=== PATIENT | female | born 1975 | race Caucasian/White ===

== ENCOUNTER 2017-08-18 16:42 | Inpatient (IN) | payer MEDICARE, MEDICAID, SELFPAY ==
[2017-08-18] VITALS (11 sets, daily range): BP systolic 177–178; BP diastolic 95–109; PULSE 40–86; RESP 16–26; TEMP 36.2–36.6; O2SAT 95–100; BMI 29.1; BMI 29.2; BMI 29.3
--- NOTE | 2017-08-18 17:01 | EKG12_ITS ---
Test Reason : DYSRHYTHMIA Blood Pressure : / mmHG Vent. Rate : 076 BPM Atrial Rate : 076 BPM P-R Int : 106 ms QRS Dur : 106 ms QT Int : 390 ms P-R-T Axes : -04 168 085 degrees QTc Int : 438 ms Sinus rhythm with short GA with frequent Premature ventricular complexes Anterolateral infarct , age undetermined Abnormal ECG Confirmed by SHWETA FISHER, HAYDEE ([id number]), book editor SHARON WORTHY ([id number]) on 08/20/2017 2:38:07 PM Referred By: ASHLEY Confirmed By:HAYDEE ROCK MD
--- NOTE | 2017-08-18 17:45 | RAD_ITS ---
STUDY: X-RAY CHEST REASON FOR EXAM: Female, 42 years old. Elevated blood pressure TECHNIQUE: Frontal and lateral views of the chest. COMPARISON: 09.30.16 FINDINGS: Mild right lower lobe pneumonia. There is no demonstrated pleural abnormality. There is borderline cardiomegaly. Normal mediastinum and solange. Normal visualized pulmonary arteries. Normal visualized aortic arch and descending thoracic aorta. Normal visualized thoracic spine. Normal visualized ribs, clavicles, and shoulders. There is no demonstrated abnormality of the visualized soft tissue structures of the upper abdomen. RAD/Chest PA and Lateral IMPRESSION: Mild right lower lobe pneumonia. Electronically Signed: Sherwin David MD at 18:14 EDT , Service support ,
[2017-08-18 18:05] LABS: Absolute Lymphocyte Count 1.65 X10^3/ul (0.83-4.51); Absolute Neutrophil Count 6.8 X10^3/uL (2.0-7.7); Basophil# 0.02 X10^3/uL; Basophil% 0.2 % (0-1); Eosinophil# 0.13 X10^3/uL; Eosinophils% 1.4 % (0-5); Hematocrit 37.8 % (37-47); Hemoglobin 11.9 g/dl (12.0-15.0); Lymphocyte # 1.65 X10^3/ul (4.0); Lymphocyte % 18.4 % (19-41); Mean Corp Hgb Conc 31.5 g/gl (32-36); Mean Corpuscular Hgb 33.1 pg (27.0-32.0); Mean Corpuscular Volume 105.3 fL (81-99); Mean Platelet Vol. 11.6 fl (6.2-12.0); Monocyte# 0.38 X10^3/uL; Monocyte% 4.2 % (0-10); Neutrophil # 6.79 X10^3/uL (2.7-7.7); Neutrophil % 75.7 % (47-70); Platelet Count 150 K/mm3 (150-450); RBC Distribution Width CV 19.5 % (11.6-14.6); RBC Distribution Width SD 74.5 fl (35.1-43.9); Red Blood Count 3.59 M/mm3 (4.2-5.4)
[2017-08-18 18:06] LABS: Differential Indicated SCAN CRITERIA MET; POSITIVE COUNT NO; POSITIVE DIFFERENTIAL NO; POSITIVE MORPHOLOGY YES
[2017-08-18 18:33] LABS: Anisocytosis 2+; Differential Comment SCANNED; Macrocytosis 1+; Platelet Estimate ADEQUATE (ADEQ)
[2017-08-18 18:41] LABS: Anion Gap 11 (5-15); BUN 84 mg/dL (7-18); BUN/Creat Ratio 8.8 RATIO (10-20); Chloride 106 mmol/L (98-107); Creatinine, Serum 9.59 mg/dL (0.55-1.02); EST Glomerular Filtration Rate 5 mL/min (>60); Est Glom Filt Rate - Afr Amer 6 mL/min (>60); Estimated Creatinine Clearance 6.39 ml/min; Glucose 90 mg/dL (74-106); Potassium 7.2 mmol/L (3.5-5.1); Sodium Level 139 mmol/L (136-145)
--- NOTE | 2017-08-18 20:29 | ED.DCSUM_ITS ---
- ER Visit Summary Date of Service: 08/18/17 Chief Complaint: Palpitations History of Present Illness: The patient is a 42 F 3 of end-stage renal disease for last 14 years in which he is dialyzed Saturday. Also treated for hypertension and recently started on Cozaar. Patient states that she had a full run of dialysis on Saturday. States she has been having palpitations since that time. Physical Examination: Middle-aged female vital signs stable afebrile. Pulse ox 100 percent on room air no signs of hypoxia. HEENT exam unremarkable. Neck nontender no JVD. Lungs clear to auscultation bilaterally. Heart frequent PVCs on monitor. Abdomen soft nontender. Normal bowel sounds no peritoneal signs. Having all 4 extremities. Left arm fistula with thrill. Neurologically awake and alert with no focal motor deficits. Test Results: CBC shows a white count of 9. H&H 11.9 and 37. Electrolytes show potassium of 7.2 with a BUN of 84 and creatinine of 9.5. Troponin is elevated 0.26. Chest x-ray shows no acute process. Radiologist read it as possible right lower lobe infiltrate I disagree. EKG is a sinus rhythm with frequent PVCs. Emergency Department Course and Treatment: Patient be treated with IV calcium gluconate, IV D 25. And IV insulin. I very spoken to the hospitalist about admission. Depending on how she responds to therapy she may or may not need acute dialysis. Treatment Plan: [] Disposition: Admission Impression: Palpitations secondary to PVCs and bigeminy Acute hyperkalemia History of end-stage renal disease and dialysis This note was generated with [employer] dictation software. It may contain incorrect words, spelling, and punctuation that were not noted in review of the chart prior to signing ED Disposition - Plan for ED Patient: Chief Complaint: General Illness Referrals: Zofia Devries [Primary Care Provider] -
[2017-08-18] MEDS: Albuterol 2.5 MG/3 ML VIAL.NEB. INHALATION (20:36)
--- NOTE | 2017-08-18 20:57 | PCM.HP.STD ---
Problem List (1) Hyperkalemia Status: Acute (2) Bigeminal pulse Status: Acute (3) COPD (chronic obstructive pulmonary disease) Status: Chronic (4) Hypertension Status: Chronic (5) Alport syndrome Status: Chronic History of Present Illness Date of Admission: 08/18/17 Chief Complaint: Palpitation, generalized fatigue and weakness The patient is a 42 year old F with history of congenital disease, Alport syndrome on complaint to hemodialysis on Saturday and Saturday came to ER with generalized weakness, palpitation with no energy. Patient stated she completed for dialysis on Saturday and had normal electrolytes. She was recently started on losartan 25 mg and she took for 2 days. 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 She is not a smoker. She denies fever, chills, excessive shortness of breath more than her normal. She has mild cough for about 1 week. Chest x-ray report is mild right lower lobe infiltrate but I do not appreciate significant consolidation and does not have clinical symptoms of pneumonia; although with history of COPD started on Zithromax for COPD with possible acute bronchitis [] Past Medical History Past Medical History (Chronic Problems): Chronic Problems COPD (chronic obstructive pulmonary disease) (Chronic) Hypertension (Chronic) Alport syndrome (Chronic) Allergies amoxicillin [From Augmentin] Allergy (Verified 08/18/17 16:47) Hives cephalexin [From Keflex] Allergy (Verified 08/18/17 16:47) Hives clavulanic acid [From Augmentin] Allergy (Verified 08/18/17 16:47) Hives oxycodone Allergy (Verified 08/18/17 16:47) Hives vancomycin Allergy (Verified 08/18/17 16:47) Hives Home Medications: Ambulatory Orders Medication Instructions Recorded Albuterol Inhaler [Ventolin Hfa] 1 - 2 puff INHALATION Q4H PRN PRN 09/30/16 #1 inhaler Calcium Acetate [Phoslo Gel Cap] 667 mg PO TIDCM 09/30/16 Doxycycline [Vibramycin] 100 mg PO BID #19 capsule 09/30/16 Folic Acid/Vit Bcomp,C [Renal 0.8 mg PO DAILY 09/30/16 Vitamin Tablet] Esomeprazole Mag Trihydrate 40 mg PO DAILY 08/18/17 [Nexium] Smoking Status: Never smoker Review of Systems Constitutional: Denies: Chills, Fever, Weight Change HEENT: Denies: Head Aches, Sinus Congestion, Sinus Drainage Cardiovascular: Denies: Chest Pain, Palpitations Respiratory: Reports: Cough, Shortness of breath upon exertion - Chronic. Denies: Shortness of breath at rest, Sputum production Gastrointestinal: Denies: Abdominal Pain, Nausea, Vomiting Genitourinary: Denies: Dysuria Musculoskeletal: Denies: Joint Pain, Joint Tenderness Skin: Denies: Rash, Wounds Neurological: Denies: Numbness, Tingling, Focal weakness Psychiatric: Denies: Anxiety, Depression, Homicidal Ideations, Suicidal Ideations Hematologic/ Lymphatic: Denies: Easy Bruising, Easy Bleeding VTE Information - Inpt Only VTE Present on Admission: No VTE Mechan Device Prophylaxis: None VTE Pharm Prophylaxis ordered?: Yes Reason prophylaxis not ordered:: Procedure Not Indicated Patient Problems: Active and Suspected Problems Hyperkalemia (Acute) Bigeminal pulse (Acute) - Physical Exam General: Alert, Oriented x3, Cooperative HEENT: Atraumatic, PERRLA, EOMI, Normocephalic Neck: Supple, No JVD, Negative Carotid Bruits Lungs: Clear to auscultation, Normal air movement, No rhonchi, No wheeze, No rales Cardiovascular: Regular rate, Normal S1, Normal S2, No murmurs, Irregular Rate - Pulses bigeminy Abdomen: Bowel Sounds Present, Soft, Non Tender, Non-Distended Extremities: No edema, Capillary Refill Less than 3 Seconds Skin: No rashes, No breakdown Musculoskeletal: No Tenderness to Palpation of Joints or Extremities Neurological: Cranial nerves II-XII grossly intact Psych/Mental Status: Normal Affect, Appropriate Vital Signs Temp Pulse Resp BP Pulse Ox 97.2 F L 82 20 H 178/95 H 99 08/18/17 16:43 08/18/17 20:37 08/18/17 20:37 08/18/17 16:43 08/18/17 20:26 Oxygen Delivery Method Room Air Weight: 164 lb 7.437 oz Body Mass Index (BMI) 29.1 Laboratory Tests Past 24 Hrs 08/18/17 08/18/17 17:50 17:50 WBC 9.0 RBC 3.59 L Hgb 11.9 L Hct 37.8 MCV 105.3 H MCH 33.1 H MCHC 31.5 L RDW 19.5 H RDW Differential 74.5 H Plt Count 150 MPV 11.6 Immature Gran % (Auto) 0.100 Neut % (Auto) 75.7 H Lymph % (Auto) 18.4 L Stanly % (Auto) 4.2 Eos % (Auto) 1.4 Baso % (Auto) 0.2 Absolute Neuts (auto) 6.8 Absolute Lymphs (auto) 1.65 Total Counted Not Reportable Differential Comment SCANNED Platelet Estimate ADEQUATE Anisocytosis 2+ Macrocytosis 1+ Sodium 139 Potassium 7.2 H* Chloride 106 Carbon Dioxide 22.0 Anion Gap 11 BUN 84 H Creatinine 9.59 H* Estim Creat Clear Calc 6.39 Est GFR (MDRD) Af Amer 6 L Est GFR (MDRD) Non-Af 5 L BUN/Creatinine Ratio 8.8 L Glucose 90 Calcium 9.0 Troponin I 0.26 H Assessment/Plan Active and Suspected Problems Hyperkalemia (Acute) Bigeminal pulse (Acute) The patient is a 42 year old F with history of congenital disease, Alport syndrome on complaint to hemodialysis on Saturday and Saturday came to ER with generalized weakness, palpitation with no energy. Patient stated she completed for dialysis on Saturday and had normal electrolytes. She was recently started on losartan 25 mg and she took for 2 days. She follows [employer] equipment operator, Dr. 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 She is not a smoker. She denies fever, chills, excessive shortness of breath more than her normal. She has mild cough for about 1 week. In ED, she was found to have K7.2, creatinine 9.59 and EKG showed pulses bigeminy. 1. Generalized weakness and fatigue possibly due to hyperkalemia precipitated by recent start of losartan: Patient is being admitted in PCU. Patient had cocktail and Kayexalate in ER. Discussed with the [employer] equipment operator on-call, Dr. Campo and put the order for urgent hemodialysis. Repeat BMP after hemodialysis. Repeat EKG ordered. 2. Severe hyperkalemia with EKG changes: Treatment as mentioned above. 3. COPD with possibility of viral bronchitis: Patient does not seem to be an exacerbation. Chest x-ray report as mild right lower lobe infiltrate but I do not appreciate significant consolidation and does not have clinical symptoms of pneumonia; although with history of COPD, started on Zithromax for COPD with possible acute bronchitis On bronchodilator as needed. She was already on doxycycline at home. 4. 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: DVT prophylaxis: With history of ESRD on hemodialysis, started on heparin 500 units subcutaneous twice daily Laboratory Results 08/18/17 17:50: WBC 9.0, RBC 3.59 L, Hgb 11.9 L, Hct 37.8, MCV 105.3 H, MCH 33.1 H, MCHC 31.5 L, RDW 19.5 H, RDW Differential 74.5 H, Plt Count 150, MPV 11.6, Immature Gran % (Auto) 0.100, Neut % (Auto) 75.7 H, Lymph % (Auto) 18.4 L, Stanly % (Auto) 4.2, Eos % (Auto) 1.4, Baso % (Auto) 0.2, Absolute Neuts (auto) 6.8, Absolute Lymphs (auto) 1.65, Total Counted Not Reportable, Differential Comment SCANNED, Platelet Estimate ADEQUATE, Anisocytosis 2+, Macrocytosis 1+ 08/18/17 17:50: Sodium 139, Potassium 7.2 H*, Chloride 106, Carbon Dioxide 22.0, Anion Gap 11, BUN 84 H, Creatinine 9.59 H*, Estim Creat Clear Calc 6.39, Est GFR (MDRD) Af Amer 6 L, Est GFR (MDRD) Non-Af 5 L, BUN/Creatinine Ratio 8.8 L, Glucose 90, Calcium 9.0, Troponin I 0.26 H Code Visit Inpatient E&M: 00240 Init Hosp L3
[2017-08-18] MEDS: Dextrose 50%-Water 25 GM/50 ML DISP.SYRIN IV (21:05)
[2017-08-18] MEDS: Sodium Polystyrene Sulfonate 15 GM/60 ML UDC 30 GM PO (21:06)
--- NOTE | 2017-08-18 21:28 | ED.RN ---
called to see if p[facility] was ready for pt, smelter charger states that she is calling dr. reis to confirm if pt is to still come to them because she is bigeminy.
--- NOTE | 2017-08-18 23:00 | EKG12_ITS ---
Test Reason : POST DIALYSIS EKG Blood Pressure : / mmHG Vent. Rate : 078 BPM Atrial Rate : 078 BPM P-R Int : 126 ms QRS Dur : 106 ms QT Int : 408 ms P-R-T Axes : 065 -39 123 degrees QTc Int : 465 ms Normal sinus rhythm Left axis deviation Anterior infarct , age undetermined T wave abnormality, consider lateral ischemia Abnormal ECG When compared with ECG of 30-SEP-2016 16:04, T wave inversion no longer evident in Inferior leads Confirmed by SHWETA FISHER, HAYDEE ([id number]), editor continuity and script SHARON WORTHY ([id number]) on 08/23/2017 3:47:23 PM Referred By: GEO Confirmed By:HAYDEE ROCK MD
[2017-08-18] MEDS: Lidocaine/Prilocaine HCl 5 GM Tube TOPICAL (23:02)
[2017-08-19] VITALS (13 sets, daily range): BP systolic 106–143; BP diastolic 83–88; PULSE 71–91; RESP 16–22; TEMP 36.4–37; O2SAT 95–99
--- NOTE | 2017-08-19 02:10 | DIALYSIS ---
HD on 1 k bath uf -1800ml tolerated well post weight 72.8kg. No meds given. Stasis at AF dsg at sites
[2017-08-19] MEDS: guaiFENesin 1,200 MG Tablet 1200 MG PO ×3 (02:42→22:10)
[2017-08-19] MEDS: Azithromycin 250 MG Tablet 500 MG PO (02:43)
[2017-08-19 06:44] LABS: Anion Gap 11 (5-15); BUN 48 mg/dL (7-18); BUN/Creat Ratio 7.2 RATIO (10-20); Calcium,Total 8.4 mg/dL (8.5-10.1); Chloride 99 mmol/L (98-107); Creatinine, Serum 6.63 mg/dL (0.55-1.02); EST Glomerular Filtration Rate 7 mL/min (>60); Est Glom Filt Rate - Afr Amer 9 mL/min (>60); Estimated Creatinine Clearance 9.24 ml/min; Glucose 85 mg/dL (74-106); Potassium 3.8 mmol/L (3.5-5.1); Sodium Level 138 mmol/L (136-145)
[2017-08-19 06:58] LABS: Hematocrit 32.8 % (37-47); Hemoglobin 10.6 g/dl (12.0-15.0); Mean Corp Hgb Conc 32.3 g/gl (32-36); Mean Corpuscular Hgb 33.1 pg (27.0-32.0); Mean Corpuscular Volume 102.5 fL (81-99); Mean Platelet Vol. 11.3 fl (6.2-12.0); Platelet Count 116 K/mm3 (150-450); RBC Distribution Width CV 19.5 % (11.6-14.6); RBC Distribution Width SD 72.5 fl (35.1-43.9)
[2017-08-19 07:02] LABS: Scan Indicated on CBC? Y/N YES- FLAGS NOTED
[2017-08-19 07:18] LABS: Differential Comment SCANNED
[2017-08-19] MEDS: Calcium Acetate 667 MG Capsule PO ×3 (08:25→16:34)
[2017-08-19] MEDS: Folic Acid/Vitamin B Comp W-C 1 Capsule 1 CAP PO (08:26)
[2017-08-19] MEDS: Pantoprazole Sodium 40 MG Tablet PO (08:26)
--- NOTE | 2017-08-19 11:10 | CASEMGMT ---
Face to Face with patient for initial transition planning/care coordination assessment. PERRY CLOUD introduced self and role at [facility], pt voices understanding and consents to assessment at this time. Pt is sitting up in chair in no distress at this time. Pt is A/O x4 at this time and answers all questions appropriately at this time. Care providers, pharmacy, and demographics verified. See attached link. Pt voices no further concerns/needs at this time. Advised pt to ask for CM if any further questions/concerns/needs arise, voices understanding. PLAN: [place] PERRY CLOUD
--- NOTE | 2017-08-19 11:16 | PCM.CONS.R ---
Problem List (1) ESRD (end stage renal disease) on dialysis Status: Chronic (2) Hyperkalemia Status: Acute Consultation - Renal PCP/ Referring MD: Requesting physician: [] Primary care physician: Zofia Devries - History of Present Illness History of Present Illness: The patient is a 42 year old F past medical history of Alport syndrome, end-stage renal disease on Saturday. [facility] [place] . Presented presented with generalized weakness . Patient was found to have hyperkalemia with potassium more than 7 along with the EKG changes renal team was consulted last night for urgent dialysis . Patient tolerated session yesterday well with 1.3 L ultrafiltration . Patient also has been complaining of cough for a week . Patient has chronic shortness of breath . She is not on oxygen at home . Patient now is being treated with bronchitis . Says she feels much better this morning . Patient has been on dialysis for 14 years . Hemodialysis access is left forearm AV fistula . Review of system : 12 systems review is negative this morning [] - Allergies Allergies: Allergies amoxicillin [From Augmentin] Allergy (Verified 08/18/17 16:47) Hives cephalexin [From Keflex] Allergy (Verified 08/18/17 16:47) Hives clavulanic acid [From Augmentin] Allergy (Verified 08/18/17 16:47) Hives oxycodone Allergy (Verified 08/18/17 16:47) Hives vancomycin Allergy (Verified 08/18/17 16:47) Hives - Current Medications Current Medications: Current Medications Acetaminophen (Tylenol) 650 mg PO Q4H PRN PRN PRN Reason: Fever/pain Albuterol Sulfate (Ventolin Aerosols) 2.5 mg INHALATION Q4H PRN PRN PRN Reason: WHEEZING Albuterol/Ipratropium (Duoneb) 3 ml INHALATION Q4H PRN PRN Reason: sob Azithromycin (Zithromax) 500 mg PO DAILY [facility] Stop: 08/21/17 22:32 Last Admin: 08/19/17 08:30 Dose: Not Given Calcium Acetate (Phoslo Gel Cap) 667 mg PO TIDCM [facility] Last Admin: 08/19/17 08:25 Dose: 667 mg Guaifenesin (Mucinex) 1,200 mg PO BID [facility] Last Admin: 08/19/17 08:30 Dose: 1,200 mg Heparin Sodium (Porcine) (Heparin Na) 5,000 unit SC BID [facility] Last Admin: 08/19/17 08:25 Dose: Not Given Magnesium Hydroxide (Milk Of Magnesia) 30 ml PO DAILY PRN PRN Reason: Constipation Multivit/Ca Carb/B Cmplx/FA/Prenat (Nephrocaps, Renaphro) [facility] Last Admin: 08/19/17 08:26 Dose: 1 capsule Ondansetron HCl (Zofran) 4 mg IV Q8H PRN PRN PRN Reason: NAUSEA Pantoprazole Sodium (Protonix) 40 mg PO DAILY [facility] Last Admin: 08/19/17 08:26 Dose: 40 mg Sodium Chloride () 5 - 30 ml IV UD PRN PRN Reason: SALINE FLUSH Zolpidem Tartrate (Ambien (Generic)) 5 mg PO QHS PRN PRN PRN Reason: SLEEP - Past Medical History Past Medical History (Chronic Problems): Chronic Problems COPD (chronic obstructive pulmonary disease) (Chronic) Hypertension (Chronic) Alport syndrome (Chronic) ESRD (end stage renal disease) on dialysis (Chronic) - Social History Smoking Status: Never smoker Patient Problems: Active and Suspected Problems Hyperkalemia (Acute) Bigeminal pulse (Acute) - Physical Exam General: Alert, Oriented x3 HEENT: Atraumatic Oral: Moist Mucosa Neck: Supple, No JVD Lungs: Clear to auscultation, Normal air movement, No rhonchi, No wheeze Cardiovascular: Regular rate, Normal S2 Abdomen: Bowel Sounds Present, Soft, Non Tender Extremities: No clubbing, No cyanosis, No edema Skin: No rashes Musculoskeletal: No Tenderness to Palpation of Joints or Extremities Lymphatic: No Cervical, Supraclavicular, or Inguinal Adenopathy Neurological: Cranial nerves II-XII grossly intact, Neuro grossly intact Psych/Mental Status: Normal Affect Comment: hemodialysis access: Left forearm AV fistula. 2 pseudoaneurys. Vital Signs Temp Pulse Resp BP Pulse Ox 98.4 F 76 18 135/87 H 95 08/19/17 08:21 08/19/17 08:21 08/19/17 08:21 08/19/17 08:21 08/19/17 08:21 Oxygen Delivery Method Room Air Weight: 73.4 kg Body Mass Index (BMI) 29.2 Intake and Output for Last 24 Hours 08/17/17 08/18/17 08/19/17 23:59 23:59 23:59 Intake Total 300 / 300 Output Total 2099 / 2100 Balance -1800 / -1800 Laboratory Tests Past 24 Hrs 08/19/17 08/19/17 08/19/17 05:32 05:32 09:40 WBC 8.0 RBC 3.20 L Hgb 10.6 L Hct 32.8 L MCV 102.5 H MCH 33.1 H MCHC 32.3 RDW 19.5 H RDW Differential 72.5 H Plt Count 116 L MPV 11.3 Differential Comment SCANNED Sodium 138 Potassium 3.8 Chloride 99 Carbon Dioxide 28.0 Anion Gap 11 BUN 48 H Creatinine 6.63 H Estim Creat Clear Calc 9.24 Est GFR (MDRD) Af Amer 9 L Est GFR (MDRD) Non-Af 7 L BUN/Creatinine Ratio 7.2 L Glucose 85 Calcium 8.4 L Troponin I 0.73 H* Assessment/Plan Active and Suspected Problems Hyperkalemia (Acute) Bigeminal pulse (Acute) 1-end-stage renal disease patient. On Saturday schedule for hemodialysis. 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 HD access left forearm AV fistula. Patient was dialyzed last night for hyperkalemia. Patient tolerated the session well. Ultrafiltration 1.8 L. No need for dialysis today. Next hemodialysis will be on August 21. URR goal is 70% and more with each session. 2-hyperkalemia with EKG changes. Resolved with hemodialysis. Potassium today 3.8. Continue renal diet. No need for dialysis today 3-hyperphosphatemia: Please continue calcium acetate. Check phosphorus level as outpatient along with a PTH. 4-hypertension: Blood pressure is well controlled. Please avoid NILDA inhibitor or ARB at discharge. 5 bronchitis-: Management as per the primary team. It is okay to discharge the patient home from nephrology standpoint to follow with the chronic hemodialysis unit for hemodialysis sessions. Thank you for the consult. We will continue to follow. Manoj Lester MD [phone]
--- NOTE | 2017-08-19 11:24 | CON.PCM_ITS ---
Problem List (1) ESRD (end stage renal disease) on dialysis Status: Chronic (2) Hyperkalemia Status: Acute Consultation - Renal PCP/ Referring MD: Requesting physician: [] Primary care physician: Zofia Devries - History of Present Illness History of Present Illness: The patient is a 42 year old F past medical history of Alport syndrome, end- stage renal disease on Saturday. [facility] at [place] . Presented presented with generalized weakness . Patient was found to have hyperkalemia with potassium more than 7 along with the EKG changes renal team was consulted last night for urgent dialysis . Patient tolerated session yesterday well with 1.3 L ultrafiltration . Patient also has been complaining of cough for a week . Patient has chronic shortness of breath . She is not on oxygen at home . Patient now is being treated with bronchitis . Says she feels much better this morning . Patient has been on dialysis for 14 years . Hemodialysis access is left forearm AV fistula . Review of system : 12 systems review is negative this morning [] - Allergies Allergies: Allergies amoxicillin [From Augmentin] Allergy (Verified 08/18/17 16:47) Hives cephalexin [From Keflex] Allergy (Verified 08/18/17 16:47) Hives clavulanic acid [From Augmentin] Allergy (Verified 08/18/17 16:47) Hives oxycodone Allergy (Verified 08/18/17 16:47) Hives vancomycin Allergy (Verified 08/18/17 16:47) Hives - Current Medications Current Medications: Current Medications Acetaminophen (Tylenol) 650 mg PO Q4H PRN PRN PRN Reason: Fever/pain Albuterol Sulfate (Ventolin Aerosols) 2.5 mg INHALATION Q4H PRN PRN PRN Reason: WHEEZING Albuterol/Ipratropium (Duoneb) 3 ml INHALATION Q4H PRN PRN Reason: sob Azithromycin (Zithromax) 500 mg PO DAILY [facility] Stop: 08/21/17 22:32 Last Admin: 08/19/17 08:30 Dose: Not Given Calcium Acetate (Phoslo Gel Cap) 667 mg PO TIDCM [facility] Last Admin: 08/19/17 08:25 Dose: 667 mg Guaifenesin (Mucinex) 1,200 mg PO BID [facility] Last Admin: 08/19/17 08:30 Dose: 1,200 mg Heparin Sodium (Porcine) (Heparin Na) 5,000 unit SC BID [facility] Last Admin: 08/19/17 08:25 Dose: Not Given Magnesium Hydroxide (Milk Of Magnesia) 30 ml PO DAILY PRN PRN Reason: Constipation Multivit/Ca Carb/B Cmplx/FA/Prenat (Nephrocaps, [facility]) [facility] Last Admin: 08/19/17 08:26 Dose: 1 capsule Ondansetron HCl (Zofran) 4 mg IV Q8H PRN PRN PRN Reason: NAUSEA Pantoprazole Sodium (Protonix) 40 mg PO DAILY [facility] Last Admin: 08/19/17 08:26 Dose: 40 mg Sodium Chloride () 5 - 30 ml IV UD PRN PRN Reason: SALINE FLUSH Zolpidem Tartrate (Ambien (Generic)) 5 mg PO QHS PRN PRN PRN Reason: SLEEP - Past Medical History Past Medical History (Chronic Problems): Chronic Problems COPD (chronic obstructive pulmonary disease) (Chronic) Hypertension (Chronic) Alport syndrome (Chronic) ESRD (end stage renal disease) on dialysis (Chronic) - Social History Smoking Status: Never smoker Patient Problems: Active and Suspected Problems Hyperkalemia (Acute) Bigeminal pulse (Acute) - Physical Exam General: Alert, Oriented x3 HEENT: Atraumatic Oral: Moist Mucosa Neck: Supple, No JVD Lungs: Clear to auscultation, Normal air movement, No rhonchi, No wheeze Cardiovascular: Regular rate, Normal S2 Abdomen: Bowel Sounds Present, Soft, Non Tender Extremities: No clubbing, No cyanosis, No edema Skin: No rashes Musculoskeletal: No Tenderness to Palpation of Joints or Extremities Lymphatic: No Cervical, Supraclavicular, or Inguinal Adenopathy Neurological: Cranial nerves II-XII grossly intact, Neuro grossly intact Psych/Mental Status: Normal Affect Comment: hemodialysis access: Left forearm AV fistula. 2 pseudoaneurys. Vital Signs Temp Pulse Resp BP Pulse Ox 98.4 F 76 18 135/87 H 95 08/19/17 08:21 08/19/17 08:21 08/19/17 08:21 08/19/17 08:21 08/19/17 08:21 Oxygen Delivery Method Room Air Weight: 73.4 kg Body Mass Index (BMI) 29.2 Intake and Output for Last 24 Hours 08/17/17 08/18/17 08/19/17 23:59 23:59 23:59 Intake Total 300 / 300 Output Total 2099 / 2100 Balance -1800 / -1800 Laboratory Tests Past 24 Hrs 08/19/17 08/19/17 08/19/17 05:32 05:32 09:40 WBC 8.0 RBC 3.20 L Hgb 10.6 L Hct 32.8 L MCV 102.5 H MCH 33.1 H MCHC 32.3 RDW 19.5 H RDW Differential 72.5 H Plt Count 116 L MPV 11.3 Differential Comment SCANNED Sodium 138 Potassium 3.8 Chloride 99 Carbon Dioxide 28.0 Anion Gap 11 BUN 48 H Creatinine 6.63 H Estim Creat Clear Calc 9.24 Est GFR (MDRD) Af Amer 9 L Est GFR (MDRD) Non-Af 7 L BUN/Creatinine Ratio 7.2 L Glucose 85 Calcium 8.4 L Troponin I 0.73 H* Assessment/Plan Active and Suspected Problems Hyperkalemia (Acute) Bigeminal pulse (Acute) 1-end-stage renal disease patient. On Saturday schedule for hemodialysis. 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 HD access left forearm AV fistula. Patient was dialyzed last night for hyperkalemia. Patient tolerated the session well. Ultrafiltration 1.8 L. No need for dialysis today. Next hemodialysis will be on August 21. URR goal is 70% and more with each session. 2-hyperkalemia with EKG changes. Resolved with hemodialysis. Potassium today 3.8. Continue renal diet. No need for dialysis today 3-hyperphosphatemia: Please continue calcium acetate. Check phosphorus level as outpatient along with a PTH. 4-hypertension: Blood pressure is well controlled. Please avoid NILDA inhibitor or ARB at discharge. 5 bronchitis-: Management as per the primary team. It is okay to discharge the patient home from nephrology standpoint to follow with the chronic hemodialysis unit for hemodialysis sessions. Thank you for the consult. We will continue to follow. Manoj Lester MD [phone]
--- NOTE | 2017-08-19 12:25 | DIALYSIS ---
Pt has dialysis on MWF. Upon arrival to the pt room, I found out that the pt was not going to need tx today per Dr. Lester. Next tx will be 08/21/17. PERRY Brandt was notified.
--- NOTE | 2017-08-19 14:31 | PCM.PN.HOSP ---
Patient Problems: Active and Suspected Problems Hyperkalemia (Acute) Bigeminal pulse (Acute) Subjective: Feeling much better. When felt ill, fatigue, palpitations. Vitals/I&O's: Vital Signs Temp Pulse Resp BP Pulse Ox 36.9 C 73 18 135/87 H 97 08/19/17 08:21 08/19/17 11:39 08/19/17 08:21 08/19/17 08:21 08/19/17 11:20 Oxygen Delivery Method Room Air Weight: 73.4 kg Body Mass Index (BMI) 29.2 Intake and Output for Last 24 Hours 08/17/17 08/18/17 08/19/17 23:59 23:59 23:59 Intake Total 300 / 300 Output Total 2099 / 2099 Balance -1800 / -1800 General: Alert, Cooperative, No apparent distress HEENT: Atraumatic, Normocephalic Neck: No Nodes, Thyroid Normal Size and Texture Lungs: Clear to auscultation, Normal air movement, No rhonchi, No wheeze Cardiovascular: Regular rate, Regular Rhythm, - - 2/6 HSM at apex Laboratory Results 08/19/17 05:32: WBC 8.0, RBC 3.20 L, Hgb 10.6 L, Hct 32.8 L, MCV 102.5 H, MCH 33.1 H, MCHC 32.3, RDW 19.5 H, RDW Differential 72.5 H, Plt Count 116 L, MPV 11.3, Differential Comment SCANNED 08/19/17 05:32: Sodium 138, Potassium 3.8, Chloride 99, Carbon Dioxide 28.0, Anion Gap 11, BUN 48 H, Creatinine 6.63 H, Estim Creat Clear Calc 9.24, Est GFR (MDRD) Af Amer 9 L, Est GFR (MDRD) Non-Af 7 L, BUN/Creatinine Ratio 7.2 L, Glucose 85, Calcium 8.4 L 08/19/17 09:40: Troponin I 0.73 H* Current Medications Acetaminophen (Tylenol) 650 mg PO Q4H PRN PRN PRN Reason: Fever/pain Albuterol Sulfate (Ventolin Aerosols) 2.5 mg INHALATION Q4H PRN PRN PRN Reason: WHEEZING Albuterol/Ipratropium (Duoneb) 3 ml INHALATION Q4H PRN PRN Reason: sob Azithromycin (Zithromax) 500 mg PO DAILY [facility] Stop: 08/21/17 22:32 Last Admin: 08/19/17 08:30 Dose: Not Given Calcium Acetate (Phoslo Gel Cap) 667 mg PO TIDCM [facility] Last Admin: 08/19/17 12:00 Dose: 667 mg Guaifenesin (Mucinex) 1,200 mg PO BID [facility] Last Admin: 08/19/17 08:30 Dose: 1,200 mg Heparin Sodium (Porcine) (Heparin Na) 5,000 unit SC BID [facility] Last Admin: 08/19/17 08:25 Dose: Not Given Magnesium Hydroxide (Milk Of Magnesia) 30 ml PO DAILY PRN PRN Reason: Constipation Multivit/Ca Carb/B Cmplx/FA/Prenat (Nephrocaps, [facility]aphro) [facility] Last Admin: 08/19/17 08:26 Dose: 1 capsule Ondansetron HCl (Zofran) 4 mg IV Q8H PRN PRN PRN Reason: NAUSEA Pantoprazole Sodium (Protonix) 40 mg PO DAILY [facility] Last Admin: 08/19/17 08:26 Dose: 40 mg Sodium Chloride () 5 - 30 ml IV UD PRN PRN Reason: SALINE FLUSH Zolpidem Tartrate (Ambien (Generic)) 5 mg PO QHS PRN PRN PRN Reason: SLEEP Medical Necessity - Tobacco Use Smoking Status: Never smoker Tobacco Use: Secondhand Assessment/Plan Active and Suspected Problems Hyperkalemia (Acute) Bigeminal pulse (Acute) 1. Hyperkalemia: resolved secondary to losartan and ESRD resolved after HD, Ca Gluconate, Kayexalate 2. Vetricular bigeminy secondary to above resolved periodic PVCs, but improved after correction of hyperkalemia 3. ESRD HD QMWF 4. 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
--- NOTE | 2017-08-19 14:37 | PN_ITS ---
Patient Problems: Active and Suspected Problems Hyperkalemia (Acute) Bigeminal pulse (Acute) Subjective: Feeling much better. When felt ill, fatigue, palpitations. Vitals/I&O's: Vital Signs Temp Pulse Resp BP Pulse Ox 36.9 C 73 18 135/87 H 97 08/19/17 08:21 08/19/17 11:39 08/19/17 08:21 08/19/17 08:21 08/19/17 11:20 Oxygen Delivery Method Room Air Weight: 73.4 kg Body Mass Index (BMI) 29.2 Intake and Output for Last 24 Hours 08/17/17 08/18/17 08/19/17 23:59 23:59 23:59 Intake Total 300 / 300 Output Total 2099 / 2099 Balance -1800 / -1800 General: Alert, Cooperative, No apparent distress HEENT: Atraumatic, Normocephalic Neck: No Nodes, Thyroid Normal Size and Texture Lungs: Clear to auscultation, Normal air movement, No rhonchi, No wheeze Cardiovascular: Regular rate, Regular Rhythm, - - 2/6 HSM at apex Laboratory Results 08/19/17 05:32: WBC 8.0, RBC 3.20 L, Hgb 10.6 L, Hct 32.8 L, MCV 102.5 H, MCH 33.1 H, MCHC 32.3, RDW 19.5 H, RDW Differential 72.5 H, Plt Count 116 L, MPV 11.3, Differential Comment SCANNED 08/19/17 05:32: Sodium 138, Potassium 3.8, Chloride 99, Carbon Dioxide 28.0, Anion Gap 11, BUN 48 H, Creatinine 6.63 H, Estim Creat Clear Calc 9.24, Est GFR (MDRD) Af Amer 9 L, Est GFR (MDRD) Non-Af 7 L, BUN/Creatinine Ratio 7.2 L, Glucose 85, Calcium 8.4 L 08/19/17 09:40: Troponin I 0.73 H* Current Medications Acetaminophen (Tylenol) 650 mg PO Q4H PRN PRN PRN Reason: Fever/pain Albuterol Sulfate (Ventolin Aerosols) 2.5 mg INHALATION Q4H PRN PRN PRN Reason: WHEEZING Albuterol/Ipratropium (Duoneb) 3 ml INHALATION Q4H PRN PRN Reason: sob Azithromycin (Zithromax) 500 mg PO DAILY [facility] Stop: 08/21/17 22:32 Last Admin: 08/19/17 08:30 Dose: Not Given Calcium Acetate (Phoslo Gel Cap) 667 mg PO TIDCM [facility] Last Admin: 08/19/17 12:00 Dose: 667 mg Guaifenesin (Mucinex) 1,200 mg PO BID [facility] Last Admin: 08/19/17 08:30 Dose: 1,200 mg Heparin Sodium (Porcine) (Heparin Na) 5,000 unit SC BID [facility] Last Admin: 08/19/17 08:25 Dose: Not Given Magnesium Hydroxide (Milk Of Magnesia) 30 ml PO DAILY PRN PRN Reason: Constipation Multivit/Ca Carb/B Cmplx/FA/Prenat (Nephrocaps, Renaphro) [facility] Last Admin: 08/19/17 08:26 Dose: 1 capsule Ondansetron HCl (Zofran) 4 mg IV Q8H PRN PRN PRN Reason: NAUSEA Pantoprazole Sodium (Protonix) 40 mg PO DAILY [facility] Last Admin: 08/19/17 08:26 Dose: 40 mg Sodium Chloride () 5 - 30 ml IV UD PRN PRN Reason: SALINE FLUSH Zolpidem Tartrate (Ambien (Generic)) 5 mg PO QHS PRN PRN PRN Reason: SLEEP Medical Necessity - Tobacco Use Smoking Status: Never smoker Tobacco Use: Secondhand Assessment/Plan Active and Suspected Problems Hyperkalemia (Acute) Bigeminal pulse (Acute) 1. Hyperkalemia: resolved * secondary to losartan and ESRD * resolved after HD, Ca Gluconate, Kayexalate 2. Vetricular bigeminy * secondary to above * resolved * periodic PVCs, but improved after correction of hyperkalemia 3. ESRD * HD QMWF 4. 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
--- NOTE | 2017-08-19 14:38 | PCM.DC ---
- Discharge Diagnoses Current Active Problems: Current Active and Chronic Problems Hyperkalemia (Acute) Bigeminal pulse (Acute) COPD (chronic obstructive pulmonary disease) (Chronic) Hypertension (Chronic) Alport syndrome (Chronic) ESRD (end stage renal disease) on dialysis (Chronic) You will use the following diet at home:: Renal (restricted protein/sodium) Your food should be the consistency of: Regular Your liquids should be the consistency of: Regular/Thin Discharge Activity: Return to Normal Activity Call your doctor if you observe: Fever of 101 or Higher, Shortness of breath, Chest pain, - - palpitations Allergies/Adverse Reactions: Allergies amoxicillin [From Augmentin] Allergy (Verified 08/18/17 16:47) Hives cephalexin [From Keflex] Allergy (Verified 08/18/17 16:47) Hives clavulanic acid [From Augmentin] Allergy (Verified 08/18/17 16:47) Hives oxycodone Allergy (Verified 08/18/17 16:47) Hives vancomycin Allergy (Verified 08/18/17 16:47) Hives Medications to take at Discharge Albuterol Inhaler [Ventolin Hfa] 1 - 2 puff INHALATION Q4H PRN PRN #1 inhaler 09/30/16 Calcium Acetate [Phoslo Gel Cap] 667 mg PO TIDCM 09/30/16 Folic Acid/Vit Bcomp,C [Renal Vitamin Tablet] 0.8 mg PO DAILY 09/30/16 Esomeprazole Mag Trihydrate [Nexium] 40 mg PO DAILY 08/18/17 Acetaminophen [Tylenol Tablet] 650 mg PO Q4H PRN PRN tablet 08/19/17 Primary Care Physician: Zofia Devries [Primary Care Provider] - Within 2 Weeks Proposed Discharge Date: 08/19/17
--- NOTE | 2017-08-19 14:42 | DS.PCM_ITS ---
Discharge Date and Diagnosis - Problem List Patient Problems: Active and Suspected Problems Hyperkalemia (Acute) Hyperkalemia (Acute) Bigeminal pulse (Acute) Date of Admission: 08/18/17 Date of Discharge: 08/19/17 - Primary Discharge Diagnosis Active and Suspected Problems Hyperkalemia (Acute) Hyperkalemia (Acute) Bigeminal pulse (Acute) - Secondary Discharge Diagnosis Chronic Problems COPD (chronic obstructive pulmonary disease) (Chronic) Hypertension (Chronic) Alport syndrome (Chronic) ESRD (end stage renal disease) on dialysis (Chronic) Hospital Course and Treatment Imaging Results: Clinical Impression(s) from Imaging Studies Chest X-Ray 08/18/17 17:45 IMPRESSION: Mild right lower lobe pneumonia. Electronically Signed: Sherwin David MD at 18:14 EDT , Service support , Operations: None Procedures: Dialysis Summary of Care Provided: The patient is a 42 year old F presents with fatigue, EASLEY and palpitations. Found to be hyperkalemic with a K of 7.2. She received several meds in ED and had urgent HD. Symptoms have resolved. 1. Hyperkalemia: resolved * secondary to losartan and ESRD * resolved after HD, Ca Gluconate, Kayexalate 2. Vetricular bigeminy * secondary to above * resolved * periodic PVCs, but improved after correction of hyperkalemia 3. ESRD * HD QMWF 4. 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 * no ARB/ACEi[] Discharge Diet: Renal Diet Discharge Activity: Return to Normal Activity Call your doctor if you observe: Fever of 101 or Higher, Shortness of breath, Chest pain, - - palpitations Home Medications: Medications to take at Discharge Albuterol Inhaler [Ventolin Hfa] 1 - 2 puff INHALATION Q4H PRN PRN #1 inhaler Calcium Acetate [Phoslo Gel Cap] 667 mg PO TIDCM 09/30/16 Folic Acid/Vit Bcomp,C [Renal Vitamin Tablet] 0.8 mg PO DAILY 09/30/16 Esomeprazole Mag Trihydrate [Nexium] 40 mg PO DAILY 08/18/17 Acetaminophen [Tylenol Tablet] 650 mg PO Q4H PRN PRN tablet 08/19/17 Primary Care Physician: Zofia Devries [Primary Care Provider] - Within 2 Weeks Disposition: Home Minutes spent on discharge:: 28 Patient Condition:: Good Medical Necessity - Tobacco Use Smoking Status: Never smoker Tobacco Use: Secondhand Meaningful Use Info Meaningful Use Diagnoses (Choose all that apply): None applicable Code Visit OBSV E&M: 60062 Observation care discharge
--- NOTE | 2017-08-19 14:49 | ECHOD_ITS ---
Reason For Study: PVCs, ARRHYTHMIA Procedure This was a 2D Doppler, Color Flow transthoracic echocardiogram. The exam was of fair technical quality due to body habitus. The study was technically difficult. Exam performed portable in patient room. Left Ventricle Mildly dilated left ventricle. Apical false tendon noted. Moderate segmental systolic dysfunction (see wall motion). The estimated ejection fraction is 30 %. Unable to assess diastolic dysfunction. Infero-Basal: Hypokinetic. Basal inferoseptal: Hypokinetic. Mid-Anterior : Hypokinetic. Mid- Lateral : Hypokinetic. Mid-Posterior: Hypokinetic. Mid-Inferior: Hypokinetic. Mid-inferoseptal : Hypokinetic. Mid-anteroseptal : Hypokinetic. [place] : Hypokinetic. Right Ventricle Normal RV size. Normal systolic function. Atria The left atrium is mildly enlarged. Normal right atrium. No doppler evidence for ASD. Mitral Valve There is mild mitral annular calcification. Mild diffuse mitral valve thickening. Moderate (2+) eccentric mitral valve insufficiency. Tricuspid Valve Normal tricuspid valve. Moderately severe (3+) eccentric tricuspid valve insufficiency. Right ventricular systolic pressure estimated to be 54 mmHg. Aortic Valve Trisinus/trileaflet aortic valve. Normal aortic valve. Pulmonic Valve The pulmonic valve is not well visualized. Mild (1+) pulmonic valve insufficiency. Great Vessels Normal sized aortic root. Pericardium/Pleural No pericardial effusion. MMode/2D Measurements & Calculations LVIDd: 5.9 cm IVSd: 1.1 cm Ao root diam: 2.4 cm LVIDs: 4.7 cm LVPWd: 1.1 cm LA dimension: 4.2 cm RVDd: 3.5 cm FS: 19.9 % LAV(MOD-bp): 78.3 ml LA A4 area: 22.8 cm2 MR PISA radius: 0.72 cm LAV(MOD-bp) Indexed: 44.4 ml/m2 LAV(MOD-sp2): 74.3 ml LAV(MOD-sp4): 74.3 ml RA A4 area: 14.4 cm2 Doppler Measurements & Calculations Lat Peak E' [place]: 6.6 cm/sec Med Peak E' [place]: 5.3 cm/sec Ao V2 max: 181.7 cm/sec Ao max P.2 mmHg Ao V2 mean: 121.0 cm/sec Ao mean P.6 mmHg Ao V2 VTI: 30.6 cm LV V1 max: 112.4 cm/sec MR max sidney: 569.4 cm/sec MR PISA: 3.2 cm2 LV V1 max P.1 mmHg MR max P.7 mmHg LV V1 mean P.3 mmHg MR mean sidney: 437.5 cm/sec LV V1 mean: 69.8 cm/sec MR mean P.5 mmHg LV V1 VTI: 17.1 cm MR VTI: 185.3 cm PA V2 max: 107.3 cm/sec PI end-d sidney: 158.9 cm/sec TR max sidney: 355.7 cm/sec TR max P.7 mmHg Interpretation Summary The study was technically difficult. Mildly dilated left ventricle. Moderate segmental systolic dysfunction (see wall motion). The estimated ejection fraction is 30 %. Apical false tendon noted. The left atrium is mildly enlarged. There is mild mitral annular calcification. Mild diffuse mitral valve thickening. Moderate (2+) eccentric mitral valve insufficiency. Moderately severe (3+) eccentric tricuspid valve insufficiency. Mild (1+) pulmonic valve insufficiency. Right ventricular systolic pressure estimated to be 54 mmHg. Ordering Physician: Tristin Shane Referring Physician: Zofia Devries Performed By: Jeannette Campos, RDCS, RVT
[2017-08-19] MEDS: Aspirin 325 MG Tablet PO (16:34)
[2017-08-19 19:41] LABS: Color, Urine Straw (Yellow); Glucose, Dipstick 50 mg/dl (Normal); Ketone-Dipstick Negative (Negative); Leukocyte Esterase-Dipstick 100 /ul (Negative); Nitrite-Dipstick Negative (Negative); Occult Blood-Urine 10 /ul (Negative); Protein-Dipstick 100 mg/dl (Negative); Urine Bilirubin Dipstick Negative (Negative); Urine Clarity Cloudy (Clear); Urine Urobilinogen Normal (Normal)
[2017-08-20] VITALS (13 sets, daily range): BP systolic 112–144; BP diastolic 79–98; PULSE 68–79; RESP 16–24; TEMP 36.6–36.9; O2SAT 93–100
--- NOTE | 2017-08-20 05:55 | EKG12_ITS ---
Test Reason : MORNING EKG Blood Pressure : / mmHG Vent. Rate : 078 BPM Atrial Rate : 078 BPM P-R Int : 110 ms QRS Dur : 104 ms QT Int : 414 ms P-R-T Axes : -08 -55 097 degrees QTc Int : 471 ms Sinus rhythm with short DE with occasional Premature ventricular complexes Left anterior fascicular block Anteroseptal infarct , age undetermined Abnormal ECG When compared with ECG of 19-AUG-2017 04:07, MANUAL COMPARISON REQUIRED, DATA IS UNCONFIRMED Confirmed by SHWETA FISHER, HAYDEE ([id number]), food expeditor SHARON WORTHY ([id number]) on 08/23/2017 3:44:54 PM Referred By: GEO Confirmed By:HAYDEE ROCK MD
[2017-08-20] MEDS: Aspirin 81 MG TAB.CHEW PO (06:09)
[2017-08-20 06:29] LABS: International Normalized Ratio 1.1; Prothrombin Time (Protime)PT. 14.4 SECONDS (11.7-14.9)
[2017-08-20 06:30] LABS: Partial Thromboplast Time 30.8 Seconds (24.1-36.2)
[2017-08-20 06:37] LABS: Absolute Lymphocyte Count 1.46 X10^3/ul (0.83-4.51); Absolute Neutrophil Count 5.2 X10^3/uL (2.0-7.7); Basophil# 0.01 X10^3/uL; Basophil% 0.1 % (0-1); Eosinophil# 0.12 X10^3/uL; Eosinophils% 1.7 % (0-5); Hematocrit 32.1 % (37-47); Hemoglobin 10.3 g/dl (12.0-15.0); Lymphocyte # 1.46 X10^3/ul (4.0); Lymphocyte % 20.5 % (19-41); Mean Corp Hgb Conc 32.1 g/gl (32-36); Mean Corpuscular Hgb 33.3 pg (27.0-32.0); Mean Corpuscular Volume 103.9 fL (81-99); Monocyte# 0.38 X10^3/uL; Monocyte% 5.3 % (0-10); Neutrophil # 5.15 X10^3/uL (2.7-7.7); Neutrophil % 72.3 % (47-70); Platelet Count 115 K/mm3 (150-450); RBC Distribution Width CV 18.9 % (11.6-14.6); Red Blood Count 3.09 M/mm3 (4.2-5.4); White Blood Count 7.1 K/mm3 (4.4-11.0)
[2017-08-20 06:49] LABS: Differential Indicated SCAN CRITERIA MET; POSITIVE COUNT NO; POSITIVE DIFFERENTIAL NO; POSITIVE MORPHOLOGY YES
[2017-08-20 06:57] LABS: Anion Gap 12 (5-15); BUN 74 mg/dL (7-18); BUN/Creat Ratio 7.9 RATIO (10-20); Calcium,Total 7.7 mg/dL (8.5-10.1); Chloride 102 mmol/L (98-107); Creatinine, Serum 9.34 mg/dL (0.55-1.02); EST Glomerular Filtration Rate 5 mL/min (>60); Est Glom Filt Rate - Afr Amer 6 mL/min (>60); Estimated Creatinine Clearance 6.56 ml/min; Glucose 84 mg/dL (74-106); Potassium 5.4 mmol/L (3.5-5.1); Sodium Level 139 mmol/L (136-145)
[2017-08-20 07:10] LABS: Anisocytosis 3+; Differential Comment SCANNED; Macrocytosis 2+
--- NOTE | 2017-08-20 09:00 | PCM.PN.REN ---
Patient Problems: Active and Suspected Problems Hyperkalemia (Acute) Hyperkalemia (Acute) Bigeminal pulse (Acute) Subjective: No complaints today. No nausea No vomiting No SOB Going for cardiac stress test this morning - Physical Exam General: Alert, Oriented x3 HEENT: Atraumatic Oral: Moist Mucosa Neck: Supple, No JVD Lungs: Clear to auscultation, Normal air movement, No rhonchi, No wheeze Cardiovascular: Regular rate, Regular Rhythm, Normal S1, Normal S2 Abdomen: Bowel Sounds Present, Soft, Non Tender, Non-Distended Extremities: No clubbing, No cyanosis, No edema Skin: No rashes Musculoskeletal: No Tenderness to Palpation of Joints or Extremities Lymphatic: No Cervical, Supraclavicular, or Inguinal Adenopathy Neurological: Cranial nerves II-XII grossly intact, Neuro grossly intact Psych/Mental Status: Normal Affect Vital Signs Temp Pulse Resp BP Pulse Ox 98.4 F 68 20 H 130/89 H 98 08/20/17 06:02 08/20/17 06:59 08/20/17 06:02 08/20/17 06:02 08/20/17 08:05 Oxygen Delivery Method Room Air Weight: 73.7 kg Body Mass Index (BMI) 29.2 Intake and Output for Last 24 Hours 08/18/17 08/19/17 08/20/17 23:59 23:59 23:59 Intake Total 902 / 902 Output Total 2100 / 2100 0 / 0 Balance -1198 / -1198 Microbiology Past 72 Hours 08/19/17 18:40 Streptococcus pneumoniae Antigen (M - Final Urine, Clean Catch 08/19/17 18:40 Legionella Antigen - Final Urine, Clean Catch Laboratory Tests Past 24 Hrs 08/19/17 08/19/17 08/20/17 09:40 18:40 05:35 WBC 7.1 RBC 3.09 L Hgb 10.3 L Hct 32.1 L MCV 103.9 H MCH 33.3 H MCHC 32.1 RDW 18.9 H RDW Differential 70.0 H Plt Count 115 L MPV 12.0 Immature Gran % (Auto) 0.100 Neut % (Auto) 72.3 H Lymph % (Auto) 20.5 [place] % (Auto) 5.3 Eos % (Auto) 1.7 Baso % (Auto) 0.1 Absolute Neuts (auto) 5.2 Absolute Lymphs (auto) 1.46 Total Counted Not Reportable Differential Comment SCANNED Anisocytosis 3+ Macrocytosis 2+ PT INR APTT Sodium Potassium Chloride Carbon Dioxide Anion Gap BUN Creatinine Estim Creat Clear Calc Est GFR (MDRD) Af Amer Est GFR (MDRD) Non-Af BUN/Creatinine Ratio Glucose Calcium Troponin I 0.73 H* Urine Color Straw Urine Clarity Cloudy Urine pH 8.0 Ur Specific [place] 1.010 Urine Protein 100 H Urine Glucose (UA) 50 H Urine Ketones Negative Urine Occult Blood 10 H Urine Nitrite Negative Urine Bilirubin Negative Urine Urobilinogen Normal Ur Leukocyte Esterase 100 H 08/20/17 08/20/17 05:35 05:35 WBC RBC Hgb Hct MCV MCH MCHC RDW RDW Differential Plt Count MPV Immature Gran % (Auto) Neut % (Auto) Lymph % (Auto) [place] % (Auto) Eos % (Auto) Baso % (Auto) Absolute Neuts (auto) Absolute Lymphs (auto) Total Counted Differential Comment Anisocytosis Macrocytosis PT 14.4 INR 1.1 APTT 30.8 Sodium 139 Potassium 5.4 H Chloride 102 Carbon Dioxide 25.0 Anion Gap 12 BUN 74 H Creatinine 9.34 H* Estim Creat Clear Calc 6.56 Est GFR (MDRD) Af Amer 6 L Est GFR (MDRD) Non-Af 5 L BUN/Creatinine Ratio 7.9 L Glucose 84 Calcium 7.7 L Troponin I Urine Color Urine Clarity Urine pH Ur Specific [place] Urine Protein Urine Glucose (UA) Urine Ketones Urine Occult Blood Urine Nitrite Urine Bilirubin Urine Urobilinogen Ur Leukocyte Esterase Medical Necessity - Tobacco Use Smoking Status: Never smoker Tobacco Use: Secondhand Assessment/Plan Active and Suspected Problems Hyperkalemia (Acute) Hyperkalemia (Acute) Bigeminal pulse (Acute) 1-End-stage renal disease patient. On Saturday schedule for hemodialysis. 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 HD access left forearm AV fistula. Patient was dialyzed urgently on 08/18 for hyperkalemia. Patient tolerated the session well. Ultrafiltration 1.8 L. K is 5.4. Will dialyze the patient again today for 2 hour with 2 K bath and 1.5 L UF Next hemodialysis will be on May 2. URR goal is 70% and more with each session. 2-hyperkalemia with EKG changes. Resolved with hemodialysis. K is slightly elevated today at 5.4. HD session again today for 2 hours as above Continue renal diet. 3-hyperphosphatemia: Please continue calcium acetate. Check phosphorus level as outpatient along with a PTH. 4-hypertension: Blood pressure is well controlled. Please avoid NILDA inhibitor or ARB at discharge. 5 bronchitis-: Management as per the primary team. 6- troponin elevation.going for stress test this morning It is okay to discharge the patient home from nephrology standpoint to follow with the chronic hemodialysis unit for hemodialysis sessions. Will continue to follow. Manoj Lester MD [phone]
--- NOTE | 2017-08-20 12:17 | STRESSREP ---
Stress Test Report Date: 08/20/2017 Procedure: Pharmacologic stress nuclear imaging study Indications: Shortness of breath/dyspnea; abnormal cardiac enzymes Consent: Per the patient Procedure: The patient underwent pharmacologic (Regadenoson) evaluation with a peak heart rate of 91 beats per minute (50 predicted maximal heart rate) and a peak blood pressure of 150/90 mmHg. The baseline ECG demonstrated sinus versus ectopic atrial rhythm; poor R-wave progression; anterior AL of indeterminate age cannot be excluded; PVCs. The peak pharmacologic ECG demonstrated no obvious ECG changes. There were occasional PVCs pretest and in recovery. There was no complaint of chest discomfort during pharmacologic infusion or recovery. The examination was discontinued secondary to completion of protocol. Impression: 1. Pharmacologic (Regadenoson) evaluation 2. Peak pharmacologic ECG with no obvious ECG changes. 3. There were occasional PVCs pretest and in recovery 4. Nuclear images pending Myocardial perfusion imaging study: Technique: The patient was injected with 11.6 millicuries of technetium 99m Cardiolite and subsequently rest SPECT Cardiolite nuclear imaging was obtained in the horizontal long, vertical long, and short axis views. The patient underwent pharmacologic (Regadenoson) evaluation with a peak heart rate of 91 beats per minute (50 % percent predicted maximal heart rate) and a peak blood pressure of 150/90 mmHg. The patient was injected with 34 millicuries of technetium 99m Cardiolite and subsequently stress SPECT Cardiolite nuclear imaging was obtained in the horizontal long, vertical long, and short axis views. A gated Cardiolite study at peak stress was obtained. Interpretation: Rest and stress SPECT Cardiolite nuclear imaging status post realignment, normalization, and attenuation correction demonstrate diminished myocardial perfusion/tracer uptake in portions of the distal anterior, distal anteroseptal, and apical segments without significant change between rest and stress. There is diminished end systolic thickening and brightening in the aforementioned areas. The gated Cardiolite study demonstrates diminished myocardial thickening and inward wall motion in the aforementioned areas. The reported LVEF is 39 %. Impression: 1. Rest and stress SPECT Cardiolite nuclear imaging demonstrate myocardial perfusion changes appearing compatible with an area of previous myocardial injury/infarction, although, contribution from soft tissue attenuation/artifact cannot necessarily be excluded, with no myocardial perfusion changes consider diagnostic for associated stress-induced myocardial ischemia. 2. The gated Cardiolite study reports an LVEF of 39 %. This note was generated with Dragon dictation software. It may contain incorrect words, spelling, and punctuation that were not noted in checking the note before signing.
--- NOTE | 2017-08-20 12:22 | STRESSREP_ITS ---
Stress Test Report Date: 08/20/2017 Procedure: Pharmacologic stress nuclear imaging study Indications: Shortness of breath/dyspnea; abnormal cardiac enzymes Consent: Per the patient Procedure: The patient underwent pharmacologic (Regadenoson) evaluation with a peak heart rate of 91 beats per minute (50 predicted maximal heart rate) and a peak blood pressure of 150/90 mmHg. The baseline ECG demonstrated sinus versus ectopic atrial rhythm; poor R-wave progression; anterior CT of indeterminate age cannot be excluded; PVCs. The peak pharmacologic ECG demonstrated no obvious ECG changes. There were occasional PVCs pretest and in recovery. There was no complaint of chest discomfort during pharmacologic infusion or recovery. The examination was discontinued secondary to completion of protocol. Impression: 1. Pharmacologic (Regadenoson) evaluation 2. Peak pharmacologic ECG with no obvious ECG changes. 3. There were occasional PVCs pretest and in recovery 4. Nuclear images pending Myocardial perfusion imaging study: Technique: The patient was injected with 11.6 millicuries of technetium 99m Cardiolite and subsequently rest SPECT Cardiolite nuclear imaging was obtained in the horizontal long, vertical long, and short axis views. The patient underwent pharmacologic (Regadenoson) evaluation with a peak heart rate of 91 beats per minute (50 % percent predicted maximal heart rate) and a peak blood pressure of 150/90 mmHg. The patient was injected with 34 millicuries of technetium 99m Cardiolite and subsequently stress SPECT Cardiolite nuclear imaging was obtained in the horizontal long, vertical long, and short axis views. A gated Cardiolite study at peak stress was obtained. Interpretation: Rest and stress SPECT Cardiolite nuclear imaging status post realignment, normalization, and attenuation correction demonstrate diminished myocardial perfusion/tracer uptake in portions of the distal anterior, distal anteroseptal , and apical segments without significant change between rest and stress. There is diminished end systolic thickening and brightening in the aforementioned areas. The gated Cardiolite study demonstrates diminished myocardial thickening and inward wall motion in the aforementioned areas. The reported LVEF is 39 %. Impression: 1. Rest and stress SPECT Cardiolite nuclear imaging demonstrate myocardial perfusion changes appearing compatible with an area of previous myocardial injury/infarction, although, contribution from soft tissue attenuation/artifact cannot necessarily be excluded, with no myocardial perfusion changes consider diagnostic for associated stress-induced myocardial ischemia. 2. The gated Cardiolite study reports an LVEF of 39 %. This note was generated with Dragon dictation software. It may contain incorrect words, spelling, and punctuation that were not noted in checking the note before signing.
[2017-08-20] MEDS: Pantoprazole Sodium 40 MG Tablet PO (15:22)
[2017-08-20] MEDS: Azithromycin 250 MG Tablet 500 MG PO (15:22)
[2017-08-20] MEDS: guaiFENesin 1,200 MG Tablet 1200 MG PO ×2 (15:22→22:01)
--- NOTE | 2017-08-20 17:04 | PCM.CONS.C ---
Problem List (1) Abnormal cardiac enzyme level Status: Acute (2) Abnormal nuclear stress test Status: Acute (3) Cardiomyopathy Status: Acute Qualifiers: Cardiomyopathy type: unspecified Qualified Code(s): I42.9 - Cardiomyopathy, unspecified (4) Valvular heart disease Status: Chronic (5) Hypertension Status: Chronic Qualifiers: Hypertension type: essential hypertension Qualified Code(s): I10 - Essential (primary) hypertension (6) Alport syndrome Status: Chronic (7) COPD (chronic obstructive pulmonary disease) Status: Chronic Qualifiers: COPD type: unspecified COPD Qualified Code(s): J44.9 - Chronic obstructive pulmonary disease, unspecified Reason for Consult Date of Consultation: 08/20/17 History of Present Illness: The patient is a 42 year old white female with a past medical history of hypertension, valvular heart disease, 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 She states to the best of her knowledge, other than being diagnosed with leaky valves in the past she has not been aware of any other cardiovascular condition. She has been evaluated by cardiology in [place], [place] who recommended continued observational follow-up at that time. In the meantime she states she was started on a new antihypertensive therapy agent (an ARB) recently. She notes at the end of last week she felt tired, fatigued, and sluggish. She states she felt as if she was hit by a truck. She does not seem to sense chest discomfort. She may have been more short of breath and dyspneic. There was no orthopnea or PND or worsening peripheral pitting edema. She did note palpitations. There was no loss of consciousness. She subsequently presented to the hospital for further evaluation. She was found to have evidence of hyperkalemia. She subsequently has undergone further evaluation which is demonstrated abnormal troponin I levels. Her ECG demonstrated the appearance of sinus rhythm/ectopic atrial rhythm with poor R-wave progression with an anterolateral GA pattern of indeterminate age cannot be excluded and PVCs in the form of ventricular bigeminy. She subsequently underwent further evaluation with a combination of a transthoracic echocardiogram and a pharmacologic stress nuclear imaging study. The transthoracic echocardiogram demonstrated the appearance of segmental left ventricular regional wall motion abnormalities with an estimated LVEF of approximately 30%. There was mild left atrial enlargement, moderate MR, moderately severe TR, mild MT, and an estimated RV systolic pressure 54 mmHg. The pharmacologic stress nuclear imaging study suggestive findings potentially compatible with an area of previous myocardial injury/infarction involving portions of the anterior and anteroseptal and apical segments although soft tissue attenuation/artifact could not be excluded. The gated LVEF was 39%. Chest x-ray was previously reported as suggesting a possible right sided infiltrate/pneumonia. The patient has been on antibiotic therapy. [] Past Medical History Allergies/Adverse Reactions: Allergies amoxicillin [From Augmentin] Allergy (Verified 08/18/17 16:47) Hives cephalexin [From Keflex] Allergy (Verified 08/18/17 16:47) Hives clavulanic acid [From Augmentin] Allergy (Verified 08/18/17 16:47) Hives oxycodone Allergy (Verified 08/18/17 16:47) Hives vancomycin Allergy (Verified 08/18/17 16:47) Hives Home Medications: Ambulatory Orders Medication Instructions Recorded Albuterol Inhaler [Ventolin Hfa] 1 - 2 puff INHALATION Q4H PRN PRN 09/30/16 #1 inhaler Calcium Acetate [Phoslo Gel Cap] 667 mg PO TIDCM 09/30/16 Folic Acid/Vit Bcomp,C [Renal 0.8 mg PO DAILY 09/30/16 Vitamin Tablet] Esomeprazole Mag Trihydrate 40 mg PO DAILY 08/18/17 [Nexium] Acetaminophen [Tylenol Tablet] 650 mg PO Q4H PRN PRN tablet 08/19/17 Past Medical History (Chronic Problems): Chronic Problems Valvular heart disease (Chronic) COPD (chronic obstructive pulmonary disease) (Chronic) Hypertension (Chronic) Alport syndrome (Chronic) ESRD (end stage renal disease) on dialysis (Chronic) Lives: Spouse/ Significant Other Smoking Status: Never smoker Tobacco Use: Secondhand Alcohol: None Drugs: None Review of Systems - Review of Systems General: Reports: Fatigue. Denies: Fever, Night Sweats Cardiovascular: Reports: Shortness of Breath, Palpitations. Denies: Chest Discomfort, Orthopnea, PND, Peripheral Edema, Lightheadedness, Dizziness, Near Syncope, Syncope Respiratory: Reports: Shortness of Breath. Denies: Cough, Sputum Production, Hemoptysis Gastrointestinal: Denies: Hematemesis, Hematochezia, Melena Genitourinary: Denies: Dysuria, Hematuria Skin: Denies: Rash Subjectve: This is a 42-year-old white female who appears to be resting comfortably at the moment in no acute distress. Objective: Vital Signs Temp Pulse Resp BP Pulse Ox 98.0 F 71 16 144/98 H 100 08/20/17 12:00 08/20/17 15:15 08/20/17 12:00 08/20/17 12:00 08/20/17 12:00 Oxygen Delivery Method Room Air Weight: 162 lb 7.691 oz Body Mass Index (BMI) 29.2 Intake and Output for Last 24 Hours 08/18/17 08/19/17 08/20/17 23:59 23:59 23:59 Intake Total 902 / 902 Output Total 2099 / 2099 0 / 0 Balance -1198 / -1198 General: Awake, Alert, Oriented x 3, Cooperative, No Acute Distress Neck: No JVD Lungs: Clear to auscultation Cardiovascular: Regular Rhythm, Premature Ectopic Beats, Normal S1, Normal S2 Murmur Murmur: Grade 3/6, Mid Systolic, LLSB, [place], Axilla, LVOT, Sternal Notch Vascular: No Carotid Bruits Abdomen: Bowel Sounds Present, Soft, Non Tender Extremities: No Cyanosis, No Clubbing, No edema Psych/Mental Status: Appropriate 08/19/17 18:40: Urine Color Straw, Urine Clarity Cloudy, Urine pH 8.0, Ur Specific [place] 1.010, Urine Protein 100 H, Urine Glucose (UA) 50 H, Urine Ketones Negative, Urine Occult Blood 10 H, Urine Nitrite Negative, Urine Bilirubin Negative, Urine Urobilinogen Normal, Ur Leukocyte Esterase 100 H 08/20/17 05:35: WBC 7.1, RBC 3.09 L, Hgb 10.3 L, Hct 32.1 L, MCV 103.9 H, MCH 33.3 H, MCHC 32.1, RDW 18.9 H, RDW Differential 70.0 H, Plt Count 115 L, MPV 12.0, Immature Gran % (Auto) 0.100, Neut % (Auto) 72.3 H, Lymph % (Auto) 20.5, [place] % (Auto) 5.3, Eos % (Auto) 1.7, Baso % (Auto) 0.1, Absolute Neuts (auto) 5.2, Total Counted Not Reportable 08/20/17 05:35: PT 14.4, INR 1.1, APTT 30.8 08/20/17 05:35: Sodium 139, Potassium 5.4 H, Chloride 102, Carbon Dioxide 25.0, Anion Gap 12, BUN 74 H, Creatinine 9.34 H*, Est GFR (MDRD) Af Amer 6 L, Est GFR (MDRD) Non-Af 5 L, BUN/Creatinine Ratio 7.9 L, Glucose 84, Calcium 7.7 L Rhythm: Sinus rhythm; PVCs EKG: As noted above ECHO: As noted above Stress Test: As noted above CXR: As noted above; please see official report Assessment/Plan 1. Abnormal cardiac enzymes The patient does have abnormal cardiac enzymes. The concerning etiology is underlying cardiovascular disease especially based upon her other noninvasive findings. However the same time false-positive elevation secondary to her underlying renal disease cannot necessarily be excluded. From the cardiac standpoint she appears to be without acute symptoms at the moment. She will continue medical management for the possibility of underlying CAD. This will include aspirin and antiplatelet therapy, nitrates as needed, beta-blockers, etc. It was felt the patient should be considered, based upon her symptoms, her objective findings with respect to her ventricular ectopy, her objective findings with respect to her noninvasive findings, etc. to undergo further definitive evaluation with diagnostic cardiac catheterization. The procedure and risks were discussed with the patient. She was agreeable to this approach. 2. Abnormal pharmacologic stress nuclear imaging study The patient does have an abnormal pharmacologic stress nuclear imaging study as noted above. This does raise concerns of the possibility of underlying CAD contributing to her symptoms and objective findings. Based upon her entire clinical presentation it was felt prudent that she continue medical management and undergo further evaluation as noted above. She was agreeable to this approach. 3. Cardiomyopathy The patient's LV systolic function appears to be diminished based upon both her noninvasive studies. It is unclear whether this is related to CAD, her valvular heart disease, or a separate underlying cardiomyopathy. At the present time she appears without symptoms of acute volume overload/CHF. She will continue medical management which can include agents such as nitrates, beta-blockers, and afterload reducing agent such as hydralazine. She will also need to continue her volume control with her hemodialysis. She will undergo further evaluation and care as noted above. 4. Valvular heart disease She is aware of underlying leaky valves the details are unknown. She has not had any follow-up since her previous outpatient cardiovascular visit approximately 1 year or so ago in [place], [place]. Her transthoracic echocardiogram suggests a combination of MR and TR. It is unclear as to whether or not this is contributing to her other objective findings or secondary to her other objective findings. She will continue medical management and be evaluated as noted above. 5. Hypertension Her blood pressures will be monitored. She will continue antihypertensive therapy. 6. End-stage renal disease on chronic hemodialysis secondary to Alport syndrome She will continue evaluation care per nephrology. Comment: The above was discussed with the patient, her significant other, and Dr. Shane. This note was generated with [employer] dictation software. It may contain incorrect words, spelling, and punctuation that were not noted in checking the note before signing.
[2017-08-20] MEDS: Folic Acid/Vitamin B Comp W-C 1 Capsule 1 CAP PO (18:03)
[2017-08-20] MEDS: TICAGRELOR 90 MG TABLET 180 MG PO (18:04)
[2017-08-20] MEDS: Calcium Acetate 667 MG Capsule PO (18:04)
[2017-08-20] MEDS: Carvedilol 3.125 MG TABLET PO (22:01)
[2017-08-20] MEDS: hydrALAZINE 10 MG Tablet PO (22:01)
[2017-08-21] VITALS (18 sets, daily range): BP systolic 123–139; BP diastolic 65–99; PULSE 67–81; RESP 16–24; TEMP 36.4–36.9; O2SAT 94–100
--- NOTE | 2017-08-21 01:06 | NURSING ---
Urine screening cancelled as pt states she had a partial hysterectomy 8 years ago at [facility].
--- NOTE | 2017-08-21 05:55 | EKG12_ITS ---
Test Reason : AM EKG Blood Pressure : / mmHG Vent. Rate : 073 BPM Atrial Rate : 073 BPM P-R Int : 110 ms QRS Dur : 102 ms QT Int : 450 ms P-R-T Axes : -05 -54 005 degrees QTc Int : 495 ms Sinus rhythm with short WI Left anterior fascicular block Anteroseptal infarct , age undetermined Abnormal ECG When compared with ECG of 20-AUG-2017 07:53, MANUAL COMPARISON REQUIRED, DATA IS UNCONFIRMED Confirmed by SHWETA FISHER, HAYDEE ([id number]), general expeditor SHARON WORTHY ([id number]) on 08/23/2017 3:59:05 PM Referred By: CHARANJIT Confirmed By:HAYDEE ROCK MD
[2017-08-21] MEDS: 0.9% Normal Saline 1,000 ML 15 ML IV (06:21)
[2017-08-21] MEDS: 0.9% NaCl Peripheral Flush Adult/Peds IV (06:22)
[2017-08-21] MEDS: Aspirin 81 MG TAB.CHEW PO (06:23)
[2017-08-21] MEDS: hydrALAZINE 10 MG Tablet PO (06:23)
[2017-08-21] MEDS: TICAGRELOR 90 MG TABLET PO (06:24)
[2017-08-21] MEDS: Carvedilol 3.125 MG TABLET PO (06:24)
[2017-08-21 06:35] LABS: Absolute Lymphocyte Count 1.09 X10^3/ul (0.83-4.51); Absolute Neutrophil Count 6.1 X10^3/uL (2.0-7.7); Basophil# 0.02 X10^3/uL; Basophil% 0.3 % (0-1); Eosinophil# 0.12 X10^3/uL; Eosinophils% 1.6 % (0-5); Hematocrit 34.1 % (37-47); Lymphocyte # 1.09 X10^3/ul (4.0); Lymphocyte % 14.1 % (19-41); Mean Corp Hgb Conc 32.3 g/gl (32-36); Mean Corpuscular Hgb 32.7 pg (27.0-32.0); Mean Corpuscular Volume 101.5 fL (81-99); Mean Platelet Vol. 11.4 fl (6.2-12.0); Monocyte# 0.39 X10^3/uL; Neutrophil % 78.9 % (47-70); Platelet Count 138 K/mm3 (150-450); RBC Distribution Width CV 19.2 % (11.6-14.6); RBC Distribution Width SD 71.5 fl (35.1-43.9); Red Blood Count 3.36 M/mm3 (4.2-5.4); White Blood Count 7.7 K/mm3 (4.4-11.0)
[2017-08-21 06:39] LABS: Differential Indicated SCAN CRITERIA MET; POSITIVE COUNT NO; POSITIVE DIFFERENTIAL NO; POSITIVE MORPHOLOGY YES
[2017-08-21 06:40] LABS: International Normalized Ratio 1.1; Prothrombin Time (Protime)PT. 14.1 SECONDS (11.7-14.9)
[2017-08-21 06:41] LABS: Partial Thromboplast Time 31.8 Seconds (24.1-36.2)
[2017-08-21 06:54] LABS: AST(SGOT) 31 U/L (15-37); Alanine Aminotransfer ALT/SGPT 56 U/L (13-56); Albumin, Serum 3.1 g/dL (3.2-5.0); Alkaline Phosphatase 91 U/L (45-117); Anion Gap 11 (5-15); BUN 55 mg/dL (7-18); BUN/Creat Ratio 6.6 RATIO (10-20); Bilirubin, Direct 0.18 mg/dL (0.00-0.30); Calcium,Total 6.9 mg/dL (8.5-10.1); Chloride 100 mmol/L (98-107); Cholesterol 102 mg/dL (200); Creatinine, Serum 8.35 mg/dL (0.55-1.02); EST Glomerular Filtration Rate 6 mL/min (>60); Est Glom Filt Rate - Afr Amer 7 mL/min (>60); Estimated Creatinine Clearance 7.33 ml/min; Glucose 85 mg/dL (74-106); High Density Lipoprotein 31 mg/dL; Potassium 5.8 mmol/L (3.5-5.1); Protein, Total 6.1 g/dL (6.4-8.2); Sodium Level 137 mmol/L (136-145); Triglycerides 83 mg/dL; Very Low Density Lipoprotein 17 mg/dL (5-40)
[2017-08-21 07:02] LABS: Anisocytosis 2+; Differential Comment SCANNED; Hypochromasia 2+; Macrocytosis 3+
--- NOTE | 2017-08-21 09:56 | CL.D_ITS ---
Patient Name: LIDIA MUNSON Study Date: 08/21/2017 Performing: Bunny Woodward MD Ht: 62.99 inches 160 cm : 1975 Wt: 163.14 lbs 74 kg Age: 42 Gender: female BSA: 1.77 PROCEDURE(S) PERFORMED [id number]/LHC/COR/LV CLINICAL PROFILE AND INDICATIONS Indications: Suspected CAD, Valvular Disease, Other, LV Dysfunction, Cardiomyopathy Heart Failure: None Stress/Imaging Stress Test w/SPECT MPI: Yes Result: PositiveStress Test with SPECT MPI: Positive CAD Presentations: No Sxs, no angina. CONCLUSIONS Right heart pressures - severely elevated The patient has pulmonary hypertension which is severe. Intracardiac shunting: None Calculated Qp/Qs Ratio: 0.8: considered nonhemodynamically significant Elevated Left Ventricular End Diastolic Pressure Global LV systolic dysfunction- Moderate LVEF: by LV gram 35 % Normal coronary arteries Mitral Valve Insufficiency Moderate RECOMMENDATIONS Medical therapy Risk factor modification DESCRIPTION OF PROCEDURE The patient arrived to the procedure lab. The risks and benefits of the procedure as well as a full d escription of our services here and current unavailability of surgical backup were fully explained to the patient and/or their significant other prior to the catheterization. The Timeout was completed, verifying the correct patient and procedure. The patient's procedural site was prepped and draped in the usual fashion. Local anesthetic was given subcutaneously to right groin region with Lidocaine 2%. Using a modified Seldinger technique, arterial access was obtained via the right femoral artery, a 4 Fr sheath was inserted Venous access was obtained via the right femoral vein, a 7Fr sheath was insert ed. A 7Fr thermal dilution catheter was inserted and right heart pressures were recorded, it was then advanced to PA position for cardiac outputs. Thermal dilution cardiac outputs were then recorded. O2 saturations were then obtained. Left Ventriculography was performed in SOSA projection using a 4 Fr. Pigtail catheter. LV to AO pullback pressures were then recorded. Simultaneous pressures were then re corded. Left Coronary Artery selective angiography was performed in multiple views using a 4 Fr. JL5 catheter. Right Coronary Artery selective angiography was then performed in multiple views using a 4 Fr. 3DRC catheter. The Thermal dilution catheter was then removed.The arterial sheath was pulled and manual compression applied until hemostasis is achieved.. The venous sheath was then pulled and manua l compression applied until hemostasis achieved CORONARY ANGIOGRAPHY DOMINANCE: Left Dominant LEFT HEART ASSESSMENT Left Ventricular Ejection Fraction: by LV Gram 35 % Global Hypokinesis - Moderate Elevated Left Ventricular End Diastolic Pressure LVEDP: 21 mmHg RIGHT HEART ASSESSMENT Thermal CO: 3.51 Thermal CI: 1.98 Violet CO: 3.84 Violet CI: 2.17 PW: 20/34 22 PA: 58/22 38 RV: 55/2 14 RA: 11 PVR: 365 Right Heart pressures - elevated Pulmonary Hypertension Severe Intracardiac shunting: None Calculated Qp/Qs Ratio: 0.8 considered nonhemodynamically significant LEFT MAIN: Angiographically normal LEFT ANTERIOR DECENDING ARTERY: Angiographically normal CIRCUMFLEX ARTERY: Angiographically normal RIGHT CORONARY ARTERY: Angiographically normal VALVE FINDINGS: Normal Aortic Valve function Mitral Valve Insufficiency - Grade 2 AORTIC ROOT: Angiographically normal COMPLICATIONS No Complications PROCEDURE MEDICATIONS Versed 1 mg IV SUMMARY OF HEMODYNAMIC DATA Time AIR REST ECG 08:09:58 RA (11) SV 08:29:53 RV 55/2, 14 08:30:10 PW 20/34 (22) PV 08:30:26 PA 58/22 (38) PA 08:30:43 LV 126/0, 21 08:35:34 PW 21/32 (21) 08:35:34 LV 128/-1, 14 08:35:41 PW 23/31 (20) 08:35:41 LV 127/11, 25 08:37:51 PW 22/43 (26) 08:37:51 LV 126/10, 20 08:37:57 PW 22/42 (24) 08:37:57 LVp 124/9, 20 08:38:11 AOp 127/77 (100) 08:38:16 PA 57/24 (39) 08:38:54 RV 59/5, 15 08:39:29 RA 18/ (15) 08:39:41 RM AIR REST 09:37:43 Type SV CO (l/m) CI (l/m/ HR Time AIR REST Thermal 51.60 3.51 1.98 68 08:09:58 Violet 56.50 3.84 2.17 68 08:09:58 Label % O2 Pres/Loc Time AIR REST IVC 56 09:10:16 SVC 77 09:10:25 RA 55 SV 09:10:31 RV 57 09:10:36 PA 64 PA 09:10:58 AO 96 PV 09:29:20 Signed By Bunny Woodward MD On 08/21/2017 09:56:07 Bunny Woodward MD
[2017-08-21 10:01] LABS: Blood Gas Specimen Type VEN; VBG BASE EXCESS 2 mmol/L (-1.0-3.5); VBG Bicarbonate 26 mmol/L (22-26); VBG Oxygen Content 27 mmol/L (23-33); VBG PO2 28 mmHg (25-40); VBG SO2 57 % (50-70); VBG pCO2 36.8 mmHg (41-51); VBG pH 7.46 (7.32-7.42)
[2017-08-21 10:01] LABS: Blood Gas Specimen Type VEN; VBG BASE EXCESS 1 mmol/L (-1.0-3.5); VBG Bicarbonate 25 mmol/L (22-26); VBG Oxygen Content 26 mmol/L (23-33); VBG PO2 28 mmHg (25-40); VBG SO2 55 % (50-70); VBG pCO2 36.6 mmHg (41-51); VBG pH 7.44 (7.32-7.42)
[2017-08-21 10:01] LABS: Base Excess 4 mmol/L (-2 to +2); Bicarbonate 26.4 mmol/L (22-26); Blood Gas Specimen Type ART; PO2 71 mmHG (75-100); SO2 96 % (95-99); Total Carbon Dioxide 27 mmol/L; pCO2 31.8 mmHg (35-45); pH 7.53 (7.35-7.45)
[2017-08-21 10:01] LABS: Blood Gas Specimen Type VEN; VBG BASE EXCESS 1 mmol/L (-1.0-3.5); VBG Bicarbonate 25 mmol/L (22-26); VBG Oxygen Content 26 mmol/L (23-33); VBG PO2 37 mmHg (25-40); VBG SO2 74 % (50-70); VBG pCO2 35.9 mmHg (41-51); VBG pH 7.45 (7.32-7.42)
[2017-08-21 10:01] LABS: Blood Gas Specimen Type VEN; VBG BASE EXCESS 2 mmol/L (-1.0-3.5); VBG Bicarbonate 26 mmol/L (22-26); VBG Oxygen Content 27 mmol/L (23-33); VBG PO2 27 mmHg (25-40); VBG SO2 55 % (50-70); VBG pCO2 37.2 mmHg (41-51); VBG pH 7.46 (7.32-7.42)
[2017-08-21 10:01] LABS: Blood Gas Specimen Type VEN; VBG BASE EXCESS 0 mmol/L (-1.0-3.5); VBG Bicarbonate 23 mmol/L (22-26); VBG Oxygen Content 24 mmol/L (23-33); VBG PO2 39 mmHg (25-40); VBG SO2 79 % (50-70); VBG pCO2 30.6 mmHg (41-51); VBG pH 7.48 (7.32-7.42)
[2017-08-21 10:01] LABS: Blood Gas Specimen Type VEN; VBG BASE EXCESS 2 mmol/L (-1.0-3.5); VBG Bicarbonate 26 mmol/L (22-26); VBG Oxygen Content 27 mmol/L (23-33); VBG PO2 32 mmHg (25-40); VBG SO2 65 % (50-70); VBG pCO2 35.9 mmHg (41-51); VBG pH 7.47 (7.32-7.42)
[2017-08-21 10:06] LABS: Blood Gas Specimen Type VEN; VBG BASE EXCESS 0 mmol/L (-1.0-3.5); VBG Bicarbonate 24 mmol/L (22-26); VBG Oxygen Content 25 mmol/L (23-33); VBG PO2 29 mmHg (25-40); VBG SO2 57 % (50-70); VBG pH 7.44 (7.32-7.42)
[2017-08-21 10:06] LABS: Blood Gas Specimen Type VEN; VBG BASE EXCESS 1 mmol/L (-1.0-3.5); VBG Bicarbonate 25 mmol/L (22-26); VBG Oxygen Content 26 mmol/L (23-33); VBG PO2 31 mmHg (25-40); VBG SO2 63 % (50-70); VBG pH 7.45 (7.32-7.42)
[2017-08-21] MEDS: guaiFENesin 1,200 MG Tablet 1200 MG PO (11:06)
[2017-08-21] MEDS: Azithromycin 250 MG Tablet 500 MG PO (11:06)
[2017-08-21] MEDS: Folic Acid/Vitamin B Comp W-C 1 Capsule 1 CAP PO (11:06)
[2017-08-21] MEDS: Pantoprazole Sodium 40 MG Tablet PO (11:06)
[2017-08-21] MEDS: Calcium Acetate 667 MG Capsule PO (11:07)
--- NOTE | 2017-08-21 11:20 | PCM.PN.CARD ---
Subjectve: The patient is status post diagnostic cardiac catheterization. She has no new acute complaints. Objective: Vital Signs Temp Pulse Resp BP Pulse Ox 97.8 F 75 16 136/97 H 98 08/21/17 11:05 08/21/17 11:05 08/21/17 11:05 08/21/17 11:05 08/21/17 11:05 Oxygen Delivery Method Room Air Weight: 161 lb 13.109 oz Body Mass Index (BMI) 29.2 Intake and Output for Last 24 Hours 08/19/17 08/20/17 08/21/17 23:59 23:59 23:59 Intake Total 902 / 902 955 / 955 Output Total 2099 / 2099 200 / 200 Balance -1198 / -1198 755 / 755 General: Awake, Alert, Oriented x 3, Cooperative, No Acute Distress Neck: No JVD Lungs: Clear to auscultation Cardiovascular: Regular Rhythm, Normal S1, Normal S2 Murmur Murmur: Grade 3/6, Mid Systolic, LLSB, [place], Axilla, LVOT, Sternal Notch Vascular: No Carotid Bruits, Normal Femoral Pulses Abdomen: Bowel Sounds Present, Soft, Non Tender Extremities: No Cyanosis, No Clubbing, No edema 08/21/17 05:55: Sodium 137, Potassium 5.8 H, Chloride 100, Carbon Dioxide 26.0, Anion Gap 11, BUN 55 H, Creatinine 8.35 H*, Est GFR (MDRD) Af Amer 7 L, Est GFR (MDRD) Non-Af 6 L, BUN/Creatinine Ratio 6.6 L, Glucose 85, Calcium 6.9 L, Total Bilirubin 1.50 H, Direct Bilirubin 0.18, Triglycerides 83, Cholesterol 102, LDL Cholesterol 54, VLDL Cholesterol 17, HDL Cholesterol 31 L 08/21/17 05:55: WBC 7.7, RBC 3.36 L, Hgb 11.0 L, Hct 34.1 L, MCV 101.5 H, MCH 32.7 H, MCHC 32.3, RDW 19.2 H, RDW Differential 71.5 H, Plt Count 138 L, MPV 11.4, Immature Gran % (Auto) 0.100, Neut % (Auto) 78.9 H, Lymph % (Auto) 14.1 L, [place] % (Auto) 5.0, Eos % (Auto) 1.6, Baso % (Auto) 0.3, Absolute Neuts (auto) 6.1, Total Counted Not Reportable 08/21/17 05:55: PT 14.1, INR 1.1, APTT 31.8 08/21/17 08:27: pH 7.53 H, Bicarbonate Actual 26.4 H, POC Total CO2 27, Base Excess 4 H, O2 Saturation 96, ABG pCO2 31.8 L, ABG pO2 71 L 08/21/17 08:31: VBG pH 7.46 H, VBG pO2 28, VBG O2 Sat (Calc) 57, VBG O2 Content 27, VBG Base Excess 2 08/21/17 08:34: VBG pH 7.48 H, VBG pO2 39, VBG O2 Sat (Calc) 79 H, VBG O2 Content 24, VBG Base Excess 0 08/21/17 08:38: VBG pH 7.47 H, VBG pO2 32, VBG O2 Sat (Calc) 65, VBG O2 Content 27, VBG Base Excess 2 08/21/17 08:43: VBG pH 7.46 H, VBG pO2 27, VBG O2 Sat (Calc) 55, VBG O2 Content 27, VBG Base Excess 2 08/21/17 08:55: VBG pH 7.45 H, VBG pO2 37, VBG O2 Sat (Calc) 74 H, VBG O2 Content 26, VBG Base Excess 1 08/21/17 09:00: VBG pH 7.44 H, VBG pO2 28, VBG O2 Sat (Calc) 55, VBG O2 Content 26, VBG Base Excess 1 08/21/17 09:03: VBG pH 7.44 H, VBG pO2 29, VBG O2 Sat (Calc) 57, VBG O2 Content 25, VBG Base Excess 0 08/21/17 09:09: VBG pH 7.45 H, VBG pO2 31, VBG O2 Sat (Calc) 63, VBG O2 Content 26, VBG Base Excess 1 Rhythm: Sinus rhythm Cardiac Cath: Please see official report Medical Necessity - Tobacco Use Smoking Status: Never smoker Tobacco Use: Secondhand Assessment/Plan 1. Abnormal cardiac enzymes The patient does have abnormal cardiac enzymes. At the present time, based on the results of her cardiac catheterization demonstrating angiographically normal-appearing coronary arteries, it does not appear that her abnormal cardiac enzymes are related to underlying CAD. They may be related to a combination of findings compatible with her underlying cardiomyopathy and her underlying chronic renal insufficiency on chronic hemodialysis. 2. Abnormal pharmacologic stress nuclear imaging study The patient did have an abnormal pharmacologic stress nuclear imaging study. Based upon her cardiac catheterization it does not appear that her findings are related to underlying CAD. It does appear she has an underlying non-CAD related cardiomyopathy with diminished LV systolic function. 3. Cardiomyopathy The patient's LV systolic function appears to be diminished based upon both her noninvasive studies. Her cardiac catheterization also demonstrated evidence of diminished LV systolic function. This appears to be non-CAD related. It is unclear as to whether or not her valvular heart disease is participating in this. The present time would be recommended that she continue medical management. This would include agents such as nitrates, beta-blockers, afterload reducing agents such as hydralazine, and potentially calcium channel antagonist such as amlodipine. She is not an ideal candidate for NILDA inhibitors or ARB's based upon her response in the past with her underlying renal insufficiency and hyperkalemia. 4. Valvular heart disease She does have underlying valvular heart disease with both MR and TR. Again it is somewhat unclear as to whether this, being a presumed long-standing event, as an etiology for or is secondary to her underlying cardiomyopathy. The present time she will continue medical management. She may be considered for future further evaluation of her valvular heart disease with transesophageal echocardiogram if clinically indicated. She may also be considered for future outpatient CT surgery consultation for comment on her valvular heart disease as well. 5. Pulmonary hypertension She does have elevated right sided/pulmonary pressures based upon her noninvasive and/or invasive studies. This may be secondary to a combination of both cardiovascular and noncardiovascular disease. She will continue medical management. May include agents as noted above. She will also need to continue her dialysis therapy. 6. Hypertension Her blood pressures will be monitored. She will continue antihypertensive therapy. 7. End-stage renal disease on chronic hemodialysis secondary to Alport syndrome She will continue evaluation care per nephrology. Comment: The above was discussed with the patient. This note was generated with [employer] software. It may contain incorrect words, spelling, and punctuation that were not noted in checking the note before signing.
--- NOTE | 2017-08-21 13:21 | PN.RENAL_ITS ---
Patient Problems: Active and Suspected Problems Abnormal cardiac enzyme level (Acute) Abnormal nuclear stress test (Acute) Cardiomyopathy (Acute) Hyperkalemia (Acute) Hyperkalemia (Acute) Bigeminal pulse (Acute) Subjective: Patient was seen today during HD session Patient had cardiac cath earlier today No SOB. No chest pain - Physical Exam General: Alert, Oriented x3 HEENT: Atraumatic Oral: Moist Mucosa Neck: Supple, No JVD Lungs: Clear to auscultation, Normal air movement, No rhonchi, No wheeze, No rales Cardiovascular: Regular rate, Regular Rhythm, Normal S1, Normal S2 Abdomen: Bowel Sounds Present, Soft, Non Tender Extremities: No clubbing, No cyanosis, No edema Skin: No rashes Musculoskeletal: No Tenderness to Palpation of Joints or Extremities Lymphatic: No Cervical, Supraclavicular, or Inguinal Adenopathy Neurological: Cranial nerves II-XII grossly intact, Neuro grossly intact Psych/Mental Status: Normal Affect Vital Signs Temp Pulse Resp BP Pulse Ox 97.8 F 72 16 124/91 H 97 08/21/17 11:35 08/21/17 12:39 08/21/17 12:39 08/21/17 12:39 08/21/17 12:39 Oxygen Delivery Method Room Air Weight: 73.4 kg Body Mass Index (BMI) 29.2 Intake and Output for Last 24 Hours 08/19/17 08/20/17 08/21/17 23:59 23:59 23:59 Intake Total 902 / 902 955 / 955 610 / 610 Output Total 2100 / 2100 200 / 200 Balance -1198 / -1198 755 / 755 610 / 610 Microbiology Past 72 Hours 08/19/17 18:40 Streptococcus pneumoniae Antigen (M - Final Urine, Clean Catch 08/19/17 18:40 Legionella Antigen - Final Urine, Clean Catch Laboratory Tests Past 24 Hrs 08/21/17 08/21/17 08/21/17 05:55 05:55 05:55 WBC 7.7 RBC 3.36 L Hgb 11.0 L Hct 34.1 L MCV 101.5 H MCH 32.7 H MCHC 32.3 RDW 19.2 H RDW Differential 71.5 H Plt Count 138 L MPV 11.4 Immature Gran % (Auto) 0.100 Neut % (Auto) 78.9 H Lymph % (Auto) 14.1 L [place] % (Auto) 5.0 Eos % (Auto) 1.6 Baso % (Auto) 0.3 Absolute Neuts (auto) 6.1 Absolute Lymphs (auto) 1.09 Total Counted Not Reportable Differential Comment SCANNED Hypochromasia 2+ Anisocytosis 2+ Macrocytosis 3+ PT 14.1 INR 1.1 APTT 31.8 Specimen Type pH Bicarbonate Actual POC Total CO2 Base Excess O2 Saturation ABG pCO2 ABG pO2 VBG pH VBG pO2 VBG O2 Sat (Calc) VBG O2 Content VBG Base Excess POC Mix VBG pCO2 Pt Tmp Sodium 137 Potassium 5.8 H Chloride 100 Carbon Dioxide 26.0 Anion Gap 11 BUN 55 H Creatinine 8.35 H* Estim Creat Clear Calc 7.33 Est GFR (MDRD) Af Amer 7 L Est GFR (MDRD) Non-Af 6 L BUN/Creatinine Ratio 6.6 L Glucose 85 Calcium 6.9 L Total Bilirubin 1.50 H Direct Bilirubin 0.18 AST 31 ALT 56 Alkaline Phosphatase 91 Total Protein 6.1 L Albumin 3.1 L Globulin 3.0 Triglycerides 83 Cholesterol 102 LDL Cholesterol 54 VLDL Cholesterol 17 HDL Cholesterol 31 L 08/21/17 08/21/17 08/21/17 08:27 08:31 08:34 WBC RBC Hgb Hct MCV MCH MCHC RDW RDW Differential Plt Count MPV Immature Gran % (Auto) Neut % (Auto) Lymph % (Auto) [place] % (Auto) Eos % (Auto) Baso % (Auto) Absolute Neuts (auto) Absolute Lymphs (auto) Total Counted Differential Comment Hypochromasia Anisocytosis Macrocytosis PT INR APTT Specimen Type ART AYUSH AYUSH pH 7.53 H Bicarbonate Actual 26.4 H POC Total CO2 27 Base Excess 4 H O2 Saturation 96 ABG pCO2 31.8 L ABG pO2 71 L VBG pH 7.46 H 7.48 H VBG pO2 28 39 VBG O2 Sat (Calc) 57 79 H VBG O2 Content 27 24 VBG Base Excess 2 0 POC Mix VBG pCO2 Pt Tmp 36.8 L 30.6 L Sodium Potassium Chloride Carbon Dioxide Anion Gap BUN Creatinine Estim Creat Clear Calc Est GFR (MDRD) Af Amer Est GFR (MDRD) Non-Af BUN/Creatinine Ratio Glucose Calcium Total Bilirubin Direct Bilirubin AST ALT Alkaline Phosphatase Total Protein Albumin Globulin Triglycerides Cholesterol LDL Cholesterol VLDL Cholesterol HDL Cholesterol 08/21/17 08/21/17 08/21/17 08:38 08:43 08:55 WBC RBC Hgb Hct MCV MCH MCHC RDW RDW Differential Plt Count MPV Immature Gran % (Auto) Neut % (Auto) Lymph % (Auto) [place] % (Auto) Eos % (Auto) Baso % (Auto) Absolute Neuts (auto) Absolute Lymphs (auto) Total Counted Differential Comment Hypochromasia Anisocytosis Macrocytosis PT INR APTT Specimen Type AYUSH AYUSH AYUSH pH Bicarbonate Actual POC Total CO2 Base Excess O2 Saturation ABG pCO2 ABG pO2 VBG pH 7.47 H 7.46 H 7.45 H VBG pO2 32 27 37 VBG O2 Sat (Calc) 65 55 74 H VBG O2 Content 27 27 26 VBG Base Excess 2 2 1 POC Mix VBG pCO2 Pt Tmp 35.9 L 37.2 L 35.9 L Sodium Potassium Chloride Carbon Dioxide Anion Gap BUN Creatinine Estim Creat Clear Calc Est GFR (MDRD) Af Amer Est GFR (MDRD) Non-Af BUN/Creatinine Ratio Glucose Calcium Total Bilirubin Direct Bilirubin AST ALT Alkaline Phosphatase Total Protein Albumin Globulin Triglycerides Cholesterol LDL Cholesterol VLDL Cholesterol HDL Cholesterol 08/21/17 08/21/17 08/21/17 09:00 09:03 09:09 WBC RBC Hgb Hct MCV MCH MCHC RDW RDW Differential Plt Count MPV Immature Gran % (Auto) Neut % (Auto) Lymph % (Auto) [place] % (Auto) Eos % (Auto) Baso % (Auto) Absolute Neuts (auto) Absolute Lymphs (auto) Total Counted Differential Comment Hypochromasia Anisocytosis Macrocytosis PT INR APTT Specimen Type AYUSH AYUSH AYUSH pH Bicarbonate Actual POC Total CO2 Base Excess O2 Saturation ABG pCO2 ABG pO2 VBG pH 7.44 H 7.44 H 7.45 H VBG pO2 28 29 31 VBG O2 Sat (Calc) 55 57 63 VBG O2 Content 26 25 26 VBG Base Excess 1 0 1 POC Mix VBG pCO2 Pt Tmp 36.6 L 36.0 L 36.0 L Sodium Potassium Chloride Carbon Dioxide Anion Gap BUN Creatinine Estim Creat Clear Calc Est GFR (MDRD) Af Amer Est GFR (MDRD) Non-Af BUN/Creatinine Ratio Glucose Calcium Total Bilirubin Direct Bilirubin AST ALT Alkaline Phosphatase Total Protein Albumin Globulin Triglycerides Cholesterol LDL Cholesterol VLDL Cholesterol HDL Cholesterol Medical Necessity - Tobacco Use Smoking Status: Never smoker Tobacco Use: Secondhand Assessment/Plan Active and Suspected Problems Abnormal cardiac enzyme level (Acute) Abnormal nuclear stress test (Acute) Cardiomyopathy (Acute) Hyperkalemia (Acute) Hyperkalemia (Acute) Bigeminal pulse (Acute) 1-End-stage renal disease patient. On Saturday schedule for hemodialysis. 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 HD access left forearm AV fistula. Patient was dialyzed urgently on 08/18 for hyperkalemia. HD session today: BQ 400 DQ 600 . 1 K for 1st hour then 2 K. UF 1.5 L Next hemodialysis will be on August 23. URR goal is 70% and more with each session. 2-hyperkalemia with EKG changes. Resolved with hemodialysis. K is slightly elevated today at 5.8. HD session again today as above Continue renal diet. 3-hyperphosphatemia: Please continue calcium acetate. Check phosphorus level as outpatient along with a PTH. 4-hypertension: Blood pressure is well controlled. Please avoid NILDA inhibitor or ARB at discharge. 5 bronchitis-: Management as per the primary team. 6- troponin elevation.s/p cardiac cath today. management is as per the cardiology team It is okay to discharge the patient home from nephrology standpoint to follow with the chronic hemodialysis unit for hemodialysis sessions. Will continue to follow. Manoj Lester MD [phone]
--- NOTE | 2017-08-21 13:28 | PCM.PN.HOSP ---
Patient Problems: Active and Suspected Problems Abnormal cardiac enzyme level (Acute) Abnormal nuclear stress test (Acute) Cardiomyopathy (Acute) Pulmonary hypertension (Acute) Mitral insufficiency (Acute) Hyperkalemia (Acute) Hyperkalemia (Acute) Bigeminal pulse (Acute) Subjective: No new complaints. Vitals/I&O's: Vital Signs Temp Pulse Resp BP Pulse Ox 36.6 C 72 16 124/91 H 97 08/21/17 11:35 08/21/17 12:39 08/21/17 12:39 08/21/17 12:39 08/21/17 12:39 Oxygen Delivery Method Room Air Weight: 73.4 kg Body Mass Index (BMI) 29.2 Intake and Output for Last 24 Hours 08/19/17 08/20/17 08/21/17 23:59 23:59 23:59 Intake Total 902 / 902 955 / 955 610 / 610 Output Total 2100 / 2100 200 / 200 Balance -1198 / -1198 755 / 755 610 / 610 General: Alert, Cooperative, No apparent distress HEENT: Atraumatic, Normocephalic Psych/Mental Status: Normal Affect, Appropriate Microbiology Past 72 Hours 08/19/17 18:40 Urine, Clean Catch Streptococcus pneumoniae Antigen (M - Final 08/19/17 18:40 Urine, Clean Catch Legionella Antigen - Final Laboratory Results 08/21/17 05:55: Sodium 137, Potassium 5.8 H, Chloride 100, Carbon Dioxide 26.0, Anion Gap 11, BUN 55 H, Creatinine 8.35 H*, Estim Creat Clear Calc 7.33, Est GFR (MDRD) Af Amer 7 L, Est GFR (MDRD) Non-Af 6 L, BUN/Creatinine Ratio 6.6 L, Glucose 85, Calcium 6.9 L, Total Bilirubin 1.50 H, Direct Bilirubin 0.18, AST 31, ALT 56, Alkaline Phosphatase 91, Total Protein 6.1 L, Albumin 3.1 L, Globulin 3.0, Triglycerides 83, Cholesterol 102, LDL Cholesterol 54, VLDL Cholesterol 17, HDL Cholesterol 31 L 08/21/17 05:55: WBC 7.7, RBC 3.36 L, Hgb 11.0 L, Hct 34.1 L, MCV 101.5 H, MCH 32.7 H, MCHC 32.3, RDW 19.2 H, RDW Differential 71.5 H, Plt Count 138 L, MPV 11.4, Immature Gran % (Auto) 0.100, Neut % (Auto) 78.9 H, Lymph % (Auto) 14.1 L, [place] % (Auto) 5.0, Eos % (Auto) 1.6, Baso % (Auto) 0.3, Absolute Neuts (auto) 6.1, Absolute Lymphs (auto) 1.09, Total Counted Not Reportable, Differential Comment SCANNED, Hypochromasia 2+, Anisocytosis 2+, Macrocytosis 3+ 08/21/17 05:55: PT 14.1, INR 1.1, APTT 31.8 08/21/17 08:27: Specimen Type ART, pH 7.53 H, Bicarbonate Actual 26.4 H, POC Total CO2 27, Base Excess 4 H, O2 Saturation 96, ABG pCO2 31.8 L, ABG pO2 71 L 08/21/17 08:31: Specimen Type AYUSH, VBG pH 7.46 H, VBG pO2 28, VBG O2 Sat (Calc) 57, VBG O2 Content 27, VBG Base Excess 2, POC Mix VBG pCO2 Pt Tmp 36.8 L 08/21/17 08:34: Specimen Type AYUSH, VBG pH 7.48 H, VBG pO2 39, VBG O2 Sat (Calc) 79 H, VBG O2 Content 24, VBG Base Excess 0, POC Mix VBG pCO2 Pt Tmp 30.6 L 08/21/17 08:38: Specimen Type AYUSH, VBG pH 7.47 H, VBG pO2 32, VBG O2 Sat (Calc) 65, VBG O2 Content 27, VBG Base Excess 2, POC Mix VBG pCO2 Pt Tmp 35.9 L 08/21/17 08:43: Specimen Type AYUSH, VBG pH 7.46 H, VBG pO2 27, VBG O2 Sat (Calc) 55, VBG O2 Content 27, VBG Base Excess 2, POC Mix VBG pCO2 Pt Tmp 37.2 L 08/21/17 08:55: Specimen Type AYUSH, VBG pH 7.45 H, VBG pO2 37, VBG O2 Sat (Calc) 74 H, VBG O2 Content 26, VBG Base Excess 1, POC Mix VBG pCO2 Pt Tmp 35.9 L 08/21/17 09:00: Specimen Type AYUSH, VBG pH 7.44 H, VBG pO2 28, VBG O2 Sat (Calc) 55, VBG O2 Content 26, VBG Base Excess 1, POC Mix VBG pCO2 Pt Tmp 36.6 L 08/21/17 09:03: Specimen Type AYUSH, VBG pH 7.44 H, VBG pO2 29, VBG O2 Sat (Calc) 57, VBG O2 Content 25, VBG Base Excess 0, POC Mix VBG pCO2 Pt Tmp 36.0 L 08/21/17 09:09: Specimen Type AYUSH, VBG pH 7.45 H, VBG pO2 31, VBG O2 Sat (Calc) 63, VBG O2 Content 26, VBG Base Excess 1, POC Mix VBG pCO2 Pt Tmp 36.0 L Current Medications Acetaminophen (Tylenol) 650 mg PO Q4H PRN PRN PRN Reason: Fever/pain Albuterol Sulfate (Ventolin Aerosols) 2.5 mg INHALATION Q4H PRN PRN PRN Reason: WHEEZING Albuterol/Ipratropium (Duoneb) 3 ml INHALATION Q4H PRN PRN Reason: sob Aspirin (Aspirin, Baby) 81 mg PO DAILY@0800 [facility] Last Admin: 08/21/17 06:23 Dose: 81 mg Azithromycin (Zithromax) 500 mg PO DAILY [facility] Stop: 08/21/17 22:32 Last Admin: 08/21/17 11:06 Dose: 500 mg Calcium Acetate (Phoslo Gel Cap) 667 mg PO TIDCM [facility] Last Admin: 08/21/17 11:09 Dose: Not Given Carvedilol (Coreg) 6.25 mg PO BID [facility] Guaifenesin (Mucinex) 1,200 mg PO BID [facility] Last Admin: 08/21/17 11:06 Dose: 1,200 mg Heparin Sodium (Porcine) (Heparin Na) 5,000 unit SC BID [facility] Last Admin: 08/21/17 11:07 Dose: Not Given Hydralazine HCl (Apresoline) 10 mg PO TID [facility] Last Admin: 08/21/17 06:23 Dose: 10 mg Sodium Chloride () 1,000 mls @ 15 mls/hr IV .Q48H [facility] PRN Reason: KVO Last Admin: 08/21/17 06:21 Dose: 15 mls/hr Isosorbide Dinitrate (Isordil) 10 mg PO TID [facility] Lidocaine/Prilocaine (Emla Cream W/Tegaderm) 5 gm TOPICAL UD PRN Magnesium Hydroxide (Milk Of Magnesia) 30 ml PO DAILY PRN PRN Reason: Constipation Multivit/Ca Carb/B Cmplx/FA/Prenat ([facility]rocaps, [facility]ro) [facility] Admin: 08/21/17 11:06 Dose: 1 capsule Ondansetron HCl (Zofran) 4 mg IV Q8H PRN PRN PRN Reason: NAUSEA Pantoprazole Sodium (Protonix) 40 mg PO DAILY [facility] Last Admin: 08/21/17 11:06 Dose: 40 mg Sodium Chloride () 5 - 30 ml IV UD PRN PRN Reason: SALINE FLUSH Last Admin: 08/21/17 06:22 Dose: 10 ml Zolpidem Tartrate (Ambien (Generic)) 5 mg PO QHS PRN PRN PRN Reason: SLEEP Medical Necessity - Tobacco Use Smoking Status: Never smoker Tobacco Use: Secondhand Assessment/Plan Active and Suspected Problems Abnormal cardiac enzyme level (Acute) Abnormal nuclear stress test (Acute) Cardiomyopathy (Acute) Pulmonary hypertension (Acute) Mitral insufficiency (Acute) Hyperkalemia (Acute) Hyperkalemia (Acute) Bigeminal pulse (Acute) 1. Hyperkalemia: resolved secondary to losartan and ESRD resolved after HD, Ca Gluconate, Kayexalate 2. Vetricular bigeminy secondary to above resolved periodic PVCs, but improved after correction of hyperkalemia 3. ESRD HD QMWF 4. Hypertension: fair control here follow up with her cat scan technologist as outpt no ARB/ACEi 5. Non-ischemic cardiomyopathy EF 35%. started on Coreg and Hydralazine and isordil follow up with cardiology as outpt no ACEi/ARB d/t ESRD status 6. Severe pulmonary hypertension group 2, from #7 7. Mitral insufficiency f/u cards about further discussion for valve replacement.
--- NOTE | 2017-08-21 13:32 | PN_ITS ---
Patient Problems: Active and Suspected Problems Abnormal cardiac enzyme level (Acute) Abnormal nuclear stress test (Acute) Cardiomyopathy (Acute) Pulmonary hypertension (Acute) Mitral insufficiency (Acute) Hyperkalemia (Acute) Hyperkalemia (Acute) Bigeminal pulse (Acute) Subjective: No new complaints. Vitals/I&O's: Vital Signs Temp Pulse Resp BP Pulse Ox 36.6 C 72 16 124/91 H 97 08/21/17 11:35 08/21/17 12:39 08/21/17 12:39 08/21/17 12:39 08/21/17 12:39 Oxygen Delivery Method Room Air Weight: 73.4 kg Body Mass Index (BMI) 29.2 Intake and Output for Last 24 Hours 08/19/17 08/20/17 08/21/17 23:59 23:59 23:59 Intake Total 902 / 902 955 / 955 610 / 610 Output Total 2100 / 2100 200 / 200 Balance -1198 / -1198 755 / 755 610 / 610 General: Alert, Cooperative, No apparent distress HEENT: Atraumatic, Normocephalic Psych/Mental Status: Normal Affect, Appropriate Microbiology Past 72 Hours 08/19/17 18:40 Urine, Clean Catch Streptococcus pneumoniae Antigen (M - Final 08/19/17 18:40 Urine, Clean Catch Legionella Antigen - Final Laboratory Results 08/21/17 05:55: Sodium 137, Potassium 5.8 H, Chloride 100, Carbon Dioxide 26.0, Anion Gap 11, BUN 55 H, Creatinine 8.35 H*, Estim Creat Clear Calc 7.33, Est GFR (MDRD) Af Amer 7 L, Est GFR (MDRD) Non-Af 6 L, BUN/Creatinine Ratio 6.6 L, Glucose 85, Calcium 6.9 L, Total Bilirubin 1.50 H, Direct Bilirubin 0.18, AST 31 , ALT 56, Alkaline Phosphatase 91, Total Protein 6.1 L, Albumin 3.1 L, Globulin 3.0, Triglycerides 83, Cholesterol 102, LDL Cholesterol 54, VLDL Cholesterol 17 , HDL Cholesterol 31 L 08/21/17 05:55: WBC 7.7, RBC 3.36 L, Hgb 11.0 L, Hct 34.1 L, MCV 101.5 H, MCH 32.7 H, MCHC 32.3, RDW 19.2 H, RDW Differential 71.5 H, Plt Count 138 L, MPV 11.4, Immature Gran % (Auto) 0.100, Neut % (Auto) 78.9 H, Lymph % (Auto) 14.1 L , [place] % (Auto) 5.0, Eos % (Auto) 1.6, Baso % (Auto) 0.3, Absolute Neuts (auto) 6.1, Absolute Lymphs (auto) 1.09, Total Counted Not Reportable, Differential Comment SCANNED, Hypochromasia 2+, Anisocytosis 2+, Macrocytosis 3+ 08/21/17 05:55: PT 14.1, INR 1.1, APTT 31.8 08/21/17 08:27: Specimen Type ART, pH 7.53 H, Bicarbonate Actual 26.4 H, POC Total CO2 27, Base Excess 4 H, O2 Saturation 96, ABG pCO2 31.8 L, ABG pO2 71 L 08/21/17 08:31: Specimen Type AYUSH, VBG pH 7.46 H, VBG pO2 28, VBG O2 Sat (Calc) 57, VBG O2 Content 27, VBG Base Excess 2, POC Mix VBG pCO2 Pt Tmp 36.8 L 08/21/17 08:34: Specimen Type AYUSH, VBG pH 7.48 H, VBG pO2 39, VBG O2 Sat (Calc) 79 H, VBG O2 Content 24, VBG Base Excess 0, POC Mix VBG pCO2 Pt Tmp 30.6 L 08/21/17 08:38: Specimen Type AYUSH, VBG pH 7.47 H, VBG pO2 32, VBG O2 Sat (Calc) 65, VBG O2 Content 27, VBG Base Excess 2, POC Mix VBG pCO2 Pt Tmp 35.9 L 08/21/17 08:43: Specimen Type AYUSH, VBG pH 7.46 H, VBG pO2 27, VBG O2 Sat (Calc) 55, VBG O2 Content 27, VBG Base Excess 2, POC Mix VBG pCO2 Pt Tmp 37.2 L 08/21/17 08:55: Specimen Type AYUSH, VBG pH 7.45 H, VBG pO2 37, VBG O2 Sat (Calc) 74 H, VBG O2 Content 26, VBG Base Excess 1, POC Mix VBG pCO2 Pt Tmp 35.9 L 08/21/17 09:00: Specimen Type AYUSH, VBG pH 7.44 H, VBG pO2 28, VBG O2 Sat (Calc) 55, VBG O2 Content 26, VBG Base Excess 1, POC Mix VBG pCO2 Pt Tmp 36.6 L 08/21/17 09:03: Specimen Type AYUSH, VBG pH 7.44 H, VBG pO2 29, VBG O2 Sat (Calc) 57, VBG O2 Content 25, VBG Base Excess 0, POC Mix VBG pCO2 Pt Tmp 36.0 L 08/21/17 09:09: Specimen Type AYUSH, VBG pH 7.45 H, VBG pO2 31, VBG O2 Sat (Calc) 63, VBG O2 Content 26, VBG Base Excess 1, POC Mix VBG pCO2 Pt Tmp 36.0 L Current Medications Acetaminophen (Tylenol) 650 mg PO Q4H PRN PRN PRN Reason: Fever/pain Albuterol Sulfate (Ventolin Aerosols) 2.5 mg INHALATION Q4H PRN PRN PRN Reason: WHEEZING Albuterol/Ipratropium (Duoneb) 3 ml INHALATION Q4H PRN PRN Reason: sob Aspirin (Aspirin, Baby) 81 mg PO DAILY@0800 [facility] Last Admin: 08/21/17 06:23 Dose: 81 mg Azithromycin (Zithromax) 500 mg PO DAILY [facility] Stop: 08/21/17 22:32 Last Admin: 08/21/17 11:06 Dose: 500 mg Calcium Acetate (Phoslo Gel Cap) 667 mg PO TIDCM [facility] Last Admin: 08/21/17 11:09 Dose: Not Given Carvedilol (Coreg) 6.25 mg PO BID [facility] Guaifenesin (Mucinex) 1,200 mg PO BID [facility] Last Admin: 08/21/17 11:06 Dose: 1,200 mg Heparin Sodium (Porcine) (Heparin Na) 5,000 unit SC BID [facility] Last Admin: 08/21/17 11:07 Dose: Not Given Hydralazine HCl (Apresoline) 10 mg PO TID [facility] Last Admin: 08/21/17 06:23 Dose: 10 mg Sodium Chloride () 1,000 mls @ 15 mls/hr IV .Q48H [facility] PRN Reason: KVO Last Admin: 08/21/17 06:21 Dose: 15 mls/hr Isosorbide Dinitrate (Isordil) 10 mg PO TID [facility] Lidocaine/Prilocaine ([place]mla Cream W/Tegaderm) 5 gm TOPICAL UD PRN Magnesium Hydroxide (Milk Of Magnesia) 30 ml PO DAILY PRN PRN Reason: Constipation Multivit/Ca Carb/B Cmplx/FA/Prenat (Nephrocaps, [facility]aphro) [facility] Last Admin: 08/21/17 11:06 Dose: 1 capsule Ondansetron HCl (Zofran) 4 mg IV Q8H PRN PRN PRN Reason: NAUSEA Pantoprazole Sodium (Protonix) 40 mg PO DAILY [facility] Last Admin: 08/21/17 11:06 Dose: 40 mg Sodium Chloride () 5 - 30 ml IV UD PRN PRN Reason: SALINE FLUSH Last Admin: 08/21/17 06:22 Dose: 10 ml Zolpidem Tartrate (Ambien (Generic)) 5 mg PO QHS PRN PRN PRN Reason: SLEEP Medical Necessity - Tobacco Use Smoking Status: Never smoker Tobacco Use: Secondhand Assessment/Plan Active and Suspected Problems Abnormal cardiac enzyme level (Acute) Abnormal nuclear stress test (Acute) Cardiomyopathy (Acute) Pulmonary hypertension (Acute) Mitral insufficiency (Acute) Hyperkalemia (Acute) Hyperkalemia (Acute) Bigeminal pulse (Acute) 1. Hyperkalemia: resolved * secondary to losartan and ESRD * resolved after HD, Ca Gluconate, Kayexalate 2. Vetricular bigeminy * secondary to above * resolved * periodic PVCs, but improved after correction of hyperkalemia 3. ESRD * HD QMWF 4. Hypertension: * fair control here * follow up with her automatic cigar wrapper tender as outpt * no ARB/ACEi 5. Non-ischemic cardiomyopathy * EF 35%. * started on Coreg and Hydralazine and isordil * follow up with cardiology as outpt * no ACEi/ARB d/t ESRD status 6. Severe pulmonary hypertension * group 2, from #7 7. Mitral insufficiency * f/u cards about further discussion for valve replacement.
--- NOTE | 2017-08-21 13:34 | PCM.DC ---
- Discharge Diagnoses Current Active Problems: Current Active and Chronic Problems Abnormal cardiac enzyme level (Acute) Abnormal nuclear stress test (Acute) Cardiomyopathy (Acute) Valvular heart disease (Chronic) Pulmonary hypertension (Acute) Mitral insufficiency (Acute) Hyperkalemia (Acute) Hyperkalemia (Acute) Bigeminal pulse (Acute) COPD (chronic obstructive pulmonary disease) (Chronic) Hypertension (Chronic) Alport syndrome (Chronic) ESRD (end stage renal disease) on dialysis (Chronic) You will use the following diet at home:: Cardiac, Renal (restricted protein/sodium) Your food should be the consistency of: Regular Your liquids should be the consistency of: Regular/Thin Discharge Activity: Return to Normal Activity Call your doctor if you observe: Fever of 101 or Higher, Shortness of breath, Chest pain, - - palpitations Allergies/Adverse Reactions: Allergies amoxicillin [From Augmentin] Allergy (Verified 08/18/17 16:47) Hives cephalexin [From Keflex] Allergy (Verified 08/18/17 16:47) Hives clavulanic acid [From Augmentin] Allergy (Verified 08/18/17 16:47) Hives oxycodone Allergy (Verified 08/18/17 16:47) Hives vancomycin Allergy (Verified 08/18/17 16:47) Hives Medications to take at Discharge Albuterol Inhaler [Ventolin Hfa] 1 - 2 puff INHALATION Q4H PRN PRN #1 inhaler 09/30/16 Calcium Acetate [Phoslo Gel Cap] 667 mg PO TIDCM 09/30/16 Folic Acid/Vit Bcomp,C [Renal Vitamin Tablet] 0.8 mg PO DAILY 09/30/16 Esomeprazole Mag Trihydrate [Nexium] 40 mg PO DAILY 08/18/17 Acetaminophen [Tylenol Tablet] 650 mg PO Q4H PRN PRN tablet 08/19/17 Aspirin [Aspirin, Baby] 81 mg PO DAILY@0800 tab.chew 08/21/17 Carvedilol [Coreg (Beta Najma)] 6.25 mg PO BID #60 tab 08/21/17 Isosorbide DN [Isordil] 10 mg PO TID #90 tab 08/21/17 hydrALAZINE [Apresoline] 10 mg PO TID #90 tab 08/21/17 The following prescriptions were given: Carvedilol [Coreg (Beta Najma)] 6.25 mg PO BID #60 tab hydrALAZINE [Apresoline] 10 mg PO TID #90 tab Isosorbide DN [Isordil] 10 mg PO TID #90 tab Primary Care Physician: Zofia Devries [Primary Care Provider] - Within 2 Weeks Please Follow Up With: Bunny Woodward MD When: 3-4 weeks Please Follow Up With: hemodialysis When: [facility] Proposed Discharge Date: 08/21/17
--- NOTE | 2017-08-21 13:36 | PCM.DC.SUM ---
Discharge Date and Diagnosis - Problem List Patient Problems: Active and Suspected Problems Mitral insufficiency (Acute) Pulmonary hypertension (Acute) Abnormal cardiac enzyme level (Acute) Abnormal nuclear stress test (Acute) Cardiomyopathy (Acute) Hyperkalemia (Acute) Hyperkalemia (Acute) Bigeminal pulse (Acute) Date of Admission: 08/18/17 Date of Discharge: 08/21/17 - Primary Discharge Diagnosis Active and Suspected Problems Mitral insufficiency (Acute) Pulmonary hypertension (Acute) Abnormal cardiac enzyme level (Acute) Abnormal nuclear stress test (Acute) Cardiomyopathy (Acute) Hyperkalemia (Acute) Hyperkalemia (Acute) Bigeminal pulse (Acute) - Secondary Discharge Diagnosis Chronic Problems Valvular heart disease (Chronic) COPD (chronic obstructive pulmonary disease) (Chronic) Hypertension (Chronic) Alport syndrome (Chronic) ESRD (end stage renal disease) on dialysis (Chronic) Hospital Course and Treatment Imaging Results: Clinical Impression(s) from Imaging Studies Chest X-Ray 08/18/17 17:45 IMPRESSION: Mild right lower lobe pneumonia. Electronically Signed: Sherwin David MD at 18:14 EDT , Service support , Operations: None Procedures: 2-D Echocardiogram, Cardiac catheterization Summary of Care Provided: The patient is a 42 year old F presents with weakness and palpitations. Have a potassium of 7.2. Patient has end-stage renal disease on hemodialysis. Patient had recently started on losartan. Patient had urgent dialysis and potassium to improve to 3.8. It was noted that the patient's troponins were slightly elevated. Part of that could be explained by decreased clearance due to her end-stage renal disease but previously they had been normal. Patient did undergo a stress test that was normal except for what appear to be an old myocardial infarction or soft tissue attenuation. Patient also had an echocardiogram that showed severe pulmonary hypertension but also had an ejection fraction of 30%. Cardiology was consulted and patient underwent a left heart catheterization today. Patient was noted to have severe pulmonary hypertension ejection fraction of 35%. Patient has mitral insufficiency. Patient has been started on Coreg plus hydralazine and Isordil. Patient given her hyperkalemia is not a candidate for angiotensin receptor blockers or NILDA inhibitors. Patient will follow up with cardiology as outpatient for definitive management of her mitral valve insufficiency and possible valve replacement at a later time. Patient had been seeing a Dr. Yovany del toro and caty but she is wishing to transfer her service to Dr. Woodward here in [place]. For the patient's bigeminy, which was the main concern when patient came in, was likely due to her hyperkalemia but also her cardiomyopathy, which is nonischemic. [] Discharge Diet: Low fat/ Low Cholesterol, Renal Diet Discharge Activity: Return to Normal Activity Call your doctor if you observe: Fever of 101 or Higher, Shortness of breath, Chest pain, - - palpitations Home Medications: Medications to take at Discharge Albuterol Inhaler [Ventolin Hfa] 1 - 2 puff INHALATION Q4H PRN PRN #1 inhaler 09/30/16 Calcium Acetate [Phoslo Gel Cap] 667 mg PO TIDCM 09/30/16 Folic Acid/Vit Bcomp,C [Renal Vitamin Tablet] 0.8 mg PO DAILY 09/30/16 Esomeprazole Mag Trihydrate [Nexium] 40 mg PO DAILY 08/18/17 Acetaminophen [Tylenol Tablet] 650 mg PO Q4H PRN PRN tablet 08/19/17 Aspirin [Aspirin, Baby] 81 mg PO DAILY@0800 tab.chew 08/21/17 Carvedilol [Coreg (Beta Najma)] 6.25 mg PO BID #60 tab 08/21/17 Isosorbide DN [Isordil] 10 mg PO TID #90 tab 08/21/17 hydrALAZINE [Apresoline] 10 mg PO TID #90 tab 08/21/17 Following Prescrptions Were Given to Patient: Carvedilol [Coreg (Beta Najma)] 6.25 mg PO BID #60 tab hydrALAZINE [Apresoline] 10 mg PO TID #90 tab Isosorbide DN [Isordil] 10 mg PO TID #90 tab Primary Care Physician: Zofia Devries [Primary Care Provider] - Within 2 Weeks Please Follow Up With: Bunny Woodward MD When: 3-4 weeks Please Follow Up With: hemodialysis When: MWF Disposition: Home Medical Necessity - Tobacco Use Smoking Status: Never smoker Tobacco Use: Secondhand Meaningful Use Info Meaningful Use Diagnoses (Choose all that apply): None applicable Code Visit Inpatient E&M: 90672 Disch Hosp
--- NOTE | 2017-08-21 18:45 | DIALYSIS ---
HD x 3 hours complete. Tolerated tx well. Ran on 1k bath for 1 hour and 2k bath for 2 hours. UF of 2000ml. Used left forearm fistula. Webster removed post tx and pressure applied to sites. Hemostasis achieved. See tx sheet for more details. Report was given to PERRY Banks.
== END 2017-08-21 18:54 | disposition home or self-care (01) | DRG 640 ==
LOC: ED 17:24 → PCU 21:02
PROVIDERS: Internal Medicine Cardiovascular Disease; Admitting Provider Internal Medicine; Emergency Provider Emergency Medicine; Family Provider Internal Medicine; PCP Internal Medicine
DX: E87.5 Hyperkalemia (principal); N18.6 End stage renal disease; I12.0 Hypertensive chronic kidney disease with stage 5 chronic kidney disease or end stage renal disease; Q87.81 Alport syndrome; I42.9 Cardiomyopathy, unspecified; Z99.2 Dependence on renal dialysis; J44.9 Chronic obstructive pulmonary disease, unspecified; R00.8 Other abnormalities of heart beat; R00.2 Palpitations; I49.3 Ventricular premature depolarization; Z79.899 Other long term (current) drug therapy; I27.20 Pulmonary hypertension, unspecified; I34.0 Nonrheumatic mitral (valve) insufficiency; R94.39 Abnormal result of other cardiovascular function study; E83.39 Other disorders of phosphorus metabolism
CPT/HCPCS: 36415; 71046; 78452; 80048; 80061; 80076; 81002; 82803; 84484; 85025; 85027; 85610; 85730; 87449; 90937; 93005; 93017; 93306; 93460; 94640; 99152; 99153; 99285; A9500; J7030; J7050; A4216; C1751; C1769; C1894; G0257; J0610; J2785; Q9967

== ENCOUNTER → 2017-09-20 13:34 | Outpatient (CLI) | payer MEDICARE, MEDICAID, SELFPAY ==
--- NOTE | 2017-09-20 13:47 | AVDS_ITS ---
Reason For Study: Aneursym of AV fistula graft LEFT Proximal cher-ae heights vessel 151.0 cm/s. Proximal anastomosis 546.0 cm/s. Proximal graft 274.0 ml/min. Mid graft 115.0 ml/min. Distal graft 72.7 ml/min. Outflow - 47.1 cm/sec Volume flow [place] artery - 262 cc/min Prox graft - 2112 cc/min Mid graft - 1072 cc/min Dist graft -2934 cc/min. Interpretation Summary Patent, high flow left forearm arteriovenous fistula with volume flow at maximum distally at 2934cm/sec Aneurysmal change with maximal diameters: Proximal fistula: 0.86cm Mid fistula: 1.54cm Distal fistula: 1.85cm Ordering Physician: Poli Posada Referring Physician: Poli Posada Performed By: Lana Cook RVT
== END ==
PROVIDERS: Family Provider Internal Medicine; PCP Internal Medicine; Visit Provider Surgery
DX: I77.0 Arteriovenous fistula, acquired (principal)
CPT/HCPCS: 93990

== ENCOUNTER → 2017-10-04 14:10 | Outpatient (CLI) | payer MEDICARE, MEDICAID, SELFPAY ==
--- NOTE | 2017-10-04 14:20 | PCM.CR.HP2 ---
CR - History & Physical - General Arrival date:: 10/04/17 Arrival time:: 14:20 Date of Referral:: 09/18/17 Date of CR Evaluation:: 10/04/17 Referring Physician: Dr. Bunny Woodward Primary Diagnosis: I42.9, I34.0 09/18/17 Cardiomyopathy, Nonrheumatic mitral valve insuff - History of Present Cardiac Event Onset Date: Enter Onset Date of cardiac illnesses in Comment field below Interventions with present event:: cardiomyopathy, nonrheumatic aniya valve insuff - Medications Home Medications: Ambulatory Orders Medication Instructions Recorded Albuterol Inhaler [Ventolin Hfa] 1 - 2 puff INHALATION Q4H PRN PRN 09/30/16 #1 inhaler Calcium Acetate [Phoslo Gel Cap] 667 mg PO TIDCM 09/30/16 Esomeprazole Mag Trihydrate 40 mg PO DAILY 08/18/17 [Nexium] Acetaminophen [Tylenol Tablet] 650 mg PO Q4H PRN PRN tab 08/19/17 Aspirin [Aspirin, Baby] 81 mg PO DAILY@0800 tab.chew 08/21/17 carvedilol 6.25 mg tablet 12.5 mg PO BID #60 tab 09/18/17 lidocaine-prilocaine 2.5 %-2.5 % 1 applic TOPICAL .COMPLEX 09/18/17 topical cream sodium bicarbonate 650 mg tablet 650 mg PO BID tab 09/18/17 hydralazine 10 mg tablet 10 mg PO TID #90 tab 09/20/17 isosorbide dinitrate 10 mg tablet 10 mg PO TID #90 tab 09/20/17 - Allergies Allergies/Adverse Reactions: Allergies amoxicillin [From Augmentin] Allergy (Verified 09/18/17 11:46) Hives cephalexin [From Keflex] Allergy (Verified 09/18/17 11:46) Hives clavulanic acid [From Augmentin] Allergy (Verified 09/18/17 11:46) Hives oxycodone Allergy (Verified 09/18/17 11:46) Hives vancomycin Allergy (Verified 09/18/17 11:46) Hives - Sleep Disorder Evaluation Hx of Sleep Apnea: No Do you snore loudly (louder than talking or can be heard through closed doors)?: No Do you often feel tired/ fatigued/ sleepy during daytime?: No Has anyone observed you stop breathing during sleep?: No History of Hypertension (for STOP score): Yes STOP Results: Negative Advanced Directives - Advanced Directives Power of Financial Services Assistant: No Living Will: No Advance Directives Information Provided: No Advance Directives on File: No DNR Order?:: No Past Medical History - Past Medical Illness Medical History: Past Medical History (Last Reviewed 09/18/17 @ 11:52 by Miya Vargas) Nonrheumatic tricuspid valve regurgitation (Acute) I36.1 Nonrheumatic mitral valve regurgitation (Acute) I34.0 Pulmonary hypertension (Acute) I27.20 Abnormal cardiac enzyme level (Acute) R74.8 Abnormal nuclear stress test (Acute) R94.39 Cardiomyopathy (Acute) I42.9 Valvular heart disease (Chronic) I38 Hyperkalemia (Acute) E87.5 Bigeminal pulse (Acute) R00.8 COPD (chronic obstructive pulmonary disease) (Chronic) J44.9 Hypertension (Chronic) I10 Alport syndrome (Chronic) Q87.81 ESRD (end stage renal disease) on dialysis (Chronic) N18.6, Z99.2 - Past Surgical History Surgical History: Past Surgical History (Last Updated 10/04/17 @ 14:35 by MANUELITO Frazier, RVT) Surgically constructed arteriovenous fistula (Acute) Z98.890 H/O foot surgery Z98.890 left Hernia K46.9 History of left heart catheterization Z98.890 x 3 PD cath S/P laparoscopic cholecystectomy Z90.49 Status post colonoscopy Z98.890 H/O section Z98.891 S/P cardiac catheterization Z98.890 Normal coronary arteries per cath 08/21/17 - Family History Summary Family History: Family History (Last Reviewed 09/18/17 @ 11:52 by Miya Vargas) Mother Heart disease Social History - Smoking History Smoking Status: Never smoker Hx Smoking Exposure: No - Alcohol Use Alcohol Usage: No - Substance Abuse Hx Substance Use: No - Occupation Occupation (List type of work in comments):: Employed Hours worked per day:: 6 - Hobbies, Recreation, Social Activities Hobbies: Other - kids Recreational Activities: I am able to engage in all my recreational activities Social Environment - Status Marital Status: - Current Living Arrangements Living Environment:: Family - Children How many children do you have?: 2 Do any of your children live nearby?: Yes - Safety Do you feel safe in your surroundings?: Yes - Assistance Do you need any assistance at home?: none Review of Systems - Review of Systems Hints: Right click = Denies (Slash). Left click = Reports ([place]) Review of Present Symptoms: Reports: Shortness of Breath with Exertion, Appetite - Normal, Sleep - Normal. Denies: Shortness of Breath at Rest, PVD, Operative Discomfort, Angina, Wound Healing, Dizziness/Lightheadedness, Fatigue, Heart Arrhythmia/Irregularities, Appetite - Special Diet, Sexual Changes - Pain Is Patient Pain Free?: Yes Risk Factor Assessment - Vital Signs Pulse Ox: 98 - Pulse Pulse Rate: 63 Pulse Rhythm: Regular - Hypertension How long have you been treated?: 1 month Blood Pressure Sitting - Right Arm: 122/82 - Stress Stress: Long-standing - divorce - Diabetes Nutrition Referral for Diabetes: No - Obesity Height: 1.61 m Weight:: 72.575 kg Weight in Pounds: 160.0 lbs Weight Source: Standing Scale Body Mass Index (BMI): 27.8 Nutritional Referral for Obesity: No - Physical Inactivity Physical Inactivity: Reg Exercise 30 min/day, Physically demanding job, Recreational activity, None - Risk Stratification Risk Guidelines: Moderate Risk: Risk Factor for Smoking, Risk Factor for Dyslipidemia, Risk Factor for Diabetes, Risk Factor for Obesity, Risk Factor for Hypertension, Risk Factor for Sedentary Lifestyle, Risk Factor for Depression - For Smoking Smoking Risk Guidelines: Smoking Low Risk: None or quit greater than 6 months ago. Smoking Moderate Risk: Smoker or quit 6 months or less ago. Smoking High Risk: Smoker - For Dyslipidemia Dyslipidemia Risk Guidelines: Low Risk: Moderate Risk: High Risk: 15-25% fat 25.1-29% fat >/= 30% fat. <7% sat fat 7-9% sat fat >9% sat fat. <150 mg chol 150-299 mg chol >/= 300 mg chol. LDL <100 LDL 100-129 LDL >/= 130. Chol/HDL ratio <5.0 Chol/HDL ratio 5.0-6.0 Chol/HDL ratio >6.0. Triglycerides <100 Triglycerides 100-149 Triglycerides >/= 150 - For Diabetes Mellitus Diabetes Risk Guidelines: Diabetes Low Risk: HgA1c <6.5% and/or FBG <120. Diabetes Moderate Risk: HgA1c 6.6-7.9% and/or FBG 120-180. Diabetes High Risk: HgA1c >/= 8% and/or FBG >180 - For Obesity/Overweight Obesity/Overweight Risk Guidelines: Obesity Low Risk: BMI <25.0. Obesity Moderate Risk: BMI 25-29.9. Obesity High Risk: BMI >/= 30.0 - For Hypertension Hypertension Risk Guidelines: Hypertension Low Risk: Systolic <120 and Diastolic <80. Hypertension Moderate Risk: Systolic 120-139 and Diastolic 80-89. Hypertension High Risk: Systolic >/= 140 and Diastolic >/= 90 - For Sedentary Lifestyle Sedentary Lifestyle Risk Guidelines: Sedentary Lifestyle Low Risk: >/= 1,500 kcal/week. Sedentary Lifestyle Moderate Risk: 700-1,499 kcal/week. Sedentary Lifestyle High Risk: < 700 kcal/week - For Depression Depression Risk Guidelines: Depression Low Risk: Not clinically depressed. Depression Moderate Risk: Mildly depressed. Depression High Risk: Clinically depressed - Family History Family History: Family History (Last Reviewed 09/18/17 @ 11:52 by Miya Vargas) Mother Heart disease Motivation - Motivation to Participate On a scale of 1 to 10, how prepared are you to commit to attending program?: 10 What do you see as barriers to successfully being able to complete the program?: none What do you see as the benefits of succesfully completing the program? In other words, what do you hope to get out of participating in the program?: more energy, improved health Are there issues you are dealing with that will interfere with completing the program?: none Do you have a spouse or signficant other, family or friends who will help support you to complete the program?: yes
--- NOTE | 2017-10-04 14:31 | CR.HP_ITS ---
CR - History & Physical - General Arrival date:: 10/04/17 Arrival time:: 14:20 Date of Referral:: 09/18/17 Date of CR Evaluation:: 10/04/17 Referring Physician: Dr. Bunny Woodward Primary Diagnosis: I42.9, I34.0 09/18/17 Cardiomyopathy, Nonrheumatic mitral valve insuff - History of Present Cardiac Event Onset Date: Enter Onset Date of cardiac illnesses in Comment field below Interventions with present event:: cardiomyopathy, nonrheumatic aniya valve insuff - Medications Home Medications: Ambulatory Orders Medication Instructions Recorded Albuterol Inhaler [Ventolin Hfa] 1 - 2 puff INHALATION Q4H PRN PRN 09/30/16 #1 inhaler Calcium Acetate [Phoslo Gel Cap] 667 mg PO TIDCM 09/30/16 Esomeprazole Mag Trihydrate 40 mg PO DAILY 08/18/17 [Nexium] Acetaminophen [Tylenol Tablet] 650 mg PO Q4H PRN PRN tab 08/19/17 Aspirin [Aspirin, Baby] 81 mg PO DAILY@0800 tab.chew 08/21/17 carvedilol 6.25 mg tablet 12.5 mg PO BID #60 tab 09/18/17 lidocaine-prilocaine 2.5 %-2.5 % 1 applic TOPICAL .COMPLEX 09/18/17 topical cream sodium bicarbonate 650 mg tablet 650 mg PO BID tab 09/18/17 hydralazine 10 mg tablet 10 mg PO TID #90 tab 09/20/17 isosorbide dinitrate 10 mg tablet 10 mg PO TID #90 tab 09/20/17 - Allergies Allergies/Adverse Reactions: Allergies amoxicillin [From Augmentin] Allergy (Verified 09/18/17 11:46) Hives cephalexin [From Keflex] Allergy (Verified 09/18/17 11:46) Hives clavulanic acid [From Augmentin] Allergy (Verified 09/18/17 11:46) Hives oxycodone Allergy (Verified 09/18/17 11:46) Hives vancomycin Allergy (Verified 09/18/17 11:46) Hives - Sleep Disorder Evaluation Hx of Sleep Apnea: No Do you snore loudly (louder than talking or can be heard through closed doors)? : No Do you often feel tired/ fatigued/ sleepy during daytime?: No Has anyone observed you stop breathing during sleep?: No History of Hypertension (for STOP score): Yes STOP Results: Negative Advanced Directives - Advanced Directives Power of Credentialing Coordinator: No Living Will: No Advance Directives Information Provided: No Advance Directives on File: No DNR Order?:: No Past Medical History - Past Medical Illness Medical History: Past Medical History (Last Reviewed 09/18/17 @ 11:52 by Miya Vargas) Nonrheumatic tricuspid valve regurgitation (Acute) I36.1 Nonrheumatic mitral valve regurgitation (Acute) I34.0 Pulmonary hypertension (Acute) I27.20 Abnormal cardiac enzyme level (Acute) R74.8 Abnormal nuclear stress test (Acute) R94.39 Cardiomyopathy (Acute) I42.9 Valvular heart disease (Chronic) I38 Hyperkalemia (Acute) E87.5 Bigeminal pulse (Acute) R00.8 COPD (chronic obstructive pulmonary disease) (Chronic) J44.9 Hypertension (Chronic) I10 [place] syndrome (Chronic) Q87.81 ESRD (end stage renal disease) on dialysis (Chronic) N18.6, Z99.2 - Past Surgical History Surgical History: Past Surgical History (Last Updated 10/04/17 @ 14:35 by MANUELITO Frazier, RVT ) Surgically constructed arteriovenous fistula (Acute) Z98.890 H/O foot surgery Z98.890 left Hernia K46.9 History of left heart catheterization Z98.890 x 3 PD cath S/P laparoscopic cholecystectomy Z90.49 Status post colonoscopy Z98.890 H/O section Z98.891 S/P cardiac catheterization Z98.890 Normal coronary arteries per cath 08/21/17 - Family History Summary Family History: Family History (Last Reviewed 09/18/17 @ 11:52 by Miya Vargas) Mother Heart disease Social History - Smoking History Smoking Status: Never smoker Hx Smoking Exposure: No - Alcohol Use Alcohol Usage: No - Substance Abuse Hx Substance Use: No - Occupation Occupation (List type of work in comments):: Employed Hours worked per day:: 6 - Hobbies, Recreation, Social Activities Hobbies: Other - kids Recreational Activities: I am able to engage in all my recreational activities Social Environment - Status Marital Status: - Current Living Arrangements Living Environment:: Family - Children How many children do you have?: 2 Do any of your children live nearby?: Yes - Safety Do you feel safe in your surroundings?: Yes - Assistance Do you need any assistance at home?: none Review of Systems - Review of Systems Hints: Right click = Denies ([place]). Left click = Reports ([place]) Review of Present Symptoms: Reports: Shortness of Breath with Exertion, Appetite - Normal, Sleep - Normal. Denies: Shortness of Breath at Rest, PVD, Operative Discomfort, Angina, Wound Healing, Dizziness/Lightheadedness, Fatigue , Heart Arrhythmia/Irregularities, Appetite - Special Diet, Sexual Changes - Pain Is Patient Pain Free?: Yes Risk Factor Assessment - Vital Signs Pulse Ox: 98 - Pulse Pulse Rate: 63 Pulse Rhythm: Regular - Hypertension How long have you been treated?: 1 month Blood Pressure Sitting - Right Arm: 122/82 - Stress Stress: Long-standing - divorce - Diabetes Nutrition Referral for Diabetes: No - Obesity Height: 1.61 m Weight:: 72.575 kg Weight in Pounds: 160.0 lbs Weight Source: Standing Scale Body Mass Index (BMI): 27.8 Nutritional Referral for Obesity: No - Physical Inactivity Physical Inactivity: Reg Exercise 30 min/day, Physically demanding job, Recreational activity, None - Risk Stratification Risk Guidelines: Moderate Risk: Risk Factor for Smoking, Risk Factor for Dyslipidemia, Risk Factor for Diabetes, Risk Factor for Obesity, Risk Factor for Hypertension, Risk Factor for Sedentary Lifestyle, Risk Factor for Depression - For Smoking Smoking Risk Guidelines: Smoking Low Risk: None or quit greater than 6 months ago. Smoking Moderate Risk: Smoker or quit 6 months or less ago. Smoking High Risk: Smoker - For Dyslipidemia Dyslipidemia Risk Guidelines: Low Risk: Moderate Risk: High Risk: 15-25% fat 25.1-29% fat >/= 30% fat. <7% sat fat 7-9% sat fat >9% sat fat. <150 mg chol 150-299 mg chol >/= 300 mg chol. LDL <100 LDL 100-129 LDL >/= 130. Chol/HDL ratio <5.0 Chol/HDL ratio 5.0-6.0 Chol/HDL ratio >6.0. Triglycerides <100 Triglycerides 100-149 Triglycerides >/= 150 - For Diabetes Mellitus Diabetes Risk Guidelines: Diabetes Low Risk: HgA1c <6.5% and/or FBG <120. Diabetes Moderate Risk: HgA1c 6.6-7.9% and/or FBG 120-180. Diabetes High Risk: HgA1c >/= 8% and/or FBG >180 - For Obesity/Overweight Obesity/Overweight Risk Guidelines: Obesity Low Risk: BMI <25.0. Obesity Moderate Risk: BMI 25-29.9. Obesity High Risk: BMI >/= 30.0 - For Hypertension Hypertension Risk Guidelines: Hypertension Low Risk: Systolic <120 and Diastolic <80. Hypertension Moderate Risk: Systolic 120-139 and Diastolic 80-89. Hypertension High Risk: Systolic >/= 140 and Diastolic >/= 90 - For Sedentary Lifestyle Sedentary Lifestyle Risk Guidelines: Sedentary Lifestyle Low Risk: >/= 1 ,500 kcal/week. Sedentary Lifestyle Moderate Risk: 700-1,499 kcal/week. Sedentary Lifestyle High Risk: < 700 kcal/week - For Depression Depression Risk Guidelines: Depression Low Risk: Not clinically depressed. Depression Moderate Risk: Mildly depressed. Depression High Risk: Clinically depressed - Family History Family History: Family History (Last Reviewed 09/18/17 @ 11:52 by Miya Vargas) Mother Heart disease Motivation - Motivation to Participate On a scale of 1 to 10, how prepared are you to commit to attending program?: 10 What do you see as barriers to successfully being able to complete the program? : none What do you see as the benefits of succesfully completing the program? In other words, what do you hope to get out of participating in the program?: more energy , improved health Are there issues you are dealing with that will interfere with completing the program?: none Do you have a spouse or signficant other, family or friends who will help support you to complete the program?: yes
--- NOTE | 2017-10-04 14:35 | CR.ITP_ITS ---
General Information - General Information Admitting Diagnosis: I42.9, I34.0 Cardiomyopathy, nonrheumatic aniya valve 2017 - Education/Goals Barriers to Learning: None - ... Cardiac Rehabilitation Goals: 1. Maintain the individual as the primary focus of care. 2. To improve the patient's quality of life. 3. Identification of cardiac risk factors and provide cardiac risk factor management. 4. Enhance the psychosocial status of the patient. 5. Reconditioning enough to allow the patient to resume customary activities. 6. Control symptoms of cardiac disease Scale for measuring improvement of personal goals: Enter appropriate number in Comments. 2 = Unchanged. 3 = Slightly Better. 4 = Moderate Improvement. 5 = Met my Goal Personal Goals: Initial Assessment: Improve management of stress and emotions, Improve energy level, Participate in home exercise program, Get back to work, or to resume activities faster, Improve knowledge of cardiac disease, Improve muscle strength and endurance, Improve diet and eating habits (eat healthier), Control risk factors (learn risk factor modification) Exercise - Initial Assessment - Visit Date of Eval: 10/04/17 - initial eval - Stages of Change Stages of Change:: Contemplate - Exercise Prescription Mode:: Treadmill, Biodyne, Rower, Airdyne, NuStep, Arm Ergometer Angina with exercise?: No Target Heart Rate:: 110-118 - Hypertension Do any of the following apply?: Yes Resting Blood Pressure:: 122/82 - Education Goals:: Warm-up, RPE SOLITARIO Scale, S/S, Safe Exercise, Self-Monitoring - Exercise Program Goals Exercise Program Goals: Aerobic Activity >30 min, B/P <130/80 Nutrition - Initial Assessment - Program Goals Nutrition Program Goals: LDL <70. Total Cholesterol <200. HDL >45. Triglycerides <150. HgbA1C <7%. BMI <25 - Visit Date of Assessment:: 10/04/17 - initial eval - Stages of Change Stages of Change:: Contemplate - Diabetes Diabetes:: No - Weight Management Height: 1.61 m Weight:: 72.575 kg Total Score:: 3 - Intervention Referral to dietitian:: No Referral to Diabetic Clinic:: No Will attend diet classes:: Yes - Education Gave educational materials for:: Signs & symptoms of hypoglycemia, Signs & symptoms of hyperglycemia, Relate diabetes to coronary artery disease, Healthy eating Tobacco - Initial Assessment - Program Goals Tobacco Program Goals: Complete smoking cessation. Attend education classes. Improve Knowledge Test score - Stage of Change Stages of Change:: Contemplate - Learning Barriers Total Score:: 16 - Family Support Do you have family support?: Yes - Tobacco Use Tobacco Use: Non-smoker Do you use smokeless tobacco?: No - Intervention Smoking Cessation Referral:: No Individual Education/Counseling:: No Education Schedule Given:: Yes - Education Gave educational material for:: Tobacco triggers, Coronary artery disease, Risk factors, Medical compliance, Cardiac A&P, Angina signs & symptoms Psychosocial - Initial Assess - Target Goals Target Goals: Assess presence or absence of depression. Using a valid screening tool, maximizes coping skills. Positive support system - Stages of Change Stages of Change:: Contemplate - Psychosocial Test Tool Used:: HANDS Depression Questionnaire Total Mood Screening Score:: 13 Self-Efficacy Score:: 6 - Intervention PS - Interventions: Yes Attend Stress Management Classes, Yes Uses Stress Management Skills, No Referral to Mental Health, No Referral to [facility] Case Management, No Referral to Physician - Education Gave educational materials for:: Coping techniques, Signs & symptoms of depression, Stress management, Relaxation techniques - Assistive Devices Assistive Devices:: None Fall Risk Assessed:: Yes Patient Health Questionnaire Initial Assessment 1. Little interest or pleasure in doing things: Nearly every day 2. Feeling down, depressed, or hopeless: Several days 3. Trouble falling or staying asleep, or sleeping too much: Nearly every day 4. Feeling tired or having little energy: Nearly every day 5. Poor appetite or overeating: Several days 6. Feeling bad about yourself -- or that you are a failure or have let yourself or your family down: More than half the days 7. Trouble concentrating on things, such as reading the newspaper or watching television: Not at all 8. Moving or speaking so slowly that other people could have noticed. Or the opposite - being so fidgety or restless that you have been moving around a lot more than usual: Not at all 9. Thoughts that you would be better off , or of hurting yourself in some way: Not at all How difficult have these problems made it for you to do your work, take care of things at home, or get along with other people?: Not difficult at all Total Score: 13 DANITZA-Q SV Test - Statements CAD is a disease of the arteries in the heart: False Examples of risk factors for heart disease: True Angina is chest pain or discomfort: I Don't Know The benefits of resistance training include: True Eating more meat and dairy products: False Anti-platelet medications such as aspirin are important: True The only effective way to manage stress: True An exercise warm-up slowly increases heart rate: True Prepared, processed foods usually have high sodium: True Depression is common after a heart attack: True The statin medications lower cholesterol: I Don't Know To control blood pressure, lower the amount of sodium: True If someone gets chest discomfort during walking: False Transfats are partially hydrogenated vegetable oils: True Sleep apnea that is not treated increases the risk: I Don't Know To control cholesterol, one should become a vegetarian: False Someone knows if he/she is exercising at the right level: True Diabetes cannot be prevented with exercise & health eating: False Stress is a large risk for heart attack: True A diet that can help lower blood pressure is rich in: True - Total Score Total Correct Responses: 16 Self-Efficacy Initial Assessment We would like to know how confident you are in doing certain activities. Please select your confidence level for:: Select your confidence level for the following using the scale 1-10 where 1 is not at all confident and 10 is totally confident. Your score is the average of all 6 responses. Fatigue: How confident are you that you can keep the fatigue caused by your disease from interfering with the things you want to do? Select Number: 4 Physical Discomfort or Pain: How confident are you that you can keep the physical discomfort or pain of your disease from interfering with the things you want to do? Select Number: 4 Emotional Distress: How confident are you that you can keep the emotional distress caused by your disease from interfering with the things you want to do? Select Number: 7 Other Symptoms or Health Problems: How confident are you that you can keep other symptoms or health problems from interfering with the things you want to do? Select Number: 7 Different Tasks and Activities: How confident are you that you can do the different tasks and activities needed to manage your health condition so as to reduce your need to see a doctor? Select Number: 9 Medication: How confident are you that you can do things other than just taking medication to reduce how much your illness affects your everyday life? Select Number: 7 Total Score:: 6 Nutrition Survey - Nutrition Survey Instructions Scoring Instructions: Scoring is as follows: Yes = 1 points. No = 0 point. Patient score that is >/=12 is considered to be at potential nutritional risk and could benefit from a referral to a registered dietitian. - Nutrition Survey Initial Have you lost >10 lbs over the past 2 months without trying?: No Are you following a special diet at home for diabetes, low fat, or low salt?: No Are you interested in meeting with a dietitian for help understanding your diet? : No Do you eat less than 3 meals a day?: Yes Do you eat fatty meats (ponce, sausage, ribs, etc), fried foods, desserts, large amounts of salad dressings, margarine, butter, or cheese most days?: No Do you have food allergies? [Enter types in comment field]: No Do you eat in restaurants more than 3 times a week?: No Do you season food with salt, seasoning salt, or garlic salt?: Yes Do you used canned, boxed, frozen meals, or soups, seasoning packets?: Yes Total Score:: 3
[2017-10-04 15:07] VITALS: BP 122/82
[2017-10-04 15:09] VITALS: BP 122/82; PULSE 63; O2SAT 98; BMI 27.8
== END ==
PROVIDERS: Family Provider Internal Medicine; PCP Internal Medicine; Visit Provider Internal Medicine Cardiovascular Disease
DX: I42.9 Cardiomyopathy, unspecified (principal); I34.0 Nonrheumatic mitral (valve) insufficiency; I27.20 Pulmonary hypertension, unspecified; I36.1 Nonrheumatic tricuspid (valve) insufficiency; I38 Endocarditis, valve unspecified; J44.9 Chronic obstructive pulmonary disease, unspecified; Q87.81 Alport syndrome; I12.0 Hypertensive chronic kidney disease with stage 5 chronic kidney disease or end stage renal disease; N18.6 End stage renal disease; Z99.2 Dependence on renal dialysis; Z79.82 Long term (current) use of aspirin; Z79.899 Other long term (current) drug therapy; Z90.49 Acquired absence of other specified parts of digestive tract

== ENCOUNTER 2017-10-14 14:15 | Outpatient (RCR) | payer MEDICARE, MEDICAID, SELFPAY ==
[2017-10-11 10:34] VITALS: BP 102/64; BP 110/80
--- NOTE | 2017-10-11 10:34 | CR.ITP_ITS ---
General Information - General Information Admitting Diagnosis: cardiomyopathy, nonrheumatic mitral valve - Education/Goals Cardiac Rehabilitation Goals: 1. Maintain the individual as the primary focus of care. 2. To improve the patient's quality of life. 3. Identification of cardiac risk factors and provide cardiac risk factor management. 4. Enhance the psychosocial status of the patient. 5. Reconditioning enough to allow the patient to resume customary activities. 6. Control symptoms of cardiac disease Scale for measuring improvement of personal goals: Enter appropriate number in Comments. 2 = Unchanged. 3 = Slightly Better. 4 = Moderate Improvement. 5 = Met my Goal Personal Goals: 30-day Re-assessment: Improve management of stress and emotions , Improve energy level, Participate in home exercise program, Get back to work, or to resume activities faster, Improve knowledge of cardiac disease, Improve muscle strength and endurance, Improve diet and eating habits (eat healthier), Control risk factors (learn risk factor modification) Exercise - 30-day Assessment - Visit Date of Eval: 10/11/17 - 66.67 % compliance Session #:: 2 - Stages of Change Stages of Change:: Action - Exercise Prescription Mode:: Treadmill, Biodyne, Rower, NuStep Frequency (x/week): 3 Duration:: 30 METs - Progression: 0.5-1 MET as tolerated: 2.6 Target Heart Rate:: 110-118 max 84 - Hypertension Resting Blood Pressure:: 102/64 Peak Exercise Blood Pressure:: 110/80 Medication Changes:: No - Intervention Home Exercise/Activity Goal:: Sitting Time <3 hrs/day - Education Goals:: Warm-up, RPE SOLITARIO Scale, S/S, Safe Exercise, Self-Monitoring - Exercise Program Goals Exercise Program Goals: Aerobic Activity >30 min, B/P <130/80 Nutrition - 30-Day Assessment - Program Goals Nutrition Program Goals: LDL <70. Total Cholesterol <200. HDL >45. Triglycerides <150. HgbA1C <7%. BMI <25 - Visit Date of Eval: 10/11/17 - Stages of Change Stages of Change:: Action - Lipids Has the patient seen the dietitian?: No - Diabetes Diabetes:: No - Weight Management Weight:: 72.575 kg - Intervention Referral to dietitian:: No Referral to Diabetic Clinic:: No Will attend diet classes:: Yes - Education Attended class for:: Signs & symptoms of hypoglycemia, Signs & symptoms of hyperglycemia, Relate diabetes to coronary artery disease, Healthy eating Tobacco - 30-Day Assessment - Program Goals Tobacco Program Goals: Complete smoking cessation. Attend education classes. Improve Knowledge Test score - Stage of Change Stages of Change:: Action - Learning Barriers Learning Barriers: Participates in education - Family Support Do you have family support?: Yes - Tobacco Use Tobacco Use: Non-smoker Do you use smokeless tobacco?: No - Intervention Smoking Cessation Referral:: No Individual Education/Counseling:: No Education Schedule Given:: Yes - Education Attended class for:: Tobacco triggers, Coronary artery disease, Risk factors, Sexuality, Medical compliance, Cardiac A&P, Angina signs & symptoms Psychosocial - Initial Assess - Target Goals Target Goals: Assess presence or absence of depression. Using a valid screening tool, maximizes coping skills. Positive support system - Psychosocial Test Tool Used:: HANDS Depression Questionnaire - Assistive Devices Fall Risk Assessed:: Yes Psychosocial - 30-Day Assess - Target Goals Target Goals: Assess presence or absence of depression. Using a valid screening tool, maximizes coping skills. Positive support system - Stages of Change Stages of Change:: Action - Psychosocial Test Tool Used:: HANDS Depression Questionnaire - Intervention PS - Interventions: Yes Attend Stress Management Classes, Yes Uses Stress Management Skills, No Referral to Mental Health, No Referral to [facility] Case Management, No Referral to Physician Patient Health Questionnaire 30-Day Re-eval Assessment 1. Little interest or pleasure in doing things: Nearly every day 2. Feeling down, depressed, or hopeless: Nearly every day 3. Trouble falling or staying asleep, or sleeping too much: More than half the days 4. Feeling tired or having little energy: More than half the days 5. Poor appetite or overeating: Several days 6. Feeling bad about yourself -- or that you are a failure or have let yourself or your family down: More than half the days 7. Trouble concentrating on things, such as reading the newspaper or watching television: Not at all 8. Moving or speaking so slowly that other people could have noticed. Or the opposite - being so fidgety or restless that you have been moving around a lot more than usual: Not at all 9. Thoughts that you would be better off , or of hurting yourself in some way: Not at all How difficult have these problems made it for you to do your work, take care of things at home, or get along with other people?: Not difficult at all Total Score: 13 Self-Efficacy 30-Day Re-eval Assessment We would like to know how confident you are in doing certain activities. Please select your confidence level for:: Select your confidence level for the following using the scale 1-10 where 1 is not at all confident and 10 is totally confident. Your score is the average of all 6 responses. Fatigue: How confident are you that you can keep the fatigue caused by your disease from interfering with the things you want to do? Select Number: 5 Physical Discomfort or Pain: How confident are you that you can keep the physical discomfort or pain of your disease from interfering with the things you want to do? Select Number: 5 Emotional Distress: How confident are you that you can keep the emotional distress caused by your disease from interfering with the things you want to do? Select Number: 7 Other Symptoms or Health Problems: How confident are you that you can keep other symptoms or health problems from interfering with the things you want to do? Select Number: 7 Different Tasks and Activities: How confident are you that you can do the different tasks and activities needed to manage your health condition so as to reduce your need to see a doctor? Select Number: 9 Medication: How confident are you that you can do things other than just taking medication to reduce how much your illness affects your everyday life? Select Number: 8 Total Score:: 6
== END 2017-10-19 23:59 ==
LOC: CR 14:15
PROVIDERS: Family Provider Internal Medicine; PCP Internal Medicine; Visit Provider Internal Medicine Cardiovascular Disease
DX: I42.9 Cardiomyopathy, unspecified (principal); I34.0 Nonrheumatic mitral (valve) insufficiency; I27.20 Pulmonary hypertension, unspecified; Q87.81 Alport syndrome; I12.0 Hypertensive chronic kidney disease with stage 5 chronic kidney disease or end stage renal disease; N18.6 End stage renal disease; Z99.2 Dependence on renal dialysis
CPT/HCPCS: 93798

== ENCOUNTER 2017-11-13 14:15 | Outpatient (RCR) | payer MEDICARE, MEDICAID, SELFPAY ==
[2017-10-20 01:12] VITALS: BP 102/64; BP 110/80
[2017-11-13 09:03] VITALS: BP 110/60; BP 112/80
--- NOTE | 2017-11-13 09:04 | CR.ITP_ITS ---
General Information - General Information Admitting Diagnosis: cardiomyopathy, nonrheumatic mitral valve - Education/Goals Barriers to Learning: None Cardiac Rehabilitation Goals: 1. Maintain the individual as the primary focus of care. 2. To improve the patient's quality of life. 3. Identification of cardiac risk factors and provide cardiac risk factor management. 4. Enhance the psychosocial status of the patient. 5. Reconditioning enough to allow the patient to resume customary activities. 6. Control symptoms of cardiac disease Scale for measuring improvement of personal goals: Enter appropriate number in Comments. 2 = Unchanged. 3 = Slightly Better. 4 = Moderate Improvement. 5 = Met my Goal Personal Goals: 60-day Re-assessment: Improve management of stress and emotions , Participate in home exercise program, Get back to work, or to resume activities faster, Improve knowledge of cardiac disease, Improve muscle strength and endurance, Improve diet and eating habits (eat healthier) Exercise - 60-Day Assessment - Visit Date of Eval: 11/13/17 Session #:: 10 - Stages of Change Stages of Change:: Action - Exercise Prescription Mode:: Treadmill, Biodyne, NuStep Frequency (x/week): 3 Duration:: 30 METs: 3.5 Target Heart Rate:: 110-118 Max HR 79 - Hypertension Resting Blood Pressure:: 110/60 Peak Exercise Blood Pressure:: 112/80 Medication Changes:: No - Intervention Home Exercise/Activity Goal:: Sitting Time <3 hrs/day - Education Goals:: Warm-up, RPE SOLITARIO Scale, S/S, Safe Exercise, Self-Monitoring - Exercise Program Goals Exercise Program Goals: Aerobic Activity >30 min, B/P <130/80 Nutrition - 60-Day Assessment - Program Goals Nutrition Program Goals: LDL <70. Total Cholesterol <200. HDL >45. Triglycerides <150. HgbA1C <7%. BMI <25 - Visit Date of Eval: 11/13/17 - Stages of Change Stages of Change:: Action - Lipids Has the patient seen the dietitian?: No - Weight Management Weight:: 72.121 kg - Intervention Referral to dietitian:: No Referral to Diabetic Clinic:: No Will attend diet classes:: Yes - Education Attended class for:: Signs & symptoms of hypoglycemia, Signs & symptoms of hyperglycemia, Relate diabetes to coronary artery disease, Healthy eating Tobacco - 60-Day Assessment - Program Goals Tobacco Program Goals: Complete smoking cessation. Attend education classes. Improve Knowledge Test score - Stage of Change Stages of Change:: Action - Learning Barriers Learning Barriers: Participates in education - Family Support Do you have family support?: Yes - Tobacco Use Tobacco Use: Non-smoker Do you use smokeless tobacco?: No - Intervention Smoking Cessation Referral:: No Individual Education/Counseling:: No Education Schedule Given:: Yes - Education Attended class for:: Tobacco triggers, Coronary artery disease, Risk factors, Sexuality, Medical compliance, Cardiac A&P, Angina signs & symptoms Psychosocial - 60-Day Assess - Target Goals Target Goals: Assess presence or absence of depression. Using a valid screening tool, maximizes coping skills. Positive support system - Stages of Change Stages of Change:: Action - Psychosocial Test Tool Used:: HANDS Depression Questionnaire - Intervention PS - Interventions: Yes Attend Stress Management Classes, Yes Uses Stress Management Skills, No Referral to Mental Health, No Referral to [facility] Case Management, No Referral to Physician - Education Attended classes for:: Coping techniques, Signs & symptoms of depression, Stress management, Relaxation techniques - Assistive Devices Assistive Devices:: None Fall Risk Assessed:: Yes Patient Health Questionnaire 60-Day Re-eval Assessment 1. Little interest or pleasure in doing things: More than half the days 2. Feeling down, depressed, or hopeless: More than half the days 3. Trouble falling or staying asleep, or sleeping too much: More than half the days 4. Feeling tired or having little energy: More than half the days 5. Poor appetite or overeating: Several days 6. Feeling bad about yourself -- or that you are a failure or have let yourself or your family down: Several days 7. Trouble concentrating on things, such as reading the newspaper or watching television: Not at all 8. Moving or speaking so slowly that other people could have noticed. Or the opposite - being so fidgety or restless that you have been moving around a lot more than usual: Not at all 9. Thoughts that you would be better off , or of hurting yourself in some way: Not at all Total Score: 10 Self-Efficacy 60-Day Re-eval Assessment We would like to know how confident you are in doing certain activities. Please select your confidence level for:: Select your confidence level for the following using the scale 1-10 where 1 is not at all confident and 10 is totally confident. Your score is the average of all 6 responses. Fatigue: How confident are you that you can keep the fatigue caused by your disease from interfering with the things you want to do? Select Number: 6 Physical Discomfort or Pain: How confident are you that you can keep the physical discomfort or pain of your disease from interfering with the things you want to do? Select Number: 6 Emotional Distress: How confident are you that you can keep the emotional distress caused by your disease from interfering with the things you want to do? Select Number: 7 Other Symptoms or Health Problems: How confident are you that you can keep other symptoms or health problems from interfering with the things you want to do? Select Number: 7 Different Tasks and Activities: How confident are you that you can do the different tasks and activities needed to manage your health condition so as to reduce your need to see a doctor? Select Number: 9 Medication: How confident are you that you can do things other than just taking medication to reduce how much your illness affects your everyday life? Select Number: 9 Total Score:: 7
== END 2017-11-19 23:59 ==
LOC: CR 14:15
PROVIDERS: Family Provider Internal Medicine; PCP Internal Medicine; Visit Provider Internal Medicine Cardiovascular Disease
DX: I42.9 Cardiomyopathy, unspecified (principal); I34.0 Nonrheumatic mitral (valve) insufficiency; I27.20 Pulmonary hypertension, unspecified; Q87.81 Alport syndrome; I12.0 Hypertensive chronic kidney disease with stage 5 chronic kidney disease or end stage renal disease; N18.6 End stage renal disease; Z99.2 Dependence on renal dialysis
CPT/HCPCS: 93798

== ENCOUNTER 2017-11-20 07:54 | Outpatient (RCR) | payer MEDICARE, MEDICAID, SELFPAY ==
[2017-11-20 01:07] VITALS: BP 110/60; BP 112/80
--- NOTE | 2017-12-13 09:38 | PCM.CR.ITP ---
Exercise - 90-Day Assessment - Visit Date of Eval: 12/13/17 - Pt on medical hold Psychosocial - Initial Assess - Target Goals Target Goals: Assess presence or absence of depression. Using a valid screening tool, maximizes coping skills. Positive support system - Psychosocial Test Tool Used:: HANDS Depression Questionnaire - Assistive Devices Fall Risk Assessed:: Yes
== END 2017-12-20 23:59 ==
LOC: CR 07:54
PROVIDERS: Family Provider Internal Medicine; PCP Internal Medicine; Visit Provider Internal Medicine Cardiovascular Disease
DX: I42.9 Cardiomyopathy, unspecified (principal); I34.0 Nonrheumatic mitral (valve) insufficiency; I27.20 Pulmonary hypertension, unspecified; Q87.81 Alport syndrome; I12.0 Hypertensive chronic kidney disease with stage 5 chronic kidney disease or end stage renal disease; N18.6 End stage renal disease; Z99.2 Dependence on renal dialysis
CPT/HCPCS: 93798

== ENCOUNTER → 2017-11-27 13:05 | Outpatient (CLI) | payer MEDICARE, MEDICAID, SELFPAY ==
[2017-11-27 14:17] LABS: International Normalized Ratio 1.2
== END ==
PROVIDERS: Family Provider Internal Medicine; PCP Internal Medicine; Visit Provider Internal Medicine Cardiovascular Disease
DX: I48.0 Paroxysmal atrial fibrillation (principal); Z79.01 Long term (current) use of anticoagulants
CPT/HCPCS: 36415; 85610

== ENCOUNTER → 2017-12-02 15:51 | Outpatient (CLI) | payer MEDICARE, MEDICAID, SELFPAY ==
[2017-12-02 17:37] LABS: Absolute Lymphocyte Count 1.08 X10^3/ul (0.83-4.51); Absolute Neutrophil Count 4.6 X10^3/uL (2.0-7.7); Basophil# 0.01 X10^3/uL; Basophil% 0.2 % (0-1); Eosinophil# 0.07 X10^3/uL; Eosinophils% 1.1 % (0-5); Hematocrit 31.4 % (37-47); Hemoglobin 9.9 g/dl (12.0-15.0); Lymphocyte # 1.08 X10^3/ul (4.0); Lymphocyte % 17.4 % (19-41); Mean Corp Hgb Conc 31.5 g/gl (32-36); Mean Corpuscular Hgb 35.5 pg (27.0-32.0); Mean Corpuscular Volume 112.5 fL (81-99); Mean Platelet Vol. 11.3 fl (6.2-12.0); Monocyte# 0.49 X10^3/uL; Monocyte% 7.9 % (0-10); Neutrophil # 4.55 X10^3/uL (2.7-7.7); Neutrophil % 73.2 % (47-70); Platelet Count 151 K/mm3 (150-450); RBC Distribution Width CV 15.8 % (11.6-14.6); RBC Distribution Width SD 63.1 fl (35.1-43.9); Red Blood Count 2.79 M/mm3 (4.2-5.4); White Blood Count 6.2 K/mm3 (4.4-11.0)
[2017-12-02 17:38] LABS: POSITIVE COUNT NO; POSITIVE DIFFERENTIAL NO; POSITIVE MORPHOLOGY NO
== END ==
PROVIDERS: Family Provider Internal Medicine; PCP Internal Medicine; Visit Provider Nurse Practitioner Family
DX: Z79.01 Long term (current) use of anticoagulants (principal)
CPT/HCPCS: 36415; 85025

== ENCOUNTER 2017-12-25 09:35 | Outpatient (RCR) | payer MEDICARE, MEDICAID, SELFPAY ==
[2017-12-21 01:13] VITALS: BP 110/60; BP 112/80
== END 2018-01-19 23:59 ==
LOC: CR 09:35
PROVIDERS: Family Provider Internal Medicine; PCP Internal Medicine; Visit Provider Internal Medicine Cardiovascular Disease
DX: I42.9 Cardiomyopathy, unspecified (principal); I34.0 Nonrheumatic mitral (valve) insufficiency; I27.20 Pulmonary hypertension, unspecified; Q87.81 Alport syndrome; I12.0 Hypertensive chronic kidney disease with stage 5 chronic kidney disease or end stage renal disease; N18.6 End stage renal disease; Z99.2 Dependence on renal dialysis
CPT/HCPCS: 93798

== ENCOUNTER → 2018-04-08 07:56 | Outpatient (CLI) | payer MEDICARE, MEDICAID, SELFPAY ==
--- NOTE | 2018-04-08 07:59 | AVDS_ITS ---
Reason For Study: other specified complication of vascular prosthetic device LEFT Inflow 107/62.1 cm/s Inflow 163 cc/min Prox Anast 621/357 cm/s Prox Anast 761 cc/min Prox Graft 327/141 cm/s Prox Graft 2190 cc/min Mid Graft 108/48.1 cm/s Mid Graft 1904 cc/min Distal Graft 101/44.2 cm/s Distal Graft 2994 cc/min Outflow 90.4/55.0 cm/s Outflow 1079 cc/min Prox Fistula diameter .708 cm. Mid Fistula diameter 2.05 x 2.39 cm. Distal Fistula diameter 2.15 x 2.49 cm. 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
--- OUTSIDE RECORDS SUMMARY | 2018-07-10 12:46 | XMS RPT_ITS ---
:1975 Author Organization OHIP Support Name Relationship Address Phone [place], [place] Unavailable [address] + [place] [address] MOISE SKY Unavailable [address] + [place] [address] [place], [place] Unavailable [address] + [place] [address] MOISE SKY Unavailable [address] + [place] [address] [place], [place] Unavailable [address] + [place] [address] STACEY SKYEW Unavailable [address] + [place] [address] STACEY SKYEW Unavailable [address] + [place] [address] D Unavailable Unavailable Unavailable STACEY SKYEW Unavailable [address] + [place] [address] D Unavailable Unavailable Unavailable STACEY SKYEW Unavailable [address] + [place] [address] D Unavailable Unavailable Unavailable BARRETT SKYEW Unavailable Unavailable + STACEY SKYEW Unavailable [address] + [place] [address] D Unavailable Unavailable Unavailable JOSE DANIEL, MONTEZ Unavailable Unavailable + JOSE DANIEL MOISE Unavailable [address] + [place] [address] D Unavailable Unavailable Unavailable JOSE DANIEL, MOISE Unavailable [address] + [place] [address] D Unavailable Unavailable Unavailable JOSE DANIEL, MOISE Unavailable [address] + [place] [address] D Unavailable Unavailable Unavailable JOSE DANIEL, MOISE Unavailable [address] + [place] [address] D Unavailable Unavailable Unavailable JOSE DANIEL, MOISE Unavailable [address] + [place] [address] D Unavailable Unavailable Unavailable JOSE DANIEL, MOISE Unavailable [address] + [place] [address] D Unavailable Unavailable Unavailable JOSE DANIEL, MOISE Unavailable [address] + [place] [address] D Unavailable Unavailable Unavailable JOSE DANIEL, MOISE Unavailable [address] + [place] [address] D Unavailable Unavailable Unavailable JOSE DANIEL, MOISE Unavailable [address] + [place] [address] D Unavailable Unavailable Unavailable JOSE DANIEL, MOISE Unavailable [address] + [place] [address] D Unavailable Unavailable Unavailable JOSE DANIEL, MOISE Unavailable [address] + [place] [address] D Unavailable Unavailable Unavailable JOSE DANIEL, MOISE Unavailable [address] + [place] [address] D Unavailable Unavailable Unavailable JOSE DANIEL, MOISE Unavailable [address] + [place] [address] D Unavailable Unavailable Unavailable JOSE DANIEL, MOISE Unavailable [address] + [place] [address] D Unavailable Unavailable Unavailable JOSE DANIEL, MOISE Unavailable [address] + [place] [address] D Unavailable Unavailable Unavailable JOSE DANIEL, MOISE Unavailable [address] + [place] [address] D Unavailable Unavailable Unavailable JOSE DANIEL, MOISE Unavailable [address] + [place] [address] D Unavailable Unavailable Unavailable JOSE DANIEL, MOISE Unavailable [address] + [place] [address] D Unavailable Unavailable Unavailable JOSE DANIEL, MOISE Unavailable [address] + [place] [address] D Unavailable Unavailable Unavailable JOS EDANIEL, MOISE Unavailable [address] + [place] [address] D Unavailable Unavailable Unavailable JOSE DANIEL, MOISE Unavailable [address] + [place] [address] D Unavailable Unavailable Unavailable JOSE DANIEL, MOISE Unavailable [address] + [place] [address] D Unavailable Unavailable Unavailable JOSE DANIELMONTEZ ESPINOSA Unavailable [address] + [place] [address] NOT GIVEN Unavailable [address] + [place] [address] Care Team Providers Name Role Phone TATIANA KIM Attending Unavailable [facility] Referring Unavailable [facility] Primary Care Unavailable TATIANA KIM Attending Unavailable [facility] Referring Unavailable [facility] Primary Care Unavailable TATIANA KIM Attending Unavailable [facility] Referring Unavailable [facility] Primary Care Unavailable CeTatiana bourgeois Attending Unavailable Cebul, Tatinaa Referring Unavailable [facility] Primary Care Unavailable Ese Vargas Attending Unavailable LisabuTatiana bull Attending Unavailable Cebul, Tatiana Referring Unavailable [facility] Primary Care Unavailable Cebul Tatiana Consulting Unavailable [facility] Primary Care Unavailable Marcial, Tc Admitting Unavailable Jahaira, Edgardo Consulting Unavailable Tristin Shane Attending Unavailable Bunny Woodward Consulting Unavailable Marcial, Tc Admitting Unavailable Marcial, Tc Attending Unavailable [facility] Primary [facility] Unavailable Marcial, Tc Consulting Unavailable Marcial, Tc Admitting Unavailable Tristin Shane Attending Unavailable [facility] Primary Care Unavailable Jahaira, Edgardo Consulting Unavailable Tristin Shane Consulting Unavailable Marcial, Tc Admitting Unavailable Bunny Woodward Attending Unavailable [facility] Primary Care Unavailable Jahaira, Edgardo Consulting Unavailable [place], Bunny Consulting Unavailable Jopperi, Tristin Consulting Unavailable Marcial, Tc Admitting Unavailable [place], Bunny Attending Unavailable [facility] Primary Care Unavailable Jahaira, Edgardo Consulting Unavailable [place], Bunny Consulting Unavailable Jopperi, Tristin Consulting Unavailable Marcial, Tc Admitting Unavailable JopperiJuanic Attending Unavailable [facility] Primary Care Unavailable Jahaira, Edgardo Consulting Unavailable [place], Bunny Consulting Unavailable Jopperi, Tristin Consulting Unavailable Ese Vargas Attending Unavailable CebulTatiana Attending Unavailable [facility] Referring Unavailable [facility] Primary Care Unavailable MoodisBunny dominguez Attending Unavailable [facility] Referring Unavailable [facility] Primary Care Unavailable CebuTatiana bull Attending Unavailable [facility] Primary Care Unavailable CebuTatiana bull Referring Unavailable Georges Lopez Attending Unavailable [facility] Referring Unavailable MoodispaBunny leon Attending Unavailable MoodispaBunny leon Referring Unavailable [facility] Primary Care Unavailable MoodBunny werner Attending Unavailable MoodispaBunny leon Referring Unavailable [facility] Primary Care Unavailable Georges Lopez Attending Unavailable [facility] Referring Unavailable RoofWilliams Attending Unavailable [facility] Referring Unavailable [facility] Primary Care Unavailable RoofWilliams Attending Unavailable RoofWilliams Referring Unavailable [facility] Primary Care Unavailable Bunny Woodward Attending Unavailable MoodispaBunny leon Referring Unavailable [facility] Primary Care Unavailable CebuTatiana bull Attending Unavailable MoodispaBunny leon Attending Unavailable MoodispaBunny leon Referring Unavailable [facility] Primary Care Unavailable Bunny Woodward Attending Unavailable MoodBunny werner Referring Unavailable [facility] Primary Care Unavailable RoofWilliams Attending Unavailable [facility] Referring Unavailable [facility] Primary Care Unavailable Williams Ansari Attending Unavailable Williams Ansari Referring Unavailable [facility] Primary Care Unavailable Bunny Woodward Attending Unavailable MoodispaBunny leon Referring Unavailable [facility] Primary Care Unavailable Bunny Woodward Attending Unavailable Bunny Woodward Referring Unavailable [facility] Primary Care Unavailable [facility] Attending Unavailable [facility] Attending Unavailable TCHOU, MELODY Heredia Attending Unavailable TCHOU, MELODY Heredia Referring Unavailable TCYAEL, MELODY Heredia Referring Unavailable Tavallaee, Ab M Attending Unavailable Tavallaee, Ab M Referring Unavailable [facility] Primary Care Unavailable Tavallaee, Ab M Admitting Unavailable [facility] Primary Care Unavailable [place], Clarence W Admitting Unavailable [place], Clarence W Attending Unavailable Charli He Attending Unavailable [facility] Primary Care Unavailable Sundar, Chava Admitting Unavailable Quinton Kwokindra Attending Unavailable [facility] Primary Care Unavailable Charli He Admitting Unavailable Charli He Attending Unavailable [facility] Primary Care Unavailable Charli He Attending Unavailable [facility] Primary Care Unavailable [facility] Attending Unavailable [facility] Primary Care Unavailable [facility] Attending Unavailable [facility] Primary Care Unavailable Tavallaee, Ab M Attending Unavailable [facility] Primary Care Unavailable Tavallaee, Ab M Attending Unavailable Tavallaee, Ab M Referring Unavailable [facility] Primary Care Unavailable Tavallaee, Ab M Admitting Unavailable Tavallaee, Ab M Attending Unavailable [facility] Primary Care Unavailable Tavallaee, Ab M Attending Unavailable [facility] Primary Care Unavailable [facility] Attending Unavailable [facility] Primary Care Unavailable [facility] Primary Care Unavailable Tavallaee, Ab M Admitting Unavailable Tavallaee, Ab M Attending Unavailable Bunny Woodward Admitting Unavailable Bunny Woodward Attending Unavailable [facility] Primary Care Unavailable Sindi Chavez Attending Unavailable [facility] Primary Care Unavailable Sindi Chavez Admitting Unavailable Zarrabi, Zofia Attending Unavailable Zarrabi, Zofia Primary Care Unavailable Zarrabi, Zofia Attending Unavailable Zarrabi, Zofia Primary Care Unavailable Zarrabi, Zofia Admitting Unavailable Zarrabi, Zofia Attending Unavailable Zarrabi, Zofia Primary Care Unavailable Zarrabi, Zofia Attending Unavailable Zarrabi, Zofia Primary Care Unavailable Zarrabi, Zofia Attending Unavailable Zarrabi, Zofia Primary Care Unavailable Xena, Dr. Christy Jacobo Admitting Unavailable Xena, Dr. Christy Jacobo Attending Unavailable PROBLEMS PROBLEMS DATE TYPE CONDITION / CODE ATTENDING STATUS SOURCE 04/16/2018 Unknown I77.0 - Arteriovenous Tatiana Posada Active [facility] fistula, acquired / Community I77.0(ICD-10) Hospital Repository 04/16/2018 Unknown T82.898A - Other Tatiana Posada Active [facility] specified complication Community of vascular prosthetic Hospital devices, implants and Repository grafts, initial encounter / T82.898A(ICD-10) 02/26/2018 Active Other cardiomyopathies NA Active [place] / I42.8(ICD-10) Clinic Main [place] Repository 02/26/2018 Active Unknown / UNK(Unknown) MELODY LYNN Active [facility] Main [place] Repository 02/26/2018 Active Cardiomyopathy, NA Active [place] unspecified / Clinic Main I42.9(ICD-10) [place] Repository 01/20/2018 Unknown I42.9 - [place], Active [place] Cardiomyopathy, [facility] unspecified / Hospital I42.9(ICD-10) Repository 12/02/2017 Unknown Z79.01 - correction Williams Ansari Active [place] (current) use of Community anticoagulants / Hospital Z79.01(ICD-10) Repository 10/18/2017 Unknown I10 - Essential Elan Williams Alden Active [place] (primary) hypertension Community / I10(ICD-10) Hospital Repository 10/18/2017 Unknown R00.2 - Palpitations / Williams Ansari Active [facility] R00.2(ICD-10) Community Hospital Repository 10/18/2017 Unknown R00.1 - Bradycardia, Williams Ansari Active [facility] unspecified / Community R00.1(ICD-10) Hospital Repository 10/04/2017 Unknown I34.0 - Nonrheumatic [place], Active [place] mitral (valve) [facility] insufficiency / Hospital I34.0(ICD-10) Repository 10/04/2017 Unknown I27.20 - Pulmonary [place], Active [facility] hypertension, [facility] unspecified / Hospital I27.20(ICD-10) Repository 10/22/2017 Unknown T82.598A - Other Tatiana Posada Active [place] mechanical Community complication of other Hospital cardiac and vascular Repository devices and implants, initial encounter / T82.598A(ICD-10) 09/18/2017 Unknown I36.1 - Nonrheumatic [place], Active [facility] tricuspid (valve) [facility] insufficiency / Hospital I36.1(ICD-10) Repository 09/18/2017 Unknown Q87.81 - Alport [place], Active [facility] syndrome / [facility] Q87.81(ICD-10) Hospital Repository 09/18/2017 Unknown N18.6 - End stage [place], Active [place] renal disease / [facility] N18.6(ICD-10) Hospital Repository 09/18/2017 Unknown Z99.2 - Dependence on [place], Active [facility] renal dialysis / [facility] Z99.2(ICD-10) Hospital Repository 10/11/2017 Unknown R94.31 - Abnormal John, Georges Active [facility] electrocardiogram Community [ECG] [EKG] / Hospital R94.31(ICD-10) Repository 10/11/2017 Unknown R00.8 - Other John, [place] Active [facility] abnormalities of heart Community beat / R00.8(ICD-10) Hospital Repository PROCEDURES PROCEDURES No Procedure Records FoundRESULTS RESULTS [facility] Observed: 04/25/2018 Status: COMPLETED Source: [place] 12:00 AM [facility] REPOSITORY Letter Text Melody Lynn MD Cardiac Pacing and Electrophysiology Chayo Guzman Department of Cardiovascular Medicine [address] [place], [place] [id number] Office: [phone] April 25, 2018 Bunny Woodward MD [address] [place], [place] [address]., [address] [place] [id number] NAME: Faustina Perez [facility] NO.: [id number] DATE OF SERVICE: 04/25/[address] Woodward, Reviewed MRI. LVEF and RVEF are decent. Her 14 day monitor did not show any notable ventricular arrhythmias. No notable atrial fibrillation. NO ICD is indicated. Given the MR and TR on the MRI, would recommend reducing dry weight more are tolerated. At her last visit, I recommended reduction of 3 kg. Unclear if that has been achieved. Would suggest reducing further by another 3 kg, if possible to reduce the impact of her MR and TR. ? Will update patient and her referring physician and other physicians. Yours sincerely, Melody Lynn M.D. PJT:al attachment c: Zofia Devries MD - [place], [place] Chava Kwok MD - [place], [place] PROGRESS Observed: 04/24/2018 Status: COMPLETED Source: [place] 2:14 PM [facility] REPOSITORY HNO ID: [id number] Author: Melody Lynn MD Service: (none) Author Type: Physician Type: Progress Notes Filed: 04/24/2018 2:18 PM Note Text: Reviewed MRI. LVEF and RVEF are decent. Her 14 day monitor did not show any notable ventricular arrhythmias. No notable atrial fibrillation. NO ICD is indicated. Given the MR and TR on the MRI, would recommend reducing dry weight more are tolerated. At her last visit, I recommended reduction of 3 kg. Unclear if that has been achieved. Would suggest reducing further by another 3 kg, if possible to reduce the impact of her MR and TR. Will update patient and her referring physician and other physicians. Melody Lynn MD Note to: withMRI report attached. Dr. Bunny Woodward ? Renal Doctor:Chava Kwok MD. Phone Fax E-mail Address [phone] ? [facility] [address] ? Zofia Devries MD [address] [facility] [phone] (Ph) ? PROGRESS Observed: 04/18/2018 Status: COMPLETED Source: [place] 2:28 PM [facility] REPOSITORY HNO ID: [id number] Author: Seema [address] Service: (none) Author Type: (none) Type: Progress Notes Filed: 04/18/2018 2:29 PM Note Text: Radiology Service Progress Note PATIENT NAME: Faustina Hurtado DATE OF SERVICE: April 18, 2018 TIME: 2:28 PM PATIENT IDENTITY VERIFICATION COMPLETED USING TWO (2) METHODS: Patient confirmed name verbally and ID band matches. and Patient confirmed name verbally. PATIENT GENDER DATA: Female. status: : No status: NO. PATIENT RELEVANT IMPLANT DATA REVIEWED: Yes RADIOLOGY DEPARTMENT: MR; Exam(s) Completed: Cardiac: Cardiac PERIPHERAL IV DATA: Not applicable. No contrast given. SIGNED BY: Seema [address] April 18, 2018 2:28 PM MRI CARD MORPH [employer] Observed: 04/18/2018 Status: F Source: [place] WO IVCON 2:28 PM [facility] REPOSITORY * * *Final Report* * * DATE OF EXAM: Apr 18 2018 2:28PM [facility] [id number] - MRI CARD MORPH [employer] WO IVCON / PROCEDURE REASON: Cardiomyopathy, unspecified type (HCC) * * * * Physician Interpretation * * * * Cardiovascular MRI: 04/18/2018 2:28 PM Comparison: None Clinical History: 42 year old female with hypertension, chronic renal insufficieny on dialysis, Alport syndrome, cardiomyopathy and Atrial fibrillation. Indication: This study is performed to quantitate ventricular and valvular function. Technique: Josselyn Ingenia 3.0 Chela MRI scanner. * Turbo spin echo and gradient echo imaging for anatomic definition. * Dynamic cine imaging (SSFP) for cardiac chamber, wall-motion, and valvular analysis. * Flow quantification sequences for hemodynamics. Potential study limitations: None RESULT: The chest wall and mediastinum appear normal. No significant adenopathy is identified. This study was not optimized to assess the lungs however, limited imaging reveals no gross abnormalities. The pericardium is unremarkable. The pulmonary arteries appear normal. The thoracic aorta appears normal in course, caliber, and contour. There is no acute aortic pathology. The arch vessel branching pattern is normal. The left vertebral artery has a separate origin from the aortic arch. All of the arch branch vessels appear widely patent in their proximal portions. CARDIAC CHAMBERS: The cardiac chambers demonstrate normal atrioventricular and ventriculoarterial concordance, as well as normal systemic and pulmonary venous return. Moderate left and mild right atrial dilation. Left ventricle: The left ventricle is moderately dilated, and has mildly reduced systolic function. The mid and apical inferior segments and the apex are hypokinetic. Quantitative left ventricular functional values are as follows: EDV = 227 cc (normal 88-168 cc); EDVi = 129 cc/m2 (normal 57-92 cc/m2). ESV = 126 cc (normal 23-60 cc); ESVi = 72 cc/m2 (normal 15-34 cc/m2). Stroke volume = 101 cc (normal 58-114 cc); SVi = 58 cc/m2 (normal 38-63 cc/m2). LVEF = 45 % (normal 55-75%). Cardiac Output = 6.2 l/min.; Cardiac Index = 3.5 l/min/m2. LV mass = 143 gm (normal 72-144 cc); LVMi = 81 gm/m2 (normal 48-77 gm/m2). Right ventricle: The right ventricle is markedly dilated, and has mildly reduced systolic function. Quantitative right ventricular functional values are as follows: EDV = 291 cc (normal 84-168 cc); EDVi = 166 cc/m2 (normal 55-92 cc/m2). ESV = 160 cc (normal 17-69 cc); ESVi = 91 cc/m2 (normal 12-38 cc/m2). Stroke volume = 131 cc (normal 57-108 cc); SVi = 75 cc/m2 (normal 36-60 cc/m2). RVEF = 45 % (normal 54-78%). VALVES: The aortic valve morphology is not well visualized. There is no aortic regurgitation. Flow quantification through the ascending aorta: Forward volume: 78 cc/beat Reverse volume: 0 cc/beat Net forward volume: 78 cc/beat Aortic regurgitant fraction: 1% Flow quantification through the pulmonary artery: Forward volume: 95 cc/beat Reverse volume: 2 cc/beat Net forward volume: 93 cc/beat Pulmonic regurgitant fraction: 2% The mitral valve appears structurally normal. There is moderate mitral regurgitation with a central jet of insufficiency. Integrating LV volumetric and aortic flow quantification data reveals: Quantitative mitral regurgitant volume: 23 cc/beat Quantitative mitral regurgitant fraction: 23% The tricuspid valve appears structurally normal. There is moderate tricuspid regurgitation with an eccentric jet of insufficiency. Integrating RV volumetric and pulmonic flow quantification data reveals: Quantitative tricuspid regurgitant volume: 38 cc/beat Quantitative tricuspid regurgitant fraction: 29% Limited imaging through the upper abdomen reveals no abnormalities of the visualized organs. . IMPRESSION: 1. The left ventricle is moderately dilated, and has mildly reduced systolic function (LVEF = 45%). The right ventricle is markedly dilated, and has mildly reduced systolic function (RVEF = 45%). 2. Moderate mitral regurgitation (RF= 23%). Moderate tricuspid regurgitation (RF= 29%). No significant aortic or pulmonic regurgitation. 3. Moderate left and mild right atrial dilation. Amphibian Crewmember: PSCB Transcribe Date/Time: Apr 18 2018 3:33P Dictated by : MELANIE FLOOD MD This examination was interpreted and the report reviewed and electronically signed by: CASSIE RBOWN MD on Apr 18 2018 5:43PM EST [id number] MRI CARDIAC VELOCITY Observed: 04/18/2018 Status: F Source: [place] FLOW MAP 2:28 PM [facility] REPOSITORY * * *Final Report* * * DATE OF EXAM: Apr 18 2018 2:28PM [facility] [id number] - MRI CARDIAC VELOCITY FLOW MAP / PROCEDURE REASON: Cardiomyopathy, unspecified type (HCC) * * * * Physician Interpretation * * * * Cardiovascular MRI: 04/18/2018 2:28 PM Comparison: None Clinical History: 42 year old female with hypertension, chronic renal insufficieny on dialysis, Alport syndrome, cardiomyopathy and Atrial fibrillation. Indication: This study is performed to quantitate ventricular and valvular function. Technique: Josselyn Big Frameia 3.0 Chela MRI scanner. * Turbo spin echo and gradient echo imaging for anatomic definition. * Dynamic cine imaging (SSFP) for cardiac chamber, wall-motion, and valvular analysis. * Flow quantification sequences for hemodynamics. Potential study limitations: None RESULT: The chest wall and mediastinum appear normal. No significant adenopathy is identified. This study was not optimized to assess the lungs however, limited imaging reveals no gross abnormalities. The pericardium is unremarkable. The pulmonary arteries appear normal. The thoracic aorta appears normal in course, caliber, and contour. There is no acute aortic pathology. The arch vessel branching pattern is normal. The left vertebral artery has a separate origin from the aortic arch. All of the arch branch vessels appear widely patent in their proximal portions. CARDIAC CHAMBERS: The cardiac chambers demonstrate normal atrioventricular and ventriculoarterial concordance, as well as normal systemic and pulmonary venous return. Moderate left and mild right atrial dilation. Left ventricle: The left ventricle is moderately dilated, and has mildly reduced systolic function. The mid and apical inferior segments and the apex are hypokinetic. Quantitative left ventricular functional values are as follows: EDV = 227 cc (normal 88-168 cc); EDVi = 129 cc/m2 (normal 57-92 cc/m2). ESV = 126 cc (normal 23-60 cc); ESVi = 72 cc/m2 (normal 15-34 cc/m2). Stroke volume = 101 cc (normal 58-114 cc); SVi = 58 cc/m2 (normal 38-63 cc/m2). LVEF = 45 % (normal 55-75%). Cardiac Output = 6.2 l/min.; Cardiac Index = 3.5 l/min/m2. LV mass = 143 gm (normal 72-144 cc); LVMi = 81 gm/m2 (normal 48-77 gm/m2). Right ventricle: The right ventricle is markedly dilated, and has mildly reduced systolic function. Quantitative right ventricular functional values are as follows: EDV = 291 cc (normal 84-168 cc); EDVi = 166 cc/m2 (normal 55-92 cc/m2). ESV = 160 cc (normal 17-69 cc); ESVi = 91 cc/m2 (normal 12-38 cc/m2). Stroke volume = 131 cc (normal 57-108 cc); SVi = 75 cc/m2 (normal 36-60 cc/m2). RVEF = 45 % (normal 54-78%). VALVES: The aortic valve morphology is not well visualized. There is no aortic regurgitation. Flow quantification through the ascending aorta: Forward volume: 78 cc/beat Reverse volume: 0 cc/beat Net forward volume: 78 cc/beat Aortic regurgitant fraction: 1% Flow quantification through the pulmonary artery: Forward volume: 95 cc/beat Reverse volume: 2 cc/beat Net forward volume: 93 cc/beat Pulmonic regurgitant fraction: 2% The mitral valve appears structurally normal. There is moderate mitral regurgitation with a central jet of insufficiency. Integrating LV volumetric and aortic flow quantification data reveals: Quantitative mitral regurgitant volume: 23 cc/beat Quantitative mitral regurgitant fraction: 23% The tricuspid valve appears structurally normal. There is moderate tricuspid regurgitation with an eccentric jet of insufficiency. Integrating RV volumetric and pulmonic flow quantification data reveals: Quantitative tricuspid regurgitant volume: 38 cc/beat Quantitative tricuspid regurgitant fraction: 29% Limited imaging through the upper abdomen reveals no abnormalities of the visualized organs. . IMPRESSION: 1. The left ventricle is moderately dilated, and has mildly reduced systolic function (LVEF = 45%). The right ventricle is markedly dilated, and has mildly reduced systolic function (RVEF = 45%). 2. Moderate mitral regurgitation (RF= 23%). Moderate tricuspid regurgitation (RF= 29%). No significant aortic or pulmonic regurgitation. 3. Moderate left and mild right atrial dilation. Amphibian Crewmember: PSCB Transcribe Date/Time: Apr 18 2018 3:33P Dictated by : MELANIE FLOOD MD This examination was interpreted and the report reviewed and electronically signed by: CASSIE BROWN MD on Apr 18 2018 5:43PM EST [id number] AV FISTULA/DIALYSIS GRAFT Observed: 04/08/2018 Status: F Source: [place] SCAN 11:31 AM [facility] REPOSITORY [facility] Cardiovascular Services [address] [place] [id number] AV Fistula/Dialysis Graft Scan 04/08/18 0802 MR#: [id number] Acct: [id number] Name: FAUSTINA HURTADO Rep #: [id number] : 1975 42 From: Tatiana Posada MD Attending Dr: Tatiana Posada MD Status: REG CLI Ordering Dr: Tatiana Posada MD Date: 04/08/18 Location: [facility] Sex: F C Admitted: Reason For Study: other specified complication of vascular prosthetic device LEFT Inflow 107/62.1 cm/s Inflow 163 cc/min Prox Anast 621/357 cm/s Prox Anast 761 cc/min Prox Graft 327/141 cm/s Prox Graft 2190 cc/min Mid Graft 108/48.1 cm/s Mid Graft 1904 cc/min Distal Graft 101/44.2 cm/s Distal Graft 2994 cc/min Outflow 90.4/55.0 cm/s Outflow 1079 cc/min Prox Fistula diameter .708 cm. Mid Fistula diameter 2.05 x 2.39 cm. Distal Fistula diameter 2.15 x 2.49 cm. 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 Proximal graft volume flow 2190cc/min Mid graft volume flow 1904cc/min Distal graft volume flow 1079 cc/min Ordering Physician: Tatiana Posada Performed By: Christopher Flores, RVT 04/08/18 1131 Date Tatiana Posada MD CC: ZOFIA DEVRIES; Tatiana Posada MD Date Dictated: 04/08/18 0802 Date Transcribed: 04/08/18 113 Amphibian Crewmember: Signed PROGRESS Observed: 04/01/2018 Status: COMPLETED Source: [place] 8:26 AM [facility] REPOSITORY HNO ID: [id number] Author: Melody Lynn MD Service: (none) Author Type: Physician Type: Progress Notes Filed: 04/01/2018 8:27 AM Note Text: Review of the Zio showed mostly sinus rhythm. Rare PACs and PVCs. There were a few short runs of PACs. No true AF. Will see what her MRI shows. Needs to be scheduled. Requested toy mechanic to arrange. Melody Lynn MD HOSP Observed: 04/01/2018 Status: COMPLETED Source: [place] 12:00 AM [facility] REPOSITORY Patient Update (CARDMN) FAUSTINA HURTADO ([id number]) 1975 F Date Time Provider Department 04/01/18 MELODY LYNN During your visit today, we recorded the following information about you: Melody Lynn MD, MD 04/01/2018 8:27 AM Signed Review of the Zio showed mostly sinus rhythm. Rare PACs and PVCs. There were a few short runs of PACs. No true AF. Will see what her MRI shows. Needs to be scheduled. Requested toy mechanic to arrange. Melody Lynn MD Allergies As of Date: 04/01/2018 Noted Allergy Reaction KEFLEX (CEPHALEXIN) 09/04/2010 4 - Hives OXYCODONE 07/27/2014 4 - Hives VANCOMYCIN 09/04/2010 4 - Hives Date Reviewed: 02/26/2018 Reviewed by: Marija (Rn) PERRY Rivera - Fully Assessed Prescriptions as of 04/01/2018 Sig: ACETAMINOPHEN 325 MG CAPSULE Take 650 mg by mouth every 4 * ASPIRIN 81 MG CHEWABLE TABLET Take 81 mg by mouth once zeb* * VITAMIN B COMPLEX AND VITAMIN* Take 1 capsule by mouth once * * CALCIUM ACETATE 667 MG CAPSULE Take by mouth three times da* CARVEDILOL 6.25 MG TABLET Take 6.25 mg by mouth twice d* ESOMEPRAZOLE MAGNESIUM 40 MG * Take 40 mg by mouth DAILY (6 * HYDRALAZINE 10 MG TABLET Take 10 mg by mouth three christopher* ISOSORBIDE DINITRATE 10 MG TA* Take 10 mg by mouth three christopher* ACIDOPHILUS ORAL Take by mouth. LEVOFLOXACIN 500 MG TABLET Take 500 mg by mouth once luigi* LIDOCAINE 4 % TOPICAL CREAM Apply to affected area. to f* PERFLUTREN LIPID MICROSPHERES* Inject 1.3 mL intravenously a* ROPINIROLE 0.5 MG TABLET Take 0.5 mg by mouth daily at* SODIUM BICARBONATE ORAL Take by mouth. 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 Paroxysmal atrial fibrillation (HCC) [I48.0] INVALID FOR* Encounter Status:Closed by MELODY LYNN MD on 04/01/18 PROCEDURE Observed: 02/28/2018 Status: COMPLETED Source: [place] 12:00 AM [facility] REPOSITORY O ID: [id number] Author: Melody Lynn MD Service: (none) Author Type: Physician Type: Procedures Filed: 04/03/2018 5:42 PM Note Text: Patient had sinus rhythm with a min HR of 50 bpm, max HR of 89 bpm, and avg HR of 65 bpm. Predominant underlying rhythm was Sinus Rhythm. 13 Supraventricular Tachycardia runs occurred, the run with the fastest interval lasting 7 beats with a max rate of 144 bpm, the longest lasting 15 beats with an avg rate of 108 bpm. Idioventricular Rhythm was present. Isolated SVEs were rare (<1.0%), SVE Couplets were rare (<1.0%), and SVE Triplets were rare (<1.0%). Isolated VEs were rare (<1.0%, 2212), VE Couplets were rare (<1.0%, 22), and VE Triplets were rare (<1.0%, 1). Ventricular Bigeminy and Trigeminy were present. PT Collected: 02/26/2018 Status: F Source: [place] 3:20 PM [facility] REPOSITORY TYPE CODE TESTS RESULT OUT OF RANGE REFERENCE UNITS LAB [id number](LO 1.0-1.2 INC) High INR 1.9 Result Comment: INR Recommended Therapeuptic Ranges: Prophylaxis/treatment of DVT and PE?2.0-3.0 Prevention of systemic embolism?.2.0-3.0 Mechanical prosthetic values?2.5-3.5 CRITICAL VALUES?.>4.0 LAB [id number](LOINC) 11.6-14.6 second(s) High PT 20.5 Performed By: #### [id number] #### ANDREW [facility] [employer] [address] [place] [address] PROGRESS Observed: 02/26/2018 Status: COMPLETED Source: [place] 11:11 AM [facility] REPOSITORY HNO ID: [id number] Author: Melody Lynn MD Service: (none) Author Type: Physician Type: Progress Notes Filed: 04/03/2018 5:49 PM Note Text: [facility] Department of Cardiovascular Medicine SECTION OF CARDIAC PACING and ELECTROPHYSIOLOGY OUTPATIENT VISIT DATE February 26, 2018 OUTPATIENT VISIT TYPE NEW PRIMARY CARE PHYSICIAN: Zofia Devries MD [address] [place] [address] REFERRING PHYSICIAN: Bunny Woodward MD CHIEF COMPLAINT:Consult regarding possible need for ICD. HISTORY OF PRESENT ILLNESS: Ms. Hurtado is a 42 year old female who presents today possible ICD and treatment options. She has a past medical history of hypertension, chronic renal insufficieny on dialysis ( 3 days a week), Alport syndrome and cardiomyopathy. July 2017, she went to [facility] for shortness of breath. She states while admitted she was diagnosed with cardiomyopathy. Stress Test from 08/20/2017- Cardiolite nuclear imaging demonstrate myocardial perfusion changes appearing compatible with an area of previous myocardial injury/ infarction EF 39%. Echo from 08/20/17- EF 30%. She states was placed on coreg 6.25mg BID, hydralazine 10mg TID and isordil 10mg TID 07/2017. She states she went to [facility] 04/2017 for similar symptoms. She states at that time they treated her for respiratory. issues. Denies any cardiac testing at time. She reports significant improvement since starting medications. Denies any follow-up echo. She denies lightheadedness, syncope, nearsyncope, palpitations, chest pain, shortness of breath, orthopnea, PND, or edema. Tolerating medications without any adverse effects. PAST MEDICAL HISTORY Diagnosis Date - Alport syndrome - Bradycardia - Cardiomyopathy (HCC) non CAD related - Carotid artery stenosis right - COPD (chronic obstructive pulmonary disease) (HCC) - ESRD (end stage renal disease) (HCC) - GERD (gastroesophageal reflux disease) - Hypertension - Nonrheumatic mitral valve regurgitation - Nonrheumatic tricuspid valve regurgitation - Palpitations - Pulmonary hypertension (HCC) - Renal failure PAST SURGICAL HISTORY Procedure Laterality Date - APPENDECTOMY - ARTERY-VEIN ANASTOMOSIS 09-06-10 LEFT ARM - BALLN ANGIOPLASTY,PERC VENOUS 10-10-10 LEFT ARM - BALLN ANGIOPLASTY,PERC VENOUS 09-05-11 LUE - CERVIX UTERI CONIZA LP ELCTRO EXCI LEEP-Cervix - DELIVERY ONLY , low transverse - DELIVERY ONLY , low transverse - CHOLECYSTECTOMY HX - FOOT SURGERY HX - LAP CHOLECYSTECT/CHOLANGIOGRAPHY 11/24/12 normal IOC - PAST SURGICAL HISTORY OF RIGHT IJ DIALYSIS CATHS X3 - PAST SURGICAL HISTORY OF RIGHT AV FISTULA - REMOVAL ROSIE CVC W/O PUMP 01/08/11 Removal right IJ catheters - REPAIR ING HERNIA,5+Y/O,REDUCIBL Hernia repair, inguinal, BILAT - TOTAL ABDOM HYSTERECTOMY Hysterectomy, VANESA SOCIAL HISTORY Social History Substance Use Topics - Smoking status: Never Smoker - Smokeless tobacco: Never Used - Alcohol use No FAMILY HISTORY Problem Relation Age of Onset - Ischemic Heart Disease Mother - Breast Cancer Father BRAIN ALLERGIES: ALLERGIES Allergen Reactions - Keflex [Cephalexin] Hives - Oxycodone Hives - Vancomycin Hives MEDICATIONS: levoFLOXacin (LEVAQUIN) 500 mg tablet Take 500 mg by mouth once daily. For 7 days due to throat infection Lactobacillus acidophilus (ACIDOPHILUS ORAL) Take by mouth. rOPINIRole (REQUIP) 0.5 mg tablet Take 0.5 mg by mouth daily at bedtime. esomeprazole (NEXIUM) 40 mg capsule Take 40 mg by mouth DAILY (6 AM). acetaminophen 325 mg cap Take 650 mg by mouth every 4 hours as needed. aspirin 81 mg chewable tablet Take 81 mg by mouth once daily. SODIUM BICARBONATE ORAL Take by mouth. hydrALAZINE (APRESOLINE) 10 mg tablet Take 10 mg by mouth three times daily. isosorbide dinitrate (ISORDIL) 10 mg tablet Take 10 mg by mouth three times daily. carvedilol (COREG) 6.25 mg tablet Take 6.25 mg by mouth twice daily with meals. lidocaine 4 % cream Apply to affected area. to fistula area before dialysis b complex, c, folic acid 1 mg (RENAL CAPS) 1 mg ORAL capsule Take 1 capsule by mouth once daily. calcium acetate (PHOSLO) 667 mg ORAL capsule Take by mouth three times daily. REVIEW OF SYSTEMS: General, constitutional: Weight loss or gain- No, Fever or chills-No, Weakness-No, Trouble sleeping-No. Head, Eyes, Ears, Mouth: Headache, head injury-No, Glasses or contact lenses-yes, Pain-No, Impaired vision-No, Decreased hearing- yes, Ringing in ears-No, Nose bleeds-No, Dental difficulties-No, Bleeding gums-No, Dentures-No. Neck: Swelling-No, Pain-No, Stiffness-No. Respiratory: Cough-No, Spitting up blood-No, Shortness of breath-No, Wheezing or asthma-No. Musculoskeletal: Muscle or joint pain or stiffness-No, Joint swelling-No. Gastrointestinal: Difficulty swallowing-No, Heartburn-No, Change in bowel habits-yes, Blood in stool, Dark black stools-No. Neurological/Psychiatric: Weakness, paralysis-No, Numbness-No, Tingling-No, Tremor-No, Nervousness or anxiety-No, Depressed mood-No, Memory loss-No. Skin: Rash-No, Itching-No. Hematological: Easy bruising-No, Easy bleeding-No. Endocrine: Heat or cold intolerance-yes, Excessive sweating- No, Frequent urination-No, Frequent thirst-No. Marija Rivera RN Additional Comments, Assessment, Recommendations and Plan: The above note reflects my interview with the patient and my incorporation of the nurse obtained information as well as my own additions and modifications comprising the patient history. Additional findings and changes as listed below. Additional History: She was having PAF earlier this year. She also had symptoms of CHF. She could not walk hardly any without SOB. She was evaluated with echo, cath stress nuclear. This variously showed LVEF of 30% to 39%. BP 126/84 Pulse 63 Ht 160 cm (5' 3) Wt 69.4 kg (153 lb) BMI 27.10 kg/m? General appearance: comfortable, alert Neck: No JVD, no bruit Lungs: clear, good excursion Heart: RR, Nl s1, s2, 2/6 scott systolic high pitched mm consistent with MR, no gallops or rubs Extremities: 1+ edema, good skin color ECG today shows: SR. Poor R wave progressoin Other tests: Echo done in July 2017: Nuc stress done in August 2017: LVEF 39%. August 21 cath: normal cors. LVEDP 21. Echo today: CONCLUSIONS: - Exam indication: Initial evaluation of Heart Failure - The left ventricle is moderately dilated. Left ventricular systolic function is mildly decreased. EF = 49 ? 5% (2D biplane) Left ventricular diastolic function was not evaluated due to severe MR. Wall Motion: The entire anterior wall, entire lateral wall, entire septum, entire apex, and entire inferior wall are mildly hypokinetic. - The right ventricle is dilated. Right ventricular systolic function is moderately decreased. - The left atrial cavity is mildly dilated. - There is moderately severe (3+) holosystolic mitral valve regurgitation due to apical tethering of normal mitral leaflet caused by LV enlargement likely related to nonischemic cardiomyopathy. Regurgitant orifice area (PISA) is 0.24 cm?. - There is severe (3+ - 4+) tricuspid valve regurgitation caused by annular dilatation. - Estimated right ventricular systolic pressure is 54 mmHg consistent with moderate pulmonary hypertension. Estimated right atrial pressure is 5 mmHg. IMPRESSION, PLAN/RECOMMENDATIONS: The patient developed symptoms of CHF earlier this year and montoring showed paroxysm of AF. Her cath showed no CAD. But she had an elevated LVEDP. LVEF was in the mid 30s. She was treated with medications as listed and currently she is feeling much better with improved stamina and pretty much back to her baseline functional status. Her echo today showed LVEF probably in the 49% range (the above estimate may be optimistic and was obtained when she was having frequent PVCs). Likely her ventricular function has improved since starting medical treatment and attempts at reducing her dry weight with dialysis. Several specific recommendations: 1) I would recommend a cMRI to assess the myocardium. This will need to be without contrast as she is on dialysis. Will arrange that here at the Clinic in the near future. 2)She still has some edema, although no JVD. I would suggest trying to lower her dry weight by at least another 3 kg with her dialysis. 3) Would further try to lower systolic BP with adjustment of current meds, as much as she would tolerate. 4) her valve issues may require further investigation, follow up and perhaps intervention. 5) AF: I suspect the AF was related to CHF and with improved hemodynamics, this is not happening much as she is not aware of any irregularity of her heart rate lately. A monitor would be helpful to rule out shorter durations asymptomatic episodes. 6) A repeat monitor may be in order to assess for frequency of PVCs. Although she did not have any PVCs on EKG today, there were quite a few during her echo. I will arrange the monitor to be put on after the MRI. Currently, I would not recommend an ICD. Can reconsider this in the longer run if LV systolic function continues to deteriorate. Continue clinical monitoring for notable AF. I will plan on seeing the pt for a follow up visit or phone call after the MRI and the monitor results are received. Melody Lynn M.D. I reviewed any prior outside records with the patient, obtained relevant HPI and PMH from the pt, examined the patient and created the above report. I spent over 70% of my time counseling the patient regarding my assessment and recommendations. Time spent for the above: 60m Melody Lynn MD Addendum April 03, 2018 5:48 PM Her Zio monitor was reviewed. SHe had SR with rare PACs and PVCs. No atrial fibrillation. Given these findings and her echo findings, I would not consider her for ICD. Can see whether the MRI has any revealing information. Would recommend running her dry weight down a little more. Melody Lynn MD Note to: Dr. Bunny Woodward Renal Doctor:Chava Kwok MD. Phone Fax E-mail Address [phone] Not available. [address] [place] [address] [facility] [address] Zofia Devries MD [address] [facility] [id number] (Ph) CNOV Observed: 02/26/2018 Status: COMPLETED Source: [place] 11:00 AM [facility] REPOSITORY Office Visit (CARDMN) FAUSTINA HURTADO ([id number]) 1975 F Date Time Provider Department 02/26/18 11:00 AM MELODY LYNN During your visit today, we recorded the following information about you: Pulse Blood pressure Weight Height 63/minute 126/84 69.4 kg 1.6 m Melody Lynn MD, MD 04/03/2018 5:49 PM Addendum [facility] Department of Cardiovascular Medicine SECTION OF CARDIAC PACING and ELECTROPHYSIOLOGY OUTPATIENT VISIT DATE February 26, 2018 OUTPATIENT VISIT TYPE NEW PRIMARY CARE PHYSICIAN: Zofia Devries MD [address] [place] [address] REFERRING PHYSICIAN: Bunny Woodward MD CHIEF COMPLAINT:Consult regarding possible need for ICD. HISTORY OF PRESENT ILLNESS: Ms. Hurtado is a 42 year old female who presents today possible ICD and treatment options. She has a past medical history of hypertension, chronic renal insufficieny on dialysis ( 3 days a week), Alport syndrome and cardiomyopathy. July 2017, she went to [facility] for shortness of breath. She states while admitted she was diagnosed with cardiomyopathy. Stress Test from 08/20/2017- Cardiolite nuclear imaging demonstrate myocardial perfusion changes appearing compatible with an area of previous myocardial injury/ infarction EF 39%. Echo from 08/20/17- EF 30%. She states was placed on coreg 6.25mg BID, hydralazine 10mg TID and isordil 10mg TID 07/2017. She states she went to [facility] 04/2017 for similar symptoms. She states at that time they treated her for respiratory. issues. Denies any cardiac testing at time. She reports significant improvement since starting medications. Denies any follow-up echo. She denies lightheadedness, syncope, nearsyncope, palpitations, chest pain, shortness of breath, orthopnea, PND, or edema. Tolerating medications without any adverse effects. PAST MEDICAL HISTORY Diagnosis Date - Alport syndrome - Bradycardia - Cardiomyopathy (HCC) non CAD related - Carotid artery stenosis right - COPD (chronic obstructive pulmonary disease) (HCC) - ESRD (end stage renal disease) (HCC) - GERD (gastroesophageal reflux disease) - Hypertension - Nonrheumatic mitral valve regurgitation - Nonrheumatic tricuspid valve regurgitation - Palpitations - Pulmonary hypertension (HCC) - Renal failure PAST SURGICAL HISTORY Procedure Laterality Date - APPENDECTOMY - ARTERY-VEIN ANASTOMOSIS 09-06-10 LEFT ARM - BALLN ANGIOPLASTY,PERC VENOUS 10-10-10 LEFT ARM - BALLN ANGIOPLASTY,PERC VENOUS 09-05-11 LUE - CERVIX UTERI CONIZA LP ELCTRO EXCI LEEP-Cervix - DELIVERY ONLY , low transverse - DELIVERY ONLY , low transverse - CHOLECYSTECTOMY HX - FOOT SURGERY HX - LAP CHOLECYSTECT/CHOLANGIOGRAPHY 11/24/12 normal IOC - PAST SURGICAL HISTORY OF RIGHT IJ DIALYSIS CATHS X3 - PAST SURGICAL HISTORY OF RIGHT AV FISTULA - REMOVAL ROSIE CVC W/O PUMP 01/08/11 Removal right IJ catheters - REPAIR ING HERNIA,5+Y/O,REDUCIBL Hernia repair, inguinal, BILAT - TOTAL ABDOM HYSTERECTOMY Hysterectomy, VANESA SOCIAL HISTORY Social History Substance Use Topics - Smoking status: Never Smoker - Smokeless tobacco: Never Used - Alcohol use No FAMILY HISTORY Problem Relation Age of Onset - Ischemic Heart Disease Mother - Breast Cancer Father BRAIN ALLERGIES: ALLERGIES Allergen Reactions - Keflex [Cephalexin] Hives - Oxycodone Hives - Vancomycin Hives MEDICATIONS: levoFLOXacin (LEVAQUIN) 500 mg tablet Take 500 mg by mouth once daily. For 7 days due to throat infection Lactobacillus acidophilus (ACIDOPHILUS ORAL) Take by mouth. rOPINIRole (REQUIP) 0.5 mg tablet Take 0.5 mg by mouth daily at bedtime. esomeprazole (NEXIUM) 40 mg capsule Take 40 mg by mouth DAILY (6 AM). acetaminophen 325 mg cap Take 650 mg by mouth every 4 hours as needed. aspirin 81 mg chewable tablet Take 81 mg by mouth once daily. SODIUM BICARBONATE ORAL Take by mouth. hydrALAZINE (APRESOLINE) 10 mg tablet Take 10 mg by mouth three times daily. isosorbide dinitrate (ISORDIL) 10 mg tablet Take 10 mg by mouth three times daily. carvedilol (COREG) 6.25 mg tablet Take 6.25 mg by mouth twice daily with meals. lidocaine 4 % cream Apply to affected area. to fistula area before dialysis b complex, c, folic acid 1 mg (RENAL CAPS) 1 mg ORAL capsule Take 1 capsule by mouth once daily. calcium acetate (PHOSLO) 667 mg ORAL capsule Take by mouth three times daily. REVIEW OF SYSTEMS: General, constitutional: Weight loss or gain- No, Fever or chills-No, Weakness-No, Trouble sleeping-No. Head, Eyes, Ears, Mouth: Headache, head injury-No, Glasses or contact lenses-yes, Pain-No, Impaired vision-No, Decreased hearing- yes, Ringing in ears-No, Nose bleeds-No, Dental difficulties-No, Bleeding gums-No, Dentures-No. Neck: Swelling-No, Pain-No, Stiffness-No. Respiratory: Cough-No, Spitting up blood-No, Shortness of breath-No, Wheezing or asthma-No. Musculoskeletal: Muscle or joint pain or stiffness-No, Joint swelling-No. Gastrointestinal: Difficulty swallowing-No, Heartburn-No, Change in bowel habits-yes, Blood in stool, Dark black stools-No. Neurological/Psychiatric: Weakness, paralysis-No, Numbness- No, Tingling-No, Tremor-No, Nervousness or anxiety-No, Depressed mood-No, Memory loss-No. Skin: Rash-No, Itching-No. Hematological: Easy bruising-No, Easy bleeding-No. Endocrine: Heat or cold intolerance-yes, Excessive sweating- No, Frequent urination-No, Frequent thirst-No. Marija Rivera RN Additional Comments, Assessment, Recommendations and Plan: The above note reflects my interview with the patient and my incorporation of the nurse obtained information as well as my own additions and modifications comprising the patient history. Additional findings and changes as listed below. Additional History: She was having PAF earlier this year. She also had symptoms of CHF. She could not walk hardly any without SOB. She was evaluated with echo, cath stress nuclear. This variously showed LVEF of 30% to 39%. BP 126/84 Pulse 63 Ht 160 cm (5' 3) Wt 69.4 kg (153 lb) BMI 27.10 kg/m? General appearance: comfortable, alert Neck: No JVD, no bruit Lungs: clear, good excursion Heart: RR, Nl s1, s2, 2/6 scott systolic high pitched mm consistent with MR, no gallops or rubs Extremities: 1+ edema, good skin color ECG today shows: SR. Poor R wave progressoin Other tests: Echo done in July 2017: Nuc stress done in August 2017: LVEF 39%. August 21 cath: normal cors. LVEDP 21. Echo today: CONCLUSIONS: - Exam indication: Initial evaluation of Heart Failure - The left ventricle is moderately dilated. Left ventricular systolic function is mildly decreased. EF = 49 ? 5% (2D biplane) Left ventricular diastolic function was not evaluated due to severe MR. Wall Motion: The entire anterior wall, entire lateral wall, entire septum, entire apex, and entire inferior wall are mildly hypokinetic. - The right ventricle is dilated. Right ventricular systolic function is moderately decreased. - The left atrial cavity is mildly dilated. - There is moderately severe (3+) holosystolic mitral valve regurgitation due to apical tethering of normal mitral leaflet caused by LV enlargement likely related to nonischemic cardiomyopathy. Regurgitant orifice area (PISA) is 0.24 cm?. - There is severe (3+ - 4+) tricuspid valve regurgitation caused by annular dilatation. - Estimated right ventricular systolic pressure is 54 mmHg consistent with moderate pulmonary hypertension. Estimated right atrial pressure is 5 mmHg. IMPRESSION, PLAN/RECOMMENDATIONS: The patient developed symptoms of CHF earlier this year and montoring showed paroxysm of AF. Her cath showed no CAD. But she had an elevated LVEDP. LVEF was in the mid 30s. She was treated with medications as listed and currently she is feeling much better with improved stamina and pretty much back to her baseline functional status. Her echo today showed LVEF probably in the 49% range (the above estimate may be optimistic and was obtained when she was having frequent PVCs). Likely her ventricular function has improved since starting medical treatment and attempts at reducing her dry weight with dialysis. Several specific recommendations: 1) I would recommend a cMRI to assess the myocardium. This will need to be without contrast as she is on dialysis. Will arrange that here at the Clinic in the near future. 2)She still has some edema, although no JVD. I would suggest trying to lower her dry weight by at least another 3 kg with her dialysis. 3) Would further try to lower systolic BP with adjustment of current meds, as much as she would tolerate. 4) her valve issues may require further investigation, follow up and perhaps intervention. 5) AF: I suspect the AF was related to CHF and with improved hemodynamics, this is not happening much as she is not aware of any irregularity of her heart rate lately. A monitor would be helpful to rule out shorter durations asymptomatic episodes. 6) A repeat monitor may be in order to assess for frequency of PVCs. Although she did not have any PVCs on EKG today, there were quite a few during her echo. I will arrange the monitor to be put on after the MRI. Currently, I would not recommend an ICD. Can reconsider this in the longer run if LV systolic function continues to deteriorate. Continue clinical monitoring for notable AF. I will plan on seeing the pt for a follow up visit or phone call after the MRI and the monitor results are received. Melody Lynn M.D. I reviewed any prior outside records with the patient, obtained relevant HPI and PMH from the pt, examined the patient and created the above report. I spent over 70% of my time counseling the patient regarding my assessment and recommendations. Time spent for the above: 60m Melody Lynn MD Addendum April 03, 2018 5:48 PM Her Zio monitor was reviewed. SHe had SR with rare PACs and PVCs. No atrial fibrillation. Given these findings and her echo findings, I would not consider her for ICD. Can see whether the MRI has any revealing information. Would recommend running her dry weight down a little more. Melody Lynn MD Note to: Dr. Bunny Woodward Renal Doctor:Chava Kwok MD. Phone Fax E-mail Address [phone] Not available. [address] [facility] [address] Zofia Devries MD [address] [facility] [id number] () Melody Lynn MD, 04/03/2018 5:42 PM Signed Patient had sinus rhythm with a min HR of 50 bpm, max HR of 89 bpm, and avg HR of 65 bpm. Predominant underlying rhythm was Sinus Rhythm. 13 Supraventricular Tachycardia runs occurred, the run with the fastest interval lasting 7 beats with a max rate of 144 bpm, the longest lasting 15 beats with an avg rate of 108 bpm. Idioventricular Rhythm was present. Isolated SVEs were rare (<1.0%), SVE Couplets were rare (<1.0%), and SVE Triplets were rare (<1.0%). Isolated VEs were rare (<1.0%, 2212), VE Couplets were rare (<1.0%, 22), and VE Triplets were rare (<1.0%, 1). Ventricular Bigeminy and Trigeminy were present. 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 No IV access, insert saline lock prior to the beginning of sedation, infusion, injection of imaging exam. Discontinue saline lock post exam. If Pt has a central line or IVAD, may access for administration according to line specific nursing protocol. Once exam is complete flush line and de-access according to line specific nursing protocol in the MR contrast administration guidelines linkDisp: 1 EachRfl: 0 OUTSIDE VENDOR CARDIAC OUTPATIENT EXTENDED RHYTHM RECORDING (WITHOUT TELEMETRY) [[id number]] Order #: [id number]. #:[id number]: 1 Prescriptions as of 02/26/2018 Sig: ACETAMINOPHEN 325 MG CAPSULE Take 650 mg by mouth every 4 * ASPIRIN 81 MG CHEWABLE TABLET Take 81 mg by mouth once zeb* * VITAMIN B COMPLEX AND VITAMIN* Take 1 capsule by mouth once * * CALCIUM ACETATE 667 MG CAPSULE Take by mouth three times da* CARVEDILOL 6.25 MG TABLET Take 6.25 mg by mouth twice d* ESOMEPRAZOLE MAGNESIUM 40 MG * Take 40 mg by mouth DAILY (6 * HYDRALAZINE 10 MG TABLET Take 10 mg by mouth three christopher* ISOSORBIDE DINITRATE 10 MG TA* Take 10 mg by mouth three christopher* ACIDOPHILUS ORAL Take by mouth. LEVOFLOXACIN 500 MG TABLET Take 500 mg by mouth once luigi* LIDOCAINE 4 % TOPICAL CREAM Apply to affected area. to f* ROPINIROLE 0.5 MG TABLET Take 0.5 mg by mouth daily at* SODIUM BICARBONATE ORAL Take by mouth. 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 Paroxysmal atrial fibrillation (HCC) [I48.0] INVALID FOR* Prescriptions ordered this encounter Disp Refills Start End PERFLUTREN LIPID MICROSPHERES 1.1 MG* 1.3 * 0 02/26/2018 02/26/2019 Class: In Office Route: INTRAVENOUS Sig: Inject 1.3 mL intravenously as directed. IV CONTRAST (RADIOLOGY PROCEDURE) 1 Ea* 0 02/28/2018 03/01/2018 Class: In Office Sig: MRI Cardiac wo/w Inject, intravenously, once for 1 dose. No IV access, insert saline lock prior to the beginning of sedation, infusion, injection of imaging exam. Discontinue saline lock post exam. If Pt has a central line or IVAD, may access for administration according to line specific nursing protocol. Once exam is complete flush line and de-access according to line specific nursing protocol in the MR contrast administration guidelines link Medications Discontinued During This Encounter albuterol HFA (PROVENTIL HFA, VENTOL* 02/26/2018 Class: Historical Med Route: INHALATION Sig: Inhale 2 Puffs as instructed every 4 hours as needed. Disc: Reason for discontinue is not on file. calcium carbonate 500 mg ORAL Chew 0 09/04/2010 02/26/2018 Class: Med Update Route: ORAL Sig: Take by mouth twice daily. Disc: Reason for discontinue is not on file. Letter Text Melody Lynn MD Cardiac Pacing and Electrophysiology Tatiana yohan [facility] Department of Cardiovascular Medicine [address] [address] Office: [phone] April 05, 2018 Dr. Bunny Woodward [address] [place] [address] NAME: Faustina Hurtado CLINIC NO.: [id number] DATE OF SERVICE: 02/26/[address] Woodward, I had the pleasure of seeing Faustina Hurtado in the Cardiac Arrhythmia Clinic at the [facility] on 02/26/2018. Enclosed is a copy of my clinic note for your records. My impression and recommendations are noted at the end of the note. I appreciate the opportunity of contributing to the care of this very pleasant patient of yours. Please don't hesitate to contact me if you have any questions or if I can be of any other assistance. Yours sincerely, Melody Lynn M.D. PJT:al attachment c: Chava Kwok MD. [address] [place] [address] [place] [address] Zofia Devries MD [address] [place] [address] CHIEF COMPLAINT:Consult regarding possible need for ICD. HISTORY OF PRESENT ILLNESS: Ms. Hurtado is a 42 year old female who presents today possible ICD and treatment options. She has a past medical history of hypertension, chronic renal insufficieny on dialysis ( 3 days a week), Alport syndrome and cardiomyopathy. July 2017, she went to [facility] for shortness of breath. She states while admitted she was diagnosed with cardiomyopathy. Stress Test from 08/20/2017- Cardiolite nuclear imaging demonstrate myocardial perfusion changes appearing compatible with an area of previous myocardial injury/ infarction EF 39%. Echo from 08/20/17- EF 30%. She states was placed on coreg 6.25mg BID, hydralazine 10mg TID and isordil 10mg TID 07/2017. She states she went to [facility] 04/2017 for similar symptoms. She states at that time they treated her for respiratory. issues. Denies any cardiac testing at time. She reports significant improvement since starting medications. Denies any follow-up echo. She denies lightheadedness, syncope, nearsyncope, palpitations, chest pain, shortness of breath, orthopnea, PND, or edema. Tolerating medications without any adverse effects. PAST MEDICAL HISTORY Diagnosis Date - Alport syndrome - Bradycardia - Cardiomyopathy (HCC) non CAD related - Carotid artery stenosis right - COPD (chronic obstructive pulmonary disease) (HCC) - ESRD (end stage renal disease) (HCC) - GERD (gastroesophageal reflux disease) - Hypertension - Nonrheumatic mitral valve regurgitation - Nonrheumatic tricuspid valve regurgitation - Palpitations - Pulmonary hypertension (HCC) - Renal failure PAST SURGICAL HISTORY Procedure Laterality Date - APPENDECTOMY - ARTERY-VEIN ANASTOMOSIS 09-06-10 LEFT ARM - BALLN ANGIOPLASTY,PERC VENOUS 10-10-10 LEFT ARM - BALLN ANGIOPLASTY,PERC VENOUS 09-05-11 LUE - CERVIX UTERI CONIZA LP ELCTRO EXCI LEEP-Cervix - DELIVERY ONLY , low transverse - DELIVERY ONLY , low transverse - CHOLECYSTECTOMY HX - FOOT SURGERY HX - LAP CHOLECYSTECT/CHOLANGIOGRAPHY 11/24/12 normal IOC - PAST SURGICAL HISTORY OF RIGHT IJ DIALYSIS CATHS X3 - PAST SURGICAL HISTORY OF RIGHT AV FISTULA - REMOVAL ROSIE CVC W/O PUMP 01/08/11 Removal right IJ catheters - REPAIR ING HERNIA,5+Y/O,REDUCIBL Hernia repair, inguinal, BILAT - TOTAL ABDOM HYSTERECTOMY Hysterectomy, VANESA SOCIAL HISTORY Social History Substance Use Topics - Smoking status: Never Smoker - Smokeless tobacco: Never Used - Alcohol use No FAMILY HISTORY Problem Relation Age of Onset - Ischemic Heart Disease Mother - Breast Cancer Father BRAIN ALLERGIES: ALLERGIES Allergen Reactions - Keflex [Cephalexin] Hives - Oxycodone Hives - Vancomycin Hives MEDICATIONS: levoFLOXacin (LEVAQUIN) 500 mg tablet Take 500 mg by mouth once daily. For 7 days due to throat infection Lactobacillus acidophilus (ACIDOPHILUS ORAL) Take by mouth. rOPINIRole (REQUIP) 0.5 mg tablet Take 0.5 mg by mouth daily at bedtime. esomeprazole (NEXIUM) 40 mg capsule Take 40 mg by mouth DAILY (6 AM). acetaminophen 325 mg cap Take 650 mg by mouth every 4 hours as needed. aspirin 81 mg chewable tablet Take 81 mg by mouth once daily. SODIUM BICARBONATE ORAL Take by mouth. hydrALAZINE (APRESOLINE) 10 mg tablet Take 10 mg by mouth three times daily. isosorbide dinitrate (ISORDIL) 10 mg tablet Take 10 mg by mouth three times daily. carvedilol (COREG) 6.25 mg tablet Take 6.25 mg by mouth twice daily with meals. lidocaine 4 % cream Apply to affected area. to fistula area before dialysis b complex, c, folic acid 1 mg (RENAL CAPS) 1 mg ORAL capsule Take 1 capsule by mouth once daily. calcium acetate (PHOSLO) 667 mg ORAL capsule Take by mouth three times daily. REVIEW OF SYSTEMS: General, constitutional: Weight loss or gain- No, Fever or chills-No, Weakness-No, Trouble sleeping-No. Head, Eyes, Ears, Mouth: Headache, head injury-No, Glasses or contact lenses-yes, Pain-No, Impaired vision-No, Decreased hearing- yes, Ringing in ears-No, Nose bleeds-No, Dental difficulties-No, Bleeding gums-No, Dentures-No. Neck: Swelling-No, Pain-No, Stiffness-No. Respiratory: Cough-No, Spitting up blood-No, Shortness of breath-No, Wheezing or asthma-No. Musculoskeletal: Muscle or joint pain or stiffness-No, Joint swelling-No. Gastrointestinal: Difficulty swallowing-No, Heartburn-No, Change in bowel habits-yes, Blood in stool, Dark black stools-No. Neurological/Psychiatric: Weakness, paralysis-No, Numbness- No, Tingling-No, Tremor-No, Nervousness or anxiety-No, Depressed mood-No, Memory loss-No. Skin: Rash-No, Itching-No. Hematological: Easy bruising-No, Easy bleeding-No. Endocrine: Heat or cold intolerance-yes, Excessive sweating- No, Frequent urination-No, Frequent thirst-No. Marija Rivera RN Additional Comments, Assessment, Recommendations and Plan: The above note reflects my interview with the patient and my incorporation of the nurse obtained information as well as my own additions and modifications comprising the patient history. Additional findings and changes as listed below. Additional History: She was having PAF earlier this year. She also had symptoms of CHF. She could not walk hardly any without SOB. She was evaluated with echo, cath stress nuclear. This variously showed LVEF of 30% to 39%. BP 126/84 Pulse 63 Ht 160 cm (5' 3) Wt 69.4 kg (153 lb) BMI 27.10 kg/m? General appearance: comfortable, alert Neck: No JVD, no bruit Lungs: clear, good excursion Heart: RR, Nl s1, s2, 2/6 scott systolic high pitched mm consistent with MR, no gallops or rubs Extremities: 1+ edema, good skin color ECG today shows: SR. Poor R wave progression Other tests: Echo done in July 2017: Nuc stress done in August 2017: LVEF 39%. August 21 cath: normal cors. LVEDP 21. Echo today: CONCLUSIONS: - Exam indication: Initial evaluation of Heart Failure - The left ventricle is moderately dilated. Left ventricular systolic function is mildly decreased. EF = 49 ? 5% (2D biplane) Left ventricular diastolic function was not evaluated due to severe MR. Wall Motion: The entire anterior wall, entire lateral wall, entire septum, entire apex, and entire inferior wall are mildly hypokinetic. - The right ventricle is dilated. Right ventricular systolic function is moderately decreased. - The left atrial cavity is mildly dilated. - There is moderately severe (3+) holosystolic mitral valve regurgitation due to apical tethering of normal mitral leaflet caused by LV enlargement likely related to nonischemic cardiomyopathy. Regurgitant orifice area (PISA) is 0.24 cm?. - There is severe (3+ - 4+) tricuspid valve regurgitation caused by annular dilatation. - Estimated right ventricular systolic pressure is 54 mmHg consistent with moderate pulmonary hypertension. Estimated right atrial pressure is 5 mmHg. IMPRESSION, PLAN/RECOMMENDATIONS: The patient developed symptoms of CHF earlier this year and monitoring showed paroxysm of AF. Her cath showed no CAD. But she had an elevated LVEDP. LVEF was in the mid 30s. She was treated with medications as listed and currently she is feeling much better with improved stamina and pretty much back to her baseline functional status. Her echo today showed LVEF probably in the 49% range (the above estimate may be optimistic and was obtained when she was having frequent PVCs). Likely her ventricular function has improved since starting medical treatment and attempts at reducing her dry weight with dialysis. Several specific recommendations: 1) I would recommend a cMRI to assess the myocardium. This will need to be without contrast as she is on dialysis. Will arrange that here at the Clinic in the near future. 2)She still has some edema, although no JVD. I would suggest trying to lower her dry weight by at least another 3 kg with her dialysis. 3) Would further try to lower systolic BP with adjustment of current meds, as much as she would tolerate. 4) her valve issues may require further investigation, follow up and perhaps intervention. 5) AF: I suspect the AF was related to CHF and with improved hemodynamics, this is not happening much as she is not aware of any irregularity of her heart rate lately. A monitor would be helpful to rule out shorter durations asymptomatic episodes. 6) A repeat monitor may be in order to assess for frequency of PVCs. Although she did not have any PVCs on EKG today, there were quite a few during her echo. I will arrange the monitor to be put on after the MRI. Currently, I would not recommend an ICD. Can reconsider this in the longer run if LV systolic function continues to deteriorate. Continue clinical monitoring for notable AF. I will plan on seeing the pt for a follow up visit or phone call after the MRI and the monitor results are received. Melody Lynn M.D. Addendum April 03, 2018 5:48 PM Her Zio monitor was reviewed. She had SR with rare PACs and PVCs. No atrial fibrillation. Given these findings and her echo findings, I would not consider her for ICD. Can see whether the MRI has any revealing information. Would recommend running her dry weight down a little more. Melody Lynn MD Encounter Status:Closed by MELODY LYNN MD on 02/28/18 ECG COMPLETE W Observed: 02/26/2018 Status: F Source: CHASE INTERPRETATION 10:54 AM [facility] REPOSITORY NAME : FAUSTINA HURTADO PID : [id number] : 1975 Gender : Female Race : ORD : [id number] Procedure Date : Feb 26 2018 10:54:41 Edit Date : Feb 28 2018 16:04:27 Diagnosis:NORMAL SINUS RHYTHM LEFT AXIS DEVIATION LEFT VENTRICULAR HYPERTROPHY ANTERIOR MYOCARDIAL INFARCTION , AGE UNDETERMINED INFEROLATERAL T WAVE ABNORMALITY ABNORMAL ECG Confirmed by DHIRAJ THOMPSON M.D. ([id number]) on 02/28/2018 3:55:14 PM Ventricular Rate : 63 BPM Atrial Rate : 63 BPM P-R Interval : 132 ms QRS Duration : 104 ms Q-T Interval : 468 ms QTC Calculation(Bezet) : 478 ms P [place] : 31 degrees R [place] : -44 degrees T [place] : -58 degrees Test Reason : Location : 314 : J14 J1-4 Overread By : DHIRAJ THOMPSON M.D. Edited By : DHIRAJ THOMPSON M.D. Referred By : , Acquired by : RILEY LOWERY PT Collected: 02/06/2018 Status: F Source: JUDAISM 4:13 PM [facility] REPOSITORY TYPE CODE TESTS RESULT OUT OF RANGE REFERENCE UNITS LAB [id number](LO 1.0-1.2 INC) High INR 1.5 Result Comment: INR Recommended Therapeuptic Ranges: Prophylaxis/treatment of DVT and PE?2.0-3.0 Prevention of systemic embolism?.2.0-3.0 Mechanical prosthetic values?2.5-3.5 CRITICAL VALUES?.>4.0 LAB [id number](LOINC) 11.6-14.6 second(s) High PT 16.8 Performed By: #### [id number] #### ANDREW Hematology Automated Subsection [address] [place], [place] [id number] PT Collected: 01/29/2018 Status: F Source: JUDAISM 12:11 [facility] REPOSITORY TYPE CODE TESTS RESULT OUT OF RANGE REFERENCE UNITS LAB [id number](LO 1.0-1.2 INC) High INR 1.3 Result Comment: INR Recommended Therapeuptic Ranges: Prophylaxis/treatment of DVT and PE?2.0-3.0 Prevention of systemic embolism?.2.0-3.0 Mechanical prosthetic values?2.5-3.5 CRITICAL VALUES?.>4.0 LAB [id number](LOINC) 11.6-14.6 second(s) High PT 15.4 Performed By: #### [id number] #### ANDREW Hematology Automated Subsection [address] [place] [address] CNCO Observed: 01/27/2018 Status: COMPLETED Source: CHASE 12:00 AM [facility] REPOSITORY Letter Text Melody Lynn MD [address] [facility]/[address] [address] Office: Appts.: January 27, 2018 Dear : Ms. Hurtado Thank you for choosing the [facility] for your cardiac care. We are pleased to offer you an appointment with Melody Lynn MD on February 26, 2018. Appointment Preparation Please review the attached appointment schedule and follow all instructions that are given. Be sure to bring this appointment schedule with you as well. Your Medical History and Records Below is a checklist with information you must send to your doctor's office prior to your appointment. This information is required by the doctor prior to your visit to best evaluate and treat your medical condition. Records must be obtained from your physician or the hospital where you have received care previously. You may use this letter as a guide for what is required. You may need to sign a release of information to obtain these records. It is important that we receive your outside records to provide the best care to you. Please fax these results to your [facility] doctor at least one week prior to your appointment. Faxing is the preferred method to receive records. If records must be mailed rather than faxed, they should be sent via mail or express mail directly to the physician using the address and desk number provided in this letter. Items needed for your visit: Your most recent hospital discharge summary related to your current heart problem If you have had any of the following diagnostic tests or procedures listed below, please obtain the film (CD) if applicable and the report Operative notes from previous heart surgeries Most recent cardiac catheterization (CD in DICOM format and report) Most recent echocardiogram (CD in DICOM format and report) Most recent stress test Most recent cardiac CT and MRI (CD and report) Most recent EKG (report and actual tracing; include any abnormal EKGs or rhythm disturbances) Most recent electrophysiology testing (report and actual tracing) Most recent labwork Most recent emergency room visit information Your device identification card if you have an implanted device such as a pacemaker or defibrillator or stent Having this information will give us the best information about your illness and help prevent delays in evaluation and treatment on the day of your appointment. If you are having difficulty obtaining your records, please contact the physician?s office for assistance. Please bring all of your medications in their original bottles. Include all [id number] pills or remedies. This helps avoid confusion over the dosages and names of your current medications. You are encouraged to bring a family member or friend on the day of your appointment, though it is not absolutely necessary. Medication Guidelines Take all of your medications as prescribed, unless you have been given other instructions. You may need to fast or adjust diabetic medications depending on what test or procedures you may have scheduled. Appointment Time The time you are asked to report for your appointment or procedure includes the time necessary to provide you with additional instructions or preparations. There may be a delay in the time of your procedure or seeing your physician because of these preparations. It is our commitment to provide each patient with the best care. We will do our best to make sure that you and your family members are as comfortable as possible during your stay. Parking [employer] parking is available from 6:00 a.m. to 7:00 p.m. in front of the Main [facility] ([facility]). You can also park in the Parking Garage located on [facility] between [address]. Wheelchairs are available in the garage or at the [facility] Admitting and Registration Desk. Discount parking vouchers are available - please ask your parking batch attendant or visit the [facility] Diesel Engine Engineer's Office. Arrival Please report to the [facility] Registration Desk to start your appointment. The desk is located on the first floor of the [facility]. Please show the tubing mill operator the enclosed appointment schedule and your insurance information. During Your Appointment A nurse, physician phlebotomist lab assistant, nurse practitioner, clinical nurse specialist, or fellow (doctor) may see you prior to your appointment with your physician. He or she will review the information from your checklist and will ask you questions regarding your medical history. A physical examination may be performed at this time. You may be scheduled for additional tests that may include blood work, x-rays, EKG, or other diagnostic tests after you see your physician. Appointment Duration If this is your first visit, please plan on being at the [facility] for four hours. If You Have Questions or Need to Reschedule Your Appointment If for some reason you are unable to keep your appointment or you have any questions, please notify us as soon as possible by calling or ext. [phone]. We look forward to meeting you. Sincerely yours, Scheduling Office [facility] [place] CNPN Observed: 01/16/2018 Status: COMPLETED Source: [facility] 12:00 AM CLINIC OTHER CAMPUS REPOSITORY Telephone (AGCARDHWW) FAUSTINA HURTADO ([id number]) 1975 F Date Time Provider Department 01/16/18 TATIANA KIM AGCARDHWW During your visit today, we recorded the following information about you: Ese Aidan 01/16/2018 7:42 AM Signed Ms. Genesis Medina called and LM stating that she cannot make her 4:00pm appt today, and would like to reschedule. Thank you! 01/16/2018 07:40:09 Ese Bermudez 02/05/2018 2:58 PM Addendum LM informing patient her appointment has been rescheduled for 02/06/2018 @ 10:00am with Dr. Kim. Asked pt to call back to confirm. Ese Bermudez 02/05/2018 3:22 PM Signed DANITA informin patient, she will receive a call back to reschedule 02/06/[address] Kim. Ese Bermudez Allergies As of Date: 01/16/2018 Noted Allergy Reaction KEFLEX (CEPHALEXIN) 09/04/2010 4 - Hives OXYCODONE 07/27/2014 4 - Hives VANCOMYCIN 09/04/2010 4 - Hives Date Reviewed: 07/27/2014 Reviewed by: Vanessa (Romaine) Noemi - Fully Assessed Reason for Visit: Appointment Rescheduled [1024] Prescriptions as of 01/16/2018 Sig: ALBUTEROL SULFATE HFA 90 MCG/* Inhale 2 Puffs as instructed * ESOMEPRAZOLE MAGNESIUM 40 MG * Take 40 mg by mouth DAILY (6 * ACETAMINOPHEN 325 MG CAPSULE Take 650 mg by mouth every 4 * ASPIRIN 81 MG CHEWABLE TABLET Take 81 mg by mouth once zeb* SODIUM BICARBONATE ORAL Take by mouth. HYDRALAZINE 10 MG TABLET Take 10 mg by mouth three christopher* ISOSORBIDE DINITRATE 10 MG TA* Take 10 mg by mouth three christopher* CARVEDILOL 6.25 MG TABLET Take 6.25 mg by mouth twice d* LIDOCAINE 4 % TOPICAL CREAM Apply to affected area. to f* * VITAMIN B COMPLEX AND VITAMIN* Take 1 capsule by mouth once * * CALCIUM ACETATE 667 MG CAPSULE Take by mouth three times da* * CALCIUM CARBONATE 200 MG CALC* Take by mouth twice daily. 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 [place] [address] OFFICE VISIT Date of Service: 12/02/17 MR#: [id number] Acct: [id number] Name: FAUSTINA PELAYO Ana Rep #: [id number] : 1975 Provider: PAULINE Ansari Age/Sex: 42/F Location: [facility] [place] Status: Signed HPI HPI Details: FAUSTINA PELAYO, is a 42 F who presents to the office today for outpatient hospital follow-up of a recent diagnosis of underlying non-CAD related cardiomyopathy and valvular heart disease with MR/TR. After last office visit she underwent a 30 day event monitor that showed sinus rhythm; PVCs; irregular PSVT (7-10 beats) c/w PAF; irregular NSWCT (4-5 beats) c/w a combination of aberrancy and ventricular ectopy; symptoms of heart racing and shortness of breath with PVCs. She was started on coumadin and referred to EP for possible AICD. Pt denies chest, arm, jaw, or neck discomfort. Her exercise tolerance is stable. She states feeling SOB after dinner in the evening. She states feeling SOB when getting dressed at times. She notices SOB when going up steps as well. Pt denies symptoms of palpitations, dizziness, or syncopal episodes. Pt denies claudication issues. Pt. denies orthopnea, PND, fever, chills, blood in urine, or myalgia. She states noticing episodes of palpitations since last office visit associated with fatigue. 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 She states having diarrhea yesterday, but was slightly dark. She states dark stool today. She has an appointment with GI doctor on 12/04/17. 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 Tender Required: No Accompanied by: None Is patient in pain?: Yes (stomach) Pain scale (1-10): 6 Allergies amoxicillin [From Augmentin] Allergy (Verified 12/02/17 15:12) Hives cephalexin [From Keflex] Allergy (Verified 12/02/17 15:12) Hives clavulanic acid [From Augmentin] Allergy (Verified 12/02/17 15:12) Hives oxycodone Allergy (Verified 12/02/17 15:12) Hives vancomycin Allergy (Verified 12/02/17 15:12) Hives Medications Albuterol Inhaler [Ventolin Hfa] 1 - 2 puff INHALATION Q4H PRN PRN #1 inhaler 09/30/16 [Rx Confirmed 09/18/17] Calcium Acetate [Phoslo Gel Cap] 667 mg PO TIDCM 09/30/16 [History Confirmed 09/18/17] Esomeprazole Mag Trihydrate [Nexium] 40 mg PO DAILY 08/18/17 [History Confirmed 09/18/17] Acetaminophen [Tylenol Tablet] 650 mg PO Q4H PRN PRN tab 08/19/17 [Rx Confirmed 09/18/17] Aspirin [Aspirin, Baby] 81 mg PO DAILY@0800 tab.chew 08/21/17 [Rx Confirmed 09/18/17] lidocaine-prilocaine 2.5 %-2.5 % topical cream 1 applic TOPICAL .COMPLEX 09/18/17 [History Confirmed 09/18/17] sodium bicarbonate 650 mg tablet 650 mg PO BID tab 09/18/17 [History Confirmed 09/18/17] hydralazine 10 mg tablet 10 mg PO TID #90 tab 09/20/17 [Rx] isosorbide dinitrate 10 mg tablet 10 mg PO TID #90 tab 09/20/17 [Rx] carvedilol 12.5 mg tablet 12.5 mg PO BID #60 tab 11/21/17 [Rx] warfarin 2 mg tablet 2 mg PO QDAY #30 tab 11/21/17 [Rx] Ejection fraction %: 30 to 34 PFSH Medical History Nonrheumatic tricuspid valve regurgitation (Chronic) Nonrheumatic mitral valve regurgitation (Chronic) Pulmonary hypertension (Chronic) Abnormal cardiac enzyme level (Chronic) Abnormal nuclear stress test (Chronic) Cardiomyopathy (Chronic) Valvular heart disease (Chronic) Hyperkalemia (Acute) Bigeminal pulse (Acute) COPD (chronic obstructive pulmonary disease) (Chronic) Hypertension (Chronic) Alport syndrome (Chronic) ESRD (end stage renal disease) on dialysis (Chronic) Surgical History Peritoneal dialysis catheter in place (Chronic) S/P cardiac catheterization (Resolved) Surgically constructed arteriovenous fistula (Chronic) History of left heart catheterization (Chronic) H/O section (Resolved) H/O foot surgery (Resolved) Hernia (Resolved) S/P laparoscopic cholecystectomy (Resolved) Status post colonoscopy (Resolved) Family History Mother Heart disease Kidney disease Social History Smoking Status: Never smoker alcohol intake: never substance use type: does not use caffeine: No ROS Const Const: Positive for fatigue (continues all of the time); negative for weakness, weight gain, weight loss, frequent falls or excessive sweating Eyes Eyes: Negative for change in vision, blurry vision or transient loss of vision ENT ENT: Positive for dizziness (climbing stairs; becomes SOB and dizzy); negative for balance problems Cardio Chest Pain: No Palpitations: Yes (short bursts of palps 3-5 seconds) feels like its: pounding Edema: None, Right (+4), Left (+2) Muscle aches with walking: None Resp Respiratory: Positive for SOB with activity (increased at times; good/bad days) and SOB at rest GI GI: Negative vomiting or vomiting blood/hematemesis : Negative for hematuria Musc Musc: Negative for balance problems Skin Skin: Negative non-healing lesions or rash Neuro Neuro: Positive for dizziness (climbing stairs; becomes SOB and dizzy); negative for weakness, frequent falls or blurry vision Russ Hematologic/Lymphatic: Negative for easy bleeding Endo Endo: Positive for fatigue (continues all of the time); negative for excessive sweating Psych Psych: Negative for anxiety or depression Allergy Allergy/Immunology: Negative for rash Cardiology Exam Const Appearance: cooperative, healthy appearing, comfortable and no acute distress Orientation: alert, awake and oriented x3 Head Head: normal to inspection Ears: hearing grossly normal bilaterally Nose: external nose normal Face and Sinus: face symmetric Mouth: oral mucosae normal Eyes General: appearance normal, both eyes and all related structures Eyelids: eyelids normal Neck Neck: no JVD and normal visual inspection Carotids: normal carotid upstroke Chest Chest inspection: normal inspection of the chest and normal respiratory effort; negative cough Auscultation: Bilateral: Clear to Auscultation Cardio Rate: regular rate Rhythm: regular rhythm Heart sounds: S2 normal, murmur and S1 normal; negative rub or gallop Murmur: Grade 3/6 and LLSB GI GI: normal to inspection Neuro General: alert, awake, oriented x3 and CN's II-XI intact bilaterally Skin Skin: no rashes or lesions noted Extremities Pulses: Normal: Right Posterior Tibial Pulse, Left Posterior Tibial Pulse, Right Radial Pulse, Left Radial Pulse Lower Extremity Edema: None: Bilateral Left lower arm fistula with thrill and bruit Psych Psychological: normal affect Supplemental Info Transthoracic echocardiogram performed on 08/19/2017: Interpretation Summary The study was technically difficult. Mildly dilated left ventricle. Moderate segmental systolic dysfunction (see wall motion). The estimated ejection fraction is 30 %. Apical false tendon noted. The left atrium is mildly enlarged. There is mild mitral annular calcification. Mild diffuse mitral valve thickening. Moderate (2+) eccentric mitral valve insufficiency. Moderately severe (3+) eccentric tricuspid valve insufficiency. Mild (1+) pulmonic valve insufficiency. Right ventricular systolic pressure estimated to be 54 mmHg. Stress nuclear study performed on 08/20/2017: Impression: 1. Rest and stress SPECT Cardiolite nuclear imaging demonstrate myocardial perfusion changes appearing compatible with an area of previous myocardial injury/infarction, although, contribution from soft tissue attenuation/artifact cannot necessarily be excluded, with no myocardial perfusion changes consider diagnostic for associated stress-induced myocardial ischemia. 2. The gated Cardiolite study reports an LVEF of 39 %. Cardiac catheterization performed on 08/21/2017: CORONARY ANGIOGRAPHY DOMINANCE: Left Dominant LEFT HEART ASSESSMENT Left Ventricular Ejection Fraction: by LV Gram 35 % Global Hypokinesis - Moderate Elevated Left Ventricular End Diastolic Pressure LVEDP: 21 mmHg RIGHT HEART ASSESSMENT Thermal CO: 3.51 Thermal CI: 1.98 Violet CO: 3.84 Violet CI: 2.17 PW: 20/34 22 PA: 58/22 38 RV: 55/2 14 RA: 14/15 11 PVR: 365 Right Heart pressures - elevated Pulmonary Hypertension Severe Intracardiac shunting: None Calculated Qp/Qs Ratio: 0.8 considered nonhemodynamically significant LEFT MAIN: Angiographically normal LEFT ANTERIOR DECENDING ARTERY: Angiographically normal CIRCUMFLEX ARTERY: Angiographically normal RIGHT CORONARY ARTERY: Angiographically normal VALVE FINDINGS: Normal Aortic Valve function 2018 No Complications 30 day event monitor from September 2017 showed sinus rhythm; PVCs; irregular PSVT (7-10 beats) c/w PAF; irregular NSWCT (4-5 beats) c/w a combination of aberrancy and ventricular ectopy; symptoms of heart racing and shortness of breath with PVCs. She was started on coumadin and referred to EP for possible AICD. Assessment AND Plan 1. Paroxysmal atrial fibrillation I48.0 Plan Her 30 day event monitor from September 2017 showed possible paroxysmal atrial fibrillation. She was started on Coumadin therapy for this. This monitor was placed due to patient stating having bradycardia during dialysis. She states while wearing this monitor her heart rate was in the 30s during dialysis. 30 day event monitor does not reflect this. It is unclear why this is the case. She will continue with Coreg. We will continue to monitor. 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 She underwent a CBC which showed a hemoglobin of 9.9. Her hemoglobin in the past has ranged from 10.3-11.9. A copy of this report will be faxed to GI doctor who will be evaluating peptic ulcers. She was asked to hold Coumadin until she is evaluated in case an upper GI scope is desired. Orders Orders: 3. Cardiomyopathy, unspecified type I42.9 Plan Patient's echocardiogram from July 2017 showed an estimated ejection fraction of 30%. Patient does describe waxing and waning shortness of breath. She is not on any NILDA inhibitor or ARB medication due to chronic kidney disease. Her Coreg most recently has been increased. She will be evaluated by EP regarding AICD. We will continue to monitor. 4. Essential hypertension I10 Plan Patient states that during dialysis her blood pressure is often elevated into the systolics 200s. She states outside of dialysis before and after it is well-controlled. It is unclear exactly why her blood pressure is elevated only during dialysis. Because her blood pressure is well-controlled outside of dialysis, we will not make any medication regimen changes. When asked what nephrology recommends she states that she was told to discuss with cardiology group. We will not add blood pressure medication prior to dialysis to avoid potential hypotension during dialysis. Plan Detail Additional Comments Thank you for allowing us to participate in the patient's plan of care, if you have any questions please do not hesitate to call. This note was generated using a voice recognition system and there may be incorrect words, spelling, or punctuation that were not noted upon reviewing the office note prior to saving. 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 Z79.01 Cardiomyopathy, unspecified type I42.9 Cardiomyopathy type: unspecified Essential hypertension I10 Hypertension type: essential hypertension 12/03/17 0933 <Electronically signed by Williams Ansari PARK RECREATION MANAGER-C> Date Williams Ansari PARK RECREATION MANAGER-C Cosigner Signature: Date (if applicable) CC: ZOFIA DEVRIES CBC W/DIFF, AUTOMATED Collected: 12/02/2017 Status: F Source: ROSALIND 3:56 PM [facility] REPOSITORY TYPE CODE TESTS RESULT OUT OF RANGE REFERENCE UNITS LAB L100.1000 4.4-11.0 K/mm3 Normal WBC 6.2 LAB L100.1200 4.2-5.4 M/mm3 Low RBC 2.79 LAB L100.1300 12.0-15.0 g/dl Low HGB 9.9 LAB L100.1400 37-47 % Low HCT 31.4 LAB L100.1500 81-99 fL High MCV 112.5 LAB L100.1600 27.0-32.0 pg High MCH 35.5 LAB L100.1700 32-36 g/gl Low MCHC 31.5 LAB L100.1810 11.6-14.6 % High RDW CV 15.8 LAB L100.1820 35.1-43.9 fl High RDW SD 63.1 LAB L100.1900 150-450 K/mm3 Normal PLT 151 LAB L100.2000 6.2-12.0 fl Normal MPV 11.3 LAB L100.2100 47-70 % High NEUT% 73.2 LAB L100.2200 19-41 % Low LY% 17.4 LAB L100.2300 0-10 % Normal MONO% 7.9 LAB L100.2400 0-5 % Normal EO% 1.1 LAB L100.2500 0-1 % Normal BASO% 0.2 LAB L100.2550 0.0-0.9 % Normal IM GRAN % 0.200 Result Comment: IG% - Immature Granulocytes (promyelocytes, myelocytes and metamyelocytes) > 1% indicates that a LEFT SHIFT is Present. LAB L100.2620 2.0-7.7 X10 3/uL Normal Absolute Neut 4.6 LAB L100.2720 0.83-4.51 X10 3/ul Normal Absolute Lymph 1.08 Performed By: #### L100.0100 #### [facility] [address] [place], [address] PROTHROMBIN TIME W/INR Collected: 11/27/2017 Status: F Source: ROSALIND 1:20 PM [facility] REPOSITORY Order Comment: Comments: STANDING ORDER Comments: STANDING ORDER TYPE CODE TESTS RESULT OUT OF RANGE REFERENCE UNITS LAB L300.4150 11.7-14.9 SECONDS High PROTIME 15.0 LAB L300.4200 Normal INR 1.2 Performed By: #### L300.3900 #### [facility] [address] [place], [address] CARDIOLOGY VISIT Observed: 10/11/2017 Status: F Source: ROSALIND REPORT 4:00 PM [facility] REPOSITORY [facility] [address] [place] [address] OFFICE VISIT Date of Service: 10/11/17 MR#: [id number] Acct: [id number] Name: FAUSTINA PELAYO Rep #: [id number] : 1975 Provider: PAULINE Ansari Age/Sex: 42/F [place] [facility] [place] Status: Signed HPI HPI Details: FAUSTINA PELAYO, is a 42 F who presents to the office today for outpatient hospital follow-up of a recent diagnosis of underlying non-CAD related cardiomyopathy and valvular heart disease with MR/TR. She states while at dialysis today her heart rate dropped to 36 bpm. She felt lightheaded and presyncope symptoms. She denies chest pain, SOB, diaphoresis, or nausea with it. Pt denies chest, arm, jaw, or neck discomfort. Her exercise tolerance is stable. She states feeling SOB after dinner in the evening. She states feeling SOB when getting dressed. Pt denies symptoms of palpitations, dizziness, or syncopal episodes. Pt denies claudication issues. Pt. denies orthopnea, PND, fever, chills, blood in urine, blood in stool, or myalgia. She states noticing episodes of palpitations since last office visit associated with fatigue. 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 Intake Vital Signs10/11/17 Height 5 ft 3 in 10/11/17 Weight: 160 lb 10/11/17 Body Mass Index (BMI) 28.3 10/11/17 Blood Pressure 130/62 Intake Visit Reasons: 1 M FU Allergies amoxicillin [From Augmentin] Allergy (Verified 09/18/17 11:46) Hives cephalexin [From Keflex] Allergy (Verified 09/18/17 11:46) Hives clavulanic acid [From Augmentin] Allergy (Verified 09/18/17 11:46) Hives oxycodone Allergy (Verified 09/18/17 11:46) Hives vancomycin Allergy (Verified 09/18/17 11:46) Hives Medications Albuterol Inhaler [Ventolin Hfa] 1 - 2 puff INHALATION Q4H PRN PRN #1 inhaler 09/30/16 [Rx Confirmed 09/18/17] Calcium Acetate [Phoslo Gel Cap] 667 mg PO TIDCM 09/30/16 [History Confirmed 09/18/17] Esomeprazole Mag Trihydrate [Nexium] 40 mg PO DAILY 08/18/17 [History Confirmed 09/18/17] Acetaminophen [Tylenol Tablet] 650 mg PO Q4H PRN PRN tab 08/19/17 [Rx Confirmed 09/18/17] Aspirin [Aspirin, Baby] 81 mg PO DAILY@0800 tab.chew 08/21/17 [Rx Confirmed 09/18/17] lidocaine-prilocaine 2.5 %-2.5 % topical cream 1 applic TOPICAL .COMPLEX 09/18/17 [History Confirmed 09/18/17] sodium bicarbonate 650 mg tablet 650 mg PO BID tab 09/18/17 [History Confirmed 09/18/17] hydralazine 10 mg tablet 10 mg PO TID #90 tab 09/20/17 [Rx] isosorbide dinitrate 10 mg tablet 10 mg PO TID #90 tab 09/20/17 [Rx] carvedilol 6.25 mg tablet 6.25 mg PO BID tab 10/11/17 [History] PFSH Medical History Nonrheumatic tricuspid valve regurgitation (Acute) Nonrheumatic mitral valve regurgitation (Acute) Pulmonary hypertension (Acute) Abnormal cardiac enzyme level (Acute) Abnormal nuclear stress test (Acute) Cardiomyopathy (Acute) Valvular heart disease (Chronic) Hyperkalemia (Acute) Bigeminal pulse (Acute) COPD (chronic obstructive pulmonary disease) (Chronic) Hypertension (Chronic) Alport syndrome (Chronic) ESRD (end stage renal disease) on dialysis (Chronic) Surgical History Surgically constructed arteriovenous fistula (Acute) H/O foot surgery (Acute) Hernia (Acute) History of left heart catheterization (Acute) PD cath (Acute) S/P laparoscopic cholecystectomy (Acute) Status post colonoscopy (Acute) H/O section (Resolved) S/P cardiac catheterization (Resolved) Family History Mother Heart disease Social History Smoking Status: Never smoker alcohol intake: never substance use type: does not use Cardiology Exam Const Appearance: cooperative, healthy appearing, comfortable and no acute distress Orientation: alert, awake and oriented x3 Head Head: normal to inspection Ears: hearing grossly normal bilaterally Nose: external nose normal Face and Sinus: face symmetric Mouth: oral mucosae normal Eyes General: appearance normal, both eyes and all related structures Eyelids: eyelids normal Neck Neck: no JVD and normal visual inspection Carotids: normal carotid upstroke Chest Chest inspection: normal inspection of the chest and normal respiratory effort; negative cough Auscultation: Bilateral: Clear to Auscultation Cardio Rate: regular rate Rhythm: regular rhythm Heart sounds: S2 normal, murmur and S1 normal; negative rub or gallop Murmur: Grade 3/6 and LLSB GI GI: normal to inspection Neuro General: alert, awake, oriented x3 and CN's II-XI intact bilaterally Skin Skin: no rashes or lesions noted Extremities Pulses: Normal: Right Posterior Tibial Pulse, Left Posterior Tibial Pulse, Right Radial Pulse, Left Radial Pulse Lower Extremity Edema: None: Bilateral Left lower arm fistula with thrill and bruit Psych Psychological: normal affect Supplemental Info Transthoracic echocardiogram performed on 08/19/2017: Interpretation Summary The study was technically difficult. Mildly dilated left ventricle. Moderate segmental systolic dysfunction (see wall motion). The estimated ejection fraction is 30 %. Apical false tendon noted. The left atrium is mildly enlarged. There is mild mitral annular calcification. Mild diffuse mitral valve thickening. Moderate (2+) eccentric mitral valve insufficiency. Moderately severe (3+) eccentric tricuspid valve insufficiency. Mild (1+) pulmonic valve insufficiency. Right ventricular systolic pressure estimated to be 54 mmHg. Stress nuclear study performed on 08/20/2017: Impression: 1. Rest and stress SPECT Cardiolite nuclear imaging demonstrate myocardial perfusion changes appearing compatible with an area of previous myocardial injury/infarction, although, contribution from soft tissue attenuation/artifact cannot necessarily be excluded, with no myocardial perfusion changes consider diagnostic for associated stress-induced myocardial ischemia. 2. The gated Cardiolite study reports an LVEF of 39 %. Cardiac catheterization performed on 08/21/2017: CORONARY ANGIOGRAPHY DOMINANCE: Left Dominant LEFT HEART ASSESSMENT Left Ventricular Ejection Fraction: by LV Gram 35 % Global Hypokinesis - Moderate Elevated Left Ventricular End Diastolic Pressure LVEDP: 21 mmHg RIGHT HEART ASSESSMENT Thermal CO: 3.51 Thermal CI: 1.98 Violet CO: 3.84 Violet CI: 2.17 PW: 20/34 22 PA: 58/22 38 RV: 55/2 14 RA: 14/15 11 PVR: 365 Right Heart pressures - elevated Pulmonary Hypertension Severe Intracardiac shunting: None Calculated Qp/Qs Ratio: 0.8 considered nonhemodynamically significant LEFT MAIN: Angiographically normal LEFT ANTERIOR DECENDING ARTERY: Angiographically normal CIRCUMFLEX ARTERY: Angiographically normal RIGHT CORONARY ARTERY: Angiographically normal VALVE FINDINGS: Normal Aortic Valve function 2018 No Complications Assessment AND Plan 1. Bradycardia R00.1 Plan Patient states during dialysis her heart rate was 36 and she felt lightheadedness and pre-syncope sensation. She will undergo a 30 day event monitor to evaluate average heart rate and to discearn an pattern regarding dialysis and her heart rate. She states this has happened in the past, but not this low. Approximately 2 to weeks into the 30 day event monitor we will assess if there is any changes that can be made so that the we can monitor these changes. In the mean time, she will return her Coreg to 6.25mg. Ideally, the highest dose tolerated will be most beneficial. 2. Cardiomyopathy, unspecified type I42.9 Plan Patient's echocardiogram from July 2017 showed an estimated ejection fraction of 30%. Patient does describe waxing and waning shortness of breath. She is not on any NILDA inhibitor or ARB medication due to chronic kidney disease. Her beta-jinny is being adjusted as noted above. She is not on diuretics due to long-term dialysis treatment. 3. Essential hypertension I10 4. Nonrheumatic mitral valve regurgitation I34.0 Plan Patient's echocardiogram from July 2017 showed mild mitral annular calcification, mild diffuse mitral thickening, and moderate mitral valve insufficiency. At this time she will continue current medications. We will reassess this after cardiac rehab to evaluate for any changes/improvements. 5. Nonrheumatic tricuspid valve regurgitation I36.1 Plan Echocardiogram from July 2017 showed moderately severe tricuspid valve insufficiency. Patient undergo a repeat echocardiogram after cardiac rehab to assess ejection fraction. Depending on results of this test further medical consideration will have to be made regarding valvular disease in relation to her cardiomyopathy. If further evaluation is needed she may have to undergo a TIMOTHY for further evaluation and/or cardiothoracic consult. At this time she will continue current medications and we will continue to monitor. 6. 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 Plan Patient continue to follow-up with primary beading machine operator for this. 7. ESRD (end stage renal disease) on dialysis N18.6; Z99.2 Plan Patient receives dialysis Saturday, Saturday, and Saturday at approximately 5:30 AM to 9 AM. She will continue follow-up with beading machine operator. 8. Palpitations R00.2 Plan Patient states new onset of palpitations since last office visit. It is unclear the exact etiology of this. She will undergo a 30 day event monitor for further evaluation. Depending on results further recommendation will be made. Plan Detail Additional Comments Thank you for allowing us to participate in the patients plan of care, if you have any questions please do not hesitate to call. This note was generated using a voice recognition system and there may be incorrect words, spelling or punctuation that were not noted when reviewing the office note prior to saving. 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 ESRD (end stage renal disease) on dialysis N18.6; Z99.2 Palpitations R00.2 Coding Level of Care Code Off vis,est,level 3 Diagnoses Bradycardia R00.1 Cardiomyopathy, unspecified type I42.9 Cardiomyopathy type: unspecified Essential hypertension I10 Hypertension type: essential hypertension Nonrheumatic mitral valve regurgitation I34.0 Nonrheumatic tricuspid valve regurgitation 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 ESRD (end stage renal disease) on dialysis N18.6; Z99.2 Palpitations R00.2 10/11/17 1600 <Electronically signed by Williams CALZADA> Date Williams CALZADA Cosigner Signature: Date (if applicable) CC: CR - HISTORY AND Observed: 10/04/2017 Status: F Source: [place] PHYSICAL 5:12 PM [facility] Cardiac Rehab [address] [place] [address] CR - History AND Physical MR#: [id number] Acct: [id number] Name: FAUSTINA PELAYO Rep #: [id number] : 1975 42 From: Christopher Flores BS, RVT PCP: ZOFIA DEVRIES DOS: 10/04/17 CR - History AND Physical - General Arrival date:: 10/04/17 Arrival time:: 14:20 Date of Referral:: 09/18/17 Date of CR Evaluation:: 10/04/17 Referring Physician: Dr. Bunny Woodward Primary Diagnosis: I42.9, I34.0 09/18/17 Cardiomyopathy, Nonrheumatic mitral valve insuff - History of Present Cardiac Event Onset Date: Enter Onset Date of cardiac illnesses in Comment field below Interventions with present event:: cardiomyopathy, nonrheumatic aniya valve insuff - Medications Home Medications: Ambulatory Orders Medication Instructions Recorded Albuterol Inhaler [Ventolin Hfa] 1 - 2 puff INHALATION Q4H PRN PRN 09/30/16 - Allergies Allergies/Adverse Reactions: Allergies amoxicillin [From Augmentin] Allergy (Verified 09/18/17 11:46) Hives cephalexin [From Keflex] Allergy (Verified 09/18/17 11:46) Hives clavulanic acid [From Augmentin] Allergy (Verified 09/18/17 11:46) Hives oxycodone Allergy (Verified 09/18/17 11:46) Hives vancomycin Allergy (Verified 09/18/17 11:46) Hives - Sleep Disorder Evaluation Hx of Sleep Apnea: No Do you snore loudly (louder than talking or can be heard through closed doors)?: No Do you often feel tired/ fatigued/ sleepy during daytime?: No Has anyone observed you stop breathing during sleep?: No History of Hypertension (for STOP score): Yes STOP Results: Negative Advanced Directives - Advanced Directives Power of Aquatic Centre Manager: No Living Will: No Advance Directives Information Provided: No Advance Directives on File: No DNR Order?:: No Past Medical History - Past Medical Illness Medical History: Past Medical History (Last Reviewed 09/18/17 @ 11:52 by Ese Vargas) Nonrheumatic tricuspid valve regurgitation (Acute) I36.1 Nonrheumatic mitral valve regurgitation (Acute) I34.0 Pulmonary hypertension (Acute) I27.20 Abnormal cardiac enzyme level (Acute) R74.8 Abnormal nuclear stress test (Acute) R94.39 Cardiomyopathy (Acute) I42.9 Valvular heart disease (Chronic) I38 Hyperkalemia (Acute) E87.5 Bigeminal pulse (Acute) R00.8 COPD (chronic obstructive pulmonary disease) (Chronic) J44.9 Hypertension (Chronic) I10 Alport syndrome (Chronic) 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 ESRD (end stage renal disease) on dialysis (Chronic) N18.6, Z99.2 - Past Surgical History Surgical History: Past Surgical History (Last Updated 10/04/17 @ 14:35 by Christopher Flores, MANUELITO, RVT) Surgically constructed arteriovenous fistula (Acute) Z98.890 H/O foot surgery Z98.890 left Hernia K46.9 History of left heart catheterization Z98.890 x 3 PD cath S/P laparoscopic cholecystectomy Z90.49 Status post colonoscopy Z98.890 H/O section Z98.891 S/P cardiac catheterization Z98.890 Normal coronary arteries per cath 18 - Family History Summary Family History: Family History (Last Reviewed 09/18/17 @ 11:52 by Ese Vargas) Mother Heart disease Social History - Smoking History Smoking Status: Never smoker Hx Smoking Exposure: No - Alcohol Use Alcohol Usage: No - Substance Abuse Hx Substance Use: No - Occupation Occupation (List type of work in comments):: Employed Hours worked per day:: 6 - Hobbies, Recreation, Social Activities Hobbies: Other - kids Recreational Activities: I am able to engage in all my recreational activities Social Environment - Status Marital Status: - Current Living Arrangements Living Environment:: Family - Children How many children do you have?: 2 Do any of your children live nearby?: Yes - Safety Do you feel safe in your surroundings?: Yes - Assistance Do you need any assistance at home?: none Review of Systems - Review of Systems Hints: Right click = Denies (Slash). Left click = Reports ([place]) Review of Present Symptoms: Reports: Shortness of Breath with Exertion, Appetite - Normal, Sleep - Normal. Denies: Shortness of Breath at Rest, PVD, Operative Discomfort, Angina, Wound Healing, Dizziness/Lightheadedness, Fatigue, Heart Arrhythmia/Irregularities, Appetite - Special Diet, Sexual Changes - Pain Is Patient Pain Free?: Yes Risk Factor Assessment - Vital Signs Pulse Ox: 98 - Pulse Pulse Rate: 63 Pulse Rhythm: Regular - Hypertension How long have you been treated?: 1 month Blood Pressure Sitting - Right Arm: 122/82 - Stress Stress: Long-standing - divorce - Diabetes Nutrition Referral for Diabetes: No - Obesity Height: 1.61 m Weight:: 72.575 kg Weight in Pounds: 160.0 lbs Weight Source: Standing Scale Body Mass Index (BMI): 27.8 Nutritional Referral for Obesity: No - Physical Inactivity Physical Inactivity: Reg Exercise 30 min/day, Physically demanding job, Recreational activity, None - Risk Stratification Risk Guidelines: Moderate Risk: Risk Factor for Smoking, Risk Factor for Dyslipidemia, Risk Factor for Diabetes, Risk Factor for Obesity, Risk Factor for Hypertension, Risk Factor for Sedentary Lifestyle, Risk Factor for Depression - For Smoking Smoking Risk Guidelines: Smoking Low Risk: None or quit greater than 6 months ago. Smoking Moderate Risk: Smoker or quit 6 months or less ago. Smoking High Risk: Smoker - For Dyslipidemia Dyslipidemia Risk Guidelines: Low Risk: Moderate Risk: High Risk: 15-25% fat 25.1-29% fat >/= 30% fat. <7% sat fat 7-9% sat fat >9% sat fat. <150 mg chol 150-299 mg chol >/= 300 mg chol. LDL <100 LDL 100-129 LDL >/= 130. Chol/HDL ratio <5.0 Chol/HDL ratio 5.0-6.0 Chol/HDL ratio >6.0. Triglycerides <100 Triglycerides 100-149 Triglycerides >/= 150 - For Diabetes Mellitus Diabetes Risk Guidelines: Diabetes Low Risk: HgA1c <6.5% and/or FBG <120. Diabetes Moderate Risk: HgA1c 6.6-7.9% and/or FBG 120- 180. Diabetes High Risk: HgA1c >/= 8% and/or FBG >180 - For Obesity/Overweight Obesity/Overweight Risk Guidelines: Obesity Low Risk: BMI <25.0. Obesity Moderate Risk: BMI 25-29.9. Obesity High Risk: BMI >/= 30.0 - For Hypertension Hypertension Risk Guidelines: Hypertension Low Risk: Systolic <120 and Diastolic <80. Hypertension Moderate Risk: Systolic 120-139 and Diastolic 80-89. Hypertension High Risk: Systolic >/= 140 and Diastolic >/= 90 - For Sedentary Lifestyle Sedentary Lifestyle Risk Guidelines: Sedentary Lifestyle Low Risk: >/= 1,500 kcal/week. Sedentary Lifestyle Moderate Risk: 700-1,499 kcal/week. Sedentary Lifestyle High Risk: < 700 kcal/week - For Depression Depression Risk Guidelines: Depression Low Risk: Not clinically depressed. Depression Moderate Risk: Mildly depressed. Depression High Risk: Clinically depressed - Family History Family History: Family History (Last Reviewed 09/18/17 @ 11:52 by Ese Vargas) Mother Heart disease Motivation - Motivation to Participate On a scale of 1 to 10, how prepared are you to commit to attending program?: 10 What do you see as barriers to successfully being able to complete the program?: none What do you see as the benefits of succesfully completing the program? In other words, what do you hope to get out of participating in the program?: more energy, improved health Are there issues you are dealing with that will interfere with completing the program?: none Do you have a spouse or signficant other, family or friends who will help support you to complete the program?: yes 10/04/17 6350 <Electronically signed by Christopher BILLINGS, RVT> Date Christopher BILLINGS, RVT Outcome assessment reviewed. Exercise plan approved as documented. Treatment plan and goals support patient needs/abilities. Continue with current plan. I certify the patient demonstrates improvement and remains willing and capable of participation. the patient continues to benefit from cardiac rehab services/training. The patient may continue at current intensity, endurance and modality and progress per protocol. 10/04/17 1711 <Electronically signed by Bunny Woodward MD> Cosigner Signature: Date Bunny Woodward MD CC: Signed AV FISTULA/DIALYSIS GRAFT Observed: 09/20/2017 Status: F Source: [place] SCAN 3:01 PM [facility] Cardiovascular Services [address] [place] [address] AV Fistula/Dialysis Graft Scan 09/20/17 1348 MR#: [id number] Acct: [id number] Name: FAUSTINA PELAYO Rep #: [id number] : 1975 42 From: Tatiana Posada MD Attending Dr: Tatiana Posada MD Status: REG CLI Ordering Dr: Tatiana Posada MD Date: 09/20/17 Location: [facility] Sex: F C Admitted: Reason For Study: Aneursym of AV fistula graft LEFT Proximal curyung vessel 151.0 cm/s. Proximal anastomosis 546.0 cm/s. Proximal graft 274.0 ml/min. Mid graft 115.0 ml/min. Distal graft 72.7 ml/min. Outflow - 47.1 cm/sec Volume flow [place] artery - 262 cc/min Prox graft - 2112 cc/min Mid graft - 1072 cc/min Dist graft -2934 cc/min. Interpretation Summary Patent, high flow left forearm arteriovenous fistula with volume flow at maximum distally at 2934cm/sec Aneurysmal change with maximal diameters: Proximal fistula: 0.86cm Mid fistula: 1.54cm Distal fistula: 1.85cm Ordering Physician: Tatiana Posada Referring Physician: Tatiana Posada Performed By: Lana Cook RVT 09/20/17 1501 Date Tatiana Posada MD CC: ZOFIA DEVRIES; Tatiana Posada MD Date Dictated: 09/20/17 1348 Date Transcribed: 09/20/17 1501 Amphibian Crewmember: Signed CARDIOLOGY VISIT Observed: 09/18/2017 Status: F Source: [place] REPORT 12:53 PM [facility]POS[facility] [address] [place] [address] OFFICE VISIT Date of Service: 09/18/17 MR#: [id number] Acct: [id number] Name: FAUSTINA PELAYO Rep #: [id number] : 1975 Provider: Bunny Woodward MD Age/Sex: 42/F Location: [facility] Status: Signed HPI HPI Details: FAUSTINA PELAYO, is a 42 F who presents to the office today for for outpatient hospital follow-up of a recent diagnosis of underlying non- CAD related cardiomyopathy and valvular heart disease with MR/TR. During her hospitalization she underwent noninvasive and invasive evaluation. The results are as noted below. She was treated medically and released home. Since being home she states she has good and bad days. These sometimes correlate with her dialysis therapy and sometimes not. She has days where she feels more short of breath and dyspneic. Other days her breathing is improved. She has days where she has worsening peripheral pitting edema and other days when it has improved. She has not been complaining of ongoing chest discomfort. She has had no issues with acute orthopnea or PND. There is been no near syncope or syncope. She had an ECG in the office today. She was noted to be in sinus rhythm with a ventricular rate in the mid 60s with left axis deviation and voltage criteria for LVH and poor R-wave progression. She also had ST and T-wave changes potentially compatible with her LVH. Intake Vital Signs09/18/17 Height 5 ft 3.5 in 09/18/17 Weight: 160 lb 09/18/17 Body Mass Index (BMI) 27.8 09/18/17 Blood Pressure 132/84 Intake Visit Reasons: 6 wk FU Allergies amoxicillin [From Augmentin] Allergy (Verified 09/18/17 11:46) Hives cephalexin [From Keflex] Allergy (Verified 09/18/17 11:46) Hives clavulanic acid [From Augmentin] Allergy (Verified 09/18/17 11:46) Hives oxycodone Allergy (Verified 09/18/17 11:46) Hives vancomycin Allergy (Verified 09/18/17 11:46) Hives Medications Albuterol Inhaler [Ventolin Hfa] 1 - 2 puff INHALATION Q4H PRN PRN #1 inhaler 09/30/16 [Rx Confirmed 09/18/17] Calcium Acetate [Phoslo Gel Cap] 667 mg PO TIDCM 09/30/16 [History Confirmed 09/18/17] Esomeprazole Mag Trihydrate [Nexium] 40 mg PO DAILY 08/18/17 [History Confirmed 09/18/17] Acetaminophen [Tylenol Tablet] 650 mg PO Q4H PRN PRN tab 08/19/17 [Rx Confirmed 09/18/17] Aspirin [Aspirin, Baby] 81 mg PO DAILY@0800 tab.chew 08/21/17 [Rx Confirmed 09/18/17] Isosorbide DN [Isordil] 10 mg PO TID #90 tab 08/21/17 [Rx Confirmed 09/18/17] hydrALAZINE [Apresoline] 10 mg PO TID #90 tab 08/21/17 [Rx Confirmed 09/18/17] carvedilol 6.25 mg tablet 12.5 mg PO BID #60 tab 09/18/17 [Rx Confirmed 09/18/17] lidocaine-prilocaine 2.5 %-2.5 % topical cream 1 applic TOPICAL .COMPLEX 09/18/17 [History Confirmed 09/18/17] sodium bicarbonate 650 mg tablet 650 mg PO BID tab 09/18/17 [History Confirmed 09/18/17] PFSH Medical History Nonrheumatic tricuspid valve regurgitation (Acute) Nonrheumatic mitral valve regurgitation (Acute) Pulmonary hypertension (Acute) Abnormal cardiac enzyme level (Acute) Abnormal nuclear stress test (Acute) Cardiomyopathy (Acute) Valvular heart disease (Chronic) Hyperkalemia (Acute) Bigeminal pulse (Acute) COPD (chronic obstructive pulmonary disease) (Chronic) Hypertension (Chronic) Alport syndrome (Chronic) ESRD (end stage renal disease) on dialysis (Chronic) Surgical History H/O foot surgery (Acute) Hernia (Acute) History of left heart catheterization (Acute) PD cath (Acute) S/P laparoscopic cholecystectomy (Acute) Status post colonoscopy (Acute) Surgically constructed arteriovenous fistula (Acute) H/O section (Resolved) S/P cardiac catheterization (Resolved) Family History Mother Heart disease Social History Smoking Status: Never smoker alcohol intake: never substance use type: does not use ROS Const Const: Positive for fatigue (continues all of the time); negative for weakness, weight gain, weight loss, frequent falls or excessive sweating Eyes Eyes: Negative for change in vision, blurry vision or transient loss of vision ENT ENT: Positive for dizziness (climbing stairs; becomes SOB and dizzy); negative for balance problems Cardio Chest Pain: No Palpitations: Yes (short bursts of palps 3-5 seconds) feels like its: pounding Edema: None, Right (+4), Left (+2) Muscle aches with walking: None Resp Respiratory: Positive for SOB with activity (increased at times; good/bad days) and SOB at rest GI GI: Negative vomiting or vomiting blood/hematemesis : Negative for hematuria Musc Musc: Positive for muscle aches/ myalgia (charley horse right leg at night); negative for balance problems, muscle weakness or joint pain Skin Skin: Negative non-healing lesions or rash Neuro Neuro: Positive for dizziness (climbing stairs; becomes SOB and dizzy); negative for weakness, blurry vision, lightheadedness, frequent falls or orthostatic symptoms Russ Hematologic/Lymphatic: Negative for easy bleeding Endo Endo: Positive for fatigue (continues all of the time); negative for excessive sweating Psych Psych: Negative for anxiety or depression Allergy Allergy/Immunology: Negative for hives, Negative for rash Cardiology Exam Const Appearance: cooperative, healthy appearing, comfortable, no acute distress, well developed and well groomed Nutritional Appearance: average body habitus Orientation: alert, awake and oriented x3 Head Head: normal to inspection, normocephalic and atraumatic Ears: hearing grossly impaired Nose: external nose normal Face and Sinus: face symmetric Mouth: oral mucosae normal Teeth and gingiva: fair dentition Eyes Eyelids: eyelids normal Conjunctivae: conjunctivae normal Pupils: PERRL EOM: EOM intact bilaterally Neck Neck: normal visual inspection and full ROM Carotids: normal carotid upstroke Chest Chest inspection: normal inspection of the chest and symmetric chest movement Auscultation: Bilateral: Clear to Auscultation Cardio Palpation: normal PMI Rate: regular rate Rhythm: regular rhythm Heart sounds: S1 normal, S2 normal and positive S4 Murmur: Grade 3/6, holosystolic, LLSB, apex and axilla GI GI: normal to inspection, bowel sounds present, soft and no hepatosplenomegaly Neuro General: alert and awake Skin Skin: no rashes or lesions noted Extremities Pulses: Normal: Right Radial Pulse, Left Radial Pulse Lower Extremity Edema: Trace: Bilateral Psych Psychological: normal affect Supplemental Info Transthoracic echocardiogram performed on 08/19/2017: Interpretation Summary The study was technically difficult. Mildly dilated left ventricle. Moderate segmental systolic dysfunction (see wall motion). The estimated ejection fraction is 30 %. Apical false tendon noted. The left atrium is mildly enlarged. There is mild mitral annular calcification. Mild diffuse mitral valve thickening. Moderate (2+) eccentric mitral valve insufficiency. Moderately severe (3+) eccentric tricuspid valve insufficiency. Mild (1+) pulmonic valve insufficiency. Right ventricular systolic pressure estimated to be 54 mmHg. Stress nuclear study performed on 08/20/2017: Impression: 1. Rest and stress SPECT Cardiolite nuclear imaging demonstrate myocardial perfusion changes appearing compatible with an area of previous myocardial injury/infarction, although, contribution from soft tissue attenuation/artifact cannot necessarily be excluded, with no myocardial perfusion changes consider diagnostic for associated stress-induced myocardial ischemia. 2. The gated Cardiolite study reports an LVEF of 39 %. Cardiac catheterization performed on 08/21/2017: CORONARY ANGIOGRAPHY DOMINANCE: Left Dominant LEFT HEART ASSESSMENT Left Ventricular Ejection Fraction: by LV Gram 35 % Global Hypokinesis - Moderate Elevated Left Ventricular End Diastolic Pressure LVEDP: 21 mmHg RIGHT HEART ASSESSMENT Thermal CO: 3.51 Thermal CI: 1.98 Violet CO: 3.84 Violet CI: 2.17 PW: 20/34 22 PA: 58/22 38 RV: 55/2 14 RA: 14/15 11 PVR: 365 Right Heart pressures - elevated Pulmonary Hypertension Severe Intracardiac shunting: None Calculated Qp/Qs Ratio: 0.8 considered nonhemodynamically significant LEFT MAIN: Angiographically normal LEFT ANTERIOR DECENDING ARTERY: Angiographically normal CIRCUMFLEX ARTERY: Angiographically normal RIGHT CORONARY ARTERY: Angiographically normal VALVE FINDINGS: Normal Aortic Valve function Mitral Valve Insufficiency - Grade 2 AORTIC ROOT: Angiographically normal COMPLICATIONS No Complications Assessment AND Plan 1. Cardiomyopathy, unspecified type I42.9 Plan At the present time she will continue medical management. This will include an attempt to increase her carvedilol therapy to 12.5 mg twice daily. If she tolerates this then hopefully her dose can be increased even further. Her other medications can be adjusted as deemed appropriate. She will need a future follow-up echocardiogram to monitor her response to medication to see if there is any obvious improvement in her underlying left ventricular wall motion and systolic function. Orders Orders: Referrals: 2. Nonrheumatic mitral valve insufficiency I34.0 Plan She does have underlying valvular heart disease as previously described. This includes both mitral and tricuspid valve insufficiency. Depending upon her response to medical therapy, her LV size wall motion systolic function, etc., she may need to be evaluated at a tertiary care center for consideration for valvular intervention either percutaneous or surgical based. Orders Orders: Referrals: 3. Nonrheumatic tricuspid valve regurgitation I36.1 Plan Again she has underlying tricuspid valve disease as well. She will continue evaluation care as noted above. Orders Orders: 4. Pulmonary HTN I27.20 Plan She does have elevated pulmonary pressures based upon her previous evaluation. She will continue medical therapy and support. She will continue dialysis therapy. Orders Referrals: 5. Essential hypertension I10 Plan Her essential hypertension appears to be relatively stable at the moment. She will continue to have her medications adjusted. Her blood pressures will need to be followed over time. Orders Referrals: 6. 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 Plan She does have underlying Alport syndrome. She continues to be followed by an for urology for this. Orders Referrals: 7. ESRD (end stage renal disease) on dialysis N18.6; Z99.2 Plan She continues on dialysis therapy. Certainly this can play a role in her volume status, hemodynamics, etc. Orders Referrals: Plan Detail Other Medications Changed: Additional Comments She will be scheduled for future outpatient follow-up to reassess her status. She will need follow-up echocardiograms. Again if she does not improve with medical adjustment, on dialysis, that she may need to be considered for tertiary care center evaluation as to whether or not she is a candidate for any type of intervention of her valvular heart disease. Thank you for allowing me to participate in the care of your patient. Please don't hesitate to call if any issues arise. This note was generated using a voice recognition system and there may be incorrect words, spelling or punctuation that were not noted when reviewing the office note prior to saving. 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 ESRD (end stage renal disease) on dialysis N18.6; Z99.2 Coding Level of Care Code Off vis,est,level 4 Diagnoses Cardiomyopathy, unspecified type I42.9 Cardiomyopathy type: unspecified Nonrheumatic mitral valve insufficiency I34.0 Nonrheumatic tricuspid valve regurgitation I36.1 Pulmonary HTN I27.20 Essential hypertension I10 Hypertension type: essential hypertension 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 ESRD (end stage renal disease) on dialysis N18.6; Z99.2 09/18/17 1253 <Electronically signed by Bunny Woodward MD> Date Bunny Woodward MD Cosigner Signature: Date (if applicable) CC: ZOFIA DEVRIES 12 LEAD EKG PERFORMED Observed: 09/18/2017 Status: F [place] [facility] [place] [facility] REPOSITORY [facility] [address] [place] [address] 12 Lead E[place] performed [place] [facility] 09/18/17 1145 MR#: [id number] Acct: [id number] Name: FAUSTINA PELAYO Rep #: [id number] : 1975 42 From: Bunny Woodward MD Attending Dr: Bunny Woodward MD Status: DEP AMB Ordering Dr: Bunny Woodward MD Date: 09/18/17 Location: [facility] Sex: F C Admitted: BMS/12 Lead EKG performed [place] [facility] ECG Report Interpretation Sinus Rhythm Left axis deviationVoltage criteria for Left ventricular hypertrophy Poor R-wave progression -may be secondary to left ventricular hypertrophy consider old anterior infarct. ST/T wave abnormality: consider Left ventricular hypertrophy repolarization; possible myocardial ischemia. ABNORMAL Electronically signed on 09/18/2017 at 17:47 by Bunny Woodward 09/18/17 1749 Date Bunny Woodward MD CC: ZOFIA DEVRIES Date Dictated: 09/18/17 1145 Date Transcribed: 09/18/171144 Amphibian Crewmember: PM Signed SURGERY VISIT REPORT Observed: 09/17/2017 Status: F Source: [place] 4:03 PM [facility] REPOSITORY [facility] 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 Is patient in pain?: No Allergies amoxicillin [From Augmentin] Allergy (Verified 09/17/17 15:15) Hives cephalexin [From Keflex] Allergy (Verified 09/17/17 15:15) Hives clavulanic acid [From Augmentin] Allergy (Verified 09/17/17 15:15) Hives oxycodone Allergy (Verified 09/17/17 15:15) Hives vancomycin Allergy (Verified 09/17/17 15:15) Hives Medications Albuterol Inhaler [Ventolin Hfa] 1 - 2 puff INHALATION Q4H PRN PRN #1 inhaler 09/30/16 [Rx Confirmed 09/17/17] Calcium Acetate [Phoslo Gel Cap] 667 mg PO TIDCM 09/30/16 [History Confirmed 09/17/17] Folic Acid/Vit Bcomp,C [Renal Vitamin Tablet] 0.8 mg PO DAILY 09/30/16 [History Confirmed 09/17/17] Esomeprazole Mag Trihydrate [Nexium] 40 mg PO DAILY 08/18/17 [History Confirmed 09/17/17] Acetaminophen [Tylenol Tablet] 650 mg PO Q4H PRN PRN tab 08/19/17 [Rx Confirmed 09/17/17] Aspirin [Aspirin, Baby] 81 mg PO DAILY@0800 tab.chew 08/21/17 [Rx Confirmed 09/17/17] Isosorbide DN [Isordil] 10 mg PO TID #90 tab 08/21/17 [Rx Confirmed 09/17/17] hydrALAZINE [Apresoline] 10 mg PO TID #90 tab 08/21/17 [Rx Confirmed 09/17/17] carvedilol 6.25 mg tablet 6.25 mg PO BID #60 tab 09/05/17 [Rx Confirmed 09/17/17] [facility] Medical History Nonrheumatic tricuspid valve regurgitation (Acute) Nonrheumatic mitral valve regurgitation (Acute) Pulmonary hypertension (Acute) Abnormal cardiac enzyme level (Acute) Abnormal nuclear stress test (Acute) Cardiomyopathy (Acute) Valvular heart disease (Chronic) Hyperkalemia (Acute) Bigeminal pulse (Acute) COPD (chronic obstructive pulmonary disease) (Chronic) Hypertension (Chronic) Alport syndrome (Chronic) ESRD (end stage renal disease) on dialysis (Chronic) Surgical History H/O foot surgery (Acute) Hernia (Acute) History of left heart catheterization (Acute) PD cath (Acute) S/P laparoscopic cholecystectomy (Acute) Status post colonoscopy (Acute) Surgically constructed arteriovenous fistula (Acute) S/P cardiac catheterization (Resolved) Family History Mother Heart disease Social History Smoking Status: Never smoker alcohol intake: never substance use type: does not use HPI HPI HPI: FAUSTINA PELAYO, is a 42 F who presents to the office today for surgical follow-up regarding a left forearm radial to cephalic arteriovenous fistula. The patient was recently hospitalized at the [place] [facility] because of hyperkalemia. She states that she has had no difficulty with her fistula access. There is no easy bleeding. She runs upon green. She has no pain. Her most recent intervention dates back all the way due August 28, 20152011. Because there was diminished flow I did a left upper extremity fistulogram and a 5 x 2 conquest arteriovenous angioplasty. She has not required any interventions since that time. During her hospitalization she had hemodialysis performed. There was concern expressed because of aneurysmal change of the fistula and the patient is being referred for surgical consultation. Again it is of note that she denies any discomfort. She has not had any easy bleeding. She herself feels that the fistula is functioning well. ROS General General: Yes weight change; no appetite, fatigue, colon cancer, breast cancer or weakness HEENT HEENT: No difficulty swallowing, eye injury, eye surgery, swollen glands or hoarseness Endo Endocrine: No thyroid disease, diabetes mellitus, thyroid cancer, Hair loss, heat intolerance or cold intolerance Skin Skin: No rash or changing moles Breast Breast: No left breast lump, right breast lump, nipple discharge, breast pain, abnormal mammogram, abnormal US or breast enlargement Musc Musculoskeletal: No back problems, arthritis, rheumatoid arthritis, gout or joint pain Cardio Cardiovascular: Yes heart disease and high blood pressure; no murmur, pacemaker, atrial fibrillation, heart attack, heart stent, palpitations, shortness of breat with exertion or chest pain Psych Psychiatric: No depression, anxiety or hearing voices Resp Respiratory: Yes shortness of breath, No sleep apnea, No cough, No COPD, No asthma, No emphysema, No wheezing Gastro Gastrointestinal: Yes acid reflux, Yes ulcers, No abdominal pain, No nausea or vomiting, No diarrhea, No constipation, No blood in stool, No hemorrhoids, No gallbladder problem, No black,tarry stools Russ Hematologic: Yes blood thinners, No blood disorders, No bleeding, No anemia, No blood clots Neuro Neurologic: No system reviewed and no additional complaints, except as docu, No as per HPI, No abnormal walking, No abnormal hearing, No abnormal movements, No abnormal speech, No behavioral changes, No burning sensations, No confusion, No seizure-like activity, No unsteadiness, No dizziness, No localized weakness, No frequent falls, No headache(s), No lack of coordination, No loss of vision, No memory loss, No numbness, No other visual disturbances, No radiating pain, No restless legs, No sensory deficit, No fainting, No tingling, No tremor(s), No weakness, No other Exam Chest Breast Palpation: No nipple discharge Cardio Heart Sounds: no murmurs Extrem Other: Left upper extremity radial to cephalic arteriovenous fistula with a very strong pulse thrill and bruit. Her bruit demonstrates absolutely clear full cardiac cycle flow. There is no findings that would suggest venous outflow obstruction. She has 2 areas of aneurysmal change at the site of previous multiple needle accessing. The skin overlying these areas is very good integrity. She is now being accessed adjacent to these aneurysms rather than directly through them. There is evidence that she still has accessible fistula in the more proximal foot portion of the fistula closer to the arterial anastomosis as well as between the 2 areas of aneurysmal change. Assessment AND Plan Problems 1. Problem with dialysis access, initial encounter T82.798A Plan It does not appear clinically that the patient is having no issues with her left forearm radiocephalic AV fistula. She certainly has areas of aneurysmal change however the skin is nicely intact. The patient has been hospitalized recently with hyperkalemia. She has some cardiac valvular insufficiency issues. I am not recommending surgical treatment of her forearm AV fistula at this time. I believe that there is still area that can be safely accessed. The patient would require temporary dialysis catheters here for revision were to be pursued. She may require that in the future but as noted her skin is nicely durable. I do recommend duplex imaging of her left forearm AV fistula. This hopefully will provide us direct measurements. I have then asked that the patient return to my office in 6 months time for ongoing surgical follow-up and duplex imaging at that time as well. She has had an opportunity to ask and have questions answered. I anticipate surgical follow-up at 6 months. Tatiana Posada M.D., F.A.C.S. Cc: Dr. Kwok Orders Orders: Coding Level of Care Code Off vis,new,level 2 Diagnoses Problem with dialysis access, initial encounter T82.898A Encounter type: initial encounter 09/17/17 1603 <Electronically signed by Tatiana Posada MD> Date Tatiana Posada MD Cosigner Signature: Date (if applicable) CC: Chava Kwok 12 LEAD ELECTROCARDIOGRAM Observed: 08/23/2017 Status: F Source: [place] 3:59 PM [facility] REPOSITORY [facility] Cardiovascular [place] [address] 12 Lead EKG 08/21/17 0514 MR#: [id number] Acct: [id number] Name: FAUSTINA HURTADO Rep #: [id number] : 1975 42 From: Georges Lopez MD Attending Dr: Tristin Shane DO Status: DIS IN Ordering Dr: Bunny Woodward MD Date: 08/21/17 Location: U Sex: F C Admitted: 08/18/17 Test Reason : AM EKG Blood Pressure : / mmHG Vent. Rate : 073 BPM Atrial Rate : 073 BPM P-R Int : 110 ms QRS Dur : 102 ms QT Int : 450 ms P-R-T Axes : -05 -54 005 degrees QTc Int : 495 ms Sinus rhythm with short DE Left anterior fascicular block Anteroseptal infarct , age undetermined Abnormal ECG When compared with ECG of 20-AUG-2017 07:53, MANUAL COMPARISON REQUIRED, DATA IS UNCONFIRMED Confirmed by GEORGES LOPEZ MD ([id number]), film or videotape editor SHARON WORTHY ([id number]) on 08/23/2017 3:59:05 PM Referred By: CHARANJIT Confirmed By:GEORGES LOPEZ MD 08/23/17 1559 Date Georges Lopez MD CC: Tristin Shane DO; ZOFIA DEVRIES; Bunny Woodward MD Signed 12 LEAD ELECTROCARDIOGRAM Observed: 08/23/2017 Status: F Source: [place] 3:48 PM [facility] REPOSITORY [facility] [address] [place] [address] 12 Lead EKG 08/19/17 0407 MR#: [id number] Acct: [id number] Name: FAUSTINA HURTADO Ana Rep #: [id number] : 1975 42 From: Georges Lopez MD Attending Dr: Tristin Shane DO Status: DIS IN Ordering Dr: Tc Ceja MD Date: 08/18/17 Location: [place] Sex: F C Admitted: 08/18/17 Test Reason : POST DIALYSIS EKG Blood Pressure : / mmHG Vent. Rate : 078 BPM Atrial Rate : 078 BPM P-R Int : 126 ms QRS Dur : 106 ms QT Int : 408 ms P-R-T Axes : 065 -39 123 degrees QTc Int : 465 ms Normal sinus rhythm Left axis deviation Anterior infarct , age undetermined T wave abnormality, consider lateral ischemia Abnormal ECG When compared with ECG of 30-SEP-2016 16:04, T wave inversion no longer evident in Inferior leads Confirmed by GEORGES LOPEZ MD ([id number]), film or videotape editor SHARON WORTHY ([id number]) on 08/23/2017 3:47:23 PM Referred By: MARCIAL Confirmed By:GEORGES LOPEZ MD 08/23/17 1547 Date Georges Lopez MD CC: Tristin Shane DO; ZOFIA DEVRIES; Tc Ceja MD Signed 12 LEAD ELECTROCARDIOGRAM Observed: 08/23/2017 Status: F Source: [place] 3:45 PM [facility] REPOSITORY [facility] Cardi[facility] Services [address] [place] [address] 12 Lead EKG 08/20/17 0753 MR#: [id number] Acct: [id number] Name: FAUSTINA HURTADO Ana Rep #: [id number] : 1975 42 From: Georges Lopez MD Attending Dr: Tristin Shane DO Status: DIS IN Ordering Dr: Tristin Shane DO Date: 08/20/17 Location: [facility] Sex: F C Admitted: 08/18/17 Test Reason : MORNING EKG Blood Pressure : / mmHG Vent. Rate : 078 BPM Atrial Rate : 078 BPM P-R Int : 110 ms QRS Dur : 104 ms QT Int : 414 ms P-R-T Axes : -08 -55 097 degrees QTc Int : 471 ms Sinus rhythm with short DE with occasional Premature ventricular complexes Left anterior fascicular block Anteroseptal infarct , age undetermined Abnormal ECG When compared with ECG of 19-AUG-2017 04:07, MANUAL COMPARISON REQUIRED, DATA IS UNCONFIRMED Confirmed by GEORGES LOPEZ MD ([id number]), film or videotape editor SHARON WORTHY ([id number]) on 08/23/2017 3:44:54 PM Referred By: MARCIAL Confirmed By:GEORGES LOPEZ MD 08/23/17 1541 Date Georges Lopez MD CC: Tristin Shane DO; ZOFIA DEVRIES Signed 12 LEAD ELECTROCARDIOGRAM Observed: 08/21/2017 Status: F Source: [place] 6:08 PM [facility] REPOSITORY [facility] Cardi[facility] Services [address] [place] [address] 12 Lead EKG 08/18/17 1708 MR#: [id number] Acct: [id number] Name: FAUSTINA HURTADO R Rep #: [id number] : 1975 42 From: Georges Lopez MD Attending Dr: Tristin Shane DO Status: ADM IN Ordering Dr: Roque Brothers MD Date: 08/18/17 Location: [facility] Sex: F C Admitted: 08/18/17 Test Reason : DYSRHYTHMIA Blood Pressure : / mmHG Vent. Rate : 076 BPM Atrial Rate : 076 BPM P-R Int : 106 ms QRS Dur : 106 ms QT Int : 390 ms P-R-T Axes : -04 168 085 degrees QTc Int : 438 ms Sinus rhythm with short DE with frequent Premature ventricular complexes Anterolateral infarct , age undetermined Abnormal ECG Confirmed by JOHN FISHER, GEORGES ([id number]), film or videotape editor SHARON WORTHY ([id number]) on 08/20/2017 2:38:07 PM Referred By: ASHLEY Confirmed By:GEORGES LOPEZ MD 08/20/17 1438 Date Georges Lopez MD CC: Tristin Shane DO; ZOFIA DEVRIES; Roque Brothers MD Signed DISCHARGE INSTRUCTION Observed: 08/21/2017 Status: F Source: [place] 1:40 PM [facility] REPOSITORY [facility] Medical Records Department [address] [place] [address] Instructions for Home/Discharge Instructions 08/21/17 1334 MR#: [id number] Acct: [id number] Name: FAUSTINA HURTADO R Rep #: [id number] : 1975 42 From: Tristin hSane DO PCP: ZOFIA DEVRIES Status: ADM IN ADDENDUM by Tristin Shane DO on 08/21/17 at 1340 Return to work 08/27/17. Date Tristin Shane DO cc: ZOFIA DEVRIES; Bunny Woodward MD; Edgardo Campo MD * Signed - Discharge Diagnoses Current Active Problems: Current Active and Chronic Problems Abnormal cardiac enzyme level (Acute) Abnormal nuclear stress test (Acute) Cardiomyopathy (Acute) Valvular heart disease (Chronic) Pulmonary hypertension (Acute) Mitral insufficiency (Acute) Hyperkalemia (Acute) Hyperkalemia (Acute) Bigeminal pulse (Acute) COPD (chronic obstructive pulmonary disease) (Chronic) Hypertension (Chronic) Alport syndrome (Chronic) ESRD (end stage renal disease) on dialysis (Chronic) You will use the following diet at home:: Cardiac, Renal (restricted protein/sodium) Your food should be the consistency of: Regular Your liquids should be the consistency of: Regular/Thin Discharge Activity: Return to Normal Activity Call your doctor if you observe: Fever of 101 or Higher, Shortness of breath, Chest pain, - - palpitations Allergies/Adverse Reactions: Allergies amoxicillin [From Augmentin] Allergy (Verified 08/18/17 16:47) Hives cephalexin [From Keflex] Allergy (Verified 08/18/17 16:47) Hives clavulanic acid [From Augmentin] Allergy (Verified 08/18/17 16:47) Hives oxycodone Allergy (Verified 08/18/17 16:47) Hives vancomycin Allergy (Verified 08/18/17 16:47) Hives Medications to take at Discharge Albuterol Inhaler [Ventolin Hfa] 1 - 2 puff INHALATION Q4H PRN PRN #1 inhaler 09/30/16 Calcium Acetate [Phoslo Gel Cap] 667 mg PO TIDCM 09/30/16 Folic Acid/Vit Bcomp,C [Renal Vitamin Tablet] 0.8 mg PO DAILY 09/30/16 Esomeprazole Mag Trihydrate [Nexium] 40 mg PO DAILY 08/18/17 Acetaminophen [Tylenol Tablet] 650 mg PO Q4H PRN PRN tablet 08/19/17 Aspirin [Aspirin, Baby] 81 mg PO DAILY@0800 tab.chew 08/21/17 Carvedilol [Coreg (Beta Jinny)] 6.25 mg PO BID #60 tab 08/21/17 Isosorbide DN [Isordil] 10 mg PO TID #90 tab 08/21/17 hydrALAZINE [Apresoline] 10 mg PO TID #90 tab 08/21/17 The following prescriptions were given: Carvedilol [Coreg (Beta Jinny)] 6.25 mg PO BID #60 tab hydrALAZINE [Apresoline] 10 mg PO TID #90 tab Isosorbide DN [Isordil] 10 mg PO TID #90 tab Primary Care Physician: Zofia Devries [Primary Care Provider] - Within 2 Weeks Please Follow Up With: Bunny Woodward MD When: 3-4 weeks Please Follow Up With: hemodialysis When: MWF Proposed Discharge Date: 08/21/17 08/21/17 1335 <Electronically signed by Tristin Shane DO> Date Tristin Shane DO CC: ZOFIA DEVRIES; Bunny Woodward MD; Edgardo Campo MD DISCHARGE SUMMARY Observed: 08/21/2017 Status: F Source: [place] 1:40 PM [facility] REPOSITORY [facility] Medical Records Department [address] [place] [address] Discharge Summary 08/21/17 1336 MR#: [id number] Acct: [id number] Name: FAUSTINA HURTADO Rep #: [id number] : 1975 42 From: Tristin Shane DO PCP: ZOFIA DEVRIES Status: ADM IN Location: [place] [address] Discharge Date and Diagnosis - Problem List Patient Problems: Active and Suspected Problems Mitral insufficiency (Acute) Pulmonary hypertension (Acute) Abnormal cardiac enzyme level (Acute) Abnormal nuclear stress test (Acute) Cardiomyopathy (Acute) Hyperkalemia (Acute) Hyperkalemia (Acute) Bigeminal pulse (Acute) Date of Admission: 08/18/17 Date of Discharge: 08/21/17 - Primary Discharge Diagnosis Active and Suspected Problems Mitral insufficiency (Acute) Pulmonary hypertension (Acute) Abnormal cardiac enzyme level (Acute) Abnormal nuclear stress test (Acute) Cardiomyopathy (Acute) Hyperkalemia (Acute) Hyperkalemia (Acute) Bigeminal pulse (Acute) - Secondary Discharge Diagnosis Chronic Problems Valvular heart disease (Chronic) COPD (chronic obstructive pulmonary disease) (Chronic) Hypertension (Chronic) Alport syndrome (Chronic) ESRD (end stage renal disease) on dialysis (Chronic) Hospital Course and Treatment Imaging Results: Clinical Impression(s) from Imaging Studies Chest X-Ray 08/18/17 17:45 IMPRESSION: Mild right lower lobe pneumonia. Electronically Signed: Sherwin David MD at 18:14 EDT , Service support , Operations: None Procedures: 2-D Echocardiogram, Cardiac catheterization Summary of Care Provided: The patient is a 42 year old F presents with weakness and palpitations. Have a potassium of 7.2. Patient has end-stage renal disease on hemodialysis. Patient had recently started on losartan. Patient had urgent dialysis and potassium to improve to 3.8. It was noted that the patient's troponins were slightly elevated. Part of that could be explained by decreased clearance due to her end-stage renal disease but previously they had been normal. Patient did undergo a stress test that was normal except for what appear to be an old myocardial infarction or soft tissue attenuation. Patient also had an echocardiogram that showed severe pulmonary hypertension but also had an ejection fraction of 30%. Cardiology was consulted and patient underwent a left heart catheterization today. Patient was noted to have severe pulmonary hypertension ejection fraction of 35%. Patient has mitral insufficiency. Patient has been started on Coreg plus hydralazine and Isordil. Patient given her hyperkalemia is not a candidate for angiotensin receptor blockers or NILDA inhibitors. Patient will follow up with cardiology as outpatient for definitive management of her mitral valve insufficiency and possible valve replacement at a later time. Patient had been seeing a Dr. Pedroza [place] but she is wishing to transfer her service to Dr. Woodward here in [place]. For the patient's bigeminy, which was the main concern when patient came in, was likely due to her hyperkalemia but also her cardiomyopathy, which is nonischemic. [] Discharge Diet: Low fat/ Low Cholesterol, Renal Diet Discharge Activity: Return to Normal Activity Call your doctor if you observe: Fever of 101 or Higher, Shortness of breath, Chest pain, - - palpitations Home Medications: Medications to take at Discharge Albuterol Inhaler [Ventolin Hfa] 1 - 2 puff INHALATION Q4H PRN PRN #1 inhaler 09/30/16 Calcium Acetate [Phoslo Gel Cap] 667 mg PO TIDCM 09/30/16 Folic Acid/Vit Bcomp,C [Renal Vitamin Tablet] 0.8 mg PO DAILY 09/30/16 Esomeprazole Mag Trihydrate [Nexium] 40 mg PO DAILY 08/18/17 Acetaminophen [Tylenol Tablet] 650 mg PO Q4H PRN PRN tablet 08/19/17 Aspirin [Aspirin, Baby] 81 mg PO DAILY@0800 tab.chew 08/21/17 Carvedilol [Coreg (Beta Jinny)] 6.25 mg PO BID #60 tab 08/21/17 Isosorbide DN [Isordil] 10 mg PO TID #90 tab 08/21/17 hydrALAZINE [Apresoline] 10 mg PO TID #90 tab 08/21/17 Following Prescrptions Were Given to Patient: Carvedilol [Coreg (Beta Jinny)] 6.25 mg PO BID #60 tab hydrALAZINE [Apresoline] 10 mg PO TID #90 tab Isosorbide DN [Isordil] 10 mg PO TID #90 tab Primary Care Physician: Zofia Devries [Primary Care Provider] - Within 2 Weeks Please Follow Up With: Bunny Woodward MD When: 3-4 weeks Please Follow Up With: hemodialysis When: MWF Disposition: Home Medical Necessity - Tobacco Use Smoking Status: Never smoker Tobacco Use: Secondhand Meaningful Use Info Meaningful Use Diagnoses (Choose all that apply): None applicable Code Visit Inpatient E AND M: 97034 Disch Hosp 08/21/17 1340 <Electronically signed by Tristin Shane DO> Date Tristin Shane DO Cosigner Signature (if applicable): Date CC: Tristin Shane DO; ZOFIA EDVRIES; Bunny Woodward MD Signed VENOUS BLOOD GAS Collected: 08/21/2017 Status: F Source: [place] 9:09 AM [facility] REPOSITORY TYPE CODE TESTS RESULT OUT OF RANGE REFERENCE UNITS LAB L9000.9990 Normal BLD GAS [place] TYPE LAB L9002.1110 7.32-7.42 High VBGpH - 7.45 I-STAT LAB L9002.1212 41-51 mmHg Low VBG pCO2 36.0 - ISTA LAB L9002.1310 25-40 mmHg Normal VBG PO2 31 I-STAT LAB L9002.2300 22-26 mmol/L Normal VBG HCO3 25 ISTAT LAB L9002.2400 -1.0-3.5 mmol/L Normal VBG BE 1 ISTAT LAB L9002.2410 50-70 % Normal VBG SO2 63 ISTAT LAB L9002.2415 23-33 mmol/L Normal VBG O2 CT 26 ISTAT Performed By: #### L9000.0810 #### [facility] Point of Care [facility] [place] [address] VENOUS BLOOD GAS Collected: 08/21/2017 Status: F Source: [place] 9:03 AM [facility] REPOSITORY TYPE CODE TESTS RESULT OUT OF RANGE REFERENCE UNITS LAB L9000.9990 Normal BLD GAS [place] TYPE LAB L9002.1110 7.32-7.42 High VBGpH - 7.44 I-STAT LAB L9002.1212 41-51 mmHg Low VBG pCO2 36.0 - [facility] LAB L9002.1310 25-40 mmHg Normal VBG PO2 29 I-STAT LAB L9002.2300 22-26 mmol/L Normal VBG HCO3 24 ISTAT LAB L9002.2400 -1.0-3.5 mmol/L Normal VBG BE 0 ISTAT LAB L9002.2410 50-70 % Normal VBG SO2 57 ISTAT LAB L9002.2415 23-33 mmol/L Normal VBG O2 CT 25 ISTAT Performed By: #### L9000.0810 #### [facility] Point of Care [address] [place] [address] VENOUS BLOOD GAS Collected: 08/21/2017 Status: F Source: [place] 9:00 AM [facility] REPOSITORY TYPE CODE TESTS RESULT OUT OF RANGE REFERENCE UNITS LAB L9000.9990 Normal BLD GAS [place] TYPE LAB L9002.1110 7.32-7.42 High VBGpH - 7.44 I-STAT LAB L9002.1212 41-51 mmHg Low VBG pCO2 36.6 - ISTA LAB L9002.1310 25-40 mmHg Normal VBG PO2 28 I-STAT LAB L9002.2300 22-26 mmol/L Normal VBG HCO3 25 ISTAT LAB L9002.2400 -1.0-3.5 mmol/L Normal VBG BE 1 ISTAT LAB L9002.2410 50-70 % Normal VBG SO2 55 ISTAT LAB L9002.2415 23-33 mmol/L Normal VBG O2 CT 26 ISTAT Performed By: #### L9000.0810 #### [facility] Point of Care [address] [place], [place] [address]pablo [address] [place], [place] [id number] VENOUS BLOOD GAS Collected: 08/21/2017 Status: F Source: [place] 8:55 AM [facility] REPOSITORY TYPE CODE TESTS RESULT OUT OF RANGE REFERENCE UNITS LAB L9000.9990 Normal BLD GAS [place] TYPE LAB L9002.1110 7.32-7.42 High VBGpH - 7.45 I-STAT LAB L9002.1212 41-51 mmHg Low VBG pCO2 35.9 - ISTA LAB L9002.1310 25-40 mmHg Normal VBG PO2 37 I-STAT LAB L9002.2300 22-26 mmol/L Normal VBG HCO3 25 ISTAT LAB L9002.2400 -1.0-3.5 mmol/L Normal VBG BE 1 ISTAT LAB L9002.2410 50-70 % High VBG SO2 74 ISTAT LAB L9002.2415 23-33 mmol/L Normal VBG O2 CT 26 ISTAT Performed By: #### L9000.0810 #### [facility] Point of Care [address] [place] [address] VENOUS BLOOD GAS Collected: 08/21/2017 Status: F Source: [place] 8:43 AM [facility] REPOSITORY TYPE CODE TESTS RESULT OUT OF RANGE REFERENCE UNITS LAB L9000.9990 Normal BLD GAS [place] TYPE LAB L9002.1110 7.32-7.42 High VBGpH - 7.46 I-STAT LAB L9002.1212 41-51 mmHg Low VBG pCO2 37.2 - ISTA LAB L9002.1310 25-40 mmHg Normal VBG PO2 27 I-STAT LAB L9002.2300 22-26 mmol/L Normal VBG HCO3 26 ISTAT LAB L9002.2400 -1.0-3.5 mmol/L Normal VBG BE 2 ISTAT LAB L9002.2410 50-70 % Normal VBG SO2 55 ISTAT LAB L9002.2415 23-33 mmol/L Normal VBG O2 CT 27 ISTAT Performed By: #### L9000.0810 #### [facility] [place] [address] VENOUS BLOOD GAS Collected: 08/21/2017 Status: F Source: [place] 8:38 AM [facility] REPOSITORY TYPE CODE TESTS RESULT OUT OF RANGE REFERENCE UNITS LAB L9000.9990 Normal BLD GAS [place] TYPE LAB L9002.1110 7.32-7.42 High VBGpH - 7.47 I-STAT LAB L9002.1212 41-51 mmHg Low VBG pCO2 35.9 - ISTA LAB L9002.1310 25-40 mmHg Normal VBG PO2 32 I-STAT LAB L9002.2300 22-26 mmol/L Normal VBG HCO3 26 ISTAT LAB L9002.2400 -1.0-3.5 mmol/L Normal VBG BE 2 ISTAT LAB L9002.2410 50-70 % Normal VBG SO2 65 ISTAT LAB L9002.2415 23-33 mmol/L Normal VBG O2 CT 27 ISTAT Performed By: #### L9000.0810 #### [facility] Point of Care [address] [place] [address] VENOUS BLOOD GAS Collected: 08/21/2017 Status: F Source: [place] 8:34 AM [facility] REPOSITORY TYPE CODE TESTS RESULT OUT OF RANGE REFERENCE UNITS LAB L9000.9990 Normal BLD GAS [place] TYPE LAB L9002.1110 7.32-7.42 High VBGpH - 7.48 I-STAT LAB L9002.1212 41-51 mmHg Low VBG pCO2 30.6 - ISTA LAB L9002.1310 25-40 mmHg Normal VBG PO2 39 I-STAT LAB L9002.2300 22-26 mmol/L Normal VBG HCO3 23 ISTAT LAB L9002.2400 -1.0-3.5 mmol/L Normal VBG BE 0 ISTAT LAB L9002.2410 50-70 % High VBG SO2 79 ISTAT LAB L9002.2415 23-33 mmol/L Normal VBG O2 CT 24 ISTAT Performed By: #### L9000.0810 #### [facility] Point of Care [address] [place] [address] VENOUS BLOOD GAS Collected: 08/21/2017 Status: F Source: [place] 8:31 AM [facility] REPOSITORY TYPE CODE TESTS RESULT OUT OF RANGE REFERENCE UNITS LAB L9000.9990 Normal BLD GAS [place] TYPE LAB L9002.1110 7.32-7.42 High VBGpH - 7.46 I-STAT LAB L9002.1212 41-51 mmHg Low VBG pCO2 36.8 - ISTA LAB L9002.1310 25-40 mmHg Normal VBG PO2 28 I-STAT LAB L9002.2300 22-26 mmol/L Normal VBG HCO3 26 ISTAT LAB L9002.2400 -1.0-3.5 mmol/L Normal VBG BE 2 ISTAT LAB L9002.2410 50-70 % Normal VBG SO2 57 ISTAT LAB L9002.2415 23-33 mmol/L Normal VBG O2 CT 27 ISTAT Performed By: #### L9000.0810 #### [facility] Point of Care [address] [place] [address] BLOOD GASES BY CPS Collected: 08/21/2017 Status: F Source: [place] 8:27 AM [facility] REPOSITORY TYPE CODE TESTS RESULT OUT OF RANGE REFERENCE UNITS LAB L9000.9990 Normal BLD GAS ART TYPE LAB L9001.1110 7.35-7.45 High pH - 7.53 I-STAT LAB L9001.1210 35-45 mmHg Low pCO2 - 31.8 ISTAT LAB L9001.1310 75-100 mmHG Low PO2 71 I-STAT LAB L9001.2300 22-26 mmol/L High HCO3 26.4 ISTAT LAB L9001.2400 -2 to +2 mmol/L High BE ISTAT 4 LAB L9001.2415 mmol/L Normal TOTAL CO2 27 ISTAT LAB L9001.2425 95-99 % Normal SO2 ISTAT 96 Performed By: #### L9000.0800 #### [facility] Point of Care [address] [place] [address] CBC W/DIFF, AUTOMATED Collected: 08/21/2017 Status: F Source: [place] 5:55 AM [facility] REPOSITORY TYPE CODE TESTS RESULT OUT OF RANGE REFERENCE UNITS LAB L100.1000 4.4-11.0 K/mm3 Normal WBC 7.7 LAB L100.1200 4.2-5.4 M/mm3 Low RBC 3.36 LAB L100.1300 12.0-15.0 g/dl Low HGB 11.0 LAB L100.1400 37-47 % Low HCT 34.1 LAB L100.1500 81-99 fL High MCV 101.5 LAB L100.1600 27.0-32.0 pg High MCH 32.7 LAB L100.1700 32-36 g/gl Normal MCHC 32.3 LAB L100.1810 11.6-14.6 % High RDW CV 19.2 LAB L100.1820 35.1-43.9 fl High RDW SD 71.5 LAB L100.1900 150-450 K/mm3 Low PLT 138 LAB L100.2000 6.2-12.0 fl Normal MPV 11.4 LAB L100.2100 47-70 % High NEUT% 78.9 LAB L100.2200 19-41 % Low LY% 14.1 LAB L100.2300 0-10 % Normal MONO% 5.0 LAB L100.2400 0-5 % Normal EO% 1.6 LAB L100.2500 0-1 % Normal BASO% 0.3 LAB L100.2550 0.0-0.9 % Normal IM GRAN % 0.100 Result Comment: IG% - Immature Granulocytes (promyelocytes, myelocytes and metamyelocytes) > 1% indicates that a LEFT SHIFT is Present. LAB L100.2620 2.0-7.7 X10 3/uL Absolute Neut Normal 6.1 LAB L100.2720 0.83-4.51 X10 3/ul Absolute Lymph Normal 1.09 LAB L100.4500 SMEAR COMMENT Normal SCANNED LAB L100.7300 ANISO Normal 2+ LAB L100.7600 HYPOCHROMASIA Normal 2+ LAB L100.7800 MACROCYTE Normal 3+ Performed By: #### L100.0100 #### [facility] [address] [facility]. [place], [place], [id number] PROTHROMBIN TIME W/INR Collected: 08/21/2017 Status: F Source: [place] 5:55 AM [facility] REPOSITORY TYPE CODE TESTS RESULT OUT OF RANGE REFERENCE UNITS LAB L300.4150 11.7-14.9 SECONDS Normal PROTIME 14.1 LAB L300.4200 Normal INR 1.1 Performed By: #### L300.3900, L300.4310 #### [facility] [address] [facility] [place], [address] PARTIAL THROMBOPLAST Collected: 08/21/2017 Status: F Source: [place] TIME 5:55 AM [facility] REPOSITORY TYPE CODE TESTS RESULT OUT OF RANGE REFERENCE UNITS LAB L300.4310 24.1-36.2 Seconds Normal PTT 31.8 Performed By: #### L300.3900, L300.4310 #### [facility] [address] [facility] [place], [address] BASIC METABOLIC Collected: 08/21/2017 Status: F Source: [place] PROFILE (BMP) 5:55 AM [facility] REPOSITORY TYPE CODE TESTS RESULT OUT OF RANGE REFERENCE UNITS LAB L501.0100 74-106 mg/dL Normal GLU 85 Result Comment: Please note revised GLUCOSE reference range effective 2017. LAB L501.1000 7-18 mg/dL High BUN 55 LAB L501.1100 0.55-1.02 mg/dL High alert CREAT,SERUM 8.35 Result Comment: Critical Result(s) Called at: 06:54:03 08/21/2017 by: Karlee Orosco to Calvin The validity of the calculated GFR AND GFRAA in patients over 70 years has not been determined. Clinical correlation is essential. LAB L501.1110 >60 mL/min Low EST GFR 6 Result Comment: Non- GFR Calc LAB L501.1115 >60 mL/min Low EST GFR - AA 7 Result Comment: GFR Calc LAB L501.1255 ml/min Normal Estimated CRCL 7.33 LAB L501.1300 10-20 RATIO Low BUN/CRE 6.6 LAB L501.2200 8.5-10. mg/dL Low 1 CA 6.9 LAB L501.5300 136-145 mmol/L Normal NA 137 LAB L501.5600 3.5-5.1 mmol/L High K 5.8 LAB L501.5900 98-107 mmol/L Normal CL 100 LAB L501.6100 21.0-32 mmol/L Normal .0 CO2 26.0 LAB L501.6200 5-15 Normal GAP 11 Performed By: #### L500.2500, L500.3400, L500.4100 #### [facility] [address] [place] [address]. [place], [place], [id number] LIVER PROFILE Collected: 08/21/2017 Status: F Source: [place] 5:55 AM [facility] REPOSITORY TYPE CODE TESTS RESULT OUT OF RANGE REFERENCE UNITS LAB L501.1500 6.4-8.2 g/dL Low T PROT 6.1 LAB L501.1800 3.2-5.0 g/dL Low ALB 3.1 LAB L501.1950 2.2-4.2 g/dL Normal GLOB 3.0 LAB L501.4100 15-37 U/L Normal AST 31 LAB L501.4305 45-117 U/L Normal ALK P 91 LAB L501.4405 13-56 U/L Normal ALT 56 LAB L501.4600 0.20-1.00 mg/dL High T BILI 1.50 LAB L501.4700 0.00-0.30 mg/dL Normal D BILI 0.18 Performed By: #### L500.2500, L500.3400, L500.4100 #### [facility] [address] [place], [address] LIPID PROFILE Collected: 08/21/2017 Status: F Source: [place] 5:55 AM [facility] REPOSITORY TYPE CODE TESTS RESULT OUT OF RANGE REFERENCE UNITS LAB L501.4900 200 mg/dL Normal CHOL 102 Result Comment: <200 mg/dL Desirable 200-240 mg/dL Borderline >240 mg/dL High Risk LAB L501.5000 mg/dL Normal TRIG 83 Result Comment: The drugs N-Acetylcysteine and Metamizole may falsely depress this assay. Serum Triglycerides Reference Interval Normal <150 mg/dL Borderline high 150 - 199 mg/dL High 200 - 499 mg/dL Very High > or = 500 mg/dL LAB L501.6400 mg/dL Low HDL 31 Result Comment: The drugs N-Acetylcysteine and Metamizole may falsely depress this assay. Reference Range HDL <40 mg/dL Low HDL Cholesterol HDL >or= 60 mg/dL High HDL Cholesterol LAB L501.6500 0-130 mg/dL Normal LDL 54 LAB L501.6600 5-40 mg/dL Normal VLDL 17 Performed By: #### L500.2500, L500.3400, L500.4100 #### [facility] [address] [place], [address] CONSULTATION Observed: 08/20/2017 Status: F Source: [place] 5:20 PM [facility] REPOSITORY [facility] Medical Records Department [address] [place] [address] Consultation 08/20/17 1704 MR#: [id number] Acct: [id number] Name: FAUSTINA HURTADO Ana Rep #: [id number] : 1975 42 From: Bunny Woodward MD PCP: ZOFIA DEVRIES Status: ADM IN Location: [place] [address] Problem List (1) Abnormal cardiac enzyme level Status: Acute (2) Abnormal nuclear stress test Status: Acute (3) Cardiomyopathy Status: Acute Qualifiers: Cardiomyopathy type: unspecified Qualified Code(s): I42.9 - Cardiomyopathy, unspecified (4) Valvular heart disease Status: Chronic (5) Hypertension Status: Chronic Qualifiers: Hypertension type: essential hypertension Qualified Code(s): I10 - Essential (primary) hypertension (6) Alport syndrome Status: Chronic (7) COPD (chronic obstructive pulmonary disease) Status: Chronic Qualifiers: COPD type: unspecified COPD Qualified Code(s): J44.9 - Chronic obstructive pulmonary disease, unspecified Reason for Consult Date of Consultation: 08/20/17 History of Present Illness: The patient is a 42 year old white female with a past medical history of hypertension, valvular heart disease, 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 She states to the best of her knowledge, other than being diagnosed with leaky valves in the past she has not been aware of any other cardiovascular condition. She has been evaluated by cardiology in [place], [place] who recommended continued observational follow-up at that time. In the meantime she states she was started on a new antihypertensive therapy agent (an ARB) recently. She notes at the end of last week she felt tired, fatigued, and sluggish. She states she felt as if she was hit by a truck. She does not seem to sense chest discomfort. She may have been more short of breath and dyspneic. There was no orthopnea or PND or worsening peripheral pitting edema. She did note palpitations. There was no loss of consciousness. She subsequently presented to the hospital for further evaluation. She was found to have evidence of hyperkalemia. She subsequently has undergone further evaluation which is demonstrated abnormal troponin I levels. Her ECG demonstrated the appearance of sinus rhythm/ectopic atrial rhythm with poor R-wave progression with an anterolateral MN pattern of indeterminate age cannot be excluded and PVCs in the form of ventricular bigeminy. She subsequently underwent further evaluation with a combination of a transthoracic echocardiogram and a pharmacologic stress nuclear imaging study. The transthoracic echocardiogram demonstrated the appearance of segmental left ventricular regional wall motion abnormalities with an estimated LVEF of approximately 30%. There was mild left atrial enlargement, moderate MR, moderately severe TR, mild DE, and an estimated RV systolic pressure 54 mmHg. The pharmacologic stress nuclear imaging study suggestive findings potentially compatible with an area of previous myocardial injury/infarction involving portions of the anterior and anteroseptal and apical segments although soft tissue attenuation/artifact could not be excluded. The gated LVEF was 39%. Chest x-ray was previously reported as suggesting a possible right sided infiltrate/pneumonia. The patient has been on antibiotic therapy. [] Past Medical History Allergies/Adverse Reactions: Allergies amoxicillin [From Augmentin] Allergy (Verified 08/18/17 16:47) Hives cephalexin [From Keflex] Allergy (Verified 08/18/17 16:47) Hives clavulanic acid [From Augmentin] Allergy (Verified 08/18/17 16:47) Hives oxycodone Allergy (Verified 08/18/17 16:47) Hives vancomycin Allergy (Verified 08/18/17 16:47) Hives Home Medications: Ambulatory Orders Medication Instructions Recorded Past Medical History (Chronic Problems): Chronic Problems Valvular heart disease (Chronic) COPD (chronic obstructive pulmonary disease) (Chronic) Hypertension (Chronic) Alport syndrome (Chronic) ESRD (end stage renal disease) on dialysis (Chronic) Lives: Spouse/ Significant Other Smoking Status: Never smoker Tobacco Use: Secondhand Alcohol: None Drugs: None Review of Systems - Review of Systems General: Reports: Fatigue. Denies: Fever, Night Sweats Cardiovascular: Reports: Shortness of Breath, Palpitations. Denies: Chest Discomfort, Orthopnea, PND, Peripheral Edema, Lightheadedness, Dizziness, Near Syncope, Syncope Respiratory: Reports: Shortness of Breath. Denies: Cough, Sputum Production, Hemoptysis Gastrointestinal: Denies: Hematemesis, Hematochezia, Melena Genitourinary: Denies: Dysuria, Hematuria Skin: Denies: Rash Subjectve: This is a 42-year-old white female who appears to be resting comfortably at the moment in no acute distress. Objective: Vital Signs Temp Pulse Resp BP Pulse Ox 98.0 F 71 16 144/98 H 100 08/20/17 12:00 08/20/17 15:15 08/20/17 12:00 08/20/17 12:00 08/20/17 12:00 Oxygen Delivery Method Room Air Weight: 162 lb 7.691 oz Body Mass Index (BMI) 29.2 Intake and Output for Last 24 Hours Intake Total 902 / 902 Output Total 2099 0 / 0 Balance -1198 / -1198 General: Awake, Alert, Oriented x 3, Cooperative, No Acute Distress Neck: No JVD Lungs: Clear to auscultation Cardiovascular: Regular Rhythm, Premature Ectopic Beats, Normal S1, Normal S2 Murmur Murmur: Grade 3/6, Mid Systolic, LLSB, [place], Axilla, LVOT, Sternal Notch Vascular: No Carotid Bruits Abdomen: Bowel Sounds Present, Soft, Non Tender Extremities: No Cyanosis, No Clubbing, No edema Psych/Mental Status: Appropriate 08/19/17 18:40: Urine Color Straw, Urine Clarity Cloudy, Urine pH 8.0, Ur Specific [place] 1.010, Urine Protein 100 H, Urine Glucose (UA) 50 H, Urine Ketones Negative, Urine Occult Blood 10 H, Urine Nitrite Negative, Urine Bilirubin Negative, Urine Urobilinogen Normal, Ur Leukocyte Esterase 100 H 08/20/17 05:35: WBC 7.1, RBC 3.09 L, Hgb 10.3 L, Hct 32.1 L, MCV 103.9 H, MCH 33.3 H, MCHC 32.1, RDW 18.9 H, RDW Differential 70.0 H, Plt Count 115 L, MPV 12.0, Immature Gran % (Auto) 0.100, Neut % (Auto) 72.3 H, Lymph % (Auto) 20.5, Colbert % (Auto) 5.3, Eos % (Auto) 1.7, Baso % (Auto) 0.1, Absolute Neuts (auto) 5.2, Total Counted Not Reportable 08/20/17 05:35: PT 14.4, INR 1.1, APTT 30.8 08/20/17 05:35: Sodium 139, Potassium 5.4 H, Chloride 102, Carbon Dioxide 25.0, Anion Gap 12, BUN 74 H, Creatinine 9.34 H*, Est GFR (MDRD) Af Amer 6 L, Est GFR (MDRD) Non-Af 5 L, BUN/Creatinine Ratio 7.9 L, Glucose 84, Calcium 7.7 L Rhythm: Sinus rhythm; PVCs EKG: As noted above ECHO: As noted above Stress Test: As noted above CXR: As noted above; please see official report Assessment/Plan 1. Abnormal cardiac enzymes The patient does have abnormal cardiac enzymes. The concerning etiology is underlying cardiovascular disease especially based upon her other noninvasive findings. However the same time false-positive elevation secondary to her underlying renal disease cannot necessarily be excluded. From the cardiac standpoint she appears to be without acute symptoms at the moment. She will continue medical management for the possibility of underlying CAD. This will include aspirin and antiplatelet therapy, nitrates as needed, beta-blockers, etc. It was felt the patient should be considered, based upon her symptoms, her objective findings with respect to her ventricular ectopy, her objective findings with respect to her noninvasive findings, etc. to undergo further definitive evaluation with diagnostic cardiac catheterization. The procedure and risks were discussed with the patient. She was agreeable to this approach. 2. Abnormal pharmacologic stress nuclear imaging study The patient does have an abnormal pharmacologic stress nuclear imaging study as noted above. This does raise concerns of the possibility of underlying CAD contributing to her symptoms and objective findings. Based upon her entire clinical presentation it was felt prudent that she continue medical management and undergo further evaluation as noted above. She was agreeable to this approach. 3. Cardiomyopathy The patient's LV systolic function appears to be diminished based upon both her noninvasive studies. It is unclear whether this is related to CAD, her valvular heart disease, or a separate underlying cardiomyopathy. At the present time she appears without symptoms of acute volume overload/CHF. She will continue medical management which can include agents such as nitrates, beta-blockers, and afterload reducing agent such as hydralazine. She will also need to continue her volume control with her hemodialysis. She will undergo further evaluation and care as noted above. 4. Valvular heart disease She is aware of underlying leaky valves the details are unknown. She has not had any follow-up since her previous outpatient cardiovascular visit approximately 1 year or so ago in [place], [place]. Her transthoracic echocardiogram suggests a combination of MR and TR. It is unclear as to whether or not this is contributing to her other objective findings or secondary to her other objective findings. She will continue medical management and be evaluated as noted above. 5. Hypertension Her blood pressures will be monitored. She will continue antihypertensive therapy. 6. End-stage renal disease on chronic hemodialysis secondary to Alport syndrome She will continue evaluation care per nephrology. Comment: The above was discussed with the patient, her significant other, and Dr. Shane. This note was generated with [employer] software. It may contain incorrect words, spelling, and punctuation that were not noted in checking the note before signing. 08/20/17 1720 <Electronically signed by Bunny Woodward MD> Date Bunny Woodward MD Cosigner Signature (if applicable): Date CC: ZOFIA DEVRIES; Bunny Woodward MD; Edgardo Campo MD Signed ECHOCARDIOGRAM COMPLETE Observed: 08/20/2017 Status: F Source: [place] 2:16 PM [facility] REPOSITORY [facility] Cardiovascular Services [address] [place] [id number] Echo Complete 08/20/17 0817 MR#: [id number] Acct: [id number] Name: FAUSTINA HURTADO Rep #: [id number] : 1975 42 From: Bunny Woodward MD Attending Dr: Tristin Shane DO Status: ADM IN Ordering Dr: Tristin Shane DO Date: 08/19/17 Location: [facility] Sex: F C Admitted: 08/18/17 Reason For Study: PVCs, ARRHYTHMIA Procedure This was a 2D Doppler, Color Flow transthoracic echocardiogram. The exam was of fair technical quality due to body habitus. The study was technically difficult. Exam performed portable in patient room. Left Ventricle Mildly dilated left ventricle. Apical false tendon noted. Moderate segmental systolic dysfunction (see wall motion). The estimated ejection fraction is 30 %. Unable to assess diastolic dysfunction. Infero-Basal: Hypokinetic. Basal inferoseptal: Hypokinetic. Mid-Anterior : Hypokinetic. Mid- Lateral : Hypokinetic. Mid-Posterior: Hypokinetic. Mid-Inferior: Hypokinetic. Mid-inferoseptal : Hypokinetic. Mid-anteroseptal : Hypokinetic. [place] : Hypokinetic. Right Ventricle Normal RV size. Normal systolic function. Atria The left atrium is mildly enlarged. Normal right atrium. No doppler evidence for ASD. Mitral Valve There is mild mitral annular calcification. Mild diffuse mitral valve thickening. Moderate (2+) eccentric mitral valve insufficiency. Tricuspid Valve Normal tricuspid valve. Moderately severe (3+) eccentric tricuspid valve insufficiency. Right ventricular systolic pressure estimated to be 54 mmHg. Aortic Valve Trisinus/trileaflet aortic valve. Normal aortic valve. Pulmonic Valve The pulmonic valve is not well visualized. Mild (1+) pulmonic valve insufficiency. Great Vessels Normal sized aortic root. Pericardium/Pleural No pericardial effusion. MMode/2D Measurements AND Calculations LVIDd: 5.9 cm IVSd: 1.1 cm Ao root diam: 2.4 cm LVIDs: 4.7 cm LVPWd: 1.1 cm LA dimension: 4.2 cm RVDd: 3.5 cm FS: 19.9 % LAV(MOD-bp): 78.3 ml LA A4 area: 22.8 cm2 MR PISA radius: 0.72 cm LAV(MOD-bp) Indexed: 44.4 ml/m2 LAV(MOD-sp2): 74.3 ml LAV(MOD-sp4): 74.3 ml RA A4 area: 14.4 cm2 Doppler Measurements AND Calculations Lat Peak E' Liza: 6.6 cm/sec Med Peak E' Liza: 5.3 cm/sec Ao V2 max: 181.7 cm/sec Ao max P.2 mmHg Ao V2 mean: 121.0 cm/sec Ao mean P.6 mmHg Ao V2 VTI: 30.6 cm LV V1 max: 112.4 cm/sec MR max liza: 569.4 cm/sec MR PISA: 3.2 cm2 LV V1 max P.1 mmHg MR max P.7 mmHg LV V1 mean P.3 mmHg MR mean liza: 437.5 cm/sec LV V1 mean: 69.8 cm/sec MR mean P.5 mmHg LV V1 VTI: 17.1 cm MR VTI: 185.3 cm PA V2 max: 107.3 cm/sec PI end-d liza: 158.9 cm/sec TR max liza: 355.7 cm/sec TR max P.7 mmHg Interpretation Summary The study was technically difficult. Mildly dilated left ventricle. Moderate segmental systolic dysfunction (see wall motion). The estimated ejection fraction is 30 %. Apical false tendon noted. The left atrium is mildly enlarged. There is mild mitral annular calcification. Mild diffuse mitral valve thickening. Moderate (2+) eccentric mitral valve insufficiency. Moderately severe (3+) eccentric tricuspid valve insufficiency. Mild (1+) pulmonic valve insufficiency. Right ventricular systolic pressure estimated to be 54 mmHg. Ordering Physician: Tristin Sahne Referring Physician: Zofia Devries Performed By: Jeannette Campos, VICKI, RVT 08/20/17 1415 Date Bunny Woodward MD CC: Tristin Shane DO; ZOFIA DEVRIES Date Dictated: 08/20/17 0817 Date Transcribed: 08/20/17 141 Amphibian Crewmember: Signed STRESS REPORT Observed: 08/20/2017 Status: F Source: [place] 12:22 PM [facility] REPOSITORY [facility] Cardiovascular Services [address] [place] [address] MR#: [id number] Acct: [id number] Name: GENESISFAUSTINA Rep #: [id number] : 1975 42 From: Bunny Woodward MD Primary Care: ZOFIA DEVRIES Status: ADM IN Ordering Dr: Sex: F C Stress Test Report Date: 08/20/2017 Procedure: Pharmacologic stress nuclear imaging study Indications: Shortness of breath/dyspnea; abnormal cardiac enzymes Consent: Per the patient Procedure: The patient underwent pharmacologic (Regadenoson) evaluation with a peak heart rate of 91 beats per minute (50 predicted maximal heart rate) and a peak blood pressure of 150/90 mmHg. The baseline ECG demonstrated sinus versus ectopic atrial rhythm; poor R-wave progression; anterior MN of indeterminate age cannot be excluded; PVCs. The peak pharmacologic ECG demonstrated no obvious ECG changes. There were occasional PVCs pretest and in recovery. There was no complaint of chest discomfort during pharmacologic infusion or recovery. The examination was discontinued secondary to completion of protocol. Impression: 1. Pharmacologic (Regadenoson) evaluation 2. Peak pharmacologic ECG with no obvious ECG changes. 3. There were occasional PVCs pretest and in recovery 4. Nuclear images pending Myocardial perfusion imaging study: Technique: The patient was injected with 11.6 millicuries of technetium 99m Cardiolite and subsequently rest SPECT Cardiolite nuclear imaging was obtained in the horizontal long, vertical long, and short axis views. The patient underwent pharmacologic (Regadenoson) evaluation with a peak heart rate of 91 beats per minute (50 % percent predicted maximal heart rate) and a peak blood pressure of 150/90 mmHg. The patient was injected with 34 millicuries of technetium 99m Cardiolite and subsequently stress SPECT Cardiolite nuclear imaging was obtained in the horizontal long, vertical long, and short axis views. A gated Cardiolite study at peak stress was obtained. Interpretation: Rest and stress SPECT Cardiolite nuclear imaging status post realignment, normalization, and attenuation correction demonstrate diminished myocardial perfusion/tracer uptake in portions of the distal anterior, distal anteroseptal, and apical segments without significant change between rest and stress. There is diminished end systolic thickening and brightening in the aforementioned areas. The gated Cardiolite study demonstrates diminished myocardial thickening and inward wall motion in the aforementioned areas. The reported LVEF is 39 %. Impression: 1. Rest and stress SPECT Cardiolite nuclear imaging demonstrate myocardial perfusion changes appearing compatible with an area of previous myocardial injury/infarction, although, contribution from soft tissue attenuation/artifact cannot necessarily be excluded, with no myocardial perfusion changes consider diagnostic for associated stress-induced myocardial ischemia. 2. The gated Cardiolite study reports an LVEF of 39 %. This note was generated with [employer] software. It may contain incorrect words, spelling, and punctuation that were not noted in checking the note before signing. 08/20/17 1222 <Electronically signed by Bunny Woodward MD> Date Bunny Woodward MD CC: Tristin DEVRIES Date Dictated: 08/20/171216 Date Transcribed: 08/20/171216 Amphibian Crewmember: PM Signed CBC W/DIFF, AUTOMATED Collected: 08/20/2017 Status: F Source: [place] 5:35 AM [facility] REPOSITORY TYPE CODE TESTS RESULT OUT OF RANGE REFERENCE UNITS LAB L100.1000 4.4-11.0 K/mm3 Normal WBC 7.1 LAB L100.1200 4.2-5.4 M/mm3 Low RBC 3.09 LAB L100.1300 12.0-15.0 g/dl Low HGB 10.3 LAB L100.1400 37-47 % Low HCT 32.1 LAB L100.1500 81-99 fL High MCV 103.9 LAB L100.1600 27.0-32.0 pg High MCH 33.3 LAB L100.1700 32-36 g/gl Normal MCHC 32.1 LAB L100.1810 11.6-14.6 % High RDW CV 18.9 LAB L100.1820 35.1-43.9 fl High RDW SD 70.0 LAB L100.1900 150-450 K/mm3 Low PLT 115 LAB L100.2000 6.2-12.0 fl Normal MPV 12.0 LAB L100.2100 47-70 % High NEUT% 72.3 LAB L100.2200 19-41 % Normal LY% 20.5 LAB L100.2300 0-10 % Normal MONO% 5.3 LAB L100.2400 0-5 % Normal EO% 1.7 LAB L100.2500 0-1 % Normal BASO% 0.1 LAB L100.2550 0.0-0.9 % Normal IM GRAN % 0.100 Result Comment: IG% - Immature Granulocytes (promyelocytes, myelocytes and metamyelocytes) > 1% indicates that a LEFT SHIFT is Present. LAB L100.2620 2.0-7.7 X10 3/uL Normal Absolute Neut 5.2 LAB L100.2720 0.83-4.51 X10 3/ul Normal Absolute Lymph 1.46 LAB L100.4500 SMEAR Normal COMMENT SCANNED LAB L100.7300 ANISO Normal 3+ LAB L100.7800 Normal MACROCYTE 2+ Performed By: #### L100.0100 #### [facility] [address] [place], [address] PROTHROMBIN TIME W/INR Collected: 08/20/2017 Status: F Source: [place] 5:35 AM [facility] REPOSITORY TYPE CODE TESTS RESULT OUT OF RANGE REFERENCE UNITS LAB L300.4150 11.7-14.9 SECONDS Normal PROTIME 14.4 LAB L300.4200 Normal INR 1.1 Performed By: #### L300.3900, L300.4310 #### [facility] [address] [place], [address] PARTIAL THROMBOPLAST Collected: 08/20/2017 Status: F Source: [place] TIME 5:35 AM [facility] REPOSITORY TYPE CODE TESTS RESULT OUT OF RANGE REFERENCE UNITS LAB L300.4310 24.1-36.2 Seconds Normal PTT 30.8 Performed By: #### L300.3900, L300.4310 #### [facility] [address] [place], [address] BASIC METABOLIC Collected: 08/20/2017 Status: F Source: [place] PROFILE (BMP) 5:35 AM [facility] REPOSITORY TYPE CODE TESTS RESULT OUT OF RANGE REFERENCE UNITS LAB L501.0100 74-106 mg/dL Normal GLU 84 Result Comment: Please note revised GLUCOSE reference range effective 2017. LAB L501.1000 7-18 mg/dL High BUN 74 LAB L501.1100 0.55-1.02 mg/dL High alert CREAT,SERUM 9.34 Result Comment: Critical Result(s) Called at: 06:57:13 08/20/2017 by: Carlos Klein RN ([facility]) The validity of the calculated GFR AND GFRAA in patients over 70 years has not been determined. Clinical correlation is essential. LAB L501.1110 >60 mL/min Low EST GFR 5 Result Comment: Non- GFR Calc LAB L501.1115 >60 mL/min Low EST GFR - AA 6 Result Comment: GFR Calc LAB L501.1255 ml/min Normal Estimated CRCL 6.56 LAB L501.1300 10-20 RATIO Low BUN/CRE 7.9 LAB L501.2200 8.5-10. mg/dL Low 1 CA 7.7 LAB L501.5300 136-145 mmol/L Normal NA 139 LAB L501.5600 3.5-5.1 mmol/L High K 5.4 LAB L501.5900 98-107 mmol/L Normal CL 102 LAB L501.6100 21.0-32 mmol/L Normal .0 CO2 25.0 LAB L501.6200 5-15 Normal GAP 12 Performed By: #### L500.2500 #### [facility] [address] [place], [address] Observed: 08/19/2017 Status: F Source: [place] LEGIONELLA ANTIGEN 6:40 PM [facility] URINE REPOSITORY Order Date: 08/19/17 Specimen Source: URINE, CLEAN CATCH Legionella, UR Legionella Antigen result interpretation: Negative Presumptive negative for Legionella pneumophila serogroup 1 antigen in urine, suggesting no recent or current infection. Legionella Ag, Urine Negative (See interpretation below) Performed By: #### M300.4500 #### [facility] [address] [place], [address] STREP Observed: 08/19/2017 Status: F Source: [place] PNEUMONIAE ANTIG(UR,CSF) 6:40 PM [facility] REPOSITORY Order Date: 08/19/17 S pneumo Ag URINE INTERPRETATION Negative Urine Presumptive negative for pneumococcal pneumonia, suggesting no current or recent pneumococcal infection. Infection due to S pneumoniae cannot be ruled out since the antigen present in the sample may be below the detection limit of the test. Strep pneumo Test Negative URINE (See interpretation below) Performed By: #### M300.4600 #### [facility] [address] [facility] [place], [address] URINALYSIS, ROUTINE Collected: 08/19/2017 Status: F Source: [place] (DIPSTICK) 6:40 PM [facility] REPOSITORY Order Comment: Order Date: 08/19/17 How was Urine Obtained? CLEAN CATCH TYPE CODE TESTS RESULT OUT OF RANGE REFERENCE UNITS LAB L400.3000 Yellow COLOR Normal Straw LAB L400.3050 Clear Normal CLARITY Cloudy LAB L400.3200 Normal mg/dl High 50 GLUCOSE, UR LAB L400.3300 Negative mg/dL Normal BILIRUBIN URINE Negative LAB L400.3400 Negative mg/dl Normal KETONE UR Negative LAB L400.3465 1.002-1.030 Normal SP.GR. DIPSTX 1.010 LAB L400.3550 5.0 - 8.0 pH UR Normal 8.0 LAB L400.3600 Negative mg/dl High PROT DIPSTX 100 LAB L400.3700 Normal mg/dl Normal UROBILI Normal LAB L400.3750 Negative Normal NITRITE UR Negative LAB L400.3780 Negative /ul High 10 OCCULT BLOOD-UR LAB L400.3800 Negative /ul High LEUK ESTERASE 100 Performed By: #### L400.2010 #### [facility] [address] [place], [address] DISCHARGE SUMMARY Observed: 08/19/2017 Status: F Source: [place] 2:42 PM [facility] REPOSITORY [facility] Medical Records Department [address] [place] [address] Discharge Summary 08/19/17 1440 MR#: [id number] Acct: [id number] Name: FAUSTINA HURTADO Rep #: [id number] : 1975 42 From: Tristin Shane DO PCP: ZOFIA DEVRIES Status: ADM IN Y Location: [place] [address] Discharge Date and Diagnosis - Problem List Patient Problems: Active and Suspected Problems Hyperkalemia (Acute) Hyperkalemia (Acute) Bigeminal pulse (Acute) Date of Admission: 08/18/17 Date of Discharge: 08/19/17 - Primary Discharge Diagnosis Active and Suspected Problems Hyperkalemia (Acute) Hyperkalemia (Acute) Bigeminal pulse (Acute) - Secondary Discharge Diagnosis Chronic Problems COPD (chronic obstructive pulmonary disease) (Chronic) Hypertension (Chronic) Alport syndrome (Chronic) ESRD (end stage renal disease) on dialysis (Chronic) Hospital Course and Treatment Imaging Results: Clinical Impression(s) from Imaging Studies Chest X-Ray 08/18/17 17:45 IMPRESSION: Mild right lower lobe pneumonia. Electronically Signed: Sherwin David MD at 18:14 EDT , Service support , Operations: None Procedures: Dialysis Summary of Care Provided: The patient is a 42 year old F presents with fatigue, EASLEY and palpitations. Found to be hyperkalemic with a K of 7.2. She received several meds in ED and had urgent HD. Symptoms have resolved. 1. Hyperkalemia: resolved * secondary to losartan and ESRD * resolved after HD, Ca Gluconate, Kayexalate 2. Vetricular bigeminy * secondary to above * resolved * periodic PVCs, but improved after correction of hyperkalemia 3. ESRD * HD QMWF 4. Hypertension: * fair control here * follow up with her beading machine operator as outpt * no ARB/ACEi[] Discharge Diet: Renal Diet Discharge Activity: Return to Normal Activity Call your doctor if you observe: Fever of 101 or Higher, Shortness of breath, Chest pain, - - palpitations Home Medications: Medications to take at Discharge Albuterol Inhaler [Ventolin Hfa] 1 - 2 puff INHALATION Q4H PRN PRN #1 inhaler 09/30/16 Calcium Acetate [Phoslo Gel Cap] 667 mg PO TIDCM 09/30/16 Folic Acid/Vit Bcomp,C [Renal Vitamin Tablet] 0.8 mg PO DAILY 09/30/16 Esomeprazole Mag Trihydrate [Nexium] 40 mg PO DAILY 08/18/17 Acetaminophen [Tylenol Tablet] 650 mg PO Q4H PRN PRN tablet 08/19/17 Primary Care Physician: Zofia Devries [Primary Care Provider] - Within 2 Weeks Disposition: Home Minutes spent on discharge:: 28 Patient Condition:: Good Medical Necessity - Tobacco Use Smoking Status: Never smoker Tobacco Use: Secondhand Meaningful Use Info Meaningful Use Diagnoses (Choose all that apply): None applicable Code Visit OBSV E AND M: 82972 Observation care discharge 08/19/17 1442 <Electronically signed by Tristin Shane DO> Date Tristin Shane DO Cosigner Signature (if applicable): Date CC: Tristin DEVRIES Signed DISCHARGE INSTRUCTION Observed: 08/19/2017 Status: F Source: [place] 2:40 PM [facility] REPOSITORY [facility] Medical Records Department [address] [place] [address] Instructions for Home/Discharge Instructions 08/19/17 1438 MR#: [id number] Acct: [id number] Name: FAUSTINA HURTADO Rep #: [id number] : 1975 42 From: Tristin Shane DO PCP: ZOFIA DEVRIES Status: ADM IN - Discharge Diagnoses Current Active Problems: Current Active and Chronic Problems Hyperkalemia (Acute) Bigeminal pulse (Acute) COPD (chronic obstructive pulmonary disease) (Chronic) Hypertension (Chronic) Alport syndrome (Chronic) ESRD (end stage renal disease) on dialysis (Chronic) You will use the following diet at home:: Renal (restricted protein/sodium) Your food should be the consistency of: Regular Your liquids should be the consistency of: Regular/Thin Discharge Activity: Return to Normal Activity Call your doctor if you observe: Fever of 101 or Higher, Shortness of breath, Chest pain, - - palpitations Allergies/Adverse Reactions: Allergies amoxicillin [From Augmentin] Allergy (Verified 08/18/17 16:47) Hives cephalexin [From Keflex] Allergy (Verified 08/18/17 16:47) Hives clavulanic acid [From Augmentin] Allergy (Verified 08/18/17 16:47) Hives oxycodone Allergy (Verified 08/18/17 16:47) Hives vancomycin Allergy (Verified 08/18/17 16:47) Hives Medications to take at Discharge Albuterol Inhaler [Ventolin Hfa] 1 - 2 puff INHALATION Q4H PRN PRN #1 inhaler 09/30/16 Calcium Acetate [Phoslo Gel Cap] 667 mg PO TIDCM 09/30/16 Folic Acid/Vit Bcomp,C [Renal Vitamin Tablet] 0.8 mg PO DAILY 09/30/16 Esomeprazole Mag Trihydrate [Nexium] 40 mg PO DAILY 08/18/17 Acetaminophen [Tylenol Tablet] 650 mg PO Q4H PRN PRN tablet 08/19/17 Primary Care Physician: Zofia Devries [Primary Care Provider] - Within 2 Weeks Proposed Discharge Date: 08/19/17 08/19/17 1440 <Electronically signed by Tristin Shane DO> Date Tristin Shane DO CC: ZOFIA DEVRIES; Edgardo Campo MD CONSULTATION Observed: 08/19/2017 Status: F Source: [place] 11:24 AM [facility] REPOSITORY [facility] Medical Records Department [address] [place] [address] Consultation 08/19/17 1116 MR#: [id number] Acct: [id number] Name: FAUSTINA HURTADO Rep #: [id number] : 1975 42 From: Manoj Lester MD PCP: ZOFIA DEVRIES Status: ADM IN Y Location: [place] [address] Problem List (1) ESRD (end stage renal disease) on dialysis Status: Chronic (2) Hyperkalemia Status: Acute Consultation - Renal PCP/ Referring MD: Requesting physician: [] Primary care physician: Zofia Devries - History of Present Illness History of Present Illness: The patient is a 42 year old F past medical history of Alport syndrome, end-stage renal disease on Saturday. Patient goes to for [facility] hemodialysis unit at [place] . Presented presented with generalized weakness . Patient was found to have hyperkalemia with potassium more than 7 along with the EKG changes renal team was consulted last night for urgent dialysis . Patient tolerated session yesterday well with 1.3 L ultrafiltration . Patient also has been complaining of cough for a week . Patient has chronic shortness of breath . She is not on oxygen at home . Patient now is being treated with bronchitis . Says she feels much better this morning . Patient has been on dialysis for 14 years . Hemodialysis access is left forearm AV fistula . Review of system : 12 systems review is negative this morning [] - Allergies Allergies: Allergies amoxicillin [From Augmentin] Allergy (Verified 08/18/17 16:47) Hives cephalexin [From Keflex] Allergy (Verified 08/18/17 16:47) Hives clavulanic acid [From Augmentin] Allergy (Verified 08/18/17 16:47) Hives oxycodone Allergy (Verified 08/18/17 16:47) Hives vancomycin Allergy (Verified 08/18/17 16:47) Hives - Current Medications Current Medications: Current Medications Acetaminophen (Tylenol) 650 mg PO Q4H PRN PRN PRN Reason: Fever/pain Albuterol Sulfate (Ventolin Aerosols) 2.5 mg INHALATION Q4H PRN PRN PRN Reason: WHEEZING Albuterol/Ipratropium (Duoneb) 3 ml INHALATION Q4H PRN PRN Reason: sob Azithromycin (Zithromax) 500 mg PO DAILY [facility] Stop: 08/21/17 22:32 Last Admin: 08/19/17 08:30 Dose: Not Given Calcium Acetate (Phoslo Gel Cap) 667 mg PO TIDCM [facility] Last Admin: 08/19/17 08:25 Dose: 667 mg Guaifenesin (Mucinex) 1,200 mg PO BID [facility] Last Admin: 08/19/17 08:30 Dose: 1,200 mg Heparin Sodium (Porcine) (Heparin Na) 5,000 unit SC BID [facility] Last Admin: 08/19/17 08:25 Dose: Not Given Magnesium Hydroxide (Milk Of Magnesia) 30 ml PO DAILY PRN PRN Reason: Constipation Multivit/Ca Carb/B Cmplx/FA/Prenat ([facility], [facility] Last Admin: 08/19/17 08:26 Dose: 1 capsule Ondansetron HCl (Zofran) 4 mg IV Q8H PRN PRN PRN Reason: NAUSEA Pantoprazole Sodium (Protonix) 40 mg PO DAILY [facility] Last Admin: 08/19/17 08:26 Dose: 40 mg Sodium Chloride () 5 - 30 ml IV UD PRN PRN Reason: SALINE FLUSH Zolpidem Tartrate (Ambien (Generic)) 5 mg PO QHS PRN PRN PRN Reason: SLEEP - Past Medical History Past Medical History (Chronic Problems): Chronic Problems COPD (chronic obstructive pulmonary disease) (Chronic) Hypertension (Chronic) Alport syndrome (Chronic) ESRD (end stage renal disease) on dialysis (Chronic) - Social History Smoking Status: Never smoker Patient Problems: Active and Suspected Problems Hyperkalemia (Acute) Bigeminal pulse (Acute) - Physical Exam General: Alert, Oriented x3 HEENT: Atraumatic Oral: Moist Mucosa Neck: Supple, No JVD Lungs: Clear to auscultation, Normal air movement, No rhonchi, No wheeze Cardiovascular: Regular rate, Normal S2 Abdomen: Bowel Sounds Present, Soft, Non Tender Extremities: No clubbing, No cyanosis, No edema Skin: No rashes Musculoskeletal: No Tenderness to Palpation of Joints or Extremities Lymphatic: No Cervical, Supraclavicular, or Inguinal Adenopathy Neurological: Cranial nerves II-XII grossly intact, Neuro grossly intact Psych/Mental Status: Normal Affect Comment: hemodialysis access: Left forearm AV fistula. 2 pseudoaneurys. Vital Signs Temp Pulse Resp BP Pulse Ox 98.4 F 76 18 135/87 H 95 08/19/17 08:21 08/19/17 08:21 08/19/17 08:21 08/19/17 08:21 08/19/17 08:21 Oxygen Delivery Method Room Air Weight: 73.4 kg Body Mass Index (BMI) 29.2 Intake and Output for Last 24 Hours Intake Total 300 / 300 Output Total 2100 / 2100 Balance -1800 / -1800 Laboratory Tests Past 24 Hrs WBC 8.0 RBC 3.20 L Hgb 10.6 L Hct 32.8 L MCV 102.5 H MCH 33.1 H MCHC 32.3 RDW 19.5 H RDW Differential 72.5 H Assessment/Plan Active and Suspected Problems Hyperkalemia (Acute) Bigeminal pulse (Acute) 1-end-stage renal disease patient. On Saturday schedule for hemodialysis. 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 HD access left forearm AV fistula. Patient was dialyzed last night for hyperkalemia. Patient tolerated the session well. Ultrafiltration 1.8 L. No need for dialysis today. Next hemodialysis will be on August 21. URR goal is 70% and more with each session. 2-hyperkalemia with EKG changes. Resolved with hemodialysis. Potassium today 3.8. Continue renal diet. No need for dialysis today 3-hyperphosphatemia: Please continue calcium acetate. Check phosphorus level as outpatient along with a PTH. 4-hypertension: Blood pressure is well controlled. Please avoid NILDA inhibitor or ARB at discharge. 5 bronchitis-: Management as per the primary team. It is okay to discharge the patient home from nephrology standpoint to follow with the chronic hemodialysis unit for hemodialysis sessions. Thank you for the consult. We will continue to follow. Manoj Lester MD [phone] 08/19/17 4047 <Electronically signed by Manoj Lester MD> Date Manoj Lester MD Cosigner Signature (if applicable): Date CC: ZOFIA DEVRIES; Edgardo Campo MD Signed TROPONIN-I Collected: 08/19/2017 Status: F Source: [place] 9:40 AM [facility] REPOSITORY Order Comment: 'TROP' Serial specimen #1, #2, #3, or #4: 1 TYPE CODE TESTS RESULT OUT OF RANGE REFERENCE UNITS LAB L501.4010 <0.06 ng/mL High alert 0.73 TROPONIN-I Result Comment: Critical Result(s) Called at: 10:11:33 08/19/2017 by: Karlee Greco TROPONIN-I EXPECTED VALUES <0.05 NEGATIVE 0.06 - 0.59 AT RISK OF MN > OR = 0.60 SUGGEST MN Performed By: #### L501.4010 #### [facility] [address] [place], [address] BASIC METABOLIC Collected: 08/19/2017 Status: F Source: [place] PROFILE (BMP) 5:32 AM [facility] REPOSITORY TYPE CODE TESTS RESULT OUT OF RANGE REFERENCE UNITS LAB L501.0100 74-106 mg/dL Normal GLU 85 Result Comment: Please note revised GLUCOSE reference range effective 2017. LAB L501.1000 7-18 mg/dL High BUN 48 LAB L501.1100 0.55-1.02 mg/dL High CREAT,SERUM 6.63 Result Comment: The validity of the calculated GFR AND GFRAA in patients over 70 years has not been determined. Clinical correlation is essential. LAB L501.1110 >60 mL/min Low EST GFR 7 Result Comment: Non- GFR Calc LAB L501.1115 >60 mL/min Low EST GFR - AA 9 Result Comment: GFR Calc LAB L501.1255 ml/min Normal Estimated CRCL 9.24 LAB L501.1300 10-20 RATIO Low BUN/CRE 7.2 LAB L501.2200 8.5-10. mg/dL Low 1 CA 8.4 LAB L501.5300 136-145 mmol/L Normal NA 138 LAB L501.5600 3.5-5.1 mmol/L Normal K 3.8 LAB L501.5900 98-107 mmol/L Normal CL 99 LAB L501.6100 21.0-32 mmol/L Normal .0 CO2 28.0 LAB L501.6200 5-15 Normal GAP 11 Performed By: #### L500.2500 #### [facility] [address] [facility] [place], [place], [id number] CBC-COMPLETE BLOOD CNT Collected: 08/19/2017 Status: F Source: [place] NO DIFF 5:32 AM [facility] REPOSITORY TYPE CODE TESTS RESULT OUT OF RANGE REFERENCE UNITS LAB L100.1000 4.4-11.0 K/mm3 Normal WBC 8.0 LAB L100.1200 4.2-5.4 M/mm3 Low RBC 3.20 LAB L100.1300 12.0-15.0 g/dl Low HGB 10.6 LAB L100.1400 37-47 % Low HCT 32.8 LAB L100.1500 81-99 fL High MCV 102.5 LAB L100.1600 27.0-32.0 pg High MCH 33.1 LAB L100.1700 32-36 g/gl Normal MCHC 32.3 LAB L100.1810 11.6-14.6 % High RDW CV 19.5 LAB L100.1820 35.1-43.9 fl High RDW SD 72.5 LAB L100.1900 150-450 K/mm3 Low PLT 116 LAB L100.2000 6.2-12.0 fl Normal MPV 11.3 Performed By: #### L100.0500, L100.4500 #### [facility] [address] [facility] [address] [place], [place], [id number] DIFFERENTIAL COMMENT Collected: 08/19/2017 Status: F Source: [place] 5:32 AM [facility] REPOSITORY TYPE CODE TESTS RESULT OUT OF RANGE REFERENCE UNITS LAB L100.4500 Normal SMEAR COMMENT SCANNED Result Comment: 2+ MACROCYTOSIS 3+ ANISOCYTOSIS Performed By: #### L100.0500, L100.4500 #### [facility] [address] [place], [address] EMERGENCY DEPARTMENT Observed: 08/19/2017 Status: F Source: [place] SUMMARY 12:30 AM [facility] REPOSITORY [facility] Medical Records Department [address] [place] [address] Emergency Department Summary 08/18/172024 MR#: [id number] Acct: [id number] Name: FAUSTINA HURTADO Rep #: [id number] : 1975 42 From: Roque Brothers MD PCP: ZOFIA DEVRIES Status: ADM IN - ER Visit Summary Date of Service: 08/18/17 Chief Complaint: Palpitations History of Present Illness: The patient is a 42 F 3 of end- stage renal disease for last 14 years in which he is dialyzed Saturday. Also treated for hypertension and recently started on Cozaar. Patient states that she had a full run of dialysis on Saturday. States she has been having palpitations since that time. Physical Examination: Middle-aged female vital signs stable afebrile. Pulse ox 100 percent on room air no signs of hypoxia. HEENT exam unremarkable. Neck nontender no JVD. Lungs clear to auscultation bilaterally. Heart frequent PVCs on monitor. Abdomen soft nontender. Normal bowel sounds no peritoneal signs. Having all 4 extremities. Left arm fistula with thrill. Neurologically awake and alert with no focal motor deficits. Test Results: CBC shows a white count of 9. H AND H 11.9 and 37. Electrolytes show potassium of 7.2 with a BUN of 84 and creatinine of 9.5. Troponin is elevated 0.26. Chest x-ray shows no acute process. Radiologist read it as possible right lower lobe infiltrate I disagree. EKG is a sinus rhythm with frequent PVCs. Emergency Department Course and Treatment: Patient be treated with IV calcium gluconate, IV D 25. And IV insulin. I very spoken to the hospitalist about admission. Depending on how she responds to therapy she may or may not need acute dialysis. Treatment Plan: [] Disposition: Admission Impression: Palpitations secondary to PVCs and bigeminy Acute hyperkalemia History of end-stage renal disease and dialysis This note was generated with [employer] dictation software. It may contain incorrect words, spelling, and punctuation that were not noted in review of the chart prior to signing ED Disposition - Plan for ED Patient: Chief Complaint: General Illness Referrals: Zofia Devries [Primary Care Provider] - What to do if you have Problems For any increased pain, shortness of breath, bleeding, nausea or vomiting, chest pain, or any unexpected problems, contact your Primary Care Provider. Call [facility] ([phone]) or report to the closest Emergency Room. Call 911 if necessary. 08/19/17 0030 <Electronically signed by Roque Brothers MD> Date Roque Brothers MD Cosigner Signature (If Indicated): Date CC: ZOFIA DEVRIES HISTORY AND PHYSICAL Observed: 08/18/2017 Status: F Source: [place] EXAM 9:20 PM [facility] REPOSITORY [facility] Medical Records Department [address] [place] [id number] History and Physical 08/18/172056 MR#: [id number] Acct: [id number] Name: GISELLE HURTADOSamson Perez Rep #: [id number] : 1975 42 From: Tc Ceja MD PCP: ZOFIA DEVRIES Status: ADM IN Y Location: [place] [address] Problem List (1) Hyperkalemia Status: Acute (2) Bigeminal pulse Status: Acute (3) COPD (chronic obstructive pulmonary disease) Status: Chronic (4) Hypertension Status: Chronic (5) Alport syndrome Status: Chronic History of Present Illness Date of Admission: 08/18/17 Chief Complaint: Palpitation, generalized fatigue and weakness The patient is a 42 year old F with history of congenital disease, Alport syndrome on complaint to hemodialysis on Saturday and Saturday came to ER with generalized weakness, palpitation with no energy. Patient stated she completed for dialysis on Saturday and had normal electrolytes. She was recently started on losartan 25 mg and she took for 2 days. 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 She is not a smoker. She denies fever, chills, excessive shortness of breath more than her normal. She has mild cough for about 1 week. Chest x-ray report is mild right lower lobe infiltrate but I do not appreciate significant consolidation and does not have clinical symptoms of pneumonia; although with history of COPD started on Zithromax for COPD with possible acute bronchitis [] Past Medical History Past Medical History (Chronic Problems): Chronic Problems COPD (chronic obstructive pulmonary disease) (Chronic) Hypertension (Chronic) Alport syndrome (Chronic) Allergies amoxicillin [From Augmentin] Allergy (Verified 08/18/17 16:47) Hives cephalexin [From Keflex] Allergy (Verified 08/18/17 16:47) Hives clavulanic acid [From Augmentin] Allergy (Verified 08/18/17 16:47) Hives oxycodone Allergy (Verified 08/18/17 16:47) Hives vancomycin Allergy (Verified 08/18/17 16:47) Hives Home Medications: Ambulatory Orders Medication Instructions Recorded Albuterol Inhaler [Ventolin Hfa] 1 - 2 puff INHALATION Q4H PRN PRN 09/30/16 Calcium Acetate [Phoslo Gel Cap] 667 mg PO TIDCM 09/30/16 Doxycycline [Vibramycin] 100 mg PO BID #19 capsule 09/30/16 Smoking Status: Never smoker Review of Systems Constitutional: Denies: Chills, Fever, Weight Change HEENT: Denies: Head Aches, Sinus Congestion, Sinus Drainage Cardiovascular: Denies: Chest Pain, Palpitations Respiratory: Reports: Cough, Shortness of breath upon exertion - Chronic. Denies: Shortness of breath at rest, Sputum production Gastrointestinal: Denies: Abdominal Pain, Nausea, Vomiting Genitourinary: Denies: Dysuria Musculoskeletal: Denies: Joint Pain, Joint Tenderness Skin: Denies: Rash, Wounds Neurological: Denies: Numbness, Tingling, Focal weakness Psychiatric: Denies: Anxiety, Depression, Homicidal Ideations, Suicidal Ideations Hematologic/ Lymphatic: Denies: Easy Bruising, Easy Bleeding VTE Information - Inpt Only VTE Present on Admission: No VTE Mechan Device Prophylaxis: None VTE Pharm Prophylaxis ordered?: Yes Reason prophylaxis not ordered:: Procedure Not Indicated Patient Problems: Active and Suspected Problems Hyperkalemia (Acute) Bigeminal pulse (Acute) - Physical Exam General: Alert, Oriented x3, Cooperative HEENT: Atraumatic, PERRLA, EOMI, Normocephalic Neck: Supple, No JVD, Negative Carotid Bruits Lungs: Clear to auscultation, Normal air movement, No rhonchi, No wheeze, No rales Cardiovascular: Regular rate, Normal S1, Normal S2, No murmurs, Irregular Rate - Pulses bigeminy Abdomen: Bowel Sounds Present, Soft, Non Tender, Non-Distended Extremities: No edema, Capillary Refill Less than 3 Seconds Skin: No rashes, No breakdown Musculoskeletal: No Tenderness to Palpation of Joints or Extremities Neurological: Cranial nerves II-XII grossly intact Psych/Mental Status: Normal Affect, Appropriate Vital Signs Temp Pulse Resp BP Pulse Ox 97.2 F L 82 20 H 178/95 H 99 08/18/17 16:43 08/18/17 20:37 08/18/17 20:37 08/18/17 16:43 08/18/17 20:26 Oxygen Delivery Method Room Air Weight: 164 lb 7.437 oz Body Mass Index (BMI) 29.1 Laboratory Tests Past 24 Hrs WBC 9.0 RBC 3.59 L Hgb 11.9 L Assessment/Plan Active and Suspected Problems Hyperkalemia (Acute) Bigeminal pulse (Acute) The patient is a 42 year old F with history of congenital disease, Alport syndrome on complaint to hemodialysis on Saturday and Saturday came to ER with generalized weakness, palpitation with no energy. Patient stated she completed for dialysis on Saturday and had normal electrolytes. She was recently started on losartan 25 mg and she took for 2 days. She follows [facility] beading machine operator, Dr. 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 She is not a smoker. She denies fever, chills, excessive shortness of breath more than her normal. She has mild cough for about 1 week. In ED, she was found to have K7.2, creatinine 9.59 and EKG showed pulses bigeminy. 1. Generalized weakness and fatigue possibly due to hyperkalemia precipitated by recent start of losartan: Patient is being admitted in PCU. Patient had cocktail and Kayexalate in ER. Discussed with the [place] beading machine operator on-call, Dr. Campo and put the order for urgent hemodialysis. Repeat BMP after hemodialysis. Repeat EKG ordered. 2. Severe hyperkalemia with EKG changes: Treatment as mentioned above. 3. COPD with possibility of viral bronchitis: Patient does not seem to be an exacerbation. Chest x-ray report as mild right lower lobe infiltrate but I do not appreciate significant consolidation and does not have clinical symptoms of pneumonia; although with history of COPD, started on Zithromax for COPD with possible acute bronchitis On bronchodilator as needed. She was already on doxycycline at home. 4. 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: DVT prophylaxis: With history of ESRD on hemodialysis, started on heparin 500 units subcutaneous twice daily Laboratory Results 08/18/17 17:50: WBC 9.0, RBC 3.59 L, Hgb 11.9 L, Hct 37.8, MCV 105.3 H, MCH 33.1 H, MCHC 31.5 L, RDW 19.5 H, RDW Differential 74.5 H, Plt Count 150, MPV 11.6, Immature Gran % (Auto) 0.100, Neut % (Auto) 75.7 H, Lymph % (Auto) 18.4 L, Colbert % (Auto) 4.2, Eos % (Auto) 1.4, Baso % (Auto) 0.2, Absolute Neuts (auto) 6.8, Absolute Lymphs (auto) 1.65, Total Counted Not Reportable, Differential Comment SCANNED, Platelet Estimate ADEQUATE, Anisocytosis 2+, Macrocytosis 1+ 08/18/17 17:50: Sodium 139, Potassium 7.2 H*, Chloride 106, Carbon Dioxide 22.0, Anion Gap 11, BUN 84 H, Creatinine 9.59 H*, Estim Creat Clear Calc 6.39, Est GFR (MDRD) Af Amer 6 L, Est GFR (MDRD) Non-Af 5 L, BUN/Creatinine Ratio 8.8 L, Glucose 90, Calcium 9.0, Troponin I 0.26 H Code Visit Inpatient E AND M: 14825 Init Hosp L3 08/18/170 <Electronically signed by Tc Ceja MD> Date Tc Ceja MD Cosigner Signature: Date (if applicable) CC: ZOFIA DEVRIES; Tc Ceja MD Signed CBC W/DIFF, AUTOMATED Collected: 08/18/2017 Status: F Source: [place] 5:50 PM [facility] REPOSITORY TYPE CODE TESTS RESULT OUT OF RANGE REFERENCE UNITS LAB L100.1000 4.4-11.0 K/mm3 Normal WBC 9.0 LAB L100.1200 4.2-5.4 M/mm3 Low RBC 3.59 LAB L100.1300 12.0-15.0 g/dl Low HGB 11.9 LAB L100.1400 37-47 % Normal HCT 37.8 LAB L100.1500 81-99 fL High MCV 105.3 LAB L100.1600 27.0-32.0 pg High MCH 33.1 LAB L100.1700 32-36 g/gl Low MCHC 31.5 LAB L100.1810 11.6-14.6 % High RDW CV 19.5 LAB L100.1820 35.1-43.9 fl High RDW SD 74.5 LAB L100.1900 150-450 K/mm3 Normal PLT 150 LAB L100.2000 6.2-12.0 fl Normal MPV 11.6 LAB L100.2100 47-70 % High NEUT% 75.7 LAB L100.2200 19-41 % Low LY% 18.4 LAB L100.2300 0-10 % Normal MONO% 4.2 LAB L100.2400 0-5 % Normal EO% 1.4 LAB L100.2500 0-1 % Normal BASO% 0.2 LAB L100.2550 0.0-0.9 % Normal IM GRAN % 0.100 Result Comment: IG% - Immature Granulocytes (promyelocytes, myelocytes and metamyelocytes) > 1% indicates that a LEFT SHIFT is Present. LAB L100.2620 2.0-7.7 X10 3/uL Normal Absolute Neut 6.8 LAB L100.2720 0.83-4.51 X10 3/ul Normal Absolute Lymph 1.65 LAB L100.4500 SMEAR Normal COMMENT SCANNED LAB L100.5500 ADEQ PLT Normal EST ADEQUATE LAB L100.7300 ANISO 2+ Normal LAB L100.7800 1+ Normal MACROCYTE Performed By: #### L100.0100 #### [facility] [address] [place], [place], [id number] BASIC METABOLIC Collected: 08/18/2017 Status: F Source: [place] PROFILE (BMP) 5:50 PM [facility] REPOSITORY Order Comment: 'TROP' Serial specimen #1, #2, #3, or #4: 1 TYPE CODE TESTS RESULT OUT OF RANGE REFERENCE UNITS LAB L501.0100 74-106 mg/dL Normal GLU 90 Result Comment: Please note revised GLUCOSE reference range effective 2017. LAB L501.1000 7-18 mg/dL High BUN 84 LAB L501.1100 0.55-1.02 mg/dL High alert CREAT,SERUM 9.59 Result Comment: The validity of the calculated GFR AND GFRAA in patients over 70 years has not been determined. Clinical correlation is essential. LAB L501.1110 >60 mL/min Low EST GFR 5 Result Comment: Non- GFR Calc LAB L501.1115 >60 mL/min Low EST GFR - AA 6 Result Comment: GFR Calc LAB L501.1255 ml/min Normal Estimated CRCL 6.39 LAB L501.1300 10-20 RATIO Low BUN/CRE 8.8 LAB L501.2200 8.5-10. mg/dL Normal 1 CA 9.0 LAB L501.5300 136-145 mmol/L Normal NA 139 Result Comment: CALLED [facility] ED WITH CRITICAL VALUES BY [facility] AT 1841PM READ BACK BY SAME LAB L501.5600 3.5-5.1 mmol/L High alert K 7.2 LAB L501.5900 98-107 mmol/L Normal CL 106 LAB L501.6100 21.0-32.0 mmol/L Normal CO2 22.0 LAB L501.6200 5-15 Normal GAP 11 Performed By: #### L500.2500, L501.4010 #### [facility] [address] [place], [address] TROPONIN-I Collected: 08/18/2017 Status: F Source: [place] 5:50 PM [facility] REPOSITORY Order Comment: 'TROP' Serial specimen #1, #2, #3, or #4: 1 TYPE CODE TESTS RESULT OUT OF RANGE REFERENCE UNITS LAB L501.4010 <0.06 ng/mL High 0.26 TROPONIN-I Result Comment: TROPONIN-I EXPECTED VALUES <0.05 NEGATIVE 0.06 - 0.59 AT RISK OF MN > OR = 0.60 SUGGEST MN Performed By: #### L500.2500, L501.4010 #### [facility] [address] [place], [address] CHEST PA AND LATERAL Observed: 08/18/2017 Status: F Source: [place] 5:02 PM [facility] REPOSITORY [facility] Imaging Services [address] [place] [address] Chest PA and Lateral MR#: [id number] Acct: [id number] Name: FAUSTINA HURTADO Rep #: [id number] : 1975 F 42 From: Sherwin David MD PCP: ZOFIA DEVRIES Status: REG ER Study: Chest PA and Lateral Date of Exam: 08/18/17 Exam# [id number] Ordering Dr: Roque Brothers MD STUDY: X-RAY CHEST REASON FOR EXAM: Female, 42 years old. Elevated blood pressure TECHNIQUE: Frontal and lateral views of the chest. COMPARISON: 09.30.16 FINDINGS: Mild right lower lobe pneumonia. There is no demonstrated pleural abnormality. There is borderline cardiomegaly. Normal mediastinum and solange. Normal visualized pulmonary arteries. Normal visualized aortic arch and descending thoracic aorta. Normal visualized thoracic spine. Normal visualized ribs, clavicles, and shoulders. There is no demonstrated abnormality of the visualized soft tissue structures of the upper abdomen. RAD/Chest PA and Lateral IMPRESSION: Mild right lower lobe pneumonia. Electronically Signed: Sherwin David MD at 18:14 EDT , Service support , CC: ZOFIA DEVRIES; Roque Brothers MD Amphibian Crewmember: Signed Observed: 06/08/2017 Status: F Source: [facility] CULTURE, BLOOD 1:57 PM [facility] REPOSITORY Test Name: Culture, Blood Culture Status: Final Culture Report: No Growth - Day 5 Micro Source: BLOOD Performed By: #### BC #### Unless otherwise noted, all testing performed by [facility] [place] [address] [address] [place], [place] [address] CLIA: [id number] Manager Agricultural: Andrae Salvador M.D. CHEMG (BASIC METABOLIC Collected: 06/08/2017 Status: F Source: [facility] AND MG) 6:30 AM [facility] REPOSITORY TYPE CODE TESTS RESULT OUT OF RANGE REFERENCE UNITS LAB GLU 70-99 mg/dL Normal Glucose 88 Result Comment: This test result might be falsely depressed or falsely elevated on samples drawn from patients taking Sulfasalazine and Sulfapyridine. Venipuncture should occur prior to taking either of these drugs. LAB BUN 8-25 mg/dL BUN High 34 LAB CREA 0.40-1.10 mg/dL Creatinine High 7.67 LAB eGFR >60 ml/min/1.73s Low q.m eGFR,NonAfrican-Am 6 erican Result Comment: Non- GFR Calc eGFR is an estimated Glomerular Filtration Rate based on the value of the patient's serum creatinine. In outpatients, eGFR should be used as a helpful tool in screening for CKD. In inpatients or patients with acute renal failure, eGFR represents the GFR at the moment of the draw and should be used with caution. LAB eGFRB >60 ml/min/1.73sq.m eGFR, -Cambodian Low 7 Result Comment: GFR Calc LAB CALCM 8.4-10.2 mg/dL Low Calcium 8.0 LAB NA 135-145 mmol/L Sodium Normal 138 LAB K 3.5-5.1 mmol/L Normal Potassium 4.8 LAB CL 98-108 mmol/L Chloride Normal 101 LAB CO2 21-32 mmol/L CO2 Normal 29 LAB MG 1.6-2.4 mg/dL Normal Magnesium 2.2 Performed By: #### CHEMG, CBCDIF #### Unless otherwise noted, all testing performed by [facility] [address] [place], [place] [address] CLIA: [id number] Manager Agricultural: Andrae Salvador M.D. CBC WITH DIFF Collected: 06/08/2017 Status: F Source: [facility] 6:30 AM [facility] REPOSITORY TYPE CODE TESTS RESULT OUT OF RANGE REFERENCE UNITS LAB WBC 3.4-10.6 K/mcL WBC Normal 4.6 LAB RBC 3.7-5.0 M/mcL Low RBC 3.13 LAB HGB 11.6-15.4 g/dL Low Hemoglobin 10.1 LAB HCT 34.4-44.8 % Low Hematocrit 31.1 LAB MCV 82.6-98.9 FL High MCV 99.6 LAB MCH 27.9-33.9 pg MCH Normal 32.2 LAB MCHC 33.1-35.1 g/dL Low MCHC 32.4 LAB RDW 10.0-14.4 % High RDW 19.4 LAB PLT 162-402 K/mcL Platelet Normal Count 180 LAB MPV 7.0-10.6 FL MPV Normal 8.8 LAB NEUT# 1.2-6.9 K/mcL Normal Neutrophil # 3.1 LAB LYMPH# 1.0-3.7 K/mcL Low Lymphocyte # 0.9 LAB MONO# 0.1-0.6 K/mcL Monocyte Normal # 0.4 LAB EOS# 0-0.5 K/mcL Normal Eosinophil # 0.1 LAB BASO# 0-0.2 K/mcL Basophil Normal # 0.0 LAB SEGNEU% % Normal Segmented Neut % 67.3 LAB LYMP% % Normal Lymphocyte% 20.4 LAB MO% % Monocyte Normal % 9.2 LAB EO% % Normal Eosinophil % 2.5 LAB BA% % Basophil Normal % 0.6 Performed By: #### CHEMG, CBCDIF #### Unless otherwise noted, all testing performed by [facility] [address] [place], [place] [address] CLIA: [id number] Manager Agricultural: Andrae Salvador M.D. CBC WITH DIFF Collected: 06/07/2017 Status: F Source: [facility] 8:45 AM [facility] REPOSITORY TYPE CODE TESTS RESULT OUT OF RANGE REFERENCE UNITS LAB WBC 3.4-10.6 K/mcL Normal WBC 6.5 Result Comment: WILL GET ON DIALYSIS LAB RBC 3.7-5.0 M/mcL Low RBC 3.18 Result Comment: WILL GET ON DIALYSIS LAB HGB 11.6-15.4 g/dL Hemoglobin Low 10.4 Result Comment: WILL GET ON DIALYSIS LAB HCT 34.4-44.8 % Hematocrit Low 31.7 Result Comment: WILL GET ON DIALYSIS LAB MCV 82.6-98.9 FL High MCV 99.4 Result Comment: WILL GET ON DIALYSIS LAB MCH 27.9-33.9 pg Normal MCH 32.6 Result Comment: WILL GET ON DIALYSIS LAB MCHC 33.1-35.1 g/dL Low MCHC 32.8 Result Comment: WILL GET ON DIALYSIS LAB RDW 10.0-14.4 % High RDW 19.8 Result Comment: WILL GET ON DIALYSIS LAB PLT 162-402 K/mcL Normal Platelet Count 178 Result Comment: WILL GET ON DIALYSIS LAB MPV 7.0-10.6 FL Normal MPV 8.6 Result Comment: WILL GET ON DIALYSIS LAB NEUT# 1.2-6.9 K/mcL Neutrophil Normal # 5.1 Result Comment: WILL GET ON DIALYSIS LAB LYMPH# 1.0-3.7 K/mcL Lymphocyte Low # 0.7 Result Comment: WILL GET ON DIALYSIS LAB MONO# 0.1-0.6 K/mcL Normal Monocyte # 0.6 Result Comment: WILL GET ON DIALYSIS LAB EOS# 0-0.5 K/mcL Normal Eosinophil # 0.1 Result Comment: WILL GET ON DIALYSIS LAB BASO# 0-0.2 K/mcL Normal Basophil # 0.0 Result Comment: WILL GET ON DIALYSIS LAB SEGNEU% % Normal Segmented Neut % 78.7 Result Comment: WILL GET ON DIALYSIS LAB LYMP% % Normal Lymphocyte% 10.9 Result Comment: WILL GET ON DIALYSIS LAB MO% % Normal Monocyte % 8.5 Result Comment: WILL GET ON DIALYSIS LAB EO% % Normal Eosinophil % 1.5 Result Comment: WILL GET ON DIALYSIS LAB BA% % Normal Basophil % 0.4 Result Comment: WILL GET ON DIALYSIS Performed By: #### PHOS, CBCDIF, CHEMG #### Unless otherwise noted, all testing performed by [place] [address] CLIA: [id number] Manager Agricultural: Andrae Salvador M.D. PHOSPHORUS Collected: 06/07/2017 Status: F Source: [facility] 8:45 AM [facility] REPOSITORY TYPE CODE TESTS RESULT OUT OF RANGE REFERENCE UNITS LAB PHOS 2.7-4.5 mg/dL Normal Phosphorus 4.2 Result Comment: WILL GET ON DIALYSIS Performed By: #### PHOS, CBCDIF, CHEMG #### Unless otherwise noted, all testing performed by [place] [address] CLIA: [id number] Manager Agricultural: Andrae Salvador M.D. CHEMG (BASIC METABOLIC Collected: 06/07/2017 Status: F Source: [facility] AND ) 8:45 AM [facility] REPOSITORY TYPE CODE TESTS RESULT OUT OF REFERENCE UNITS RANGE LAB GLU 70-99 mg/dL High Glucose 104 Result Comment: WILL GET ON DIALYSIS This test result might be falsely depressed or falsely elevated on samples drawn from patients taking Sulfasalazine and Sulfapyridine. Venipuncture should occur prior to taking either of these drugs. LAB BUN 8-25 mg/dL High BUN 55 Result Comment: WILL GET ON DIALYSIS LAB CREA 0.40-1.10 mg/dL High Alert Creatinine 11.40 Result Comment: WILL GET ON DIALYSIS [id number] CALLED CRITICAL RESULTS ON 06/07/2017 @ 0944 TO AND READ BACK BY LUCAS HERNÁNDEZ in B21 LAB eGFR >60 ml/min/1.73sq.m eGFR,NonAfrican-Cambodian Low 4 Result Comment: WILL GET ON DIALYSIS Non- GFR Calc eGFR is an estimated Glomerular Filtration Rate based on the value of the patient's serum creatinine. In outpatients, eGFR should be used as a helpful tool in screening for CKD. In inpatients or patients with acute renal failure, eGFR represents the GFR at the moment of the draw and should be used with caution. LAB eGFRB >60 ml/min/1.73sq.m eGFR, -Cambodian Low 4 Result Comment: WILL GET ON DIALYSIS GFR Calc LAB CALCM 8.4-10.2 mg/dL Low Calcium 7.8 Result Comment: WILL GET ON DIALYSIS LAB NA 135-145 mmol/L Sodium 136 Result Comment: WILL GET ON DIALYSIS LAB K 3.5-5.1 mmol/L Potassium 4.5 Result Comment: WILL GET ON DIALYSIS LAB CL 98-108 mmol/L Chloride 98 Result Comment: WILL GET ON DIALYSIS LAB CO2 21-32 mmol/L CO2 24 Result Comment: WILL GET ON DIALYSIS LAB MG 1.6-2.4 mg/dL Magnesium 2.2 Result Comment: WILL GET ON DIALYSIS Performed By: #### PHOS, CBCDIF, CHEMG #### Unless otherwise noted, all testing performed by [place] [address] CLIA: [id number] Manager Agricultural: Andrae Salvador M.D. MICRO CRITICAL RESULT Collected: 06/07/2017 Status: F Source: [facility] 2:57 AM [facility] REPOSITORY TYPE CODE TESTS RESULT OUT OF RANGE REFERENCE UNITS LAB MICRCRIT Abnormal Micro CRITICAL Alert Critical Result Result Comment: SEE POSITIVE BLOOD CULTURE DRAWN ON 06/06/2017 AT 11:39 AM Performed By: #### MICRCRIT #### Unless otherwise noted, all testing performed by [place] [address] CLIA: [id number] Manager Agricultural: Andrae Salvador M.D. CARDIAC TROPONIN-I Collected: 06/06/2017 Status: F Source: [facility] 7:43 PM [facility] REPOSITORY TYPE CODE TESTS RESULT OUT OF REFERENCE UNITS RANGE LAB CTNI < 45.0 ng/L High Cardiac 54 Troponin-I Result Comment: Elevation of troponin indicates some degree of myocardial necrosis but unless there is a significant rise and/or fall (if elevated) identified, it unlikely that an acute event has taken place Samples from patients routinely receiving high dose biotin therapy (100-300 mg/day) may show falsely decreased results. Please correlate clinically. LAB CTNINT Cardiac Consistent Troponin Comment with acute myocardial injury Performed By: #### CTNI #### Unless otherwise noted, all testing performed by [address] [place] [address] CLIA: [id number] Manager Agricultural: Andrae Salvador M.D. CONSULTATION Observed: 06/06/2017 Status: F Source: [facility] 6:[address] [place] [address] NAME FAUSTINA HURTADO [facility] [id number] 1975 DATE 06/06/2017 CONSULTATION DIRECTOR OF PHYSICAL SECURITY BRENDEN MELENDEZ MD REFERRING PHYSICIAN: Thao Cornejo MD REASON FOR CONSULTATION Possible acute pyelonephritis and also for antibiotics management. HISTORY OF PRESENT ILLNESS The patient was seen today, on May 06, 2017. The patient is a 41-year-old lady with a known history of end-stage renal disease who had been on hemodialysis through an AV fistula. She also was said to have congenital hearing loss and also had been previously placed on peritoneal dialysis, but had quit. She has a left AV fistula currently. She is presenting with a history of right-sided abdominal pain and nausea. Originally, she had presented at [facility] where she had a CT scan of the abdomen and was probably told that she may have some gallbladder problems and was given some pain medication, but she did not improve. She has now presented in this hospital. She is still complaining of the abdominal pain and the patient was also said to have EGD and colonoscopy. EGD had some gastric ulcer that was identified, non bleeding, and she was currently started on antibiotics with levofloxacin. Evaluation currently is for suspected pyelonephritis. Her urinalysis has shown leukocyte esterase large and WBC of 182. PAST MEDICAL HISTORY Includes history of AV fistula, end-stage renal disease, , cholecystectomy, hysterectomy, Alport's syndrome and previous history of peritoneal dialysis, hearing deficit, history of laparoscopic cholecystectomy, and also history of umbilical hernia repair, hysterectomy, section x2, secondary to hyperparathyroidism, anemia. HOME MEDICATIONS Include: 1. Calcium acetate 667 mg. 2. Sucralfate. 3. Famotidine 20 mg daily. 4. Nexium 20 mg daily delayed release. 5. Omeprazole 40 mg. 6. Lidocaine. 7. Prilocaine. ALLERGIES Allergic to vancomycin, causes rashes and swelling. Keflex, caused hives. Oxycodone, caused hives. OxyContin, caused hives. SOCIAL HISTORY The patient had no history of smoking. No alcohol. No travel history. FAMILY HISTORY Noncontributory, though Mom has history of chronic kidney disease that was thought to be due to Alport's syndrome. Mom was said not to have been on dialysis. REVIEW OF SYSTEMS Apart from the history of abdominal pain and nausea: General: There is no fever, no night sweats, no weight loss. Nose: No sinusitis, no epistaxis or pain. Throat: No pharyngitis, no dysphagia, no odynophagia. Neck: No neck pain, no mass. Respiratory: No shortness of breath, cough, or wheezing. Cardiovascular: No dyspnea, no orthopnea, no chest pain, and no claudication. Gastrointestinal: Positive abdominal pain and nausea. No diarrhea. No constipation. No change in bowel habits. No hematochezia. Genitourinary: No dysuria, frequency, hematuria, or urgency. Denies any sexually transmitted disease or discharge from the genitals. Psychiatric: No history of depression but denied any suicidal ideation or anxiety. Central nervous system: No loss of consciousness. No seizures or headache or dizziness. Musculoskeletal: Denied any joint pain or swelling. Skin: No skin rash or ecchymosis. No history of spider bites in the past. EXAMINATION General: The patient is conscious, afebrile, anicteric. Not in obvious respiratory distress. Vital signs: Blood pressure is 99/75, pulse is 88, temperature is 98.6, respiratory rate of 18, pulse ox of 91 on room air. HEENT: PERRLA. Neck: Supple. No mass. Chest: Equal air entry. No wheezing. Some mild rales. Heart: S1, S2 present. Normal in intensity. No tachycardia. Abdomen: Soft and tender in the area of the right upper quadrant. No organomegaly. An area of previous incisional scar was noted, clean. Upper extremities: The left forearm has an AV fistula in place. Lower extremities: No edema. RN CVICU: The patient is awake and oriented in time, person, and place. The patient had a right-sided [ ]also. LABORATORY DATA BUN and creatinine are 34 and 8.37. AST and ALT are 14 and 14. Cardiac troponin was 45. WBC of 9.4, hemoglobin of 11.9, platelets of 182, segs of 85. Urinalysis has shown leukocyte esterase large, WBC of 182, bacteria were few. KUB was obtained and showed no evidence of obstruction or ileus. ASSESSMENT The patient is a 41-year-old lady with known multiple medical problems, who had history of hearing deficit and end-stage renal disease, who had an AV fistula in place on hemodialysis, and also had a history of hysterectomy and laparoscopic cholecystectomy. Currently, presenting with severe abdominal pain and nausea, followed with diagnoses: 1. Abdominal pain. 2. Suspicion for pyelonephritis. PLAN Currently, I did not elicit any right-sided loin tenderness. However, we will follow up the patient with a CT scan of the abdomen and pelvis. We will get the report from [facility] for the MRCP that the patient had done. We will have ESR, C-reactive protein, and the urine culture and urinalysis followed, and also blood culture followed, and we will keep monitoring the patient closely to see how she improves. I have taken time to discuss management with the patient. I appreciate seeing your patient. We will continue to follow with you and adjust with more information. MD Suzanna SIMMONS 06/06/2017 18:47 [id number] T 06/06/2017 19:37 UAE/MODL Electronically Signed By Brenden Melendez M.D. on 22 Jun 2017 01:27:23 GMT KUBoaz Observed: 06/06/2017 Status: F Source: [facility] 5:14 PM [facility] REPOSITORY Final Report Accession No: [id number] Performed: Jun 06 2017 5:14PM Examination: KUB KUB HISTORY: Abdominal pain. COMPARISON: None. FINDINGS: Nonobstructed nondilated bowel gas pattern. There are no abnormal radiopaque densities in the abdomen or pelvis. There are no acute bony abnormalities. IMPRESSION: No evidence of obstruction or ileus. Interpreting Physician: GRAZYNA BENEDICT M.D. Trans: n/a : cc: CARDIAC TROPONIN-I Collected: 06/06/2017 Status: P Source: [facility] 4:35 PM [facility] TYPE CODE TESTS RESULT OUT OF REFERENCE UNITS RANGE LAB CTNI < 45.0 ng/L High Cardiac 57 Troponin-I Result Comment: Elevation of troponin indicates some degree of myocardial necrosis but unless there is a significant rise and/or fall (if elevated) identified, it unlikely that an acute event has taken place Samples from patients routinely receiving high dose biotin therapy (100-300 mg/day) may show falsely decreased results. Please correlate clinically. LAB CTNIALRT High ;CD_CALL Alert Cardiac Troponin Alert LAB CTNINT Consistent Cardiac with acute Troponin myocardial injury Comment Performed By: #### CTNI #### Unless otherwise noted, all testing performed by [address] [place] [address] CLIA: [id number] Manager Agricultural: Andrae Salvador M.D. CONSULTATION Observed: 06/06/2017 Status: F Source: [facility] 3:[address] [place] [address] NAME FAUSTINA [facility] [id number] 1975 DATE CONSULTATION DIRECTOR OF PHYSICAL SECURITY RHODA ABBOTT MD REASON FOR CONSULTATION End-stage renal disease requiring chronic hemodialysis support. HISTORY OF PRESENT ILLNESS This is a very pleasant, 41-year-old female with past medical history significant for end-stage renal disease secondary to Alport syndrome, who is on hemodialysis support at [facility], dialyzing on a Saturday, Saturday, Saturday schedule, and is being followed there by [ ]. The patient reports that over the weekend, she developed loose bowel movements all day Saturday and felt feverish, though she never checked her temperature. Also developed some nausea. The patient also reports that she developed some abdominal pain. Therefore, she went to [facility] on 06/04/2017. Patient did have MRCP, which report showed mild dilatation of common bile duct, status post total cystectomy, no filling defect or obstructing lesion identified. She also had CT of abdomen and pelvis, which did not show any acute process, no signs of acute appendicitis, and no abnormally dilated bile ducts. Also, lab work showed white blood cell count normal at 9000. The patient reports she was discharged from the emergency room with a prescription for pain medication, Vicodin. The patient reports that Vicodin has not helped with her pain. She is still nauseated, still having abdominal pain, but then also developed flank pain. The patient then came to [facility] for evaluation this morning and is being admitted for acute right flank pain, possible acute pyelonephritis. The patient did have urinalysis in the emergency room, which showed a large amount of leukocyte esterase with moderate blood. The patient does report compliancy with dialysis. Her last hemodialysis session was yesterday and able to get to her dry weight, but reports that likely her dry weight is now lowered given recent poor appetite with weight loss. PAST MEDICAL HISTORY 1. End-stage renal disease secondary to Alport syndrome on hemodialysis support at [facility] Saturday, Saturday, Saturday, being followed by Dr. Kwok. 2. History of congenital hearing loss. 3. History of anemia secondary to renal failure. 4. Secondary hyperparathyroidism PAST SURGICAL HISTORY 1. section x2. 2. Hysterectomy. 3. Repair of umbilical hernia. 4. Placement of peritoneal dialysis catheter, status post removal. 5. Creation of right upper arm AV fistula. 6. Creation of left arm AV fistula, currently functioning for dialysis. 7. History of laparoscopic cholecystectomy. 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 No recent history of alcohol, tobacco or illicit drug use. FAMILY HISTORY Mother had a history of chronic kidney disease attributed to Alport syndrome and at age 46 secondary to uremia. She was never on hemodialysis support. ALLERGIES Vancomycin, Keflex, oxycodone, and OxyContin. HOME MEDICATIONS Reviewed per medication reconciliation list. REVIEW OF SYSTEMS Ten systems reviewed. Pertinent positives and negatives as in HPI and past medical history. PHYSICAL EXAMINATION General Appearance: The patient is alert and oriented, does not appear to be in any acute distress. Current Vital Signs: Temperature 98.6, pulse 88, respirations 18, blood pressure 99/75, weight 80 kg. HEENT: Head is normocephalic, atraumatic. Pupils equal, round, and reactive to light and accommodation. Oral mucosa is moist. Neck: Soft, supple. Respiratory: Lungs are clear anteriorly and posteriorly. Respirations even and unlabored. No wheezes, rhonchi or rales noted. Cardiovascular: S1, S2 noted. Rhythm and rate regular. Gastrointestinal: Abdomen is tender upon palpation. Hypoactive bowel sounds x4 quadrants. Extremities: No pitting edema noted bilateral lower legs or arms. Left forearm AV fistula, good thrill and bruit noted. LABORATORY AND X-RAY DATA Today in the emergency room: Glucose 89, creatinine 8.37, sodium 133, potassium 4.3, CO 25, lipase 86, lactic acid 0.8. WBC 9.4, hemoglobin 11.9, platelet count 182. KUB has been ordered, results pending. IMPRESSION 1. 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 Kwok. 2. Acute right flank pain, possible acute pyelonephritis. 3. Anemia of chronic disease. 4. Hyperphosphatemia secondary to renal failure. PLAN There is no acute indication for renal placement therapy for Ms. Hurtdao. Potassium and acid base are acceptable. Likely plan dialysis tomorrow, keep her on a Saturday, Saturday, Saturday schedule, with minimal to no UF as patient appears to be hypovolemic to near euvolemic. For history of anemia of chronic disease, current hemoglobin trends are acceptable. The patient has been started on IV antibiotics, levofloxacin. KUB is pending. Blood cultures and urine cultures pending. Further orders will be forthcoming as hospitalization evolves. Thank for allowing us to participate in the care of Ms. Hurtado. ADDENDUM: Patient seen and examined independently. Agree with the above. Acute right flank pain. UA suspicious for infection. Treating possible pyelonephritis. HD tomorrow. Megan FISHER. Dictated by Karlee Rivas, PHOTO PRINTER MD Suzanna ROWLEY 06/06/2017 15:26 [id number] T 06/06/2017 15:46 SAT/MODL cc: Rhoda Abbott MD . [facility] Electronically Signed By Rhoda Abbott M.D. on 06 Jun 2017 21:17:18 GMT LACTIC ACID Collected: 06/06/2017 Status: F Source: [facility] 11:39 [facility] REPOSITORY TYPE CODE TESTS RESULT OUT OF RANGE REFERENCE UNITS LAB [place] 0.6-2.0 mmol/L Normal Lactic Acid 0.8 Performed By: #### [place] #### Unless otherwise noted, all testing performed by [place] [address] CLIA: [id number] Manager Agricultural: Andrae Salvador M.D. Observed: 06/06/2017 Status: F Source: [facility] CULTURE, BLOOD 11:39 [facility] REPOSITORY Test Name: Culture, Blood Culture Status: Final Blood Culture Gram Stain: Gram Positive Cocci in chains Micro Source: BLOOD ORGANISM ID: 1 - STREPTOCOCCUS MITIS/STREPTOCOCCUS ORALIS ANTIBIOTIC INTERPRETATION NATY STATUS Ampicillin S <= 0.25 F Benzylpenicillin (other) I 0.25 F Ceftriaxone S 0.5 F Clindamycin R >= 1 F Erythromycin R >= 8 F Levofloxacin S 1 F Tetracycline S 2 F Vancomycin S 0.5 F Performed By: #### BC #### Unless otherwise noted, all testing performed by [place] [address] CLIA: [id number] Manager Agricultural: Andrae Salvador M.D. BLOOD CULTURE ID PCR Collected: 06/06/2017 Status: F Source: [facility] 11:39 [facility] REPOSITORY TYPE CODE TESTS RESULT OUT OF REFERENCE UNITS RANGE LAB [id number] Interpretation 18 Normal (PCR) Result Comment: Streptococcus spp. detected by the Rapid DNA ID [Negative for: Streptococcus agalactiae (Group B), Streptococcus pneumoniae, and Streptococcus pyogenes (Group A)]; Bacterial Culture in Progress LAB HAEINF Not Detected Haemophilus influenzae Normal PCR Not Detected LAB LISMOC Not Detected Listeria monocytogenes Normal PCR Not Detected LAB NEIMEN Not Detected Neisseria meningitidis Normal PCR Not Detected LAB STRPNE Not Detected Streptococcus Normal pneumoniae PCR Not Detected LAB ENTEROC Not Detected Enterococcus PCR Normal Not Detected LAB STAPHYLO Not Detected Staphylococcus spp. PCR Normal Not Detected LAB STAAUR Not Detected Staphylococcus aureus Normal PCR Not Detected LAB STREPTOC Not Detected Streptococcus spp. PCR Abnormal Detected LAB STRAGAGB Not Detected Strep agalactiae GrpB PCR Normal Not Detected LAB STRPYOGA Not Detected Strep pyogenes GrpA PCR Normal Not Detected LAB ACIBAU Not Detected Acinetobacter baumannii Normal PCR Not Detected LAB PSEAER Not Detected Pseudomonas aeruginosa Normal PCR Not Detected LAB ENTBAC Not Detected Enterobacteriaceae spp. Normal PCR Not Detected LAB ENTCLOPX Not Detected Enterobacter cloacae Normal cmplx PCR Not Detected LAB ESCCOL Not Detected Escherichia coli PCR Normal Not Detected LAB KLEOXY Not Detected Klebsiella oxytoca PCR Normal Not Detected LAB KLPNSP Not Detected Klebsiella pneumoniae Normal PCR Not Detected LAB PROTEUS Not Detected Proteus spp. PCR Normal Not Detected LAB SERMAR Not Detected Serratia marcescens PCR Normal Not Detected LAB CANALB Not Detected Luly albicans PCR Normal Not Detected LAB CANGLA Not Detected Luly glabrata PCR Normal Not Detected LAB CANKRU Not Detected Luly krusei PCR Normal Not Detected LAB CANPAR Not Detected Luly parapsilosis Normal PCR Not Detected LAB CANTRO Not Detected Luly tropicalis PCR Normal Not Detected LAB SRC_BFir Source (Rapid DNA ID) Normal BLOOD LAB BFINSTID Biofire Instrument ID Normal Testing performed on Mesh [place] instrument# [id number] Performed By: #### BCID #### Unless otherwise noted, all testing performed by [place] [address] CLIA: [id number] Manager Agricultural: Andrae Salvador M.D. Observed: 06/06/2017 Status: F Source: [facility] CULTURE, BLOOD 11:35 AM [facility] REPOSITORY Test Name: Culture, Blood Culture Status: Final Blood Culture Gram Stain: Gram Positive Cocci in chains Micro Source: BLOOD ORGANISM ID: 1 - STREPTOCOCCUS MITIS/STREPTOCOCCUS ORALIS SEE BLOOD CULTURE COLLECTED ON 06/06/17 AT 1139 (19.198) FOR SENSITIVITIES Performed By: #### BC #### Unless otherwise noted, all testing performed by [place] [address] CLIA: [id number] Manager Agricultural: Andrae Salvador M.D. CBC WITH DIFF Collected: 06/06/2017 Status: F Source: [facility] 8:35 AM [facility] REPOSITORY TYPE CODE TESTS RESULT OUT OF RANGE REFERENCE UNITS LAB WBC 3.4-10.6 K/mcL WBC Normal 9.4 LAB RBC 3.7-5.0 M/mcL Low RBC 3.58 LAB HGB 11.6-15.4 g/dL Normal Hemoglobin 11.9 LAB HCT 34.4-44.8 % Normal Hematocrit 35.9 LAB MCV 82.6-98.9 FL High MCV 100.1 LAB MCH 27.9-33.9 pg MCH Normal 33.2 LAB MCHC 33.1-35.1 g/dL MCHC Normal 33.2 LAB RDW 10.0-14.4 % High RDW 19.4 LAB PLT 162-402 K/mcL Platelet Normal Count 182 LAB MPV 7.0-10.6 FL MPV Normal 8.9 LAB NEUT# 1.2-6.9 K/mcL High Neutrophil # 8.0 LAB LYMPH# 1.0-3.7 K/mcL Low Lymphocyte # 0.5 LAB MONO# 0.1-0.6 K/mcL High Monocyte # 0.8 LAB EOS# 0-0.5 K/mcL Normal Eosinophil # 0.1 LAB BASO# 0-0.2 K/mcL Basophil Normal # 0.0 LAB SEGNEU% % Normal Segmented Neut % 85.1 LAB LYMP% % Normal Lymphocyte% 5.3 LAB MO% % Monocyte Normal % 8.7 LAB EO% % Normal Eosinophil % 0.6 LAB BA% % Basophil Normal % 0.3 Performed By: #### EDCTNI, LIPASE, CMET, CBCDIF #### Unless otherwise noted, all testing performed by [facility] [address] [place] [address] CLIA: [id number] Manager Agricultural: Andrae Salvador M.D. LIPASE Collected: 06/06/2017 Status: F Source: [facility] 8:35 AM [facility] REPOSITORY TYPE CODE TESTS RESULT OUT OF RANGE REFERENCE UNITS LAB LIPASE 73-393 U/L Normal Lipase 86 Performed By: #### EDCTNI, LIPASE, CMET, CBCDIF #### Unless otherwise noted, all testing performed by [place] [id number] CLIA: [id number] Manager Agricultural: Andrae Salvador M.D. ED CARDIAC TROPONIN-I Collected: 06/06/2017 Status: F Source: [facility] 8:35 AM [facility] TYPE CODE TESTS RESULT OUT OF REFERENCE UNITS RANGE LAB EDCTNI < 45 ng/L High Alert ED Cardiac 45 Troponin-I Result Comment: [id number] CALLED CRITICAL RESULTS ON 06/06/2017 @ 0923 TO AND READ BACK BY JAN CRONIN in A1E Elevation of troponin indicates some degree of myocardial necrosis but unless there is a significant rise and/or fall (if elevated) identified, it unlikely that an acute event has taken place Samples from patients routinely receiving high dose biotin therapy (100-300 mg/day) may show falsely decreased results. Please correlate clinically. Performed By: #### EDCTNI, LIPASE, CMET, CBCDIF #### Unless otherwise noted, all testing performed by [place] [address] CLIA: [id number] Manager Agricultural: Andrae Salvador M.D. COMPREHENSIVE METABOLIC Collected: 06/06/2017 Status: F Source: [facility] PANEL 8:35 AM [facility] TYPE CODE TESTS RESULT OUT OF RANGE REFERENCE UNITS LAB GLU 70-99 mg/dL Normal Glucose 89 Result Comment: This test result might be falsely depressed or falsely elevated on samples drawn from patients taking Sulfasalazine and Sulfapyridine. Venipuncture should occur prior to taking either of these drugs. LAB BUN 8-25 mg/dL BUN High 34 LAB CREA 0.40-1.10 mg/dL Creatinine High 8.37 LAB eGFR >60 ml/min/1.73s Low q.m eGFR,NonAfrican-Am 5 erican Result Comment: Non- GFR Calc eGFR is an estimated Glomerular Filtration Rate based on the value of the patient's serum creatinine. In outpatients, eGFR should be used as a helpful tool in screening for CKD. In inpatients or patients with acute renal failure, eGFR represents the GFR at the moment of the draw and should be used with caution. LAB eGFRB >60 ml/min/1.73sq.m eGFR, -Cambodian Low 6 Result Comment: GFR Calc LAB CALCM 8.4-10.2 mg/dL Calcium Normal 8.7 LAB NA 135-145 mmol/L Low Sodium 133 LAB K 3.5-5.1 mmol/L Normal Potassium 4.3 LAB CL 98-108 mmol/L Low Chloride 96 LAB CO2 21-32 mmol/L CO2 Normal 25 LAB AST 0-45 U/L AST Normal (SGOT) 14 Result Comment: This test result might be falsely depressed or falsely elevated on samples drawn from patients taking Sulfasalazine and Sulfapyridine. Venipuncture should occur prior to taking either of these drugs. LAB ALT 14-65 U/L Normal ALT (SGPT) 14 Result Comment: This test result might be falsely depressed or falsely elevated on samples drawn from patients taking Sulfasalazine and Sulfapyridine. Venipuncture should occur prior to taking either of these drugs. LAB ALKP 40-140 U/L Normal Alkaline Phosphatase 86 LAB BILIT 0.3-1.2 mg/dL Normal Bilirubin,Total 0.9 LAB PROT 6.0-8.0 g/dL Normal Protein, Total 8.0 LAB ALB 3.2-5.2 g/dL Normal Albumin 3.5 Performed By: #### EDCTNI, LIPASE, CMET, CBCDIF #### Unless otherwise noted, all testing performed by [facility] [address] [address] CLIA: [id number] Manager Agricultural: Andrae Salvador M.D. TEST,URINE Collected: 06/06/2017 Status: F Source: [facility] QUAL 8:19 AM [facility] REPOSITORY TYPE CODE TESTS RESULT OUT OF REFERENCE UNITS RANGE LAB PREGUR Negative Normal Negative Test,Urine Qual Result Comment: Rapid test procedural control acceptable. If a negative result is obtained but is suspected, hCG levels may be too low or urine may be too dilute for detection. Another specimen should be collected after 48-72 hours and tested. If waiting 48 hours is not medically advisable, the test result should be confirmed with a more sensitive quantitative serum hCG test. Performed By: #### UA, PREGUR #### Unless otherwise noted, all testing performed by [place] [address] CLIA: [id number] Manager Agricultural: Andrae Salvador M.D. URINALYSIS, ROUTINE Collected: 06/06/2017 Status: F Source: [facility] 8:19 AM [facility] REPOSITORY TYPE CODE TESTS RESULT OUT OF RANGE REFERENCE UNITS LAB COLOR Normal Color, Urine Yellow LAB CHAUR Normal Character Cloudy LAB SPGRUR 1.003-1.029 Normal Specific 1.004 [place],Urine LAB PHUR 4.5-8.0 Normal pH,Urine 8.0 LAB GLUCUR NEG;NEGATIVE mg/dL Normal Glucose,Urine Negative LAB KETUR NEG;NEGATIVE mg/dL Normal Ketone,Urine Negative LAB PROTUR < 30 mg/dL High Protein,Urine 100 LAB BLDUR NEG;NEGATIVE Abnormal Blood,Urine Moderate LAB NITUR NEG;NEGATIVE Normal Nitrite,Urine Negative LAB BILIUR NEG;NEGATIVE Normal Bilirubin,Urine Negative LAB UROUR <2 mg/dL Normal Urobilinogen,Ur < 2.0 ine LAB LEUESTUR Negative Abnormal Leuk.Esterase,U Large rine LAB WBCUR 0-5 /HPF High WBC,Urine > 182 LAB RBCUR 0-5 /HPF High RBC,Urine 19 LAB SQEPI 0-40 /HPF High Squamous 56 Epithelial LAB BACTUR NS;RARE /HPF Abnormal Bacteria,Urine Few Performed By: #### UA, PREGUR #### Unless otherwise noted, all testing performed by [place] [address] CLIA: [id number] Manager Agricultural: nAdrae Salvador M.D. Observed: 06/06/2017 Status: F Source: [facility] CULTURE, URINE 8:19 AM [facility] REPOSITORY Test Name: Culture, Urine Culture Status: Final Culture Report: No significant growth. Micro Source: Urine Performed By: #### URCUL #### Unless otherwise noted, all testing performed by [facility] [address] [place], [place] [address] CLIA: [id number] Manager Agricultural: Andrae Salvador M.D. MRI CHOLANGIOGRAM Observed: 06/04/2017 Status: F Source: [facility] PANCREATOGRAPHY (MRCP) 7:05 AM [facility] REPOSITORY Exam Date/Time: 06/04/2017 07:58 EST Reason for Exam: Abdominal pain Report MRI CHOLANGIOGRAM PANCREATOGRAPHY (MRCP), 06/04/2017 7:05 AM CLINICAL STATEMENT: Right side pain. COMPARISON: CT abdomen and pelvis 06/04/2017. TECHNIQUE: Multiplanar, multisequence MR imaging of the abdomen was performed. MRCP imaging was also performed. FINDINGS: The liver is enlarged measuring approximately 20 cm craniocaudal. There is diffuse low signal throughout the liver parenchyma. No focal lesions identified. The gallbladder is surgically absent. The common bile duct measures approximately 7 mm diameter with gradual tapering to the ampulla. Common hepatic duct measures up to approximately 9 mm diameter. No filling defects identified. No intrahepatic biliary dilatation. The pancreas demonstrates homogeneous signal. No pancreatic duct dilatation. No peripancreatic edema or fluid collection. The spleen is enlarged measuring approximately 14.5 cm craniocaudal. No focal lesions. There is diffuse low signal noted in the spleen. Right kidney is small measuring approximately 5.2 cm in length. No hydronephrosis. There is perinephric edema extending into the infrarenal region without well-organized fluid collection. Left kidney is not visualized. No enlarged retroperitoneal lymphadenopathy. Aorta and IVC are normal caliber. The visualized portions of the small bowel and colon are unremarkable. Visualized portions of the lower thorax demonstrate cardiomegaly. Osseous structures appear intact. IMPRESSION: Mild dilation of the common bile duct, status post cholecystectomy. No filling defect or obstructing lesion identified on this study. Atrophic right kidney with perinephric edema. No hydronephrosis is identified, and findings may be related to pyelonephritis. Correlate with urinalysis. Exam Date/Time: 06/04/2017 07:58 EST Report Hepatosplenomegaly with low parenchymal signal, suggesting iron deposition. FINAL REPORT Dictated: 06/04/2017 11:11 am Fabian Gong MD Signed (Electronic Signature): 06/04/2017 11:11 am Signed by: Fabian Gong MD Technologist: ABDIFATAH CT ABDOMEN/PELVIS W/O Observed: 06/04/2017 Status: F Source: [facility] CONTRAST 6:02 AM [facility] REPOSITORY Exam Date/Time: 06/04/2017 06:10 EST Reason for Exam: Abdominal Pain;Other (please specify) Report CLINICAL HISTORY: Right upper quadrant pain, radiating to the back. UNENHANCED CT SCAN OF THE ABDOMEN AND PELVIS: 06/04/2017. COMPARISON: None. TECHNIQUE: 3 mm axial images from lung bases through ischial tuberosities without intravenous or oral contrast were obtained. Sagittal and coronal reconstructions were performed. Dose reduction techniques were achieved by using automated exposure control and/or adjustment of mA and/or kV according to patient size and/or use of iterative reconstruction technique. FINDINGS: There are no focal abnormalities of visualized lung bases except for some suggestion of air trapping at the lung bases. The visualized cardiac and posterior mediastinal structures are normal. CT ABDOMEN: For a noncontrast study the liver, pancreas, and adrenal glands appear normal. The spleen seems enlarged measuring 14.6 cm in craniocaudal dimensions. The gallbladder seems collapsed with some calculi but no obvious induration of surrounding fat. Left kidney is not identified, however the right kidney is significantly small and atrophic. The abdominal aorta has normal caliber. No abnormal dilated loops of small or large bowel. CT PELVIS: A normal-appearing appendix is not seen with confidence. The uterus and ovaries are not seen. The bladder seems normal. There is no ureterolithiasis. No pelvic or retroperitoneal adenopathy. No focal fluid collections. Visualized osseous structures demonstrate no gross abnormalities. IMPRESSION: 1. The gallbladder is either surgically absent or collapsed with few calcifications in the gallbladder fossa concerning for either cholelithiasis or calculi in the remnant cystic duct. However no abnormally dilated bile ducts. 2. No nephro- or ureterolithiasis. The left kidney is not identified, however the curyung right kidney is significantly atrophic. 3. Splenomegaly. 4. Normal appendix is not seen but no secondary signs of acute appendicitis. Exam Date/Time: 06/04/2017 06:10 EST Report 5. Previous hysterectomy and appendectomy. FINAL REPORT Dictated: 06/04/2017 6:36 am Konrad Rod MD Signed (Electronic Signature): 06/04/2017 6:36 am Signed by: Konrad Rod MD Technologist: ALEXX CBC W/ AUTO DIFF Collected: 06/04/2017 Status: F Source: JUDAISM 5:58 AM [facility] REPOSITORY TYPE CODE TESTS RESULT OUT OF RANGE REFERENCE UNITS LAB [id number](L 3.6-11.0 E3/mcL OINC) Normal WBC 9.6 LAB 97215793(L 3.90-5.40 E6/mcL OINC) Low RBC 3.24 LAB 86787957(L 12.0-16.0 G/DL OINC) Low Hgb 11.1 LAB 97581635(L 36.0-48.0 % OINC) Low Hct 32.7 LAB 01302144(L 11.5-14.5 % OINC) High RDW 19.3 LAB 11251376(L 27.0-31.0 pg OINC) High MCH 34.2 LAB 52797143(L 33.0-37.0 G/DL OINC) Normal MCHC 33.9 LAB 54118775(L 78.0-100.0 fL OINC) High MCV 100.9 LAB 73302116(L 7.4-11.0 fL OINC) Normal MPV 8.5 LAB 85885016(L 130-400 E3/mcL OINC) Normal Platelet 176 Performed By: #### [id number] #### ANDREW RemHemo [address] [place] [address] AUTO DIFF Collected: 06/04/2017 Status: F Source: JUDAISM 5:58 AM [facility] REPOSITORY Order Comment: Order Added by Discern Expert. TYPE CODE TESTS RESULT OUT OF RANGE REFERENCE UNITS LAB 61988482(L 37.0-75.0 % OINC) High Neutro Auto 82.8 LAB 35929520(L 20.0-55.0 % OINC) Low Lymph Auto 8.2 LAB 87230243(L 0.0-10.0 % OINC) Normal Colbert Auto 6.9 LAB 70112929(L 0.0-11.0 % OINC) Normal Eos Auto 0.7 LAB 88614012(L 0.0-2.0 % OINC) Normal Basophil Auto 1.4 LAB 24823983(L 1.4-6.5 E3/mcL OINC) High Neutro 7.9 Absolute LAB 44563256(L 1.2-3.4 E3/mcL OINC) Low Lymph Absolute 0.8 LAB 49920428(L 0.0-0.7 E3/mcL OINC) Normal Colbert Absolute 0.7 LAB 01053167(L 0.0-0.7 E3/mcL OINC) Normal Eos Absolute 0.1 LAB 84648970(L 0.0-0.2 E3/mcL OINC) Normal Basophil 0.1 Absolute Performed By: #### [id number] #### ANDREW RemHemo [facility] [place] [address] BMP Collected: 06/04/2017 Status: F Source: JUDAISM 5:58 AM [facility] REPOSITORY TYPE CODE TESTS RESULT OUT OF RANGE REFERENCE UNITS LAB 97616862(L 70-99 mg/dL OINC) Glucose Normal Lvl 99 LAB 23342073(L 8.4-10.2 mg/dL OINC) Calcium Normal Lvl 8.8 LAB 91263747(L 136-145 mEq/L OINC) Sodium Normal Lvl 136 LAB 50147819(L 3.5-5.1 mEq/L OINC) Normal Potassium Lvl 4.8 LAB 88548987(L 98-107 mEq/L OINC) Chloride Normal 99 LAB 03285379(L 24.0-30.0 mEq/L OINC) CO2 Normal 26.2 LAB 96450599(L 7-18 mg/dL OINC) High BUN 40 LAB 8249213(LO 0.6-1.3 mg/dL INC) High Creatinine 8.0 LAB 30307436(L 5.4-30.0 ratio OINC) Low BUN/Creat Ratio 5.0 Performed By: #### [id number] #### ANDREW RemChem [facility] [place] [address] HEP FUNC PANEL Collected: 06/04/2017 Status: F Source: JUDAISM 5:58 AM [facility] REPOSITORY TYPE CODE TESTS RESULT OUT OF RANGE REFERENCE UNITS LAB 15558026(L 10-40 Int._Unit/L OINC) Normal ALT 15 LAB 71911530(L 10-42 Int._Unit/L OINC) Normal AST 14 LAB 71915164(L 3.2-5.0 G/DL OINC) Normal Albumin Lvl 3.9 LAB 59649042(L 2.0-4.0 G/DL OINC) Normal Globulin 2.9 LAB 75122455(L 1.1-1.9 ratio OINC) Normal A/G Ratio 1.3 LAB 62110967(L 42-121 Int._Unit/L OINC) Normal Alk Phos 64 LAB 02189446(L .00-.20 mg/dL OINC) Normal Bili Direct .14 LAB 62799674(L OINC) Normal Bili Indirect 1.1 Result Comment: No established ranges available for the Indirect Biliruben. LAB 99803917(LOINC) 0.2-1.0 mg/dL High Bili Total 1.2 LAB 59499909(LOINC) 6.4-8.3 G/DL Normal Total Protein 6.8 Performed By: #### 4932103 #### ANDREW RemChem [facility] [place] [address] EGFR Collected: 06/04/2017 Status: F Source: JUDAISM 5:58 AM [facility] REPOSITORY Order Comment: Order added by Discern Expert. TYPE CODE TESTS RESULT OUT OF RANGE REFERENCE UNITS LAB 61567317(LO mL/min/1.73 INC) m2 Normal eGFR 6 LAB 02234922(LO mL/min/1.73 INC) m2 Normal eGFR AA 7 Performed By: #### [id number] #### ANDREW RemChem [address] [place] [address] LIPASE LEVEL Collected: 06/04/2017 Status: F Source: JUDAISM 5:58 AM [facility] REPOSITORY TYPE CODE TESTS RESULT OUT OF RANGE REFERENCE UNITS LAB 59787083(LO 8-57 U/L INC) Normal Lipase Lvl 13 Performed By: #### 8394622 #### ANDREW RemChem [address] [place] [address] MORPH Collected: 06/04/2017 Status: F Source: JUDAISM 5:58 AM [facility] REPOSITORY Order Comment: Order Added by Discern Expert. TYPE CODE TESTS RESULT OUT OF REFERENCE UNITS RANGE LAB 51655976( LOINC) RBC Morph SEE Normal MORPHOLOGY LAB 38304225( LOINC) Polychromasia 1+ Normal LAB 42779583( LOINC) Macrocyte 1+ Normal LAB 45084549( LOINC) Anisocytosis 2+ Normal Performed By: #### [id number] #### ANDREW RemHemo [address] [place] [address]2005 ZZPLT MORPH Collected: 06/04/2017 Status: F Source: JUDAISM 5:58 AM [facility] REPOSITORY TYPE CODE TESTS RESULT OUT OF RANGE REFERENCE UNITS LAB 80742554(L OINC) Normal Platelet NORMAL Estimate LAB 84430055(L OINC) Normal Platelet Morph NORMAL Performed By: #### [id number] #### ANDREW RemHemo [address] [place] [address] ALLERGIES ALLERGIES DATE TYPE / CODE NAME / CODE REACTION SEVERITY SOURCE 12/02/2017 Drug oxycodone/G138812 Hives Unknown [place] Allergy/416 558(RXNORM) [facility] 029540([facility] ED CT) Repository 12/02/2017 Drug cephalexin/E42333 Hives Unknown [place] Allergy/416 2716(RXNORM) Community 560604([facility] ED CT) Repository 12/02/2017 Drug clavulanic Hives Unknown [place] Allergy/416 acid/B765475777(R Community 063082([facility] ED CT) Repository 12/02/2017 Drug amoxicillin/F0060 Hives Unknown [place] Allergy/416 52161(RXNORM) [facility] 813753([facility] ED CT) Repository 12/02/2017 Drug vancomycin/O10131 Hives Unknown [place] Allergy/416 4866(RXNORM) Community 556340([facility] ED CT) Repository 07/27/2014 DRUG OXYCODONE HIVES [facility] INGREDI/[address] [place] 113653([facility] Repository ED CT) 09/04/2010 DRUG CEPHALEXIN HIVES [facility] INGREDI/[address] [place] 749029([facility] Repository ED CT) 09/04/2010 DRUG VANCOMYCIN HIVES [facility] INGREDI/[address] [place] 664237([facility] Repository ED CT) NG/31307094 CEPHALEXIN [facility]([employer] CT) Repository NG/81438801 OXYCODONE [facility]([employer]OMED [facility] CT) Repository NG/54302049 VANCOMYCIN [facility]) Repository Drug/410114 vancomycin 912614742 [facility] 003([facility] System Repository Drug/965268 nystatin [facility] 003([facility]) System Repository Drug/156200 Augmentin 715406517 [facility] 003([facility]) System Repository Drug/870817 Keflex 565003528 [facility] 003([facility]) System Repository Drug/782414 oxyCODONE 197100967 [facility] 003([employer] [facility]) System Repository ENCOUNTERS ENCOUNTERS ADMIT/DISCHARGE ACCOUNT NUMBER ADMITTING ENCOUNTER LOCATION SOURCE CLASS 04/18/2018/04/18/20 [id number] Ambulatory [address] Repository 04/08/2018 [id number] Ambulatory BMSBuilding: [place] BMS.CF.[facility] Repository 04/08/2018 [id number] Ambulatory [facility] ding:[facility] Repository 04/07/2018 [id number] Ambulatory BMSBuilding: [place] BMS.[facility] Repository 04/01/2018 [id number] Ambulatory [facility] ding:[place] Repository IM 03/18/2018 [id number] [facility] 03/18/2018/03/18/20 [id number] Ambulatory [address] [facility] IMRoom: Room 1 02/26/2018 [id number] Ambulatory BMSBuilding: [place] BMS.[facility] Repository 02/26/2018/02/27/20 [id number] Ambulatory [address] Repository 02/26/2018/02/27/20 [id number] Ambulatory [address] Repository 02/26/2018/02/27/20 [id number] Ambulatory [address] Repository 02/25/2018/02/26/20 [id number] Jaycob, Ambulatory [address] ding:[place] Repository IMRoom: Room 1 02/18/2018 [id number] Ambulatory [facility] ding:[place] Repository IM 02/18/2018/02/19/20 [id number] Sindi Chavez Ambulatory [facility] [address] [facility] ding:[place] Repository IMRoom: Room 5 02/06/2018 [id number] Ambulatory [facility] MEDICAL Repository CENTERBuildi ng:AGCARDPHR A 01/30/2018 [id number] Ambulatory [facility] ding:CR Repository 01/29/2018 [id number] Ambulatory BMSBuilding: [place] BMS.[facility] Repository 01/29/2018/04/12/20 [id number] Trace, [address] ding:[facility] Repository 01/29/2018 [id number] Ambulatory [address] [place] [address] Repository 01/20/2018 [id number] Ambulatory [facility] MEDICAL Repository CENTERBuildi ng:AGCARDPHR A 01/01/2018/01/02/20 [id number] Natasha, Ambulatory [address] ding:[facility] IO Repository 12/25/2017/01/20/20 [id number] Ambulatory [address] ding:CR Repository 12/24/2017/12/25/19 [id number] Ambulatory [address] ding:[place] Repository IM 12/24/2017 [id number] Ambulatory [facility] ding:[place] Repository IM 12/24/2017/12/25/19 [id number] Ambulatory [address] ding:[place] Repository IMRoom: Room 4 12/19/2017/12/20/19 [id number] Natasha, Ambulatory [address] ding:[facility] ACM Repository 12/19/2017 [id number] Ambulatory [address] [place] [address] Repository 12/10/2017/12/11/19 [id number] Ambulatory [address] ding:[place] Repository IM 12/10/2017 [id number] Ambulatory [facility] MEDICAL Repository CENTERBuildi ng:AGCARDPHR A 12/04/2017/12/05/19 [id number] Ambulatory [address] ding:[place] Repository IMRoom: Room 3 12/02/2017 [id number] Ambulatory [facility] ding:LAB Repository 12/02/2017/12/03/19 [id number] Ambulatory BMSBuilding: [place] 18 BMS.[facility] Repository 11/27/2017 [id number] Ambulatory [facility] ding:LAB Repository 11/20/2017/12/21/19 [id number] Ambulatory [address] ding:CR Repository 11/14/2017/11/15/19 [id number] Ambulatory [address] ding:[facility] Repository IMRoom: Room 2 11/13/2017/11/20/19 [id number] Ambulatory [address] ding:CR Repository 10/18/2017 [id number] Ambulatory [facility] ding:[facility] Repository 10/14/2017/10/20/19 [id number] Ambulatory [place] ding:CR Repository 10/11/2017/10/12/19 [id number] Ambulatory BMSBuilding: [place] 18 BMS.[facility] Repository 10/04/2017 [id number] Ambulatory [facility] ding:CR Repository 09/20/2017 [id number] Ambulatory [facility] ding:[facility] Repository 09/20/2017 [id number] Ambulatory BMSBuilding: [place] BMS.CF.[facility] Repository 09/18/2017/09/19/19 [id number] Ambulatory BMSBuilding: [place] 18 BMS.[facility] Repository 09/17/2017/09/18/19 [id number] Ambulatory BMSBuilding: [place] 18 BMS.[facility] Repository 09/13/2017/09/14/19 [id number] Neri, Ambulatory [address] [facility] IO Repository 09/13/2017/09/14/19 [id number] Ambulatory [address] MDBuilding:P [facility] owell Repository 09/10/2017 [id number] Ambulatory BMSBuilding: [place] BMS.[facility] Repository 08/20/2017/08/22/19 [id number] Ambulatory BMSBuilding: [place] [facility] Repository 08/19/2017/08/22/19 [id number] Ambulatory [place]Building: [place] Repository 08/18/2017/08/22/19 [id number] [facility], Inpatient [place] [address] ding:PCURoom Repository : YFR375Hbv: 1 08/18/2017 [id number] [facility], Ambulatory BMSBuilding: [place] Tc BMS.[facility] Repository 08/18/2017 [id number] [facility], Ambulatory BMSBuilding: [place] Tc BMS.[facility] Repository 08/18/2017 [id number] [facility], Ambulatory BMSBuilding: [place] Tc BMS.CF.[facility] Repository 08/18/2017 [id number] [facility], Ambulatory BMSBuilding: [place] Tc BMS..[facility] Repository 08/18/2017 [id number] [facility], Ambulatory BMSBuilding: [place] Tc BMS.[facility] Repository 07/16/2017/07/17/19 [id number] Ambulatory [address] MDBuilding:[facility] owellRoom: Repository Room 1 07/04/2017/07/05/19 [id number] Natasha, Ambulatory [address] [facility] Regional ding[facility] Repository 07/03/2017/07/04/19 [id number] Sundar, Ambulatory [address] Regional ding:.[facility] IO Repository 06/06/2017/06/08/[id number] Xena Inpatient [facility] 18 med M Encounter lding:B21 [place] and 2-[place] oom: B21 Hospitals 2122Bed: B21 Repository 06/04/2017/06/04/19 [id number] Clarence Macdonald Emergency [facility] [address] [facility] ding:[facility] EDRoom: WR Repository PAYERS PAYERS ENCOUNTER GUARANTOR PAYER SUBSCRIBER SOURCE 04/08/2018 RENESSA R VAN Primary RENESSA R VAN [place] [id number] Robin Insurance:MEDICARE [facility] [id number] [address]Xxn: Number: Repository [id number] (HP) Date:2018-03-24 04/08/2018 Secondary RENESSA R VAN [place] Insurance:MEDICAIDPol METERDOB: [facility] icy Number: [id number] Hospital [id number] Repository Date:2018-03-24 04/08/2018 Tertiary NOT GIVENUNK [place] Insurance:SELF PAY [facility] Number: Effective Repository Date:2018-04-08 04/08/2018 RENESSA R Primary RENESSA R [place] [id number] Insurance:MEDICARE VANMETERDOB: Community [address] PART A [facility] [id number] Number: Repository 84083Lpg: [phone] [id number] [phone] (HP) Date:2018-03-24 04/08/2018 Secondary RENESSA R [place] Insurance:MEDICAIDPol VANMETERDOB: [facility] icy Number: [id number] Hospital [id number] Repository Date:2018-03-24 04/08/2018 Tertiary NOT GIVENUNK [place] Insurance:SELF PAY [facility] Number: Effective Repository Date:2018-03-24 04/07/2018 RENESSA R VAN Primary RENESSA R VAN [place] [id number] Robin Insurance:MEDICARE METERDOB: [facility] [address], PART A BPolicy [id number] House Health Center [address]Zjm: Number: Repository [id number] (HP) Date:2018-04-07 04/07/2018 Secondary RENESSA R VAN [place] Insurance:MEDICAIDPol METERDOB: Community icy Number: [id number] Hospital [id number] Repository Date:2018-04-07 04/07/2018 Tertiary NOT GIVENUNK [place] Insurance:SELF PAY [facility] Number: Effective Repository Date:2018-04-07 04/01/2018 RENESSA R Primary RENESSA R [facility] VANMETERDOB: Insurance:1500 VANMETERDOB: [facility] MEDICARE [id number] PRIMARYPolicy Number: [address] Repository [place] [address]Sny: Date:2018-04-0156596-1201Sap: [id number] (HP) Name:CD:[id number] O (HP)Tel: (000) [address], 000-0000 () [place] [address]VC: 04/01/2018 Secondary RENESSA R [facility] Insurance:1500 VANMETERDOB: [facility] MED[facility]ID [id number] System PRIMARYPolicy Number: [address] Repository Effective [place] Date:2018-04-0158948-3344Uqp: [id number] Name:CD:[id number] O (HP)Tel: (000) [address] [address] ([place]) [address]MR: 03/18/2018 RENESSA R Primary RENESSA R [facility] VANMETERDOB: Insurance:1500 VANMETERDOB: [facility] MEDICARE [id number] PRIMARYPolicy Number: [address] Repository [place] [address]Hxr: Date:2018-03-18Tel: [phone] (HP) Name:CD:[id number] O (HP)Tel: (000) [address]FYRWDPMPI, 000-0000 (WP) [place] [address]QA: 03/18/2018 Secondary RENESSA R [facility] Insurance:1500 VANMETERDOB: [facility] MEDICAID [id number] System PRIMARYPolicy Number: [address] Repository [place] Date:2018-03-18Tel: [id number] Name:[id number] O (HP)Tel: (000) [address] 000[address] ([place]) [address]AN: 03/18/2018 RENESSA R Primary RENESSA R [facility] VANMETERDOB: Insurance:1500 [facility]: [facility] [id number] MEDICARE [id number] PRIMARYPolicy Number: [address] Repository [place] [address]Jpu: Date:2018-02-25Tel: [id number] (HP) Name:[id number] O (HP)Tel: (000) [address]HZLUJPGGV, 000-0000 (WP) [place] [address]CI: 03/18/2018 Secondary RENESSA R [facility] Insurance:1500 VANMETERDOB: [facility] MEDICAID [id number] System PRIMARYPolicy Number: [address] Repository [place] Date:2018-02-25Tel: [phone] Name:CD:[id number] O (HP)Tel: (000) [address] [place] 000[address] ([place]) [address]RI: 02/26/2018 RENESSA R VAN Primary RENESSA R VAN [place] [id number] Robin Insurance:MEDICARE METERDOB: [facility] [address] [facility], PART A BPolicy [id number] House Health Center [address]Qia: Number: Repository [id number] (HP) Date:2018-02-26 02/26/2018 Secondary RENESSA R VAN [place] Insurance:MEDICAIDPol METERDOB: [facility] ic Number: [id number] Hospital [id number] Repository Date:2018-02-26 02/26/2018 Tertiary NOT GIVENUNK [place] Insurance:SELF PAY [facility] Number: Effective Repository Date:2018-02-26 02/25/2018 RENESSA R Primary RENESSA R [facility] VANMETERDOB: Insurance:1500 VANMETERDOB: [facility] [id number] MEDICARE [id number] PRIMARYPolicy Number: [address] Repository [place] [address]Sqr: Date:2018-02-2507573-0719Gwb: [id number] () Name:CD:[id number] O (HP)Tel: (000) [address]TPMNNBLSY, 000-0000 (WP) [place] [address]FW: 02/25/2018 Secondary RENESSA R [facility] Insurance:1500 VANMETERDOB: [facility] MEDICAID [id number] System PRIMARYPolicy Number: [address] Repository [place] Date:2018-02-25 [address]Dwz: [id number] Name:CD:[id number] O (HP)Tel: (000) [address], [place] 000[address] ([place]) [address]IN: 02/18/2018 RENESSA R Primary RENESSA R [facility] VANMETERDOB: Insurance:1500 [facility] MEDICARE [id number] [address] PRIMARYPolicy Number: [address] Repository [facility] [place] [address]Mhi: Date:2018-02-18Tel: [id number] (HP) Name:[id number] O (HP)Tel: (000) [address] [address]KIPFSFQMG, 000-0000 (WP) [place] [address]ZU: 02/18/2018 Secondary RENESSA R [facility] Insurance:1500 [facility] MED[facility]ID [id number] System PRIMARYPolicy Number: [address] Repository [place] Date:2018-02-18Tel: [phone] Name:CD:[id number] O (HP)Tel: (000) [address], [place] 000[address] ([place]) [address]NA: 02/18/2018 RENESSA R Primary RENESSA R [facility] VANMETERDOB: Insurance:1500 [facility]: [facility] MEDICARE [id number] PRIMARYPolicy Number: [address] Repository [facility] [place] [place] [address]Pep: Date:2018-02-18Tel: [id number] (HP) Name:CD:[id number] O (HP)Tel: (000) [address] [address]FEALXIODM, 000-0000 (WP) [place] [address]JG: 02/18/2018 Secondary RENESSA R [facility] Insurance:1500 VANMETERDOB: [facility] MEDICAID [id number] System [facility] Number: [address] Repository [place] Date:2018-02-18 - [address]Mda: [id number] Name::[id number] O ()Tel: (658) T[address]337[place], [place] 000[address] (KX) [address]DP: 02/06/2018 RENESSA R Primary RENESSA R [facility] STONY CREEKMETERDOB: Insurance:MEDICARE A VANMETERDOB: [facility] [id number] AND [facility] Number: [id number] Repository [address] [id number] [place], [place] Date: [address]Eeq: () 01/30/2018 RENSYEDAA R VAN Primary RENESSA R VAN [place] [id number] Robin Insurance:MEDICARE METERDOB: [facility] [id number] [address]Ebp: Number: Repository [id number] () Date:2017-10-04 01/30/2018 Secondary RENESSA R VAN [place] Insurance:MEDICAIDPol METERDOB: [facility] Number: [id number] Hospital [id number] Repository Date:2017-10-04 01/30/2018 Tertiary NOT GIVENUNK [place] Insurance:SELF PAY [facility] Number: Effective Repository Date:2018-01-20 01/29/2018 RENESSA R VAN Primary RENESSA R VAN [place] [id number] Robin Insurance:MEDICARE METERDOB: [facility] [id number] [place] [address]Ntb: Number: Repository [id number] () Date:2018-01-29 01/29/2018 Secondary RENESSA R VAN [place] Insurance:MEDICAIDPol METERDOB: [facility] icy Number: [id number] Hospital [id number] Repository Date:2018-01-29 01/29/2018 Tertiary NOT GIVENUNK [place] Insurance:SELF PAY Community [facility] Number: Effective Repository Date:2018-01-29 01/29/2018 [facility] VANMETERDOB: Insurance:MedicarePol VANMETERDOB: [facility] icy Number: Effective [id number] Date:2018-01-[address] Repository [place], [place] [id number] [address]Oxj: Name:CD:[id number] [facility] [address]Fbj: [id number], [place] (HP) [address]SA: (800) (HP) [phone] (WP) 01/29/2018 [facility] Insurance:MedicaidPol VANMETERB: [facility] icy Number: Effective [id number] System Date:2018-01-[address] Repository 1947[place], [place] Name:CD:[id number] [id number]: [address] [place], [place] (HP)Tel: [phone]) [phone]: (WP) [phone] 01/29/2018 [facility] VANMETERDOB: Insurance:MedicarePol VANMETERDOB: [facility] icy Number: [id number] [place] Date:Plan Name:Randa NIETO [place] [id number]: A [id number]: (HP) (HP) 01/29/2018 [facility] Insurance:MedicarePol VANMETERDOB: Hospitals icy Number: [id number] Repository [id number] Date:Plan Name:Randa NIETO [place] B [id number]: (HP) 01/29/2018 [facility] Insurance:MedicaidPol VANMETERDOB: Hospitals icy Number: [id number] Repository [id number] [address] Date:Plan [place] Name:Health [id number]: [place], [place] [address]WP: (329) (HP) [phone] 01/20/2018 RENESSA R Primary RENESSA R [facility] VANMETERDOB: Insurance[facility]ICARE A [facility] AND BPolicy Number: [id number] Repository [address] [id number] [place], [place] Date: [address]Bka: (HP) 01/01/2018 RENESSA R Primary RENESSA R Pentecostalism VANMETERDOB: Insurance:MedicarePol [facility] icy Number: Effective [id number] [address] Date:2017-12-[address] Repository [place], [place] 8611-32-55Ibqg [place] [address]Yqy: Name:CD:[id number] [address]Orr: 051277[place]ADQUNOHTN, [place] (HP) [address]CA: (959) (HP) 000-0000 () 01/01/2018 Secondary RENESSA R Pentecostalism Insurance:MedicaidPol VANMETERDOB: [facility] icy Number: Effective [id number] System Date:2017-12-[address] Repository 1566-79-76Axdb [place] Name:CD:[id number] E [address]Sdd: [address] [place] (HP)Tel: (081) [phone]: (WP) [phone] 12/25/2017 RENESSA R VAN Primary RENESSA R VAN [place] [id number] [address] Insurance:MEDICARE METERDOB: [facility] [address] [facility], PART A BPolicy [id number] House Health Center [address]Snl: Number: Repository [id number] (HP) Date:2017-10-04 12/25/2017 Secondary RENESSA R VAN [place] Insurance:MEDICAIDPol METERDOB: [facility] Number: [id number] Hospital [id number] Repository Date:2017-10-04 12/25/2017 Tertiary NOT GIVENUNK [place] Insurance:SELF PAY [facility] Number: Effective Repository Date:2017-12-21 12/24/2017 RENESSA R Primary RENESSA R Pentecostalism VANMETERDOB: Insurance:1500 VANMETERDOB: [facility] [id number] MEDICARE [id number] PRIMARYPolicy Number: [address] Repository [place] [address]Pgf: Date:2017-12-04 [address]Xgn: 2100-12-31plan () Name:CD:[id number] O ()Tel: (000) [address]YGRVNOQNM, 000-0000 (WP) [place] [address]MM: 12/24/2017 Secondary RENESSA R Pentecostalism Insurance:1500 VANMETERDOB: [facility] MEDICAID [id number] System PRIMARYPolicy Number: [address] Repository Effective [place] Date:2017-12-04 [address]Dgk: 9066-26-28Rcie Name:CD:[id number] O ()Tel: (000) [address], [place] 000-0000 (WP) [address]WF: 12/24/2017 RENESSA R Primary RENESSA R Pentecostalism VANMETERDOB: Insurance:1500 [facility] MEDICARE [id number] [address] PRIMARYPolicy Number: [address] Repository [facility] [place] [address]Hzx: Date:2017-12-24Tel: [id number] (HP) Name:CD:[id number] O (HP)Tel: (000) [address]SQXXWZNCR, 000-0000 (WP) [place] [address]BD: 12/24/2017 Secondary RENESSA R Pentecostalism Insurance:1500 [facility] MED[facility]ID [id number] System PRIMARYPolicy Number: [address] Repository [place] Date:2017-12-24Tel: 8763-81-26Encw Name:CD:[id number] O (HP)Tel: (000) [address], [place] 000-0000 (WP) [address]II: 12/24/2017 RENESSA R Primary RENESSA R Pentecostalism VANMETERDOB: Insurance:1500 [facility]: [facility] MEDICARE [id number] PRIMARYPolicy Number: [address] Repository [facility] [place] [place] [address]Pvv: Date:2017-12-24Tel: 5786-22-50Sevc (HP) Name:CD:[id number] O (HP)Tel: (000) [address] [address]CSWGWVCSJ, 000-0000 (WP) [place] [address]TX: 12/24/2017 Secondary RENESSA R Pentecostalism Insurance:[facility]: [facility] MEDICAID [id number] System PRIMARYPolicy Number: [address] Repository [place] Date:2017-12-2437152-91[address]Xqp: 0722-91-28Zcza Name:CD:[id number] O (HP)Tel: (000) [address], [place] 000-0000 (WP) [address]ZY: 12/19/2017 [facility] icy Number: Effective [id number] Date:2017-12-[address] Repository [place], [place] 8008-41-41[place] [address]Tel: Name:CD:[id number] [facility] [address]Fzo: 127685YLPYEOAGNG[address] [place] [address] (HP) [address]JH: (245) (HP) 000-0000 (WP) 12/19/2017 Secondary RENESSA R Pentecostalism Insurance:MedicaidPol [facility] icy Number: Effective [id number] System Date:2017-12-[address] Repository 4179-74-04[place], [place] Name:CD:[id number] [address]Uwn: [facility] [address] [place], [place] (HP)Tel: 000) [phone]: (WP) [phone] 12/19/2017 [facility]MedicarePol [facility]: [facility] icy Number: [id number] [address] [id number] [address] [place] Date:Plan Name:TEREZA Lennon [id number]: A [id number]: (HP) (HP) 12/19/[address] [facility] Insurance:MedicarePol VANMETERDOB: Hospitals icy Number: [id number] Repository [id number] [address] Date:Plan Name:TEREZA Lennon B [id number]: (HP) 12/19/2017 [facility] Insurance:MedicaidPol VANMETERDOB: Hospitals icy Number: [id number] Repository [id number] [address] Date:Plan [place] Name:Health [id number]: [place], [place] [address]EK: (462) (HP) [phone] 12/10/2017 RENESSA R Primary RENESSA R Pentecostalism VANMETERDOB: Insurance:1500 VANMETERDOB: [facility] MEDICARE [id number] PRIMARYPolicy Number: [address] Repository [place] [address]Lzi: Date:2017-11-1473505-8609Ymq: 2860-31-45Flhq (HP) Name:CD:[id number] O ()Tel: (984) EAJ 06781LPIPHXTAB, 000-0000 () [place] [address]RW: 12/10/2017 Secondary RENESSA R Pentecostalism Insurance:1500 VANMETERDOB: [facility] MEDICAID [id number] System PRIMARYPolicy Number: [address] Repository Effective [place] Date:2017-11-14 [address]Xve: 2718-28-44Dkii Name:CD:[id number] O (HP)Tel: (000) [address] [place]-0000 (WP) [address]MG: 12/10/2017 RENESSA R Primary RENESSA R [facility] VANMETERDOB: Insurance:MEDICARE A VANMETERDOB: Health System AND BPolicy Number: [id number] [address]ository [address] [id number] [place], [place] Date: [address]Uxy: (HP) 12/04/2017 RENESSA R Primary RENESSA R Pentecostalism VANMETERDOB: Insurance:[address] [place], [place] [address]ERB: [facility] MEDICARE [id number] PRIMARYPolicy Number: [address] Repository [place] [address]Yww: Date:2017-12-02Tel: 9952-99-76Mbkt (HP) Name:CD:[id number] O (HP)Tel: (000) [address]BNGQGTRQS, 000-0000 (WP) [place] [address]KB: 12/04/2017 Secondary RENESSA R Pentecostalism Insurance:[address] [place], [place] [address]ERDOB: [facility] MEDICAID [id number] System PRIMARYPolicy Number: [address] Repository [place] Date:2017-12-0226427-2763Vcp: 3397-61-12Csnp Name:CD:[id number] O (HP)Tel: (000) [address], [place] 000-0000 (WP) [address]AK: 12/02/2017 RENESSA R VAN Primary RENESSA R VAN Rsoalind [id number] [address] Insurance:MEDICARE METERDOB: [facility] [address] [facility], PART A [facility] [id number] House Health Center [address]Ibp: Number: Repository [id number] (HP) Date:2017-12-02 12/02/2017 Secondary RENESSA R VAN [place] Insurance:MEDICAIDPol METERDOB: Community icy Number: [id number] Hospital [id number] Repository Date:2017-12-02 12/02/2017 Tertiary NOT GIVENUNK [place] Insurance:SELF PAY [facility] Number: Effective Repository Date:2017-12-02 12/02/2017 FAUSTINA CRUZ Primary RENESSA R VAN [place] [id number] [address] Insurance:MEDICARE METERDOB: [address] [facility], PART A [facility] [id number] [place] [address]Dfv: Number: Repository [id number] (HP) Date:2017-10-11 12/02/2017 Secondary RENESSA R VAN [place] Insurance:MEDICAIDPol METERDOB: [facility] icy Number: [id number] Hospital [id number] Repository Date:2017-10-11 12/02/2017 Tertiary NOT GIVENUNK [place] Insurance:SELF PAY [facility] Number: Effective Repository Date:2017-12-02 11/27/2017 RENPRAVEEN Perez VAN Primary RENESSA R VAN [place] [id number] [address] Insurance:MEDICARE METERDOB: [address] [place], PART A [facility] [id number] [place] [address]Npk: Number: Repository [id number] () Date:2017-11-27 11/27/2017 Secondary RENESSA R VAN [place] Insurance:MEDICAIDPol METERDOB: [facility] icy Number: [id number] Hospital [id number] Repository Date:2017-11-27 11/27/2017 Tertiary NOT GIVENUNK [place] Insurance:SELF PAY [facility] Number: Effective Repository Date:2017-11-27 11/20/2017 FAUSTINA Perez VAN Primary RENESSA R VAN [place] [id number] [address] Insurance:MEDICARE METERDOB: [facility] [address] [facility], PART A [facility] [id number] [place] [address]Efm: Number: Repository [id number] (HP) Date:2017-10-04 11/20/2017 Secondary RENESSA R VAN [place] Insurance:MEDICAIDPol METERDOB: Community icy Number: [id number] Hospital [id number] Repository Date:2017-10-04 11/20/2017 Tertiary NOT GIVENUNK [place] Insurance:SELF PAY [facility] Number: Effective Repository Date:2017-11-20 11/14/2017 RENESSA R Primary RENESSA R Pentecostalism VANMETERDOB: Insurance:1500 VANMETERDOB: [facility] MEDICARE [id number] PRIMARYPolicy Number: [address] Repository [place] [address]Fxm: Date:2017-11-14Tel: [id number]-12-31plan (HP) Name:CD:[id number] O ()Tel: 000) [address] [address]VSICDPQHQ, 000-0000 (WP) [place] [address]AL: 11/14/2017 Secondary RENESSA R Pentecostalism Insurance:1500 VANMETERDOB: [facility] MEDICAID [id number] System PRIMARYPolicy Number: [address] Repository [place] Date:2017-11-14Tel: 5822-77-96Lxri Name:CD:[id number] O ()Tel: 000) [address], [place] 000-0000 (WP) [address]OW: 11/13/2017 RENESSA R VAN Primary RENESSA R VAN [place] [id number] [address] Insurance:MEDICARE METERDOB: [facility] [address] [facility], PART A BPolic [id number] House Health Center [address]Cck: Number: Repository [id number] (HP) Date:2017-10-04 11/13/2017 Secondary RENESSA R VAN [place] Insurance:MEDICAIDPol METERDOB: Community icy Number: [id number] Hospital [id number] Repository Date:2017-10-04 11/13/2017 Tertiary NOT GIVENUNK [place] Insurance:SELF PAY [facility] Number: Effective Repository Date:2017-10-20 10/18/2017 RENSYEDAA Aan VAN Primary NOT GIVENUNK [place] [id number] [address] Insurance:SELF PAY [place] [address]Tel: Number: Effective Repository Date:2017-10-11 () 10/14/2017 FAUSTINA Perez VAN Primary RENESSA R VAN [place] [id number] [address] Insurance:MEDICARE METERDOB: [facility] [id number] House Health Center [address]Cxw: Number: Repository [id number] () Date:2017-10-04 10/14/2017 Secondary RENESSA R VAN [place] Insurance:MEDICAIDPol METERDOB: [facility] ic Number: [id number] Hospital [id number] Repository Date:2017-10-04 10/14/2017 Tertiary NOT GIVENUNK [place] Insurance:SELF PAY [facility] Number: Effective Repository Date:2017-10-04 10/11/2017 FAUSTINA CRUZ Primary RENESSA R VAN [place] [id number] [address] Insurance:MEDICARE METERDOB: [facility] [id number] [place] [address]Tel: Number: Repository [id number] (HP) Date:2017-09-18 10/11/2017 Secondary RENESSA R VAN [place] Insurance:MEDICAIDPol METERDOB: [facility] icy Number: [id number] Hospital [id number] Repository Date:2017-09-18 10/11/2017 Tertiary NOT GIVENUNK [place] Insurance:SELF PAY [facility] Number: Effective Repository Date:2017-10-11 10/04/2017 FAUSTINA CRUZ Primary RENESSA R VAN [place] [id number] [address] Insurance:MEDICARE METERDOB: [facility] [address] [place], PART A [facility] [id number] House Health Center [address]Jsp: Number: Repository [id number] (HP) Date:2017-09-30 10/04/2017 Secondary RENESSA R VAN [place] Insurance:MEDICAIDPol METERDOB: [facility] icy Number: [id number] Hospital [id number] Repository Date:2017-09-30 10/04/2017 Tertiary NOT GIVENUNK [place] Insurance:SELF PAY [facility] Number: Effective Repository Date:2017-09-30 09/20/2017 RENPRAVEEN Perez VAN Primary RENESSA R VAN [place] [id number] Robin Insurance:MEDICARE METERDOB: [facility] [address] [place], PART A [facility] [id number] House Health Center [address]Zqw: Number: Repository [id number] () Date:2017-09-18 09/20/2017 Secondary RENESSA R VAN [place] Insurance:MEDICAIDPol METERDOB: [facility] icy Number: [id number] Hospital [id number] Repository Date:2017-09-18 09/20/2017 Tertiary NOT GIVENUNK [place] Insurance:SELF PAY [facility] Number: Effective Repository Date:2017-09-18 09/20/2017 FAUSTINA CRUZ Primary RENESSA R VAN [place] [id number] [place] Insurance:MEDICARE METERDOB: [address] [place], PART A [facility] [id number] House Health Center [address]Ijb: Number: Repository [id number] (HP) Date:2017-09-18 09/20/2017 Secondary RENESSA R VAN [place] Insurance:MEDICAIDPol METERDOB: [facility] icy Number: [id number] Hospital [id number] Repository Date:2017-09-18 09/20/2017 Tertiary NOT GIVENUNK [place] Insurance:SELF PAY [facility] Number: Effective Repository Date:2017-09-20 09/18/2017 FAUSTINA CRUZ Primary RENESSA R VAN [place] [id number] [address] Insurance:MEDICARE METERDOB: [facility] [address] [facility] [id number] House Health Center [address]Gdu: Number: Repository [id number] (HP) Date:2017-08-21 09/18/2017 Secondary RENESSA R VAN [place] Insurance:MEDICAIDPol METERDOB: [facility] icy Number: [id number] Hospital [id number] Repository Date:2017-08-21 09/18/2017 Tertiary NOT GIVENUNK [place] Insurance:SELF PAY [facility] Number: Effective Repository Date:2017-09-18 09/17/2017 RENESSA R VAN Primary RENESSA R VAN [place] [id number] [address] Insurance:MEDICARE METERDOB: [facility], PART A [facility] [id number] House Health Center [address]Zok: Number: Repository [id number] (HP) Date:2017-08-30 09/17/2017 Secondary RENESSA R VAN [place] Insurance:MEDICAIDPol METERDOB: [facility] icy Number: [id number] Hospital [id number] Repository Date:2017-08-30 09/17/2017 Tertiary NOT GIVENUNK [place] Insurance:SELF PAY [facility] Number: Effective Repository Date:2017-09-17 09/13/2017 RENESSA R Primary RENESSA R Pentecostalism VANMETERDOB: Insurance:MedicarePol [facility] [id number] icy Number: Effective [id number] Date:2017-09-[address] Repository [place] 9425-76-62Kxma [place] [id number]: Name:CD:[id number] [facility] [id number]: [address]555[address]PHYIIZEVII, [place] (HP) [address]IJ: (755) (HP) 000-0000 () 09/13/2017 Secondary RENESSA R Pentecostalism Insurance:MedicaidPol VANMETERDOB: [facility] icy Number: Effective [id number] System Date:2017-09-[address] Repository 4567-14-98Ybpp [place] Name:CD:[id number]: [facility] [address] [place], [place] ()Tel: (270) [phone]: (WP) [phone] 09/13/2017 RENESSA R Primary RENESSA R Pentecostalism VANMETERDOB: Insurance:1500 [facility]: [facility] MEDICARE [id number] PRIMARYPolicy Number: [address] Repository [place] Effective [place], [place] [id number]: Date:2017-07-16 [id number]: 5542-12-24Nswg-12-31plan () Name:CD:[id number] O ()Tel: (000) [address]PTDVCSGYJ, 000-0000 (WP) [place] [address]DM: 09/13/2017 Secondary RENESSA R Pentecostalism Insurance:1500 [facility] MED[facility] [id number] System PRIMARYPolicy Number: [address] Repository Effective [place] Date:2017-07-16 [id number]: 8416-35-62Ubei31plan Name:CD:[id number] O (HP)Tel: (000) [address] 000-0000 (WP) [address]YI: 09/10/2017 RENSYEDAA R VAN Primary RENESSA R VAN [place] [id number] Robin Insurance:MEDICARE METERDOB: [facility] BPjeanes [facility] [id number] House Health Center [address]Fcy: Number: Repository [id number] (HP) Date:2017-09-10 09/10/2017 Secondary RENESSA R VAN [place] Insurance:MEDICAIDPol METERDOB: Community icy Number: [id number] Hospital [id number] Repository Date:2017-09-10 09/10/2017 Tertiary NOT GIVENUNK [place] Insurance:SELF PAY [facility] Number: Effective Repository Date:2017-09-10 08/20/2017 RENESSA R VAN Primary RENESSA R VAN [place] [id number] Robin Insurance:MEDICARE METERDOB: [address] [facility], PART A [facility] [id number] [place] [address]Soh: Number: Repository [id number] (HP) Date:2017-08-18 08/20/2017 Secondary RENESSA R VAN [place] Insurance:MEDICAIDPol METERDOB: [facility] icy Number: [id number] Hospital [id number] Repository Date:2017-08-18 08/20/2017 Tertiary NOT GIVENUNK [place] Insurance:SELF PAY [facility] Number: Effective Repository Date:2017-08-20 08/19/2017 RENESSA R VAN Primary RENESSA R VAN [place] [id number] Robin Insurance:MEDICARE METERDOB: [facility] [address] [facility], PART A [facility] [id number] [place] [address]Zki: Number: Repository [id number] (HP) Date:2017-08-18 08/19/2017 Secondary RENESSA R VAN [place] Insurance:MEDICAIDPol METERDOB: [facility] icy Number: [id number] Hospital [id number] Repository Date:2017-08-18 08/19/2017 Tertiary NOT GIVENUNK Rosalind Insurance:SELF PAY [facility] Number: Effective Repository Date:2017-08-19 08/18/2017 Renessa R Primary Renessa R [place] [id number] Insurance:MEDICARE VanmeterDOB: Community [address] PART A [facility] [id number], [place] Number: Repository [id number]: (430) [id number] [phone] (HP) Date:2017-08-18 08/18/2017 Secondary Renessa R Rosalind Insurance:MEDICAIDPol VanmeterDOB: Community icy Number: [id number] Hospital [id number] Repository Date:2017-08-18 08/18/2017 Tertiary NOT GIVENUNK [place] Insurance:SELF PAY [facility] Number: Effective Repository Date:2017-08-18 08/18/2017 RENESSA R VAN Primary RENESSA R VAN [place] [id number] Robin Insurance:MEDICARE METERDOB: [address] [facility], PART A [facility] [id number] [place] [address]Gex: Number: Repository [id number] (HP) Date:2017-08-18 08/18/2017 Secondary RENESSA R VAN [place] Insurance:MEDICAIDPol METERDOB: [facility] icy Number: [id number] Hospital [id number] Repository Date:2017-08-18 08/18/2017 Tertiary NOT GIVENUNK [place] Insurance:SELF PAY [facility] Number: Effective Repository Date:2017-08-18 08/18/2017 Renessa R Primary Renessa R Rosalind [id number] Insurance:MEDICARE VanmeterDOB: Community [address] PART A [facility] [id number], [place] Number: Repository [id number]: (203) [id number] [phone] (HP) Date:2017-08-18 08/18/2017 Secondary Renessa R [place] Insurance:MEDICAIDPol VanmeterDOB: [facility] icy Number: [id number] Hospital [id number] Repository Date:2017-08-18 08/18/2017 Tertiary NOT GIVENUNK Rosalind Insurance:SELF PAY [facility] Number: Effective Repository Date:2017-08-18 08/18/2017 Renessa R Primary Renessa R [place] [id number] Insurance:MEDICARE VanmeterDOB: Community [address] PART A [facility] [id number], [place] Number: Repository [id number]: ([phone]) [id number] [phone] (HP) Date:2017-08-18 08/18/2017 Secondary Renessa R [place] Insurance:MEDICAIDPol VanmeterDOB: Community icy Number: [id number] Hospital [id number] Repository Date:2017-08-18 08/18/2017 Tertiary NOT GIVENUNK [place] Insurance:SELF PAY [facility] Number: Effective Repository Date:2017-08-18 08/18/2017 Renessa R Primary Renessa R Rosalind [id number] Insurance:MEDICARE VanmeterDOB: Community [address] PART A [facility] [id number], [place] Number: Repository [id number]: [phone]) [id number] [phone] () Date:2017-08-18 08/18/2017 Secondary Renessa R [place] Insurance:MEDICAIDPol VanmeterDOB: Community icy Number: [id number] Hospital [id number] Repository Date:2017-08-18 08/18/2017 Tertiary NOT GIVENUNK [place] Insurance:SELF PAY [facility] Number: Effective Repository Date:2017-08-18 08/18/2017 Renessa R Primary Renessa R Rosalind [id number] Insurance:MEDICARE VanmeterDOB: Community [address] PART A [facility] [id number], [place] Number: Repository [id number]: (243) [id number] [phone] () Date:2017-08-18 08/18/2017 Secondary Renessa R Rosalind Insurance:MEDICAIDPol VanmeterDOB: [facility] icy Number: [id number] Hospital [id number] Repository Date:2017-08-18 08/18/2017 Tertiary NOT GIVENUNK Rosalind Insurance:SELF PAY [facility] Effective Repository Date:2017-08-18 07/16/2017 RENESSA R Primary RENESSA R [employer]ism VANMETERDOB: Insurance:[facility] VANMETERDOB: [facility] [id number] MEDICARE [id number] [facility] Number[facility] [address] Repository [place], [place], [place] [id number]: Date:2017-07-16 [id number]: [id number] (HP) Name:CD:[id number] O (HP)Tel: (000) [address], 000-0000 ([place]) [place] [address]ET: 07/16/2017 Secondary RENESSA R [employer]alism Insurance:[address] [place], [place] [address]ERDOB: [facility] MEDICAID [id number] System PRIMARYPolicy Number: [address] Repository [place], [place] Date:2017-07-16 - [id number]: [id number] Name:CD:[id number] O (HP)Tel: (000) [address], [place] 000[address] ([place]) [phone]: 07/04/2017 RENESSA R Primary RENESSA R [facility]ecostalism [facility]arePol [facility] icy Number: Effective [id number] Date:2017-05-[address] Repository [place], [place] [id number] [place] [id number]: Name:CD:[id number] [facility] [id number]: [address] [place] [address] (HP) [phone]: ([phone]) (HP) 000-0000 (WP) 07/04/2017 Secondary RENESSA R Pentec[employer]alism Insurance:MedicaidPol [facility]: [facility] icy Number: Effective [id number] System Date:2017-05-[address] Repository [id number] [place], [place] Name:CD:[id number]: [address] [place], [place] (HP)Tel: [phone]: [phone] 07/03/2017 RENESSA R Primary RENESSA R Pentec[employer]alism VANMETERDOB: Insurance:MedicarePol VANMETERDOB: [facility] icy Number: Effective [id number] [address] Date:2017-06-[address] Repository [place], [place] [id number] [place], [place] [id number]: Name:CD:[id number] [facility] [id number]: [address] [place] [address] (HP) [phone]: [phone] (WP) 07/03/2017 Secondary RENESSA R Pentecostalism Insurance:MedicaidPol VANMETERDOB: [facility] icy Number: Effective [id number] System Date:2017-06-[address] Repository [id number] Name:CD:[id number]: [address] [place], [place] (HP)Tel: [phone]: [phone] 06/06/2017 [place] [place] VANMETERDOB: Nadira and brittni Number: [id number] [facility] [id number] Repository Date:[id number] [place], [place] Name:Randa Davies [id number]: (HP) 06/06/2017 Secondary RENESSA R [facility] Insurance:MedicarePol VANMETERDOB: Nadira and patriciay Number: [id number] [facility] [id number] Repository Date:[id number] [place], [place] Name:Randa Sandra [id number]: (HP) 06/06/2017 Tertiary [place] [facility] [place] [place] VANMETERDOB: Maximino Number: [id number] [facility] [id number] Repository Date:Plan Name:[facility] [place] [address]Eef: (HP) 06/04/2017 RENESSA R Primary RENESSA R [facility] icy Number: Effective [id number] [address] Date:2017-06-[address] Repository [place], [place] [id number] [place], [place] [id number]: Name:CD:[id number] [facility] [id number]: [id number] ([place]) [phone]: [phone] (WP) 06/04/2017 Secondary RENSYEDAA R Pentecostalism Insurance[facility]MedicaidPol [facility] icy Number: Effective [id number] System Date:2017-06-[address] Repository [id number] Name:CD:[id number]: [facility] [address] [place], [place] (HP)Tel: [phone]: [phone]
== END ==
PROVIDERS: Family Provider Internal Medicine; PCP Internal Medicine; Referring Provider Surgery; Visit Provider Surgery
DX: T82.898A Other specified complication of vascular prosthetic devices, implants and grafts, initial encounter (principal); I77.0 Arteriovenous fistula, acquired
CPT/HCPCS: 93990

== ENCOUNTER → 2018-10-29 | Outpatient (CLI) | payer MEDICARE, MEDICAID, SELFPAY ==
[2018-10-21 13:58] VITALS: BMI 26.2
[2018-10-21 14:39] VITALS: BMI 26.4
--- NOTE | 2018-10-29 10:33 | AVDS_ITS ---
Reason For Study: Malfunction of vas device LEFT Inflow 318.5/169.9 cm/sec. Inflow 1329 cc/sec. Anastamosis 141.5/61.2 cm/sec. Anastamosis 132.1 cc/sec. Prox graft 99.7/48.6 cm/sec. Prox graft 1006 cc/sec. Mid graft 138/76 cm/sec. Mid graft 3855 cc/sec. Distal graft 525.9/331.1 cm/sec. Distal graft 3806 cc/sec. Outflow 33.1/8.9 cm/sec. Outflow 72.4 cc/sec. 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
== END | disposition home or self-care (01) ==
LOC: CVS 10:32
PROVIDERS: Family Provider Internal Medicine; PCP Internal Medicine; Referring Provider Surgery; Visit Provider Surgery
DX: T82.898A Other specified complication of vascular prosthetic devices, implants and grafts, initial encounter (principal)
CPT/HCPCS: 93990

== ENCOUNTER 2019-09-01 17:22 | Emergency (ER) | payer MEDICARE, MEDICAID, SELFPAY ==
[2019-05-19 13:23] VITALS: BMI 27.3
[2019-09-01 17:23] VITALS: BP 144/95; PULSE 92; RESP 16; TEMP 36.8; O2SAT 97; BMI 26.6
--- NOTE | 2019-09-01 17:47 | EKG12_ITS ---
Test Reason : CP Blood Pressure : / mmHG Vent. Rate : 078 BPM Atrial Rate : 078 BPM P-R Int : 118 ms QRS Dur : 110 ms QT Int : 438 ms P-R-T Axes : 017 -48 004 degrees QTc Int : 499 ms Sinus rhythm with Premature supraventricular complexes Left axis deviation , LAHB Voltage criteria for left ventricular hypertrophy Cannot rule out Septal infarct , age undetermined Abnormal ECG Confirmed by SHAUNNA GARCIA ([id number]), movie editor SHARON WORTHY ([id number]) on 09/07/2019 1:49:42 PM Referred By: SHANIA Confirmed By:SHAUNNA GARCIA
--- NOTE | 2019-09-01 17:49 | ED.DCSUM_ITS ---
- ER Visit Summary Date of Service: 09/01/19 Chief Complaint: [Chest pain] History of Present Illness: The patient is a 44 F [presents the emergency department chest pain started 2 weeks ago. Patient states she said discomfort off and on usually second day after dialysis which is been Sundays. Patient als o said some intermittent shortness of breath. Today after dialysis she noted that her legs were swollen became concerned so she comes in for evaluation. Patient has family history heart disease in her mother in her 40s of heart disease. Patient has history of A. fib as well as end-stage renal disease. Patient also has history of cardiomyopathy and [place] syndrome. Patient has history of pulmonary hypertension. Patient had a heart catheterization in 2018 that was unremarkable. She is currently on Coumadin for history of A. fib. Patient currently not having any chest pain.] Patient denies any fever or recent illness. Physical Examination: [HEENT-PERRLA, EOMI. Cranial nerves II through XII grossly intact. TMs clear. Mucous membranes moist. No adenopathy. Cardiovascular-regular rate and rhythm without murmur or ectopy Lungs-clear to auscultation, chest wall stable without crepitus or subcu emphysema Abdomen-normoactive bowel sounds, soft, nontender, no rebound or rigidity, no peritoneal signs. Extremities-intact ?4, normal range of motion, normal pulses, atraumatic] Test Results: [EKG obtained on arrival showed a sinus rhythm with a ventricular rate of 78 bpm with some LVH noted and old septal infarct. CBC with differential was normal. Chemistries unremarkable. Creatinine was elevated 8.03 which is chronic. INR was 1.2. Troponin less than 0.015. Chest x-ray showed nothing acute. Venous Dopplers of both lower extremities were negative for DVT.] Emergency Department Course and Treatment: [On arrival patient was placed on a pan pusher. Patient case discussed with her processing rep Dr. Bunny Woodward who agrees that patient chest discomfort is atypical and likely noncardiac especially in light of unremarkable work-up in the ER and normal coronary arteries on heart cath 2 years ago. Patient is currently chest pain- free.] Treatment Plan: [Patient was advised to increase her Coumadin to 4 mg daily from 2 mg daily for the next 3 days and have a repeat INR in 2 to 3 days. She has a follow-up appointment with her processing rep in 2 days. Advised to return if worsening chest pain, increasing shortness of breath, or condition should worsen anyway.] Disposition: [Discharged home in stable condition] Impression: [Chest pain-etiology uncertain Bilateral lower extremity edema] This note was generated with [employer] dictation software. It may contain incorrect words, spelling, and punctuation that were not noted in review of the chart prior to signing ED Disposition - Plan for ED Patient: Referrals: Zofia Devries MD [Primary Care Provider] -
--- NOTE | 2019-09-01 17:50 | RAD_ITS ---
STUDY: X-RAY CHEST REASON FOR EXAM: Female, 44 years old. Dyspnea TECHNIQUE: Frontal view of the chest COMPARISON: 08/18/2017 FINDINGS: The lungs are clear. There are no pleural effusions. There is no pneumothorax. The heart is normal in size. The visualized osseous structures are within normal limits. RAD/Chest 1 View (Portable) IMPRESSION: No acute thoracic pathology. Electronically Signed: Fabian Presley, at 18:07 EDT Tel , Service support ,
[2019-09-01 18:23] VITALS: BP 146/87; PULSE 77; RESP 18; O2SAT 96
[2019-09-01 18:26] LABS: Absolute Lymphocyte Count 1.04 X10^3/uL (0.83-4.51); Absolute Neutrophil Count 4.7 X10^3/uL (2.0-7.7); Basophil# 0.04 X10^3/uL; Basophil% 0.6 % (0-1); Eosinophil# 0.23 X10^3/uL; Eosinophils% 3.6 % (0-5); Hematocrit 37.7 % (37-47); Hemoglobin 12.6 g/dL (12.0-15.0); Lymphocyte # 1.04 X10^3/ul (4.0); Lymphocyte % 16.5 % (19-41); Mean Corp Hgb Conc 33.4 g/dL (32-36); Mean Corpuscular Hgb 34.6 pg (27.0-32.0); Mean Corpuscular Volume 103.6 fL (81-99); Mean Platelet Vol. 10.1 fl (6.2-12.0); Monocyte# 0.34 X10^3/uL; Monocyte% 5.4 % (0-10); NRBC Flagged by Analyzer 0 % (0-5); Neutrophil # 4.65 X10^3/uL (2.7-7.7); Neutrophil % 73.6 % (47-70); Platelet Count 156 K/mm3 (150-450); RBC Distribution Width CV 16.3 % (11.6-14.6); RBC Distribution Width SD 62.8 fl (35.1-43.9); Red Blood Count 3.64 M/mm3 (4.2-5.4); White Blood Count 6.3 K/mm3 (4.4-11.0)
[2019-09-01 18:31] LABS: International Normalized Ratio 1.2; Prothrombin Time (Protime)PT. 15.1 SECONDS (11.7-14.9)
[2019-09-01 18:32] LABS: Anion Gap 12 (5-15); BUN 48 mg/dL (7-18); Calcium,Total 8.7 mg/dL (8.5-10.1); Chloride 100 mmol/L (98-107); EST Glomerular Filtration Rate 6 mL/min (>60); Est Glom Filt Rate - Afr Amer 7 mL/min (>60); Glucose 92 mg/dL (74-106); Potassium 4.3 mmol/L (3.5-5.1); Sodium Level 141 mmol/L (136-145)
[2019-09-01 18:42] LABS: Creatinine, Serum 8.03 mg/dL (0.55-1.02)
[2019-09-01 19:00] VITALS: BP 147/91; PULSE 84; RESP 17; O2SAT 94
--- NOTE | 2019-09-01 19:26 | US_ITS ---
STUDY: VENOUS DOPPLER ULTRASOUND - BILATERAL LOWER EXTREMITIES REASON FOR EXAM: Female, 44 years old. Pain and swelling TECHNIQUE: Ultrasound evaluation of the deep vein system to include sutton-scale imaging and compression was performed. Suttno-scale imaging and Doppler sonographic evaluation, including duplex spectral analysis and qualitative color flow sonography, was performed. COMPARISON: None. FINDINGS: RIGHT LEG Common Femoral Vein: Normal compression, spontaneity and augmentation. Normal color Doppler. Common Femoral Vein/Greater Saphenous Junction: Normal compression, spontaneity and augmentation. Normal color Doppler. Superficial Femoral Proximal: Normal compression, spontaneity and augmentation. Normal color Doppler. Superficial Femoral Middle: Normal compression, spontaneity and augmentation. Normal color Doppler. Superficial Femoral Distal: Normal compression, spontaneity and augmentation. Normal color Doppler. Popliteal Vein: Normal compression, spontaneity and augmentation. Normal color Doppler. Posterior Tibial Vein: Normal compression, spontaneity and augmentation. Normal color Doppler. Peroneal Vein: Normal compression, spontaneity and augmentation. Normal color Doppler. The visualized soft tissues are unremarkable. LEFT LEG Common Femoral Vein: Normal compression, spontaneity and augmentation. Normal color Doppler. Common Femoral Vein/Greater Saphenous Junction: Normal compression, spontaneity and augmentation. Normal color Doppler. Superficial Femoral Proximal: Normal compression, spontaneity and augmentation. Normal color Doppler. Superficial Femoral Middle: Normal compression, spontaneity and augmentation. Normal color Doppler. Superficial Femoral Distal: Normal compression, spontaneity and augmentation. Normal color Doppler. Popliteal Vein: Normal compression, spontaneity and augmentation. Normal color Doppler. Posterior Tibial Vein: Normal compression, spontaneity and augmentation. Normal color Doppler. Peroneal Vein: Normal compression, spontaneity and augmentation. Normal color Doppler. The visualized soft tissues are unremarkable. US/Venous Duplex Imag/Sherwin Extrem IMPRESSION: Normal venous Doppler ultrasound of the bilateral lower extremities. Electronically Signed: Fabian Prelsey, at 20:01 EDT Tel , Service support ,
--- NOTE | 2019-09-01 20:03 | DCINST.ED_ITS ---
ED Disposition - Plan for ED Patient: Instructions: ED Chest Pain Atypical Unkn Cause, ED Peripheral Edema, Bilateral Referrals: Zofia Devries MD [Primary Care Provider] - 3-5 Days Additional Instructions: See your Senior Hydrogeologist in 2 days
[2019-09-01 20:12] VITALS: PULSE 77; RESP 18; O2SAT 93
== END 2019-09-01 20:13 | disposition home or self-care (01) ==
PROVIDERS: Emergency Provider Emergency Medicine; PCP Internal Medicine
DX: R07.89 Other chest pain (principal); R06.00 Dyspnea, unspecified; R60.0 Localized edema; I48.91 Unspecified atrial fibrillation; I27.20 Pulmonary hypertension, unspecified; Q87.81 Alport syndrome; J44.9 Chronic obstructive pulmonary disease, unspecified; I12.0 Hypertensive chronic kidney disease with stage 5 chronic kidney disease or end stage renal disease; N18.6 End stage renal disease; Z99.2 Dependence on renal dialysis; I42.9 Cardiomyopathy, unspecified; Z79.01 Long term (current) use of anticoagulants; Z79.82 Long term (current) use of aspirin; Z79.899 Other long term (current) drug therapy
CPT/HCPCS: 71045; 80048; 84484; 85025; 85610; 93005; 93970; 99283; A4216

== ENCOUNTER → 2019-09-03 12:26 | Outpatient (CLI) | payer MEDICARE, MEDICAID, SELFPAY ==
[2019-09-03 11:29] VITALS: BMI 25.9
[2019-09-03 14:28] LABS: T4 Free Direct 1.05 ng/dL (0.76-1.46); Thyroid Stim Hormone (TSH) 2.73 uIU/mL (0.358-3.74)
== END ==
PROVIDERS: PCP Internal Medicine; Referring Provider Nurse Practitioner Family; Visit Provider Nurse Practitioner Family
DX: I10 Essential (primary) hypertension (principal); R53.83 Other fatigue
CPT/HCPCS: 36415; 84439; 84443

== ENCOUNTER → 2019-10-13 10:43 | Outpatient (CLI) | payer MEDICARE, MEDICAID, SELFPAY ==
[2019-09-03 11:29] VITALS: BMI 25.9
--- NOTE | 2019-10-13 10:44 | ECHOD_ITS ---
Reason For Study: DYSPNEA Procedure This was a 2D Doppler, Color Flow transthoracic echocardiogram. The exam was of adequate technical quality. Exam performed in department. Left Ventricle Mildly dilated left ventricle. Apical false tendon noted. Mild global left ventricular systolic dysfunction. The estimated ejection fraction is 50 %. Unable to assess diastolic dysfunction. Right Ventricle Normal RV size. Normal systolic function. Atria The left atrium is mildly enlarged. Normal right atrium. No doppler evidence for ASD. Mitral Valve There is mild mitral annular calcification. Mild diffuse mitral valve thickening. Mild papillary muscle dysfunction of the mitral valve. Moderately severe (3+) eccentric mitral valve insufficiency. Tricuspid Valve Normal tricuspid valve. Moderate (2+) tricuspid valve insufficiency. Right ventricular systolic pressure estimated to be 55 mmHg. Aortic Valve Trisinus/trileaflet aortic valve. Normal aortic valve. Pulmonic Valve The pulmonic valve is not well visualized. Mild (1+) pulmonic valve insufficiency. Great Vessels Normal sized aortic root. Pericardium/Pleural No pericardial effusion. MMode/2D Measurements & Calculations LVIDd: 5.7 cm IVSd: 0.94 cm Ao root diam: 3.0 cm LVIDs: 4.2 cm LVPWd: 1.0 cm RVDd: 4.0 cm FS: 26.7 % LAV(MOD-bp): 72.4 ml LVAd ap4: 29.0 cm2 SV(MOD-sp4): 40.4 ml LAV(MOD-bp) Indexed: 42.9 ml/m2 EDV(MOD-sp4): 89.5 ml LAV(MOD-sp2): 62.8 ml EDV(sp4-el): 90.0 ml LAV(MOD-sp4): 69.8 ml LVAs ap4: 18.9 cm2 ESV(MOD-sp4): 49.1 ml ESV(sp4-el): 47.0 ml EF(MOD-sp4): 45.1 % EF(sp4-el): 47.8 % SV(sp4-el): 43.1 ml LA A4 area: 21.7 cm2 LA dimension(2D): 4.6 cm RA A4 area: 14.2 cm2 Time Measurements MV dec time: 0.26 sec Doppler Measurements & Calculations MV E max liza: 151.1 cm/sec Ao V2 max: 185.2 cm/sec LV V1 max: 106.2 cm/sec MV A max liza: 49.7 cm/sec Ao max P.7 mmHg LV V1 max P.5 mmHg MV E/A: 3.0 PA V2 max: 136.0 cm/sec PI end-d liza: 168.1 cm/sec TR max liza: 343.1 cm/sec TR max P.3 mmHg Interpretation Summary Mildly dilated left ventricle. Mild global left ventricular systolic dysfunction. The estimated ejection fraction is 50 %. Apical false tendon noted. The left atrium is mildly enlarged. There is mild mitral annular calcification. Mild diffuse mitral valve thickening. Mild papillary muscle dysfunction of the mitral valve. Moderately severe (3+) eccentric mitral valve insufficiency. Moderate (2+) tricuspid valve insufficiency. Mild (1+) pulmonic valve insufficiency. Right ventricular systolic pressure estimated to be 55 mmHg. Unable to assess diastolic dysfunction. Ordering Physician: Williams Ansari Referring Physician: CHANDRAKANT STEVENSON Performed By: Kaur Barrios, VICKI, RVT
== END ==
PROVIDERS: PCP Internal Medicine; Referring Provider Nurse Practitioner Family; Visit Provider Nurse Practitioner Family
DX: I42.9 Cardiomyopathy, unspecified (principal); I10 Essential (primary) hypertension; I38 Endocarditis, valve unspecified; I48.0 Paroxysmal atrial fibrillation; R06.00 Dyspnea, unspecified
CPT/HCPCS: 93306

== ENCOUNTER → 2020-05-24 10:48 | Outpatient (CLI) | payer MEDICARE, MEDICAID, SELFPAY ==
[2020-01-01 14:47] VITALS: BMI 25.1
--- NOTE | 2020-05-24 13:38 | STRESSREP ---
Stress Test Report Date: 05-24-2020 Procedure: Pharmacologic stress nuclear imaging study Indications: Non-CAD related cardiomyopathy; paroxysmal atrial fibrillation; valvular heart disease; preoperative assessment for renal transplantation Consent: Per the patient Procedure: The patient underwent pharmacologic (Regadenoson 0.4mg ) evaluation with a peak heart rate of 106 beats per minute (59%predicted maximal heart rate) and a peak blood pressure of 132/90 mmHg. The baseline ECG demonstrated normal sinus rhythm; anterior [place] of indeterminate age cannot be excluded; lateral amount of indeterminate age cannot be excluded; nonspecific ST/T wave abnormality. The peak pharmacologic ECG demonstrated no obvious ECG changes. There were no cardiac dysrhythmias pretest, during pharmacologic infusion, or recovery. There was no complaint of chest discomfort during pharmacologic infusion or recovery. The examination was discontinued secondary to completion of protocol. Impression: 1. Pharmacologic (Regadenoson) evaluation 2. Peak pharmacologic ECG with no obvious ECG changes. 3. There were no cardiac dysrhythmias pretest, during pharmacologic infusion, or recovery. 4. Nuclear images pending Myocardial perfusion imaging study: Technique: The patient was injected with 11.8 millicuries of technetium 99m Cardiolite and subsequently rest SPECT Cardiolite nuclear imaging was obtained in the horizontal long, vertical long, and short axis views. The patient underwent pharmacologic (Regadenoson) evaluation with a peak heart rate of 106 beats per minute (59% percent predicted maximal heart rate) and a peak blood pressure of 132/90 mmHg. The patient was injected with 34.2 millicuries of technetium 99m Cardiolite and subsequently stress SPECT Cardiolite nuclear imaging was obtained in the horizontal long, vertical long, and short axis views. A gated Cardiolite study at peak stress was obtained. Interpretation: Rest and stress SPECT Cardiolite nuclear imaging status post realignment, normalization, and attenuation correction demonstrate at rest the appearance of relative uniform tracer uptake and myocardial perfusion appearing within normal limits. Status post stress there is an area of diminished tracer uptake in the distal lateral/lateral apical segments. There is end systolic thickening and brightening. The gated Cardiolite study demonstrates myocardial thickening and inward wall motion. The reported LVEF is 57%. Impression: 1. Rest and stress SPECT current nuclear imaging demonstrate myocardial perfusion changes potentially compatible with shifting soft tissue attenuation/artifact although an area of stress-induced myocardial ischemia in portions of the distal lateral/lateral apical segments cannot be excluded. 2. The gated Cardiolite study reports an LVEF of 57%. This note was generated with [employer] software. It may contain incorrect words, spelling, and punctuation that were not noted in checking the note before signing.
== END ==
PROVIDERS: PCP Internal Medicine; Referring Provider Internal Medicine Cardiovascular Disease; Visit Provider Internal Medicine Cardiovascular Disease
DX: Z01.810 Encounter for preprocedural cardiovascular examination (principal); I12.0 Hypertensive chronic kidney disease with stage 5 chronic kidney disease or end stage renal disease; N18.6 End stage renal disease; Z99.2 Dependence on renal dialysis; I48.0 Paroxysmal atrial fibrillation; I36.1 Nonrheumatic tricuspid (valve) insufficiency; I34.0 Nonrheumatic mitral (valve) insufficiency; I27.20 Pulmonary hypertension, unspecified; I42.9 Cardiomyopathy, unspecified; I38 Endocarditis, valve unspecified; J44.9 Chronic obstructive pulmonary disease, unspecified; Q87.81 Alport syndrome
CPT/HCPCS: 78452; 93017; A9500; A4216; J2785

== ENCOUNTER → 2020-06-01 13:43 | Outpatient (CLI) | payer MEDICARE, MEDICAID, SELFPAY ==
[2020-06-01 13:00] VITALS: BMI 23.5
--- NOTE | 2020-06-01 13:55 | RAD_ITS ---
STUDY: X-RAY CHEST REASON FOR EXAM: Female, 44 years old. NO CHEST COMPLAINTS. PRE-OP FOR KIDNEY TRANSPLANT TECHNIQUE: PA and lateral views of the chest. COMPARISON: Comparison is made with prior examination dated 09/01/2019. FINDINGS: Scattered calcified granulomas. There is no demonstrated pleural abnormality. Normal size heart. Normal mediastinum and solange. There is prominence of the pulmonary hilar arteries without peripheral pulmonary vascular congestion, suggesting pulmonary hypertension. Normal visualized aortic arch and descending thoracic aorta. Normal visualized thoracic spine. Normal visualized ribs, clavicles, and shoulders. There is no demonstrated abnormality of the visualized soft tissue structures of the upper abdomen. RAD/Chest PA and Lateral IMPRESSION: Scattered calcified granulomas. Prominence of the central pulmonary arteries. Electronically Signed: Randall Wilkerson MD at 14:41 EST , Service support ,
[2020-06-01 15:21] LABS: Absolute Lymphocyte Count 0.58 X10^3/uL (0.83-4.51); Absolute Neutrophil Count 3.2 X10^3/uL (2.0-7.7); Basophil# 0.01 X10^3/uL; Basophil% 0.2 % (0-1); Eosinophil# 0.16 X10^3/uL; Eosinophils% 3.7 % (0-5); Hematocrit 31.6 % (37-47); Hemoglobin 9.9 g/dL (12.0-15.0); Lymphocyte # 0.58 X10^3/ul (4.0); Lymphocyte % 13.5 % (19-41); Mean Corp Hgb Conc 31.3 g/dL (32-36); Mean Corpuscular Hgb 32.2 pg (27.0-32.0); Mean Corpuscular Volume 102.9 fL (81-99); Mean Platelet Vol. 10.3 fl (6.2-12.0); Monocyte# 0.28 X10^3/uL; Monocyte% 6.5 % (0-10); NRBC Flagged by Analyzer 0.7 % (0-5); Neutrophil # 3.24 X10^3/uL (2.7-7.7); Neutrophil % 75.4 % (47-70); POSITIVE DIFFERENTIAL YES; Platelet Count 131 K/mm3 (150-450); RBC Distribution Width CV 17.2 % (11.6-14.6); RBC Distribution Width SD 63.7 fl (35.1-43.9); Red Blood Count 3.07 M/mm3 (4.2-5.4); White Blood Count 4.3 K/mm3 (4.4-11.0)
[2020-06-01 15:29] LABS: International Normalized Ratio 3.2; Prothrombin Time (Protime)PT. 32.1 SECONDS (11.7-14.9)
[2020-06-01 15:31] LABS: Partial Thromboplast Time 78.1 Seconds (24.1-36.2)
[2020-06-01 15:45] LABS: Differential Indicated SCAN CRITERIA MET
[2020-06-01 15:52] LABS: Anion Gap 5 (5-15); BUN 13 mg/dL (7-18); BUN/Creat Ratio 3.3 RATIO (10-20); Calcium,Total 10.9 mg/dL (8.5-10.1); Chloride 104 mmol/L (98-107); Creatinine, Serum 3.95 mg/dL (0.55-1.02); EST Glomerular Filtration Rate 13 mL/min (>60); Est Glom Filt Rate - Afr Amer 16 mL/min (>60); Glucose 99 mg/dL (74-106); Potassium 3.7 mmol/L (3.5-5.1); Sodium Level 140 mmol/L (136-145)
[2020-06-01 15:56] LABS: Differential Comment SCANNED
[2020-06-02 14:01] LABS: Pathologist Review Reviewed
== END ==
PROVIDERS: PCP Internal Medicine; Referring Provider Nurse Practitioner Family; Visit Provider Nurse Practitioner Family
DX: Z01.810 Encounter for preprocedural cardiovascular examination (principal); R94.39 Abnormal result of other cardiovascular function study; I42.9 Cardiomyopathy, unspecified; I38 Endocarditis, valve unspecified; I10 Essential (primary) hypertension; Z79.01 Long term (current) use of anticoagulants; T82.898A Other specified complication of vascular prosthetic devices, implants and grafts, initial encounter
CPT/HCPCS: 36415; 71046; 80048; 85025; 85610; 85730

== ENCOUNTER 2020-06-14 08:41 | Day surgery (SDC) | payer MEDICARE, MEDICAID, SELFPAY ==
[2020-06-01 13:00] VITALS: BMI 23.5
[2020-06-13 08:37] VITALS: BMI 23.5
--- NOTE | 2020-06-14 06:20 | HP_ITS ---
HPI HPI History of Present Illness Surgical H&P: Yes Details: LIDIA MUNSON, is a 44 year old white female who presents to the office today for a cardiovascular outpatient follow-up with a history of underlying non-CAD related cardiomyopathy, paroxysmal atrial fibrillation, bradycardia, valvular heart disease with MR/TR, and dialysis therapy with M,W,F. As you recall, she was evaluated by Dr. Pederson of [facility] EP and underwent a cardiac MRI that showed ejection fraction 45% and moderate mitral valve regurgitation and moderate tricuspid valve regurgitation. It also noted moderate left and mild right atrial dilation. She did not undergo AICD placement. It was recommend that her dry weight be approximately 6 kg lower than the initial EP visit. She underwent stress test on 05/24/2020, as part of kidney transplant evaluation, that demonstrate myocardial perfusion changes potentially compatible with shifting soft tissue attenuation/artifact although an area of stress-induced myocardial ischemia in portions of the distal lateral/lateral apical segments cannot be excluded. Because of this, she will proceed with left heart catheterization. She denies chest, arm, jaw, or neck discomfort. Her exercise tolerance is stable. She denies symptoms of CHF, palpitations, lightheadedness, dizziness, near syncope, or syncopal episodes. She denies edema or claudication issues. She denies orthopnea, PND, fever, chills, blood in urine, blood in stool, myalgia, or unexplainable fatigue. Intake Vital Signs 06/01/20 Height 5 ft 4 in 06/01/20 Weight: 137 lb 06/01/20 BMI 23.5 06/01/20 BP 113/72 06/01/20 Blood Pressure Location Lt brachial 06/01/20 Position Sitting 06/01/20 Respiration 18 06/01/20 Pulse 72 06/01/20 Pulse Source Monitor 06/01/20 Pulse Oximetry (%) 93 Intake Visit Reasons: Update H & P Range Aide Required: No Accompanied by: None Is patient in pain?: No Allergies amoxicillin [From Augmentin] Allergy (Verified 06/01/20 12:58) Hives cephalexin [From Keflex] Allergy (Verified 06/01/20 12:58) Hives clavulanic acid [From Augmentin] Allergy (Verified 06/01/20 12:58) Hives oxycodone Allergy (Verified 06/01/20 12:58) Hives vancomycin Allergy (Verified 06/01/20 12:58) Hives Medications Esomeprazole Mag Trihydrate [Nexium] 40 mg PO DAILY 08/18/17 [History Confirmed 06/01/20] lidocaine-prilocaine 2.5 %-2.5 % topical cream 1 applic TOPICAL .COMPLEX 09/18/17 [History Confirmed 06/01/20] sodium bicarbonate 650 mg tablet 650 mg PO BID tab 09/18/17 [History Confirmed 06/01/20] vitamin B complex and vitamin C no.20-folic acid 1 mg capsule 1 cap PO DAILY 04/07/18 [History Confirmed 06/01/20] L.acidophil,salivari-Bifido bifidum-Strep thermoph 175 mg capsule 1 cap PO DAILY 06/24/18 [History Confirmed 06/01/20] calcium acetate(phosphat bind) 667 mg capsule 667 mg PO TIDCM 06/24/18 [History Confirmed 06/01/20] amlodipine 10 mg tablet 10 mg PO BID tab 01/01/20 [History Confirmed 06/01/20] carvedilol 12.5 mg tablet 6.25 mg PO BID tab 01/01/20 [History Confirmed 06/01/20] hydralazine 50 mg tablet 50 mg PO .COMPLEX 01/01/20 [History Confirmed 06/01/20] sodium polystyrene sulfonate 15 gram oral powder packet 15 g PO QWEEK 01/01/20 [History Confirmed 06/01/20] warfarin 2 mg tablet 4 mg PO QDAY #180 tab 03/01/20 [Rx Confirmed 06/01/20] clopidogrel 75 mg tablet 75 mg PO QDAY #30 tab 06/01/20 [Rx Confirmed 06/01/20] isosorbide dinitrate 10 mg tablet 10 mg PO BID tab 06/01/20 [History Confirmed 06/01/20] [facility] Medical History Essential hypertension (Chronic) Problem with dialysis access (Acute) 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) Paroxysmal atrial fibrillation (Chronic) Bradycardia (Chronic) Nonrheumatic tricuspid valve regurgitation (Chronic) Nonrheumatic mitral valve regurgitation (Chronic) Pulmonary hypertension (Chronic) Abnormal cardiac enzyme level (Chronic) Abnormal nuclear stress test (Chronic) Cardiomyopathy (Chronic) Valvular heart disease (Chronic) Bigeminal pulse (Acute) COPD (chronic obstructive pulmonary disease) (Chronic) Alport syndrome (Chronic) ESRD (end stage renal disease) on dialysis (Chronic) Hyperkalemia (Resolved) Surgical History Peritoneal dialysis catheter in place (Chronic) Surgically constructed arteriovenous fistula (Chronic) H/O section (Resolved) H/O foot surgery (Resolved) Hernia (Resolved) S/P cardiac catheterization (Resolved ~09/08/17) S/P laparoscopic cholecystectomy (Resolved) Status post colonoscopy (Resolved) Family History Mother Heart disease Kidney disease Social History (Updated 06/01/20 @ 16:31 by Williams Ansari SPECIAL POPULATION PARAPROFESSIONAL, SPECIAL POPULATION PARAPROFESSIONAL-C) Smoking Status: Never smoker alcohol intake: never substance use type: does not use caffeine: No ROS Const Const: Negative for fatigue, weakness, body ache, fever(s) or chills ENT ENT: Negative for dizziness Cardio Chest Pain: No Palpitations: No Edema: None Muscle aches with walking: None Resp Respiratory: Negative for SOB with activity, SOB at rest, SOB orthopnea\SOB lying down or paroxysmal nocturnal dyspnea GI GI: Negative nausea, vomiting blood/hematemesis, bright, red blood in stools or black,tarry stools : Negative for hematuria or frequent nighttime urination/ nocturia Musc Musc: Negative for muscle aches/ myalgia Skin Skin: Negative non-healing lesions or rash Neuro Neuro: Negative for dizziness, lightheadedness, near syncope, syncope, orthostatic symptoms or weakness Endo Endo: Negative for fatigue Allergy Allergy/Immunology: Negative for rash Cardiology Exam Const Appearance: cooperative, healthy appearing, comfortable and no acute distress Nutritional Appearance: average body habitus and well nourished Orientation: alert, awake and oriented x3 Head Head: normal to inspection Ears: hearing grossly normal bilaterally Nose: external nose normal Face and Sinus: face symmetric Mouth: oral mucosae normal Eyes General: appearance normal, both eyes and all related structures Eyelids: eyelids normal EOM: EOM intact bilaterally Neck Neck: normal visual inspection and no JVD Carotids: normal carotid upstroke Chest Chest inspection: normal inspection of the chest, symmetric chest movement and normal respiratory effort; negative cough Auscultation: Bilateral: Clear to Auscultation Cardio Rate: regular rate Rhythm: regular rhythm Heart sounds: S1 normal, S2 normal and murmur; negative rub or gallop Murmur: Grade 3/6, harsh, LLSB, axilla, LVOT and sternal notch GI GI: normal to inspection Neuro General: alert, awake, oriented x3 and CN's II-XI intact bilaterally Skin Skin: no rashes or lesions noted Extremities Pulses: Normal: Right Posterior Tibial Pulse, Left Posterior Tibial Pulse, Right Radial Pulse, Left Radial Pulse Lower Extremity Edema: None: Bilateral Psych Psychological: normal affect Assessment & Plan 1. Paroxysmal atrial fibrillation I48.0 Plan Her stress test on on 05/24/2020 showed normal sinus rhythm. She appears to be in a regular rhythm on exam. Her heart rate is well controlled. She will continue with carvedilol for rate control and warfarin for CVA protection. She continue to maintain an INR goal of 2?3. 2. Nonrheumatic mitral valve regurgitation I34.0 Plan Her last echocardiogram in September showed an ejection fraction of 50% and moderately severe mitral valve insufficiency. She states feeling well. She denies any significant shortness of breath. She will continue current medical therapy and we will continue to monitor through history, exam, and repeat echocardiogram. Orders Orders: Left Heart Cath/COR/LV Percut Today 3. Cardiomyopathy, unspecified type I42.9 Plan Her most recent echocardiogram showed an ejection fraction of 50%. She denies any symptoms of congestive heart failure. She does not appear to be in a fluid volume overload state on exam. She will continue with carvedilol therapy. She presumably is not on NILDA inhibitor or ARB or ARNI on account of chronic kidney disease requiring dialysis therapy. With respect to fluid volume control, this is being managed via dialysis. Orders Orders: Left Heart Cath/COR/LV Percut Today Basic Metabolic Profile (BMP) Today Partial Thromboplast Time Today Prothrombin Time w/INR Today CBC W/Diff, Automated Today Chest PA and Lateral Today 4. Essential hypertension I10 Plan Patient's blood pressure is well-controlled. We will continue to monitor. We will not make any medication regimen changes. Orders Orders: CBC W/Diff, Automated Today 5. ESRD (end stage renal disease) on dialysis N18.6; Z99.2 Plan Patient went stress test as part of her kidney transplant evaluation on 05/24/2020 that cannot exclude ischemia. Thus she will proceed with heart catheterization. She was asked to begin Plavix 300 mg 2 days prior and begin aspirin 81 mg morning of procedure along with Plavix 75 mg morning of procedure. She will hold Coumadin approximately 5 days prior to procedure. With respect to contrast dye and dialysis, she will undergo dialysis the following day. As long she does not receive any excessive IV fluid or IV contrast, she does not require special dialysis session. She follows with Dr. Kwok, local sales manager. Plan Detail Other Orders Orders: Left Heart Cath/COR/LV Percut Today I38, R94.39, Z01.810 Basic Metabolic Profile (BMP) Today I38, R94.39, Z01.810 Partial Thromboplast Time Today I38, R94.39, T82.898A, Z01.810 Prothrombin Time w/INR Today I38, R94.39, Z01.810, Z79.01 CBC W/Diff, Automated Today I38, R94.39, Z01.810 Chest PA and Lateral Today I38, R94.39, Z01.810 Other Medications New: clopidogrel (Plavix) 300mg (4 pills) day before procedure, 75mg (1 pill) morning of procedure. 75 mg PO QDAY 30 tabs 0RF Changed: From: isosorbide dinitrate 10 mg PO TID 90 tabs 12RF To: isosorbide dinitrate 10 mg PO BID Additional Comments Thank you for allowing us to participate in the patients plan of care, if you have any questions please do not hesitate to call. This note was generated using a voice recognition system and there may be incorrect words, spelling or punctuation that were not noted when reviewing the office note prior to saving. Follow Up 3-6 months (SPECIAL POPULATION PARAPROFESSIONAL) Coding Level of Care Code Off vis,est,level 3 Diagnoses Paroxysmal atrial fibrillation I48.0 Nonrheumatic mitral valve regurgitation I34.0 Cardiomyopathy, unspecified type I42.9 ??Cardiomyopathy type: unspecified Essential hypertension I10 ESRD (end stage renal disease) on dialysis N18.6; Z99.2 Coding Level of Care Code Off vis,est,level 3 Diagnoses Paroxysmal atrial fibrillation I48.0 Nonrheumatic mitral valve regurgitation I34.0 Cardiomyopathy, unspecified type I42.9 ??Cardiomyopathy type: unspecified Essential hypertension I10 ESRD (end stage renal disease) on dialysis N18.6; Z99.2 Supplemental Info Supplemental Information Cardiac MRI from 04/18/18: 1. Left ventricle is mildly dilated, and has mildly reduced systolic function (LVEF=45%). The right ventricle is markedly dilated and has mildly reduced systolic function (RVEF=45%). 2. Moderate mitral regurgitation (RF=23%). Moderate tricuspid regurgitation (RF=29%). No significant aortic or pulmonic regurgitation. 3. Moderate left and mild right atrial dilation. Transthoracic echocardiogram performed on 08/20/2017: Interpretation Summary The study was technically difficult. Mildly dilated left ventricle. Moderate segmental systolic dysfunction (see wall motion). The estimated ejection fraction is 30 %. Apical false tendon noted. The left atrium is mildly enlarged. There is mild mitral annular calcification. Mild diffuse mitral valve thickening. Moderate (2+) eccentric mitral valve insufficiency. Moderately severe (3+) eccentric tricuspid valve insufficiency. Mild (1+) pulmonic valve insufficiency. Right ventricular systolic pressure estimated to be 54 mmHg. Echocardiogram: 10/13/2019 Interpretation Summary Mildly dilated left ventricle. Mild global left ventricular systolic dysfunction. The estimated ejection fraction is 50 %. Apical false tendon noted. The left atrium is mildly enlarged. There is mild mitral annular calcification. Mild diffuse mitral valve thickening. Mild papillary muscle dysfunction of the mitral valve. Moderately severe (3+) eccentric mitral valve insufficiency. Moderate (2+) tricuspid valve insufficiency. Mild (1+) pulmonic valve insufficiency. Right ventricular systolic pressure estimated to be 55 mmHg. Unable to assess diastolic dysfunction. Stress nuclear study performed on 08/20/2017: Impression: 1. Rest and stress SPECT Cardiolite nuclear imaging demonstrate myocardial perfusion changes appearing compatible with an area of previous myocardial injury/infarction, although, contribution from soft tissue attenuation/artifact cannot necessarily be excluded, with no myocardial perfusion changes consider diagnostic for associated stress-induced myocardial ischemia. 2. The gated Cardiolite study reports an LVEF of 39 %. Cardiac catheterization performed on 08/21/2017: CORONARY ANGIOGRAPHY DOMINANCE: Left Dominant LEFT HEART ASSESSMENT Left Ventricular Ejection Fraction: by LV Gram 35 % Global Hypokinesis - Moderate Elevated Left Ventricular End Diastolic Pressure LVEDP: 21 mmHg RIGHT HEART ASSESSMENT Thermal CO: 3.51 Thermal CI: 1.98 Violet CO: 3.84 Violet CI: 2.17 PW: 20/34 22 PA: 58/22 38 RV: 55/2 14 RA: 14/15 11 PVR: 365 Right Heart pressures - elevated Pulmonary Hypertension Severe Intracardiac shunting: None Calculated Qp/Qs Ratio: 0.8 considered non hemodynamically significant LEFT MAIN: Angiographically normal LEFT ANTERIOR DESCENDING ARTERY: Angiographically normal CIRCUMFLEX ARTERY: Angiographically normal RIGHT CORONARY ARTERY: Angiographically normal VALVE FINDINGS: Normal Aortic Valve function 2018 No Complications Stress Test Report Date: 05-24-2020 Procedure: Pharmacologic stress nuclear imaging study Indications: Non-CAD related cardiomyopathy; paroxysmal atrial fibrillation; valvular heart disease; preoperative assessment for renal transplantation Consent: Per the patient Procedure: The patient underwent pharmacologic (Regadenoson 0.4mg ) evaluation with a peak heart rate of 106 beats per minute (59%predicted maximal heart rate) and a peak blood pressure of 132/90 mmHg. The baseline ECG demonstrated normal sinus rhythm; anterior KS of indeterminate age cannot be excluded; lateral amount of indeterminate age cannot be excluded; nonspecific ST/T wave abnormality. The peak pharmacologic ECG demonstrated no obvious ECG changes. There were no cardiac dysrhythmias pretest, during pharmacologic infusion, or recovery. There was no complaint of chest discomfort during pharmacologic infusion or recovery. The examination was discontinued secondary to completion of protocol. Impression: 1. Pharmacologic (Regadenoson) evaluation 2. Peak pharmacologic ECG with no obvious ECG changes. 3. There were no cardiac dysrhythmias pretest, during pharmacologic infusion, or recovery. 4. Nuclear images pending Myocardial perfusion imaging study: Technique: The patient was injected with 11.8 millicuries of technetium 99m Cardiolite and subsequently rest SPECT Cardiolite nuclear imaging was obtained in the horizontal long, vertical long, and short axis views. The patient underwent pharmacologic (Regadenoson) evaluation with a peak heart rate of 106 beats per minute (59% percent predicted maximal heart rate) and a peak blood pressure of 132/90 mmHg. The patient was injected with 34.2 millicuries of technetium 99m Cardiolite and subsequently stress SPECT Cardiolite nuclear imaging was obtained in the horizontal long, vertical long, and short axis views. A gated Cardiolite study at peak stress was obtained. Interpretation: Rest and stress SPECT Cardiolite nuclear imaging status post realignment, normalization, and attenuation correction demonstrate at rest the appearance of relative uniform tracer uptake and myocardial perfusion appearing within normal limits. Status post stress there is an area of diminished tracer uptake in the distal lateral/lateral apical segments. There is end systolic thickening and brightening. The gated Cardiolite study demonstrates myocardial thickening and inward wall motion. The reported LVEF is 57%. Impression: 1. Rest and stress SPECT current nuclear imaging demonstrate myocardial perfusion changes potentially compatible with shifting soft tissue attenuation/artifact although an area of stress-induced myocardial ischemia in portions of the distal lateral/lateral apical segments cannot be excluded. 2. The gated Cardiolite study reports an LVEF of 57%. 30 day event monitor from September 2017 showed sinus rhythm; PVCs; irregular PSVT (7-10 beats) c/w PAF; irregular NSWCT (4-5 beats) c/w a combination of aberrancy and ventricular ectopy; symptoms of heart racing and shortness of breath with PVCs. She was started on coumadin and referred to EP for possible AICD. Diagnostics Electrocardiogram 09/03/19 Echocardiogram 10/13/19 Stress Test Nuclear Medicine 05/24/20 Stress Test 05/24/20 Chest X-Ray 06/01/20 COVID (Procedure Consent) Procedure Criteria Procedure Criteria: Yes Elective The surgeon/proceduralist and patient have discussed in detail the risk of exposure to and/or potential harm posed by the COVID-19 virus with having a surgery/procedure at this time versus the risk of? delaying the surgery/procedure. It is not possible to know either the risk of delaying the surgery or procedure or chance of getting an infection with perfect accuracy, but a joint decision was made between the patient and the surgeon/proceduralist ?to proceed at this time with the scheduled surgery/procedure as indicated on the consent form. I have re-examined the patient. There are no clinical changes since date of exam.
[2020-06-14 09:13] LABS: Internal QC Validated? YES +Cl - CLEAR BKGD; Pregnancy, Urine Negative Negative
[2020-06-14 09:16] LABS: International Normalized Ratio 1.2; Prothrombin Time (Protime)PT. 14.5 SECONDS (11.7-14.9)
--- NOTE | 2020-06-14 12:09 | CL.D_ITS ---
Patient Name: LIDIA MUNSON Study Date: 06/14/2020 Performing: Bunny Woodward MD Ht: 64.17 inches 163 cm : 1975 Wt: 136.69 lbs 62 kg Age: 44 Gender: female BSA: 1.67 PROCEDURE(S) PERFORMED [id number] CLINICAL PROFILE AND INDICATIONS Indications: Pre-Operative Evaluation Heart Failure: None Stress/Imaging Date: 05/24/2020tress Test with SPECT MPI: Indeterminant Angina Classification Anginal Classification w/in 2 Weeks: No symptoms CAD Presentations: No Sxs, no angina. CONCLUSIONS Elevated Left Ventricular End Diastolic Pressure Normal coronary arteries RECOMMENDATIONS Risk factor modification Medical therapy DESCRIPTION OF PROCEDURE The patient arrived to the procedure lab. The risks and benefits of the procedure as well as a full d escription of our services here and current unavailability of surgical backup were fully explained to the patient and/or their significant other prior to the catheterization. The Timeout was completed, verifying the correct patient and procedure. The patient's procedural site was prepped and draped in the usual fashion. Local anesthetic was given subcutaneously to right radial region with Lidocaine 2% . Using a modified Seldinger technique, arterial access was obtained via the right radial artery, a 6 Fr sheath was inserted. Left Coronary Artery selective angiography was performed in multiple views u sing a 5 Fr. 4.0 [place] catheter. Right Coronary Artery selective angiography was then performed in mu ltiple views using a 5 Fr. 4.0 [place] catheter. Right Coronary Artery selective angiography was then p erformed in multiple views using a 5 Fr. JR 4 catheter.The arterial sheath was pulled and a TR Band was applied for hemostasis w/ 17ml air CORONARY ANGIOGRAPHY DOMINANCE: Left Dominant LEFT HEART ASSESSMENT Left Ventricular Ejection Fraction: Not assessed Elevated Left Ventricular End Diastolic Pressure LVEDP: 26 mmHg LEFT MAIN: Angiographically normal LEFT ANTERIOR DESCENDING ARTERY: Angiographically normal CIRCUMFLEX ARTERY: Angiographically normal RIGHT CORONARY ARTERY: Angiographically normal COMPLICATIONS No Complications PROCEDURE MEDICATIONS Versed 1 mg IV Fentanyl 50 mcg IV Versed 1 mg IV Fentanyl 50 mcg IV Oxygen: 2 L/min via nasal cannula SUMMARY OF HEMODYNAMIC DATA Time AIR REST ECG 09:12:36 AO 139/61 (90) SA 10:50:46 LV 138/0, 26 11:00:42 LV 138/1, 11:00:49 LVp 141/3, 26 11:00:59 AOp 138/68 (94) 11:01:04 Signed By Bunny Woodward MD On 06/14/2020 12:08:45 Bnuny Woodward MD
== END 2020-06-14 13:10 | disposition home or self-care (01) ==
LOC: CLSP 08:42
PROVIDERS: PCP Internal Medicine; Referring Provider Internal Medicine Cardiovascular Disease; Visit Provider Internal Medicine Cardiovascular Disease
DX: I48.0 Paroxysmal atrial fibrillation (principal); I34.0 Nonrheumatic mitral (valve) insufficiency; I42.9 Cardiomyopathy, unspecified; I12.0 Hypertensive chronic kidney disease with stage 5 chronic kidney disease or end stage renal disease; N18.6 End stage renal disease; Z99.2 Dependence on renal dialysis; I27.20 Pulmonary hypertension, unspecified; J44.9 Chronic obstructive pulmonary disease, unspecified; Z79.02 Long term (current) use of antithrombotics/antiplatelets; Z79.01 Long term (current) use of anticoagulants; Z79.899 Other long term (current) drug therapy
CPT/HCPCS: 36415; 81025; 85610; 93454; 93458; 99152; 99153; J7040; Q9967; C1769; C1894

== ENCOUNTER 2021-03-29 17:47 | Emergency (ER) | payer OTHER, MEDICARE, MEDICAID, SELFPAY ==
[2021-03-29 17:50] VITALS: BP 117/69; PULSE 80; RESP 16; TEMP 35.8; O2SAT 100; BMI 30.2
--- NOTE | 2021-03-29 18:13 | RAD_ITS ---
STUDY: X-RAY - LEFT TIBIA AND FIBULA REASON FOR EXAM: Female, 45 years old. Fall on 03/14 continued swelling and pain. TECHNIQUE: 2 view(s) of the tibia and fibula were obtained. COMPARISON: None. FINDINGS: Normal visualized tibia. Normal visualized fibula. There is no demonstrated acute fracture. The soft tissue structures are unremarkable. RAD/Tibia & Fibula 2 Views IMPRESSION: Normal x-ray examination of the tibia and fibula. Electronically Signed: Suresh Mejia MD at 18:57 EST , Service support ,
--- NOTE | 2021-03-29 18:15 | US_ITS ---
STUDY: VENOUS DOPPLER ULTRASOUND - LEFT LOWER EXTREMITY REASON FOR EXAM: Female, 45 years old. LT LOWER LEG SWELLING TECHNIQUE: Ultrasound evaluation of the deep vein system to include sutton-scale imaging and compression was performed. Sutton-scale imaging and Doppler sonographic evaluation, including duplex spectral analysis and qualitative color flow sonography, was performed. COMPARISON: Doppler venous ultrasound exam of the bilateral lower extremities dated SEPTEMBER 01, 2019 FINDINGS: Common Femoral Vein: Normal compression, spontaneity and augmentation. Normal color Doppler. Common Femoral Vein/Greater Saphenous Junction: Normal compression, spontaneity and augmentation. Normal color Doppler. Femoral Proximal: Normal compression, spontaneity and augmentation. Normal color Doppler. Femoral Middle: Normal compression, spontaneity and augmentation. Normal color Doppler. Femoral Distal: Normal compression, spontaneity and augmentation. Normal color Doppler. Popliteal Vein: Normal compression, spontaneity and augmentation. Normal color Doppler. Posterior Tibial Vein: Normal compression, spontaneity and augmentation. Normal color Doppler. Peroneal Vein: Normal compression, spontaneity and augmentation. Normal color Doppler. A lobular cystic appearing anechoic lesion is seen in the subcutaneous tissues in the anterior aspect of the left calf measuring 3.6 x 2.7 x 0.9 cm which appears to represent a small fluid pocket. No vascular flow is seen within this lesion. The right common femoral vein was evaluated and is normal. US/Venous Duplex Imag/Limited/Uni IMPRESSION: 1. Normal venous Doppler ultrasound of the left lower extremity. 2. A lobular cystic appearing anechoic lesion is seen in the subcutaneous tissues in the anterior aspect of the left calf measuring 3.6 x 2.7 x 0.9 cm which appears to represent a small fluid pocket. No vascular flow is seen within this lesion. Electronically Signed: Suresh Mejia MD at 19:35 EST , Service support ,
--- NOTE | 2021-03-29 18:16 | EDS_ITS ---
HPI History of Present Illness Chief Complaint: Lower Extremity Injury Occured/Mechanism Mechanism/Context: Yes injury and Yes blunt trauma Onset/Context/Timing Onset: Days Context: Sudden Onset Timing: Continuous Quality of Pain: Dull and Aching Current Severity: Mild Maximum Severity: Mild Associated Symptoms Associated Symptoms: Negative for Parasthesia, Weakness and Loss of Funtion Narrative Narrative: 45-year-old female had a work-related injury on March 14. 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 Was seen already for this at [facility]. Reportedly had negative x-rays. She is on Eliquis due to chronic history of A. fib. And states that the swelling has not gone down nicely may be worse. 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 She did not strike her head. She has a history of a renal transplant done at the [facility]. Prior similar symptoms: No Recent Illness/Hospitalization: No PFSH PFS Medical History Abnormal cardiac enzyme level Abnormal nuclear stress test Alport syndrome Bigeminal pulse Bradycardia Cardiomyopathy COPD (chronic obstructive pulmonary disease) ESRD (end stage renal disease) on dialysis Essential hypertension Hyperkalemia detention (current) use of anticoagulants Nonrheumatic mitral valve regurgitation Nonrheumatic tricuspid valve regurgitation Paroxysmal atrial fibrillation Problem with dialysis access Pulmonary hypertension Valvular heart disease Home Medications esomeprazole magnesium 40 mg PO DAILY 08/18/17 [History Last Taken 06/14/20] aspirin 81 mg PO DAILY@0800 06/14/20 [History Last Taken 06/14/20] acyclovir 200 mg capsule 200 mg PO TID 10/04/20 [History Last Taken Unknown] amlodipine 10 mg tablet 5 mg PO DAILY tab 10/04/20 [History Last Taken Unknown] atorvastatin 10 mg tablet 10 mg PO DAILY 10/04/20 [History Last Taken Unknown] mycophenolate mofetil 250 mg capsule 500 mg PO BID 10/04/20 [History Last Taken Unknown] prednisone 5 mg tablet 5 mg PO DAILY tab 10/04/20 [History Last Taken Unknown] sulfamethoxazole 400 mg-trimethoprim 80 mg tablet 1 tab PO DAILY 10/04/20 [History Last Taken Unknown] apixaban 5 mg tablet 5 mg PO BID #60 tab 10/18/20 [Rx Last Taken Unknown] carvedilol 12.5 mg tablet 12.5 mg PO BID #180 tab 01/09/21 [Rx Last Taken Unknown] magnesium oxide 800 mg PO BID 90 Days #360 tab 02/13/21 [Rx Last Taken Unknown] tacrolimus 1 mg tablet,extended release 24 hr 6 mg PO DAILY tab 02/13/21 [His tory Last Taken Unknown] Allergy/AdvReac Type Severity Reaction Status Date / Time amoxicillin [From Augmentin] Allergy Hives Verified 03/29/21 17:49 cephalexin [From Keflex] Allergy Hives Verified 03/29/21 17:49 clavulanic acid Allergy Hives Verified 03/29/21 17:49 [From Augmentin] oxycodone Allergy Hives Verified 03/29/21 17:49 vancomycin Allergy Hives Verified 03/29/21 17:49 Family History Mother Heart disease Kidney disease Surgical History H/O section H/O foot surgery Hernia History of left heart catheterization (LHC) (~06/14/20) Peritoneal dialysis catheter in place Renal transplant, status post S/P cardiac catheterization (~09/08/17) S/P laparoscopic cholecystectomy Status post colonoscopy Surgically constructed arteriovenous fistula Social History Smoking Status: Never smoker alcohol intake: never substance use type: does not use caffeine: No ROS ROS ED ROS Narrative Denies. Review of Systems ROS Unobtainable: Denies due to encephalopathy Constitutional Constitutional ED: Denies chills or fever(s) Eyes Eyes: Denies change in vision ENT ENT ED: Denies ear pain Cardiovascular Cardiovascular: Denies chest pain Respiratory/Chest Respiratory/Chest: Denies cough or dyspnea Gastrointestinal Gastrointestinal: Denies abdominal pain, diarrhea, nausea or vomiting Genitourinary Genitourinary ED: Denies dysuria Musculoskeletal Musculoskeletal: Denies myalgias Integumentary Denies rash Neurologic Neurologic: Denies headache(s) Psychiatric Psychiatric: Denies depression Endocrine Endocrinology: Denies polyuria Hematologic/Lymphatic Hematologic/Lymphatic: Denies easy bruising Allergic/Immunologic Allergic/Immunologic ED: Denies urticaria EXAM Physical Exam Narrative Exam Narrative: White female no acute distress vital signs stable afebrile. HEENT exam unremarkable atraumatic. Nontender. C-spine nontender. Lungs clear to auscultation. Heart regular rate and rhythm rate about 80 no murmur. Chest were nontender. Abdomen soft nontender. Pelvic girdle intact. Moving all 4 extremities. Neurovascular intact. Left lower leg is mildly swollen. Bruised contusions. Mildly tender. Left foot is neurovascularly intact. Minimal swelling. Normal DP pulse. Able to wiggle her toes. Acute neurologic exam normal. GCS of 15. Awake alert. Back nontender. Const Vital Signs: 03/29/21 17:50 Temperature 96.5 F L Temperature Source Temporal Pulse Rate 80 Respiratory Rate 16 Blood Pressure 117/69 Blood Pressure Mean 85 Pulse Ox 100 Oxygen Delivery Method Room Air Positive well nourished and well developed; Negative for cachectic, contractures or unkempt General Appearance ED: well developed and NAD; Negative for unkempt, cachectic or contractures Nutritional Appearance: Negative for cachectic HEENT Reports moist mucous membranes normocephalic and atraumatic Eyes PERRL Neck full ROM and supple Thyroid: Negative for tender Chest Wall inspection of chest normal and palpation of chest normal Resp normal respiratory effort, no retractions and clear to auscultation bilaterally Auscultation: Negative for rales, rhonchi or wheezes Cardio regular rate, regular rhythm, S1 normal heart sound, S2 normal heart sound and no murmurs GI non-tender, non-distended and no masses Auscultation: normoactive bowel sounds Palpation: soft; Negative for tender, guarding or rebound tenderness present Back/Spine no CVA tenderness Cervical Spine: Negative for cervical spine tenderness Thoracic Spine / Upper Back: Negative for thoracic spinal tenderness Lumbar Spine / Lower Back: Negative for lumbar spinal tenderness Extremity normal to inspection and full ROM Extremity Narrative: Bruising mild swelling left lower leg. Foot neurovascularly intact with normal range of motion. General Extremety ED: Yes edema; Negative for cyanosis General Extremity: edema; Negative for cyanosis Neuro oriented x3 and moves all extremities Sensorium / Orientation: alert, oriented to person, oriented to place and oriented to time; Negative for orientation impaired, confused, lethargic or stuporous Motor Exam: strength 5/5 throughout Psych mental status grossly normal Appearance: Negative for unkempt Skin no wounds Skin Narrative: Left lower extremity bruising mild swelling. Lesions: no lesions Rashes: no rashes MDM MDM MDM Narrative Medical decision making narrative: Per patient request and that the transplant center [facility] ultrasound to be done of her left lower extremity to rule out DVT. Clinically think is from contusions and soft tissue swelling and not a DVT. Also I will repeat the x-ray of her left tib-fib to ensure that there is no fracture. Lab Data Attestation: I reviewed the patient's lab results. Lab results narrative: Knee x-ray negative. 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 Radiography Diagnostic Testing: Left lower leg x-ray 2 views interpreted by myself shows no acute abnormality. No fracture or dislocation. Discharge Plan Triage Chief Complaint: Lower Extremity Injury ED Provider: Doron Brothers Dx/Rx/DC Orders Clinical Impression: Contusion of left leg Instructions: ED Contusion, Lower Extremity Prescriptions: No Action mycophenolate mofetil [CellCept] 250 mg capsule 500 mg PO BID RF: 0 prednisone 5 mg tablet 5 mg PO DAILY RF: 0 sulfamethoxazole-trimethoprim [Bactrim] 400-80 mg tablet 1 tab PO DAILY RF: 0 acyclovir 200 mg capsule 200 mg PO TID RF: 0 atorvastatin 10 mg tablet 10 mg PO DAILY RF: 0 amlodipine 10 mg tablet 5 mg PO DAILY RF: 0 Envarsus XR 1 mg tablet extended release 24 hr 6 mg PO DAILY RF: 0 magnesium oxide 400 mg magnesium tablet 800 mg PO BID 90 Days Qty: 360 RF: 0 esomeprazole magnesium 40 MG capsule 40 mg PO DAILY RF: 0 aspirin 81 MG tablet,chewable 81 mg PO DAILY@0800 RF: 0 Eliquis 5 mg tablet 5 mg PO BID Qty: 60 RF: 11 carvedilol 12.5 mg tablet 12.5 mg PO BID Qty: 180 RF: 3 Primary Care Provider: Zofia Devries Referrals: Zofia Devries MD [Primary Care Provider] - 1 Week if not improving Activity Restrictions/Additional Instructions: Ice and elevate your left leg to decrease pain and swelling. Tylenol for pain. Continue your current medications. All the swelling is secondary to bruising. This should continue to improve. Follow-up if not. Disposition Disposition: Home, Self Care
== END 2021-03-29 18:58 | disposition home or self-care (01) ==
PROVIDERS: Emergency Provider Emergency Medicine; PCP Internal Medicine
DX: S80.12XA Contusion of left lower leg, initial encounter (principal); W01.0XXA Fall on same level from slipping, tripping and stumbling without subsequent striking against object, initial encounter; Y93.9 Activity, unspecified; Y92.9 Unspecified place or not applicable; I12.0 Hypertensive chronic kidney disease with stage 5 chronic kidney disease or end stage renal disease; N18.6 End stage renal disease; Z99.2 Dependence on renal dialysis; I27.20 Pulmonary hypertension, unspecified; I42.9 Cardiomyopathy, unspecified; Q87.81 Alport syndrome; I34.0 Nonrheumatic mitral (valve) insufficiency; I48.0 Paroxysmal atrial fibrillation; J44.9 Chronic obstructive pulmonary disease, unspecified; Z79.01 Long term (current) use of anticoagulants; Z79.82 Long term (current) use of aspirin; Z79.899 Other long term (current) drug therapy
CPT/HCPCS: 73590; 93971; 99282

== ENCOUNTER 2022-03-09 14:01 | Outpatient (CLI) | payer MEDICARE, MEDICAID, SELFPAY ==
--- NOTE | 2022-03-09 14:03 | ECHOD_ITS ---
Reason For Study: CMP Procedure This was a 2D Doppler, Color Flow transthoracic echocardiogram. The exam was of adequate technical quality. Exam performed in department. Left Ventricle Normal LV size. Left ventricular systolic function is normal. The estimated ejection fraction is 60 %. No evidence for diastolic dysfunction. No regional wall motion abnormalities noted. Right Ventricle Normal RV size. Normal systolic function. Atria The left atrium is mildly enlarged. Normal right atrium. No doppler evidence for ASD. Mitral Valve There is no mitral annular calcification. Normal mitral valve. Mild (1+) eccentric mitral valve insufficiency. Tricuspid Valve Normal tricuspid valve. Mild (1+) tricuspid valve insufficiency. Unable to estimate RV systolic pressure due to insufficient tricuspid regurgitant envelope. Aortic Valve Trisinus/trileaflet aortic valve. Normal aortic valve. Pulmonic Valve The pulmonic valve is not well visualized. Mild (1+) pulmonic valve insufficiency. Great Vessels Normal sized aortic root. Pericardium/Pleural No pericardial effusion. MMode/2D Measurements & Calculations LVIDd: 5.6 cm IVSd: 0.75 cm Ao root diam: 2.7 cm LVIDs: 3.4 cm LVPWd: 0.79 cm RVDd: 3.0 cm FS: 39.4 % LAV(MOD-bp): 52.3 ml LVAd ap4: 28.8 cm2 SV(MOD-sp4): 57.1 ml LAV(MOD-bp) Indexed: 28.5 ml/m2 LVLd ap4: 7.6 cm LAV(MOD-sp2): 43.9 ml EDV(MOD-sp4): 90.1 ml LAV(MOD-sp4): 56.2 ml EDV(sp4-el): 92.8 ml LVAs ap4: 15.9 cm2 LVLs ap4: 6.6 cm ESV(MOD-sp4): 33.0 ml ESV(sp4-el): 32.6 ml EF(MOD-sp4): 63.4 % EF(sp4-el): 64.8 % SV(sp4-el): 60.1 ml LA A4 area: 19.1 cm2 LA dimension(2D): 4.0 cm RA A4 area: 10.8 cm2 Time Measurements MV dec time: 0.25 sec Doppler Measurements & Calculations MV E max liza: 83.4 cm/sec MV V2 max: 94.7 cm/sec MV dec slope: 336.0 cm/sec2 MV A max liza: 64.5 cm/sec MV max P.6 mmHg MV E/A: 1.3 MV V2 mean: 63.7 cm/sec MV mean P.7 mmHg MV V2 VTI: 34.4 cm Ao V2 max: 183.0 cm/sec LV V1 max: 92.8 cm/sec PA V2 max: 101.8 cm/sec Ao max P.5 mmHg LV V1 max P.0 mmHg PA V2 mean: 71.0 cm/sec Ao V2 mean: 127.9 cm/sec LV V1 mean P.1 mmHg Ao mean P.5 mmHg LV V1 mean: 61.9 cm/sec Ao V2 VTI: 36.3 cm LV V1 VTI: 13.9 cm ECHO/Echo Complete Interpretation Summary Left ventricular systolic function is normal. The estimated ejection fraction is 60 %. The left atrium is mildly enlarged. Mild (1+) eccentric mitral valve insufficiency. Mild (1+) tricuspid valve insufficiency. Mild (1+) pulmonic valve insufficiency. Unable to estimate RV systolic pressure due to insufficient tricuspid regurgita nt envelope. No evidence for diastolic dysfunction. Ordering Physician: Shante العلي Performed By: Joselin Schwartz RCS
== END 2022-03-09 23:59 | disposition home or self-care (01) ==
LOC: CVS 14:02
PROVIDERS: PCP Internal Medicine; Visit Provider Nurse Practitioner Gerontology
DX: I38 Endocarditis, valve unspecified (principal); I42.9 Cardiomyopathy, unspecified
CPT/HCPCS: 93306